=== PATIENT | male | born 1950 | race Caucasian/White ===

== ENCOUNTER 2021-07-27 12:19 | Day surgery (SDC) | payer MEDICARE, OTHER, SELFPAY ==
[2021-07-25 14:30] VITALS: BMI 34.0
--- NOTE | 2021-07-27 12:22 | US_ITS ---
WS: [id number] ULTRASOUND-GUIDED PARACENTESIS CLINICAL INFORMATION: ascites COMPARISON: None. Procedure Informed consent: The risks, benefits, and alternatives of the procedure were discussed with the lisa ent. Verbal and written consent was obtained. Timeout: A timeout was performed to confirm the correct patient, procedure, and site. Preparation: A suitable skin site was identified. The patient was prepped and draped in usual sterile fashion. Lidocaine 1% was used for local anesthesia. Catheter: 4 Afghan One-step Yueh catheter. Side: LEFT Lower quadrant. Fluid Volume: 7100 ml Color: Clear yellow DISPOSITION: Discarded safely. Complications: None. Patient disposition: Discharged from the department in stable condition. US/US paracentesis abd w [id number] IMPRESSION: Uncomplicated ultrasound-guided paracentesis. Removal of 7100 cc
[2021-07-27 12:35] VITALS: BP 123/81; PULSE 78; RESP 18; TEMP 36.6; O2SAT 98
[2021-07-27 13:23] LABS: INR 1.59 (0.8-1.2)
== END 2021-07-27 14:50 | disposition home or self-care (01) ==
PROVIDERS: Radiology Neuroradiology; Visit Provider Internal Medicine Nephrology
PROC: 0W9G3ZZ Drainage of Peritoneal Cavity, Percutaneous Approach (ICD-10-PCS; principal; 2021-07-27 13:15)
DX: R18.8 Other ascites (principal)
CPT/HCPCS: 49083; 85610; P9047

== ENCOUNTER 2021-08-10 10:59 | Day surgery (SDC) | payer MEDICARE, OTHER, SELFPAY ==
[2021-08-09 10:26] VITALS: BMI 33.7
--- NOTE | 2021-08-10 12:09 | US_ITS ---
WS: [id number] ULTRASOUND-GUIDED PARACENTESIS CLINICAL INFORMATION: ascites COMPARISON: None. Procedure Informed consent: The risks, benefits, and alternatives of the procedure were discussed with the lisa ent. Verbal and written consent was obtained. Timeout: A timeout was performed to confirm the correct patient, procedure, and site. Preparation: A suitable skin site was identified. The patient was prepped and draped in usual sterile fashion. Lidocaine 1% was used for local anesthesia. Catheter: 4 Hong Konger One-step Yueh catheter. Side: LEFT Lower quadrant. Fluid Volume: 13,200 ml Color: Clear yellow DISPOSITION: Discarded safely. Complications: None. Patient disposition: Discharged from the department in stable condition. US/US paracentesis abd w [id number] IMPRESSION: Uncomplicated ultrasound-guided paracentesis. Removal of 13,200 cc
[2021-08-10 12:30] VITALS: BP 155/80; PULSE 65; RESP 18; TEMP 36.6; O2SAT 97
[2021-08-10 12:58] LABS: INR 2.05 (0.8-1.2)
[2021-08-10 15:00] VITALS: BP 147/80; PULSE 72; RESP 18; TEMP 36.7; O2SAT 98
== END 2021-08-10 15:10 | disposition home or self-care (01) ==
PROVIDERS: Radiology Neuroradiology; Visit Provider Internal Medicine Nephrology
PROC: (CPT 49082; principal; 2021-08-10 12:00)
DX: R18.8 Other ascites (principal)
CPT/HCPCS: 36415; 49083; 85610; 96365; P9047

== ENCOUNTER 2021-08-31 10:55 | Day surgery (SDC) | payer MEDICARE, OTHER, SELFPAY ==
[2021-08-24 14:07] VITALS: BMI 30.1
--- NOTE | 2021-08-31 11:02 | US_ITS ---
WS: [id number] ULTRASOUND-GUIDED THERAPEUTIC PARACENTESIS Procedure, risks, and complications have been explained to the patient. Consent is obtained. Utilizing aseptic technique and 1% buffered lidocaine, a small dermatome was made through which a 5 F rench Yueh catheter was inserted. Approximately 8300 ml of mild red-tinged peritoneal fluid was obtai ermelinda without difficulty. No complications encountered. US/US paracentesis abd w [id number] IMPRESSION: Uncomplicated paracentesis yielding 8300 ml of peritoneal fluid.
[2021-08-31 11:05] VITALS: BP 129/68; PULSE 66; RESP 18; TEMP 36.9; O2SAT 96
[2021-08-31 11:50] LABS: INR 1.44 (0.8-1.2)
== END 2021-08-31 13:30 | disposition home or self-care (01) ==
LOC: GILAB 10:55
PROVIDERS: PCP Physician Assistant; Visit Provider Internal Medicine Nephrology
PROC: (CPT 49082; principal; 2021-08-31 12:00)
DX: R18.8 Other ascites (principal)
CPT/HCPCS: 49083; 85610; P9047

== ENCOUNTER → 2021-09-19 09:35 | Outpatient (BNVA) | payer MEDICARE, OTHER, SELFPAY | PROVIDERS: PCP Physician Assistant; Visit Provider Podiatrist Foot & Ankle Surgery | DX: E11.8 Type 2 diabetes mellitus with unspecified complications (principal); E11.21 Type 2 diabetes mellitus with diabetic nephropathy; L60.3 Nail dystrophy | CPT/HCPCS: 11721; 99203; 99204 ==

== ENCOUNTER 2021-09-26 11:33 | Day surgery (SDC) | payer MEDICARE, OTHER, SELFPAY ==
[2021-09-22 13:58] VITALS: BMI 30.8
--- NOTE | 2021-09-26 11:46 | US_ITS ---
WS: [id number] ULTRASOUND-GUIDED THERAPEUTIC PARACENTESIS Procedure, risks, and complications have been explained to the patient. Consent is obtained. Utilizing aseptic technique and 1% buffered lidocaine, a small dermatome was made through which a 5 F rench Yueh catheter was inserted. Approximately 8500 ml of clear peritoneal fluid was obtained witho ut difficulty. No complications encountered. US/US paracentesis abd w [id number] IMPRESSION: Uncomplicated paracentesis yielding 8500 ml of peritoneal fluid.
[2021-09-26 11:55] VITALS: BP 134/82; PULSE 62; RESP 16; TEMP 36.4; O2SAT 98
[2021-09-26] MEDS: lidocaine 1% INJ 20 mL XX (12:23)
== END 2021-09-26 14:55 | disposition home or self-care (01) ==
LOC: GILAB 11:36
PROVIDERS: PCP Physician Assistant
PROC: (CPT 49082; principal; 2021-09-26 12:00)
DX: R18.8 Other ascites (principal)
CPT/HCPCS: 49083; P9047

== ENCOUNTER 2021-10-26 12:59 | Day surgery (SDC) | payer MEDICARE, OTHER, SELFPAY ==
[2021-10-26 12:30] VITALS: BMI 31.2
[2021-10-26 13:15] VITALS: BP 131/63; PULSE 50; RESP 18; TEMP 36.5; O2SAT 96
--- NOTE | 2021-10-26 13:22 | US_ITS ---
WS: [id number] ULTRASOUND-GUIDED PARACENTESIS CLINICAL INFORMATION: Ascites COMPARISON: None. Procedure Informed consent: The risks, benefits, and alternatives of the procedure were discussed with the lisa ent. Verbal and written consent was obtained. Timeout: A timeout was performed to confirm the correct patient, procedure, and site. Preparation: A suitable skin site was identified. The patient was prepped and draped in usual sterile fashion. Lidocaine 1% was used for local anesthesia. Catheter: 4 [place] One-step Yueh catheter. Side: LEFT Lower quadrant. Fluid Volume: 7100 ml Color: Clear yellow DISPOSITION: Discarded safely. Complications: None. Patient disposition: Discharged from the department in stable condition. US/US paracentesis abd w [id number] IMPRESSION: Uncomplicated ultrasound-guided paracentesis. Removal of 7100 cc ascites
--- NOTE | 2021-10-26 14:37 | PC.NURSE ---
Pt declined albumin as ordered by Dr. Murdock, stated the nurse who called yesterday for pre-op of the procedure told his he would not have to have any labs or IV. Pt states he does not want an IV and that his lab work at [facility] has shown improvement. Attempted to confer with Dr. Murdock however his office is closed today. Left requesting return call. Discussed the purpose and benefits of albumin with pt, pt voiced understanding and stated he believes he will be fine without receiving albumin today. Pt states he will discuss a new order eliminating albumin tomorrow with provider at [facility] when he receives his dialysis.
[2021-10-26 15:25] VITALS: BP 134/67; PULSE 63; RESP 16; O2SAT 99
== END 2021-10-26 15:29 | disposition home or self-care (01) ==
LOC: GILAB 13:01
PROVIDERS: Radiology Neuroradiology; PCP Physician Assistant; Visit Provider Internal Medicine Nephrology
PROC: (CPT 49082; principal; 2021-10-26 14:15)
DX: R18.8 Other ascites (principal)
CPT/HCPCS: 49083

== ENCOUNTER 2021-10-27 00:44 | Emergency (ER) | payer MEDICARE, OTHER, SELFPAY ==
[2021-10-27 00:54] VITALS: BP 129/76; PULSE 65; RESP 16; TEMP 36.2; O2SAT 97; BMI 30.8
--- NOTE | 2021-10-27 01:01 | W.ED.WOUNDLC ---
HPI - Wound/Laceration General: Chief Complaint: Wound/Laceration Stated Complaint: in here earlier, bleeding from post surgery Time Seen by Provider: 10/27/21 01:01 History of Present Illness: Mr. Waller is a 71-year-old gentleman with history of ascites requiring recurrent paracentesis who presents to the emergency department due to concern over bleeding. He had paracentesis earlier today which was uncomplicated. He noticed blood saturating his dressing prior to going to bed which is not typical of his postoperative course. Denies any other associated symptoms. No other specific changes in health, exacerbating, or alleviating factors identified. Onset (ago): hour(s) Location: abdomen Context: other Associated symptoms: Reports no associated symptoms Review of Systems General: Reports: 10 or more systems reviewed and unremarkable except in HPI and below PFSH ED PFSH: Medical History Ascites History of abdominal paracentesis Liver cirrhosis TIA (transient ischemic attack) Social History Smoking and tobacco status: never smoked Second hand smoke exposure: No Smoking risk assessment/counseling performed?: No Alcohol intake: never Desire information about alcohol rehabilitation?: No Counseling given: No Desire information about substance/drug rehabilitation?: No Counseling given: No Physical Exam Const: COMMON NORMALS: alert GENERAL APPEARANCE: cooperative and well developed HENMT: COMMON NORMALS: normocephalic and atraumatic HEAD & SCALP: normocephalic and atraumatic Eye: COMMON NORMALS: conjunctivae normal CONJUNCTIVA: Yes conjunctivae normal SCLERA: sclerae normal Neck/C-Spine: COMMON NORMALS: supple GENERAL: Yes trachea midline Resp: COMMON NORMALS: normal respiratory effort and clear to auscultation bilaterally EFFORT & INSPECTION: Yes able to speak in complete sentences AUSCULTATION: clear to auscultation bilaterally Cardio: COMMON NORMALS: regular rate and regular rhythm RATE: regular rate RHYTHM: regular rhythm GI: COMMON NORMALS: Soft to palpation PALPATION: Yes Soft to palpation and No Tenderness to palpation present (GI) PERCUSSION: normal to percussion OTHER: LLQ paracentesis site, no active hemorrhage or abnormality at paracentesis site Extremity: GENERAL: Yes normal exam except as noted and No edema Neuro: COMMON NORMALS: moves all extremities SENSORIUM/ORIENTATION: Yes alert and No Orientation impaired Psych: COMMON NORMALS: mental status grossly normal and Normal thought process present THOUGHT PROCESS: Normal thought process present Course Vital Signs: Vital signs: Vital Signs Temperature 97.1 F L 10/27/21 00:54 Pulse Rate 84 10/27/21 01:42 Respiratory Rate 16 10/27/21 00:54 Blood Pressure 129/76 10/27/21 00:54 Pulse Oximetry 96 10/27/21 01:42 MDM - Wound/Laceration Medical Decision Making 71-year-old gentleman presenting due to concern over bleeding after paracentesis. No other complaints. Bleeding resolved spontaneously prior to arrival and new dressing applied. Satisfactory for outpatient management with strict return precautions. Medical Records I reviewed the patient's medical records. Lab Data I reviewed the patient's lab results. Discharge Plan Discharge Patient Disposition: Home Clinical Impression: Postoperative hemorrhage of skin following non-dermatologic procedure Condition: Stable Prescriptions: No Action carvedilol 25 mg tablet 37.5 mg PO BID 0RF atorvastatin 10 mg tablet 10 mg PO DAILY 0RF docusate sodium [Colace] 100 mg capsule 100 mg PO BID 0RF aspirin [Aspirin Childrens] 81 mg tablet,chewable 81 mg PO DAILY 0RF cholecalciferol (vitamin D3) 125 mcg (5,000 unit) capsule 125 mcg PO DAILY 0RF calcium acetate(phosphat bind) 667 mg capsule 667 mg PO DAILY 0RF Dialyvite [phone] gd-rb-ert-mg tablet 1 tab PO DAILY 0RF tramadol 50 mg tablet 50 mg PO QID PRN (Reason: Pain) 0RF furosemide [Lasix] 80 mg tablet 120 mg PO BID 0RF Rx Instructions: To be taken on the days he does not have diaylsis. omega 7-hhz-ntm-fish oil 1,000 mg (120 mg-180 mg) capsule 1 cap PO DAILY 0RF warfarin 1 mg tablet 8 mg PO DAILY 0RF Rx Instructions: 7MG MWF AND 8MG SUN,TUES,THUR,SAT amlodipine 10 mg tablet 10 mg PO DAILY PRN (Reason: Blood Pressure) 0RF Discharge Orders: Discharge ED (Routine); Ordered 10/27/21 Ordered By: Castro Millard Referrals: Laya Devlin PA [Primary Care Provider] - Discharge Diet: Usual diet Discharge Activity: Limit activity as instructed Activity Restrictions/Additional Instructions: Thank you for visiting the emergency department. You were seen and evaluated for bleeding more than typical from your paracentesis site. On exam bleeding appears to have stopped. Please continue all instructions given by them regarding care and restrictions and activity. Please follow-up with your primary care provider. If bleeding returns please apply direct pressure for 15 minutes and if this does not stop bleeding return to the emergency department. Other reasons to return to the emergency department would be uncontrolled abdominal pain, lightheadedness, dizziness, chest pain, shortness of breath, or anything else that you are concerned about and feel needs emergency department evaluation. Coding Level of Care Code ED Welfare Eligibility Interviewer for Jonathan Beaulieu
--- NOTE | 2021-10-27 01:41 | PC.NURSE ---
2x2 x 3 used to dress area and op-site placed over dressing/
[2021-10-27 01:42] VITALS: PULSE 84; O2SAT 96
== END 2021-10-27 01:43 | disposition home or self-care (01) ==
PROVIDERS: Emergency Provider Emergency Medicine; PCP Physician Assistant
DX: L76.22 Postprocedural hemorrhage of skin and subcutaneous tissue following other procedure (principal)
CPT/HCPCS: 99282

== ENCOUNTER 2021-11-21 12:46 | Day surgery (SDC) | payer MEDICARE, OTHER, SELFPAY ==
[2021-11-21 13:18] VITALS: BP 140/76; PULSE 61; RESP 18; TEMP 36.4; O2SAT 98
[2021-11-21 13:19] VITALS: BMI 32.1
--- NOTE | 2021-11-21 13:20 | US_ITS ---
WS: [id number] ULTRASOUND-GUIDED PARACENTESIS CLINICAL INFORMATION: ascites COMPARISON: None. Procedure Informed consent: The risks, benefits, and alternatives of the procedure were discussed with the lisa ent. Verbal and written consent was obtained. Timeout: A timeout was performed to confirm the correct patient, procedure, and site. Preparation: A suitable skin site was identified. The patient was prepped and draped in usual sterile fashion. Lidocaine 1% was used for local anesthesia. Catheter: 4 Chilean One-step Yueh catheter. Side: LEFT Lower quadrant. Fluid Volume: 8250 ml Color: Clear yellow DISPOSITION: Discarded safely. Complications: None. Patient disposition: Discharged from the department in stable condition. US/US paracentesis abd w [id number] IMPRESSION: Uncomplicated ultrasound-guided paracentesis. Removal of 8250 cc
--- NOTE | 2021-11-21 14:14 | PC.NURSE ---
Dr. Murdock's written order did not specify amount of Albumin to be given, multiple attempts to reach his office for clarification were unsuccessful.
== END 2021-11-21 15:05 | disposition home or self-care (01) ==
LOC: GILAB 12:48
PROVIDERS: Radiology Neuroradiology; PCP Physician Assistant; Visit Provider Internal Medicine Nephrology
PROC: (CPT 49082; principal; 2021-11-21 13:30)
DX: R18.8 Other ascites (principal)
CPT/HCPCS: 49083

== ENCOUNTER 2021-12-21 11:12 | Day surgery (SDC) | payer MEDICARE, OTHER, SELFPAY ==
[2021-12-20 12:04] VITALS: BMI 25.1
--- NOTE | 2021-12-21 11:24 | US_ITS ---
WS: [id number] ULTRASOUND-GUIDED PARACENTESIS CLINICAL INFORMATION: ascites COMPARISON: None. Procedure Informed consent: The risks, benefits, and alternatives of the procedure were discussed with the lisa ent. Verbal and written consent was obtained. Timeout: A timeout was performed to confirm the correct patient, procedure, and site. Preparation: A suitable skin site was identified. The patient was prepped and draped in usual sterile fashion. Lidocaine 1% was used for local anesthesia. Catheter: 4 Polish One-step Yueh catheter. Side: LEFT Lower quadrant. Fluid Volume: 4250 ml Color: Yellow-orange DISPOSITION: Discarded safely. Complications: None. Patient disposition: Discharged from the department in stable condition. US/US paracentesis abd w [id number] IMPRESSION: Uncomplicated ultrasound-guided paracentesis. Removal of 4250 cc
[2021-12-21 11:30] VITALS: BP 139/82; PULSE 55; RESP 16; TEMP 36.1; O2SAT 98
[2021-12-21] MEDS: lidocaine 1% INJ 20 mL INJECTION (12:23)
[2021-12-21 13:25] VITALS: BP 142/78; PULSE 59; RESP 16; O2SAT 98
== END 2021-12-21 13:30 | disposition home or self-care (01) ==
LOC: GILAB 11:14
PROVIDERS: Radiology Neuroradiology; PCP Physician Assistant; Visit Provider Internal Medicine Nephrology
PROC: (CPT 49082; principal; 2021-12-21 12:00)
DX: R18.8 Other ascites (principal)
CPT/HCPCS: 49083; P9047

== ENCOUNTER 2022-01-25 11:03 | Day surgery (SDC) | payer MEDICARE, OTHER, SELFPAY ==
[2022-01-24 13:33] VITALS: BMI 31.5
--- NOTE | 2022-01-25 11:12 | US_ITS ---
WS: [id number] ULTRASOUND-GUIDED PARACENTESIS CLINICAL INFORMATION: ascites COMPARISON: None. Procedure Informed consent: The risks, benefits, and alternatives of the procedure were discussed with the lisa ent. Verbal and written consent was obtained. Timeout: A timeout was performed to confirm the correct patient, procedure, and site. Preparation: A suitable skin site was identified. The patient was prepped and draped in usual sterile fashion. Lidocaine 1% was used for local anesthesia. Catheter: 4 Cymraes One-step Yueh catheter. Side: LEFT Lower quadrant. Fluid Volume: 6000 ml Color: Clear yellow DISPOSITION: Discarded safely. Complications: None. Patient disposition: Discharged from the department in stable condition. US/US paracentesis abd w [id number] IMPRESSION: Uncomplicated ultrasound-guided paracentesis. Removal of 6000 cc
[2022-01-25 11:44] VITALS: BP 143/90; PULSE 63; RESP 18; TEMP 36.1; O2SAT 98
== END 2022-03-14 13:50 | disposition home or self-care (01) ==
PROVIDERS: Radiology Neuroradiology; PCP Physician Assistant; Visit Provider Internal Medicine Nephrology
PROC: (CPT 49082; principal; 2022-01-25 12:00)
DX: R18.8 Other ascites (principal)
CPT/HCPCS: 49083; 96365; P9047

== ENCOUNTER → 2022-01-30 10:39 | Outpatient (BNVA) | payer MEDICARE, OTHER, SELFPAY | PROVIDERS: PCP Physician Assistant; Visit Provider Podiatrist Foot & Ankle Surgery | DX: E11.8 Type 2 diabetes mellitus with unspecified complications (principal); E11.21 Type 2 diabetes mellitus with diabetic nephropathy; L60.3 Nail dystrophy | CPT/HCPCS: 11721 ==

== ENCOUNTER 2022-02-22 11:04 | Day surgery (SDC) | payer MEDICARE, OTHER, SELFPAY ==
[2022-02-21 12:42] VITALS: BMI 32.7
--- NOTE | 2022-02-22 11:28 | US_ITS ---
WS: [id number] ULTRASOUND-GUIDED THERAPEUTIC PARACENTESIS Procedure, risks, and complications have been explained to the patient. Consent is obtained. Utilizing aseptic technique and 1% buffered lidocaine, a small dermatome was made through which a 5 F rench Yueh catheter was inserted. Approximately 8000 ml of slight adelfo colored peritoneal fluid was obtained without difficulty. No complications encountered. US/US paracentesis abd w [id number] IMPRESSION: Uncomplicated paracentesis yielding 8000 ml of peritoneal fluid.
[2022-02-22 11:30] VITALS: BP 112/63; PULSE 62; RESP 18; TEMP 36.2; O2SAT 98
== END 2022-02-22 13:25 | disposition home or self-care (01) ==
PROVIDERS: Radiology Diagnostic Radiology; PCP Physician Assistant; Visit Provider Internal Medicine Nephrology
PROC: (CPT 49082; principal; 2022-02-22 12:00)
DX: R18.8 Other ascites (principal)
CPT/HCPCS: 49083; 96365; P9046

== ENCOUNTER 2022-03-22 11:13 | Day surgery (SDC) | payer MEDICARE, OTHER, SELFPAY ==
--- NOTE | 2022-03-22 11:28 | US_ITS ---
WS: [id number] ULTRASOUND-GUIDED PARACENTESIS CLINICAL INFORMATION: ascites COMPARISON: None. Procedure Informed consent: The risks, benefits, and alternatives of the procedure were discussed with the lisa ent. Verbal and written consent was obtained. Timeout: A timeout was performed to confirm the correct patient, procedure, and site. Preparation: A suitable skin site was identified. The patient was prepped and draped in usual sterile fashion. Lidocaine 1% was used for local anesthesia. Catheter: 4 Angolan One-step Yueh catheter. Side: LEFT Lower quadrant. Fluid Volume: 6000 ml Color: Clear yellow DISPOSITION: Discarded safely. Complications: None. Patient disposition: Discharged from the department in stable condition. US/US paracentesis abd w [id number] IMPRESSION: Uncomplicated ultrasound-guided paracentesis. Removal of 6000cc
[2022-03-22 11:29] VITALS: BP 103/53; PULSE 68; RESP 18; TEMP 36.4; O2SAT 92
--- NOTE | 2022-03-22 12:40 | PC.NURSE ---
Patient getting paracentesis. Patient had 6000 mL of intrapertioneal fluid drained when the fluid in the tubing became very bloody. Patient stated he felt like he was about done with being drained. This RN stopped the suction and clamped the tubing. This RN notified US angelique Stovall of the situation and asked for Dr. Baires number. Office number of Dr. Auguste received this RN attempted to call the office twice and was unable to get in touch with Dr. Auguste. This RN then called US angelique Asif again to report that I was unable to get in touch with Dr. Auguste. US angelique Asif called Dr. Baires personal cell and was able to get in touch with him. He reported to go ahead and stop the procedure and pull the paracentesis needle. This RN completed the orders. This RN held pressure to the site and covered the site with dermabond and a pressure dressing (2x2s and tegaderm). Patient educated to monitor for bleeding from the site and bruising around the site. Patient educated to go to the ER if the site begins to bleed or bruise and if he begins to feel ill. Patient understood education.
== END 2022-03-22 13:02 | disposition home or self-care (01) ==
LOC: GILAB 11:16
PROVIDERS: PCP Physician Assistant; Visit Provider Internal Medicine Nephrology
PROC: (CPT 49082; principal; 2022-03-22 12:00)
DX: R18.8 Other ascites (principal)
CPT/HCPCS: 49083; 96365; P9047

== ENCOUNTER 2022-04-03 11:17 | Day surgery (SDC) | payer MEDICARE, OTHER, SELFPAY ==
[2022-03-30 12:18] VITALS: BMI 32.3
[2022-04-02 11:25] VITALS: BP 107/71; PULSE 64; RESP 18; TEMP 36.5; O2SAT 100
--- NOTE | 2022-04-03 11:32 | US_ITS ---
WS: [email or web address] ULTRASOUND-GUIDED PARACENTESIS CLINICAL INFORMATION: ascites COMPARISON: None. Procedure Informed consent: The risks, benefits, and alternatives of the procedure were discussed with the lisa ent. Verbal and written consent was obtained. Timeout: A timeout was performed to confirm the correct patient, procedure, and site. Preparation: A suitable skin site was identified. The patient was prepped and draped in usual sterile fashion. Lidocaine 1% was used for local anesthesia. Catheter: 4 Albanian One-step Yueh catheter. Side: LEFT Lower quadrant. Fluid Volume: 3550 ml Color: Clear leobardo DISPOSITION: Discarded safely. Complications: None. Patient disposition: Discharged from the department in stable condition. US/US paracentesis abd w [id number] IMPRESSION: Uncomplicated ultrasound-guided paracentesis. Removal of 7550 cc
== END 2022-04-03 13:00 | disposition home or self-care (01) ==
LOC: GILAB 11:19
PROVIDERS: PCP Physician Assistant; Visit Provider Internal Medicine Nephrology
PROC: (CPT 49082; principal; 2022-04-03 12:30)
DX: R18.8 Other ascites (principal)
CPT/HCPCS: 49083; 96360; P9046

== ENCOUNTER 2022-04-19 11:38 | Day surgery (SDC) | payer MEDICARE, OTHER, SELFPAY ==
[2022-04-18 08:39] VITALS: BMI 32.3
--- NOTE | 2022-04-19 11:43 | US_ITS ---
WS: [id number] ULTRASOUND-GUIDED THERAPEUTIC PARACENTESIS Procedure, risks, and complications have been explained to the patient. Consent is obtained. Utilizing aseptic technique and 1% buffered lidocaine, a small dermatome was made through which a 5 F rench Yueh catheter was inserted. Approximately 4350 ml of light pink peritoneal fluid was obtained w ithout difficulty. No complications encountered. US/US paracentesis abd w [id number] IMPRESSION: Uncomplicated paracentesis yielding 4350 ml of peritoneal fluid.
[2022-04-19 12:13] VITALS: BP 120/65; PULSE 78; RESP 18; TEMP 36.9; O2SAT 95
[2022-04-19 13:03] LABS: INR 1.86 (0.8-1.2)
== END 2022-04-19 15:09 | disposition home or self-care (01) ==
LOC: GILAB 11:40
PROVIDERS: Radiology Diagnostic Radiology; PCP Physician Assistant; Visit Provider Internal Medicine Nephrology
PROC: (CPT 49082; principal; 2022-04-19 12:00)
DX: R18.8 Other ascites (principal)
CPT/HCPCS: 36415; 49083; 85610; 96365; P9047

== ENCOUNTER 2022-05-03 11:20 | Day surgery (SDC) | payer MEDICARE, OTHER, SELFPAY ==
[2022-05-03 11:31] VITALS: BP 152/71; PULSE 77; RESP 18; TEMP 36.7; O2SAT 95
--- NOTE | 2022-05-03 11:37 | US_ITS ---
WS: [email or web address] ULTRASOUND-GUIDED PARACENTESIS CLINICAL INFORMATION: ascities COMPARISON: None. Procedure Informed consent: The risks, benefits, and alternatives of the procedure were discussed with the lisa ent. Verbal and written consent was obtained. Timeout: A timeout was performed to confirm the correct patient, procedure, and site. Preparation: A suitable skin site was identified. The patient was prepped and draped in usual sterile fashion. Lidocaine 1% was used for local anesthesia. Catheter: 4 Sinhala One-step Yueh catheter. Side: LEFT Lower quadrant. Fluid Volume: 4500 ml Color: Clear yellow DISPOSITION: Discarded safely. Complications: None. Patient disposition: Discharged from the department in stable condition. US/US paracentesis abd w [id number] IMPRESSION: Uncomplicated ultrasound-guided paracentesis. Removal of 4500 cc
[2022-05-03 12:15] LABS: INR 1.48 (0.8-1.2)
== END 2022-05-03 14:35 | disposition home or self-care (01) ==
PROVIDERS: Radiology Neuroradiology; PCP Physician Assistant; Visit Provider Internal Medicine Nephrology
PROC: (CPT 49082; principal; 2022-05-03 12:00)
DX: R18.8 Other ascites (principal)
CPT/HCPCS: 36415; 49083; 85610; 96365; P9046

== ENCOUNTER 2022-05-17 11:54 | Day surgery (SDC) | payer MEDICARE, OTHER, SELFPAY ==
[2022-05-15 10:15] VITALS: BMI 31.5
--- NOTE | 2022-05-17 11:57 | US_ITS ---
WS: [email or web address] ULTRASOUND-GUIDED PARACENTESIS CLINICAL INFORMATION: ascites COMPARISON: None. Procedure Informed consent: The risks, benefits, and alternatives of the procedure were discussed with the lisa ent. Verbal and written consent was obtained. Timeout: A timeout was performed to confirm the correct patient, procedure, and site. Preparation: A suitable skin site was identified. The patient was prepped and draped in usual sterile fashion. Lidocaine 1% was used for local anesthesia. Catheter: 4 Tuval[place] One-step Yueh catheter. Side: LEFT Lower quadrant. Fluid Volume: 4350 ml Color: Clear yellow DISPOSITION: Discarded safely. Complications: None. Patient disposition: Discharged from the department in stable condition. US/US paracentesis abd w [id number] IMPRESSION: Uncomplicated ultrasound-guided paracentesis. Removal of 4350 cc
[2022-05-17 12:07] VITALS: BP 133/77; PULSE 68; RESP 18; TEMP 36.4; O2SAT 95
== END 2022-05-17 13:52 | disposition home or self-care (01) ==
LOC: GILAB 11:55
PROVIDERS: Radiology Neuroradiology; PCP Physician Assistant; Visit Provider Internal Medicine Nephrology
PROC: (CPT 49082; principal; 2022-05-17 12:30)
DX: R18.8 Other ascites (principal)
CPT/HCPCS: 49083; P9046

== ENCOUNTER 2022-05-29 15:44 | Emergency (ER) | payer MEDICARE, OTHER, SELFPAY ==
[2022-05-29] VITALS (36 sets, daily range): BP systolic 138–168; BP diastolic 62–81; PULSE 74–95; RESP 14–29; TEMP 36.7; O2SAT 86–100; BMI 33.0
--- NOTE | 2022-05-29 16:17 | ECG_ITS ---
[facility] Test Date: 2022-05-29 Pat Name: Anthony Waller Department: Room: Gender: Male Resource Director: : 1950 Requested By: Siva Dallas Order Number: [id number] Gil MD: Scooby Estrada M.D. Measurements Intervals [place] Rate: 76 P: 0 [place]: 0 QRS: -76 QRSD: 142 T: 79 QT: 416 QTc: 470 Interpretive Statements ATRIAL FIBRILLATION LEFT AXIS DEVIATION [QRS AXIS < -30] INTRAVENTRICULAR CONDUCTION DELAY [130+ ms QRS DURATION] No previous ECG available for comparison Electronically Signed On 05-29-2022 16:27:32 CERTIFIED ENDOSCOPY TECHNICIAN by Scooby Estrada M.D. [email or web address]
--- NOTE | 2022-05-29 16:50 | XRR_ITS ---
PROCEDURE INFORMATION: Exam: XR Chest Exam date and time: 05/29/2022 5:09 PM Age: 72 years old Clinical indication: Shortness of breath; Additional info: SOB TECHNIQUE: Imaging protocol: Radiologic exam of the chest. Views: 1 view. COMPARISON: No relevant prior studies available. FINDINGS: Lungs: Pulmonary vascularity is mildly prominent. No consolidation. Pleural spaces: Possible trace effusion on the left. No pneumothorax. Heart/Mediastinum: Mild cardiomegaly. Vasculature: Stent material overlying the heart, likely aortic valve level. Bones/joints: No acute findings. XR/XR chest 1V portable [id number] IMPRESSION: Findings suggestive of mild CHF, for follow-up.
--- NOTE | 2022-05-29 16:51 | ED_ITS ---
HPI - SOB/Dyspnea General: Chief Complaint: Shortness of Breath/Dyspnea Stated Complaint: SOB, low O2 Time Seen by Provider: 05/29/22 16:31 Source: patient Mode of arrival: ambulatory Limitations: no limitations History of Present Illness: HPI Narrative: This patient made his way to our emergency department after experiencing what he describes as increasing shortness of breath with activity over the past 5 to 6 days. He states when he is at rest he does well but then when he gets up and attempts to walk across the room he feels more short of air. He states he is noted his pulse oximetry at home is been in the 80s despite use of his usual home oxygen at 2-3 L/min. He has had a recent TAVR at [facility] in the first week of April and has been doing okay since that procedure. He is states he has been taking all his routine medications as prescribed. He is followed by cardiology at [facility] as well. He denies any fevers, cough or other symptoms. He is known to have a history of atrial fibrillation but states he is not aware when he is in rapid ventricular response or A. fib etc. He denies any known history of coronary artery disease and has never had a heart attack. He is also on Saturday dialysis and has been faithful to that regimen. Relieving factors: rest Associated symptoms: Deny abdominal pain, chest pain, extremity pain, fever(s), nausea, palpitations, syncope or vomiting Review of Systems Const: Denies: fever(s) or chills Card: Reports: dyspnea on exertion; Denies: chest pain, palpitations, edema, syncope or pre-syncope Resp: Denies: productive cough, non-productive cough, wheezing or stridor GI: Denies: abdominal pain, nausea, vomiting or diarrhea : Denies: flank pain, difficulty urinating or dysuria Musc: Denies: neck pain, back pain, extremity pain or extremity swelling Skin/Breast: Denies: rash Robin/Lymph: Reports: easy bruising [facility] ED PFSH: Medical History Ascites History of abdominal paracentesis Liver cirrhosis TIA (transient ischemic attack) Social History Smoking and tobacco status: never smoked Second hand smoke exposure: No Smoking risk assessment/counseling performed?: No Alcohol intake: never Desire information about alcohol rehabilitation?: No Counseling given: No Desire information about substance/drug rehabilitation?: No Counseling given: No Physical Exam Narrative: EXAM NARRATIVE: Patient's alert and cooperative and appears to be in no acute distress. He answers questions in a goal-directed fashion. Const: COMMON NORMALS: no acute distress, patient oriented x3 and alert GENERAL APPEARANCE: cooperative and comfortable NUTRITIONAL APPEARANCE: overweight ORIENTATION/CONSCIOUSNESS: Yes awake HENMT: COMMON NORMALS: normocephalic, Normal nasal mucous membranes and turbinates present, moist oral mucous membranes and oropharynx normal HEAD & SCALP: normocephalic NOSE: Normal nasal mucous membranes and turbinates prese nt Eye: COMMON NORMALS: Equal, round and reactive pupils present, EOMs intact bilaterally and conjunctivae normal CONJUNCTIVA: Yes conjunctivae normal PUPIL: Yes Equal, round and reactive pupils present Neck/C-Spine: COMMON NORMALS: full ROM, no lymphadenopathy, no JVD and No carotid bruits Chest: COMMONS NORMALS: normal inspection of the chest and normal palpation of entire chest wall Resp: COMMON NORMALS: normal respiratory effort, No retractions and No use of accessory muscles AUSCULTATION: crackles (Fine crackles at bases.) Cardio: COMMON NORMALS: no JVD, regular rate, regular rhythm, No murmurs present (Cardio) and Peripheral pulses 2+ throughout RATE: regular rate RHYTHM: regular rhythm PERIPHERAL PULSES: Peripheral pulses 2+ throughout GI: COMMON NORMALS: Normal to inspection, nondistended, normoactive bowel sounds present, non-tender, no masses and no bruits Back/Pelvis: COMMON NORMALS: thoracic and lumbar spine normal to inspection, no thoracic nor lumbar tenderness and thoraco-lumbar ROM normal Extremity: COMMON NORMALS: normal to inspection, no joint enlargement, no clubbing, cyanosis or edema and no calf tenderness Neuro: COMMON NORMALS: patient oriented x3, moves all extremities, no focal motor deficits and no sensory deficits noted SENSORIUM/ORIENTATION: Yes alert Psych: COMMON NORMALS: mental status grossly normal Skin: COMMON NORMALS: no rashes or lesions noted and turgor normal GENERAL SKIN EXAM: no rashes or lesions noted and turgor normal Course Reevaluation(s): Reevaluation #1: He remains comfortable. His heart rate has been controlled in the 80s with a normal blood pressure and a acceptable pulse oximetry on his usual O2 flow rate. Time: 23:31 Vital Signs: Vital signs: Vital Signs Temperature 98.1 F 05/29/22 16:09 Pulse Rate 82 05/29/22 23:30 Respiratory Rate 23 H 05/29/22 23:30 Blood Pressure 142/69 05/29/22 23:30 Pulse Oximetry 86 L 05/29/22 23:30 Oxygen Delivery Me thod 05/29/22 16:09 Oxygen Flow Rate 4 05/29/22 16:09 MDM - SOB/Dyspnea Medical Decision Making This patient with a known history of chronic kidney disease on hemodialysis as well as status post aortic valve replacement done by [facility]. He has had some increasing subjective shortness of breath with dyspnea over the past week without any sustained chest pain etc. It was unclear whether he has been having episodes of rapid ventricular response given he has a history of atrial fibrillation which he is less aware of when he is in than he used to be. Broad differential was entertained while in the emergency department and ancillary st udies were obtained to help support or refute that differential. Initial troponin was elevated but a subsequent troponin had fallen and he had no chest pain or ischemic changes on EKG. A CT chest was obtained to evaluate for other anterior thoracic pathology such as pulmonary embolus, valve dysfunction etc. It showed some mild changes suggestive of mild pulmonary congestion as well but no other concerning findings to include infection etc. Review of labs from [facility] revealed his hemoglobin is stable and likely not a contributing factor to his current presentation. Certainly no evidence of infection and I feel that his troponin elevation is related to chronic kidney disease as well as his atrial fibrillation do not represent ACS etc. Discussed findings and recommendations. I think his condition is probably tenuous given his chronic kidney disease and dialysis is what the patient needs at this time and then further evaluation. He is scheduled for hemodialysis first thing in the morning I think it is reasonable for him to do so as there would be no benefit to it putting him in observation as we could not get dialysis any sooner than the morning at this point in time. Certainly not unstable and is able to be controlled with his current medication regimen. He does get urine output with Lasix and he has not taken any of his usual Lasix today. He got good response from 40 mg of IV while in the emergency department. He is currently stable to be discharged for dialysis in the morning and then follow-up with [facility] which he plans on calling them tomorrow to arrange subsequent follow-up as they provide all his cardiology care. Also discussed return precautions. Both spouse and daughter were present during the discussion and they were all appreciative of care. Medical Records I reviewed the patient's medical records. I was able to eat obtained records from [facility] [place] [place] regarding baseline h emogram as well as other findings which were reviewed and correlated with current presentation. Lab Data I reviewed the patient's lab results. 05/29/22 16:33 05/29/22 16:33 Labs/Radiology: Radiology Impressions Chest X-Ray 05/29/22 16:50 IMPRESSION: Findings suggestive of mild CHF, for follow-up. Chest CT 05/29/22 17:59 IMPRESSION: 1. Stent material related to aortic valve replacement. 2. Mild cardiomegaly with small amount of pericardial effusion. Mild posterior pleural effusion on the right with associated atelectasis and trace posterior effusion on the left. Lung windows suggests small amount of hazy alveolar edema. These findings suggest mild CHF, though correlate clinically. 3. Mild emphysematous change. 4. Ascites noted within the visualized upper abdomen. Laboratory Results WBC 4.5 10^3/uL (4.0-10.0) 05/29/22 16:33 RBC 2.50 10^6/uL (4.1-5.3) L 05/29/22 16:33 Hgb 8.5 g/dL (11.7-16.6) L 05/29/22 16:33 Hct 26.8 % (42.0-52.0) L 05/29/22 16:33 MCV 107.2 fl (80-94) H 05/29/22 16:33 MCH 34.0 pg (28.0-34.0) 05/29/22 16:33 MCHC 31.7 g/dL (30.0-36.0) 05/29/22 16:33 RDW 14.2 % (12.1-15.1) 05/29/22 16:33 Plt Count 169 10^3/cmm (130-400) 05/29/22 16:33 MPV 10.3 fL (7.4-10.4) 05/29/22 16:33 Neut % (Auto) 69.0 % 05/29/22 16:33 Lymph % (Auto) 11.5 % 05/29/22 16:33 Otoe % (Auto) 13.5 % 05/29/22 16:33 Eos % (Auto) 4.9 % 05/29/22 16:33 Baso % (Auto) 0.4 % 05/29/22 16:33 Neut # (Auto) 3.13 10^3/uL (1.8-7.7) 05/29/22 16:33 Lymph # (Auto) 0.5 10^3/uL (0.8-4.8) L 05/29/22 16:33 Otoe # (Auto) 0.6 10^3/uL (0.2-0.9) 05/29/22 16:33 Eos # (Auto) 0.2 10^3/uL (0.0-0.8) 05/29/22 16:33 Baso # (Auto) 0.0 10^3/uL (0.0-0.1) 05/29/22 16:33 Nucleated RBC % (auto) 0 % 05/29/22 16:33 Nucleated RBCs # 0.0 /100WBC 05/29/22 16:33 Sodium 138 mmol/L (136-145) 05/29/22 16:33 Potassium 3.9 mmol/L (3.5-5.1) 05/29/22 16:33 Chloride 97 mmol/L (98-107) L 05/29/22 16:33 Carbon Dioxide 30 mmol/L (22-29) H 05/29/22 16:33 Anion Gap 14.9 (5-19) 05/29/22 16:33 BUN 34 mg/dL (8-23) H 05/29/22 16:33 Creatinine 4.9 mg/dL (0.7-1.2) H 05/29/22 16:33 GFR Calculation Not Reportable 05/29/22 16:33 Glucose 102 mg/dL (65-115) 05/29/22 16:33 Calculated Osmolality 294 mOsm/kg (285-295) 05/29/22 16:33 Calcium 9.7 mg/dL (8.5-10.5) 05/29/22 16:33 Total Bilirubin 1.0 mg/dL (0.15-1.2) 05/29/22 16:33 AST 33 U/L (0-40) 05/29/22 16:33 ALT 16 U/L (0-41) 05/29/22 16:33 Alkaline Phosphatase 83 U/L (40-130) 05/29/22 16:33 Troponin T Baseline 143 ng/L (0-15) H* 05/29/22 16:33 Troponin T 120 Minute 132.9 ng/L (0-15) H 05/29/22 18:50 Delta Troponin T -10.1 ABS# (0-10) L 05/29/22 18:50 Total Protein 6.6 g/dL (6.6-8.7) 05/29/22 16:33 Albumin 4.3 g/dL (3.5-5.2) 05/29/22 16:33 Globulin 2.3 g/dL (1.3-4.6) 05/29/22 16:33 Blood Type A Negative 05/29/22 17:59 Rho(D) Type Negative 05/29/22 17:59 Antibody Screen Negative 05/29/22 17:59 EKG Data EKG 1: I personally reviewed and interpreted this EKG as follows: Interpretation: Contemporaneous review of resting EKG reveals atrial fibrillation with a ventricular rate of 76 bpm. He has a interventricular conduction delay with a QRS greater than [address]-T wave segments changes noted at this time. EKG 2: I personally reviewed and interpreted this EKG as follows: Interpretation: Contemporaneous review of second EKG tracing this ER visit reveals a underlying atrial fibrillation with a controlled ventricular response of [address]-T wave changes noted. Discharge Plan Discharge Patient Disposition: Home Clinical Impression: Chronic kidney disease, Congestive heart failure, Atrial fibrillation, chronic Condition: Stable Prescriptions: No Action atorvastatin 10 mg tablet 10 mg PO QPM docusate sodium [Colace] 100 mg capsule 100 mg PO BID PRN (Reason: Constipation) aspirin [Aspirin Childrens] 81 mg tablet,chewable 81 mg PO DAILY cholecalciferol (vitamin D3) 125 mcg (5,000 unit) capsule 125 mcg PO DAILY Dialyvite [phone] cu-ie-vpo-mg tablet 1 tab PO DAILY furosemide [Lasix] 80 mg tablet 80 mg PO BID Rx Instructions: To be taken on the days he does not have diaylsis. omega 1-pgr-vka-fish oil 1,000 mg (120 mg-180 mg) capsule 1 cap PO BID warfarin 4 mg tablet 8 mg PO DAILY simethicone [Gas-X Extra Strength] 125 mg capsule 125 mg PO PRN PRN (Reason: Gastric Reflux) escitalopram oxalate 5 mg tablet 5 mg PO BEDTIME Velphoro 500 mg tablet,chewable 500 mg PO TID carvedilol 3.125 mg tablet 3.125 mg PO BID mupirocin 2 % ointment 1 applic TOPICAL BID fluticasone propionate 50 mcg/actuation Cuney,Suspension 1 spray INTRANASAL DAILY Rx Instructions: administer into each nostril Discharge Orders: Discharge ED (Routine); Ordered 05/29/22 Ordered By: Karlos Early Referrals: Laya Devlin PA [Primary Care Provider] - Discharge Diet: Usual diet Discharge Activity: Limit activity as instructed and Oxygen as instructed Patient Instructions: Opioid Safety, Pain Management Activity Restrictions/Additional Instructions: As we discussed we recommend going to dialysis first thing in the morning and then calling [facility] tomorrow to arrange cardiology follow-up. If you continue to have issues with shortness of breath, develop child chest pain, or any concerns at any time while you are in this area please return to this or the nearest emergency department for reevaluation and further treatment as indicated. Coding Level of Care Code ED Station Repairer for Jonathan Beaulieu Exam Comprehensive
[2022-05-29 16:59] LABS: Basophils % 0.4 %; Eosinophils # 0.2 10^3/uL (0.0-0.8); Eosinophils % 4.9 %; Hematocrit 26.8 % (42.0-52.0); Hemoglobin 8.5 g/dL (11.7-16.6); Lymphocytes # 0.5 10^3/uL (0.8-4.8); Lymphocytes % 11.5 %; Mean Corpuscular HGB Conc 31.7 g/dL (30.0-36.0); Mean Corpuscular Volume 107.2 fl (80-94); Mean Platelet Volume 10.3 fL (7.4-10.4); Monocytes # 0.6 10^3/uL (0.2-0.9); Monocytes % 13.5 %; Neutrophils # 3.13 10^3/uL (1.8-7.7); Nucleated Red Blood Cells % 0 %; Platelet Count 169 10^3/cmm (130-400); Red Cell Distribution Width 14.2 % (12.1-15.1); White Blood Count 4.5 10^3/uL (4.0-10.0)
[2022-05-29 17:21] LABS: Alanine Aminotransferase 16 U/L (0-41); Albumin Level 4.3 g/dL (3.5-5.2); Alkaline Phosphatase 83 U/L (40-130); Anion Gap 14.9 (5-19); Aspartate Amino Transferase 33 U/L (0-40); Blood Urea Nitrogen 34 mg/dL (8-23); Calcium 9.7 mg/dL (8.5-10.5); Carbon Dioxide 30 mmol/L (22-29); Chloride 97 mmol/L (98-107); Globulin 2.3 g/dL (1.3-4.6); Glucose 102 mg/dL (65-115); Osmolality Calculated 294 mOsm/kg (285-295); Potassium 3.9 mmol/L (3.5-5.1); Sodium 138 mmol/L (136-145); Total Protein 6.6 g/dL (6.6-8.7)
[2022-05-29 17:22] LABS: Troponin(5th) Baseline 143 ng/L (0-15)
--- NOTE | 2022-05-29 17:59 | CTR_ITS ---
PROCEDURE INFORMATION: Exam: CT Chest With Contrast; Diagnostic Exam date and time: 05/29/2022 6:38 PM Age: 72 years old Clinical indication: Shortness of breath; Sternal or substernal pain; Additional info: S/P tavr with pain and SOB TECHNIQUE: Imaging protocol: Diagnostic computed tomography of the chest with contrast. Radiation optimization: All CT scans at this facility use at least one of these dose optimization techniques: automated exposure control; mA and/or kV adjustment per patient size (includes targeted exams where dose is matched to clinical indication); or iterative reconstruction. Contrast material: OMNI 350; Contrast volume: 100 ml; Contrast route: INTRAVENOUS (IV); COMPARISON: CR XR chest 1V portable [id number] 05/29/2022 5:09 PM RADIATION DOSE METRICS: Total DLP (mGy-cm): 580.97 FINDINGS: Lungs: Small posterior pleural effusion on the right with atelectasis and trace posterior pleural effusion on the left. Lung windows suggest small amount of hazy alveolar edema and without focal infiltrate or consolidation. Lung windows also demonstrate mild emphysematous change. Small calcified granuloma lower right lung posteriorly. Pleural spaces: See Lungs finding. Heart: Stent material related to aortic valve replacement within the heart with mild cardiomegaly. Small pericardial effusion. Lymph nodes: Unremarkable. No enlarged lymph nodes. Vasculature: Mild arteriosclerosis thoracic aorta. Thoracic aorta and pulmonary arteries appear unremarkable otherwise. Intraperitoneal space: Diffuse ascites noted within the visualized upper abdomen. Bones/joints: Mild spondylotic change thoracic spine. Soft tissues: Unremarkable. CT/CT chest w con* [id number] IMPRESSION: 1. Stent material related to aortic valve replacement. 2. Mild cardiomegaly with small amount of pericardial effusion. Mild posterior pleural effusion on the right with associated atelectasis and trace posterior effusion on the left. Lung windows suggests small amount of hazy alveolar edema. These findings suggest mild CHF, though correlate clinically. 3. Mild emphysematous change. 4. Ascites noted within the visualized upper abdomen.
[2022-05-29] MEDS: iohexol 350 mg/mL 500 mL Btl (per mL) IV (18:40)
--- NOTE | 2022-05-29 18:50 | ECG_ITS ---
[facility] Test Date: 2022-05-29 Pat Name: Anthony Waller Department: Room: Gender: Male Tank Tender: : 1950 Requested By: Karlos Early Order Number: [id number] Cordero MD: Scooby Estrada M.D. Measurements Intervals [place] Rate: 83 P: 0 NM: 0 QRS: 269 QRSD: 146 T: 86 QT: 406 QTc: 480 Interpretive Statements ATRIAL FIBRILLATION RIGHT AXIS DEVIATION [QRS AXIS > 100] INTRAVENTRICULAR CONDUCTION DELAY [130+ ms QRS DURATION] Compared to ECG 05/29/2022 16:25:46 Right-axis deviation now present Left-axis deviation no longer present Electronically Signed On 05-29-2022 21:36:13 PROGRAM MANAGER RN by Scooby Estrada M.D. [id number]
[2022-05-29 19:35] LABS: Troponin 5 2HR 132.9 ng/L (0-15); Troponin 5 2HR Delta -10.1 ABS# (0-10)
--- NOTE | 2022-05-29 22:50 | ECG_ITS ---
[facility] Test Date: 2022-05-29 Pat Name: Anthony Waller Department: Room: Gender: Male [employer] Developer: : 1950 Requested By: Karlos Early Order Number: [id number] Cordero MD: Lien Ca M.D. Measurements Intervals [place] Rate: 80 P: 0 ME: 0 QRS: 258 QRSD: 143 T: 86 QT: 410 QTc: 476 Interpretive Statements ATRIAL FIBRILLATION RIGHT AXIS DEVIATION [QRS AXIS > 100] INTRAVENTRICULAR CONDUCTION DELAY [130+ ms QRS DURATION] Compared to ECG 05/29/2022 19:34:19 No significant changes Electronically Signed On 05-30-2022 7:40:23 DEVOPS CONSULTANT by Lien Ca M.D. [id number]
[2022-05-29 23:43] LABS: Troponin 5 6HR Delta -14.8 ng/L (0-12)
[2022-05-29 23:55] LABS: Troponin 5 6HR 128.2 ng/L (0-15)
[2022-05-30 00:01] VITALS: BP 129/54; PULSE 92; RESP 29; O2SAT 98
== END 2022-05-30 00:01 | disposition home or self-care (01) ==
PROVIDERS: Emergency Provider Emergency Medicine; PCP Physician Assistant
DX: I48.20 Chronic atrial fibrillation, unspecified (principal); N18.9 Chronic kidney disease, unspecified; I50.9 Heart failure, unspecified; Z86.73 Personal history of transient ischemic attack (TIA), and cerebral infarction without residual deficits; Z99.81 Dependence on supplemental oxygen; Z79.82 Long term (current) use of aspirin; Z79.01 Long term (current) use of anticoagulants; E11.22 Type 2 diabetes mellitus with diabetic chronic kidney disease; E11.21 Type 2 diabetes mellitus with diabetic nephropathy; L60.3 Nail dystrophy
CPT/HCPCS: 11721; 71045; 71260; 80053; 84484; 85025; 86850; 86900; 93005; 99285; Q9967

== ENCOUNTER 2022-05-31 11:40 | Day surgery (SDC) | payer MEDICARE, OTHER, SELFPAY ==
[2022-05-30 13:31] VITALS: BMI 32.3
[2022-05-31 11:54] VITALS: BP 145/77; PULSE 81; RESP 17; TEMP 37.6; O2SAT 95
--- NOTE | 2022-05-31 12:11 | US_ITS ---
WS: [email or web address] ULTRASOUND-GUIDED PARACENTESIS CLINICAL INFORMATION: ascites COMPARISON: None. Procedure Informed consent: The risks, benefits, and alternatives of the procedure were discussed with the lisa ent. Verbal and written consent was obtained. Timeout: A timeout was performed to confirm the correct patient, procedure, and site. Preparation: A suitable skin site was identified. The patient was prepped and draped in usual sterile fashion. Lidocaine 1% was used for local anesthesia. Catheter: 4 Beninese One-step Yueh catheter. Side: LEFT Lower quadrant. Fluid Volume: 4500 ml Color: Clear yellow DISPOSITION: Discarded safely. Complications: None. Patient disposition: Discharged from the department in stable condition. US/US paracentesis abd w [id number] IMPRESSION: Uncomplicated ultrasound-guided paracentesis. Removal of 4500 cc ascites
[2022-05-31 13:14] VITALS: BP 115/70; PULSE 69; RESP 16; TEMP 36.7; O2SAT 95
== END 2022-05-31 13:18 | disposition home or self-care (01) ==
LOC: GILAB 11:41
PROVIDERS: Radiology Neuroradiology; PCP Physician Assistant; Visit Provider Internal Medicine Nephrology
PROC: (CPT 49082; principal; 2022-05-31 12:30)
DX: R18.8 Other ascites (principal)
CPT/HCPCS: 49083; 96365; P9046

== ENCOUNTER 2022-06-14 11:11 | Day surgery (SDC) | payer MEDICARE, OTHER, SELFPAY ==
[2022-06-12 11:11] VITALS: BMI 28.7
[2022-06-14 11:33] VITALS: BP 140/70; PULSE 65; RESP 20; TEMP 37.1; O2SAT 100
--- NOTE | 2022-06-14 11:45 | US_ITS ---
WS: [email or web address] ULTRASOUND ABDOMEN LIMITED INDICATION: Ascites TECHNIQUE: Four-quadrant ultrasound for paracentesis FINDINGS: Small amount of ascites visualized. Insufficient fluid for paracentesis. US/US abdomen lmt fluid [id number] IMPRESSION: Insufficient fluid for paracentesis
== END 2022-06-14 12:22 | disposition home or self-care (01) ==
LOC: GILAB 11:13
PROVIDERS: Radiology Diagnostic Radiology; PCP Physician Assistant; Visit Provider Internal Medicine Nephrology
DX: R18.8 Other ascites (principal)
CPT/HCPCS: 76705

== ENCOUNTER 2022-06-28 11:04 | Day surgery (SDC) | payer MEDICARE, OTHER, SELFPAY ==
[2022-06-28 11:12] VITALS: BP 118/61; PULSE 63; RESP 18; TEMP 37.1; O2SAT 99
--- NOTE | 2022-06-28 11:27 | US_ITS ---
WS: [email or web address] ULTRASOUND-GUIDED PARACENTESIS CLINICAL INFORMATION: Ascites COMPARISON: None. Procedure Informed consent: The risks, benefits, and alternatives of the procedure were discussed with the lisa ent. Verbal and written consent was obtained. Timeout: A timeout was performed to confirm the correct patient, procedure, and site. Preparation: A suitable skin site was identified. The patient was prepped and draped in usual sterile fashion. Lidocaine 1% was used for local anesthesia. Catheter: 4 Bahraini One-step Yueh catheter. Side: LEFT Lower quadrant. Fluid Volume: 2400 ml Color: Clear yellow DISPOSITION: Discarded safely. Complications: None. Patient disposition: Discharged from the department in stable condition. US/US paracentesis abd w [id number] IMPRESSION: Uncomplicated ultrasound-guided paracentesis. Removal of 2400 cc
== END 2022-06-28 13:45 | disposition home or self-care (01) ==
LOC: GILAB 11:06
PROVIDERS: Radiology Neuroradiology; PCP Physician Assistant; Visit Provider Internal Medicine Nephrology
PROC: (CPT 49082; principal; 2022-06-28 12:00)
DX: R18.8 Other ascites (principal)
CPT/HCPCS: 49083; 96365; P9047

== ENCOUNTER 2022-07-12 09:41 | Day surgery (SDC) | payer MEDICARE, OTHER, SELFPAY ==
[2022-07-12 09:55] VITALS: BP 112/60; PULSE 64; RESP 16; TEMP 36.1; O2SAT 100
--- NOTE | 2022-07-12 10:07 | US_ITS ---
WS: [email or web address] INDICATION: Paracentesis TECHNIQUE: 4 quadrant abdominal ultrasound FINDINGS: Four-quadrant abdominal ultrasound. Mild abdominal ascites. Insufficient fluid for paracent esis. US/US abdomen lmt fluid [id number] IMPRESSION: Insufficient fluid for paracentesis.
== END 2022-07-12 10:26 | disposition home or self-care (01) ==
LOC: GILAB 09:46
PROVIDERS: Radiology Neuroradiology; PCP Physician Assistant; Visit Provider Internal Medicine Nephrology
DX: R18.8 Other ascites (principal)
CPT/HCPCS: 76705

== ENCOUNTER 2022-07-26 09:35 | Day surgery (SDC) | payer MEDICARE, OTHER, SELFPAY ==
[2022-07-26 09:50] VITALS: BP 119/60; PULSE 73; RESP 18; TEMP 37.1; O2SAT 94
--- NOTE | 2022-07-26 09:50 | US_ITS ---
WS: [email or web address] ULTRASOUND-GUIDED PARACENTESIS CLINICAL INFORMATION: ascites COMPARISON: None. Procedure Informed consent: The risks, benefits, and alternatives of the procedure were discussed with the lisa ent. Verbal and written consent was obtained. Timeout: A timeout was performed to confirm the correct patient, procedure, and site. Preparation: A suitable skin site was identified. The patient was prepped and draped in usual sterile fashion. Lidocaine 1% was used for local anesthesia. Catheter: 4 Danish One-step Yueh catheter. Side: LEFT Lower quadrant. Fluid Volume: 1750 ml Color: Clear yellow DISPOSITION: Discarded safely. Complications: None. Patient disposition: Discharged from the department in stable condition. US/US paracentesis abd w [id number] IMPRESSION: Uncomplicated ultrasound-guided paracentesis. Removal of 1750 cc
[2022-07-26] MEDS: albumin 75 G/300 ML BAG 999 G IV (10:43)
== END 2022-07-26 11:23 | disposition home or self-care (01) ==
LOC: GILAB 09:42
PROVIDERS: PCP Physician Assistant; Visit Provider Internal Medicine Nephrology
PROC: (CPT 49082; principal; 2022-07-26 10:30)
DX: R18.8 Other ascites (principal)
CPT/HCPCS: 49083; 96365; P9046

== ENCOUNTER → 2022-08-16 13:45 | Outpatient (BNVA) | payer MEDICARE, OTHER, SELFPAY | PROVIDERS: PCP Physician Assistant; Visit Provider Podiatrist Foot & Ankle Surgery | DX: E11.21 Type 2 diabetes mellitus with diabetic nephropathy (principal); L60.3 Nail dystrophy; N18.9 Chronic kidney disease, unspecified; E11.22 Type 2 diabetes mellitus with diabetic chronic kidney disease | CPT/HCPCS: 11721 ==

== ENCOUNTER 2022-08-23 11:13 | Day surgery (SDC) | payer MEDICARE, OTHER, SELFPAY ==
--- NOTE | 2022-08-23 11:20 | US_ITS ---
WS: [email or web address] ULTRASOUND-GUIDED 5200 PARACENTESIS Procedure, risks, and complications have been explained to the patient. Consent is obtained. Utilizing aseptic technique and 1% buffered lidocaine, a small dermatome was made through which a 5 F rench Yueh catheter was inserted. Approximately 5200 ml of light pink, blood tinged peritoneal fluid was obtained without difficulty. No complications encountered. US/US paracentesis abd w [id number] IMPRESSION: Uncomplicated paracentesis yielding 5200 ml of peritoneal fluid.
[2022-08-23 11:27] VITALS: BP 121/73; PULSE 75; RESP 18; TEMP 36.2; O2SAT 97
[2022-08-23] MEDS: albumin 75 G/300 ML BAG 999 G IV (11:58)
== END 2022-08-23 12:52 | disposition home or self-care (01) ==
PROVIDERS: Radiology Diagnostic Radiology; PCP Physician Assistant; Visit Provider Internal Medicine Nephrology
PROC: (CPT 49082; principal; 2022-08-23 12:00)
DX: R18.8 Other ascites (principal)
CPT/HCPCS: 49083; 96365; P9046

== ENCOUNTER → 2022-09-20 11:01 | Day surgery (SDC) | payer MEDICARE, OTHER, SELFPAY ==
[2022-09-18 13:31] VITALS: BMI 32.0
[2022-09-20 11:16] VITALS: BP 144/76; PULSE 63; RESP 17; TEMP 36.5; O2SAT 97
--- NOTE | 2022-09-20 11:22 | US_ITS ---
WS: [email or web address] ULTRASOUND-GUIDED THERAPEUTIC PARACENTESIS Procedure, risks, and complications have been explained to the patient. Consent is obtained. Utilizing aseptic technique and 1% buffered lidocaine, a small dermatome was made through which a 5 F rench Yueh catheter was inserted. Approximately 6000 ml of slightly blood-tinged peritoneal fluid was obtained without difficulty. No complications encountered. US/US paracentesis abd w [id number] IMPRESSION: Uncomplicated paracentesis yielding 6000 ml of peritoneal fluid.
[2022-09-20] MEDS: albumin 75 G/300 ML BAG 300 G IV (12:28)
[2022-09-20 13:02] VITALS: BP 121/63; PULSE 56; RESP 16; O2SAT 97
== END ==
PROVIDERS: Radiology Diagnostic Radiology; PCP Physician Assistant; Visit Provider Internal Medicine Nephrology
PROC: 0W9G3ZZ Drainage of Peritoneal Cavity, Percutaneous Approach (ICD-10-PCS; principal; 2022-09-20 12:00)
DX: R18.8 Other ascites (principal)
CPT/HCPCS: 49083; P9046

== ENCOUNTER 2022-10-11 11:10 | Day surgery (SDC) | payer MEDICARE, OTHER, SELFPAY ==
[2022-10-10 08:08] VITALS: BMI 31.7
--- NOTE | 2022-10-11 11:14 | US_ITS ---
WS: [email or web address] ULTRASOUND-GUIDED PARACENTESIS CLINICAL INFORMATION: ascites COMPARISON: None. Procedure Informed consent: The risks, benefits, and alternatives of the procedure were discussed with the ilsa ent. Verbal and written consent was obtained. Timeout: A timeout was performed to confirm the correct patient, procedure, and site. Preparation: A suitable skin site was identified. The patient was prepped and draped in usual sterile fashion. Lidocaine 1% was used for local anesthesia. Catheter: 4 Senegalese One-step Yueh catheter. Side: LEFT Lower quadrant. Fluid Volume: 5400 ml Color: Clear yellow DISPOSITION: Discarded safely. Complications: None. Patient disposition: Discharged from the department in stable condition. US/US paracentesis abd w [id number] IMPRESSION: Uncomplicated ultrasound-guided paracentesis. Removal of 5400 cc
[2022-10-11 11:36] VITALS: BP 126/77; PULSE 72; RESP 16; TEMP 36.1; O2SAT 95
[2022-10-11] MEDS: albumin 75 G/300 ML BAG 999 G IV (11:47)
[2022-10-11] MEDS: lidocaine 1% INJ 10 mL (per mL) XX (11:49)
== END 2022-10-11 12:40 | disposition home or self-care (01) ==
LOC: GILAB 11:10
PROVIDERS: Radiology Neuroradiology; PCP Physician Assistant; Visit Provider Internal Medicine Nephrology
PROC: (CPT 49082; principal; 2022-10-11 12:00)
DX: R18.8 Other ascites (principal)
CPT/HCPCS: 49083; 96365; P9046

== ENCOUNTER 2022-11-08 10:59 | Day surgery (SDC) | payer MEDICARE, OTHER, SELFPAY ==
[2022-11-07 09:18] VITALS: BMI 47.2
--- NOTE | 2022-11-08 11:10 | US_ITS ---
WS: [email or web address] ULTRASOUND-GUIDED PARACENTESIS CLINICAL INFORMATION: ascites COMPARISON: None. Procedure Informed consent: The risks, benefits, and alternatives of the procedure were discussed with the lisa ent. Verbal and written consent was obtained. Timeout: A timeout was performed to confirm the correct patient, procedure, and site. Preparation: A suitable skin site was identified. The patient was prepped and draped in usual sterile fashion. Lidocaine 1% was used for local anesthesia. Catheter: 4 Senegalese One-step Yueh catheter. Side: LEFT Lower quadrant. Fluid Volume: 4500 ml Color: Clear yellow DISPOSITION: 50 cc sent for requested diagnostic tests. Complications: None. Patient disposition: Discharged from the department in stable condition. US/US paracentesis abd w [id number] IMPRESSION: Uncomplicated ultrasound-guided paracentesis. Removal of 4500 cc
[2022-11-08 11:15] VITALS: BP 148/69; PULSE 72; RESP 18; TEMP 36.2; O2SAT 97
[2022-11-08] MEDS: albumin 75 G/300 ML BAG 100 G IV (12:17)
[2022-11-08 14:46] LABS: Body Fluid Polynuclear #Cells 0.006; Body Fluid WBC 238 /uL; Monocytes # Body Fluid 0.232
[2022-11-08 14:49] LABS: Apprearance, Body Fluid CLOUDY; Color, Body Fluid RED; Fluid Laterality ABDOMINAL; PATH Referral YES
== END 2022-11-08 13:10 | disposition home or self-care (01) ==
LOC: GILAB 11:00
PROVIDERS: PCP Physician Assistant; Visit Provider Internal Medicine Nephrology
PROC: (CPT 49082; principal; 2022-11-08 12:00)
DX: K74.60 Unspecified cirrhosis of liver (principal); R18.8 Other ascites
CPT/HCPCS: 49083; 80503; 89050; P9046

== ENCOUNTER → 2022-11-15 13:26 | Outpatient (BNVA) | payer MEDICARE, OTHER, SELFPAY | PROVIDERS: PCP Physician Assistant; Visit Provider Podiatrist Foot & Ankle Surgery | DX: E11.8 Type 2 diabetes mellitus with unspecified complications (principal); L60.3 Nail dystrophy; E11.22 Type 2 diabetes mellitus with diabetic chronic kidney disease; N18.9 Chronic kidney disease, unspecified | CPT/HCPCS: 11721 ==

== ENCOUNTER 2022-12-06 11:04 | Day surgery (SDC) | payer MEDICARE, OTHER, SELFPAY ==
--- NOTE | 2022-12-06 11:17 | US_ITS ---
WS: [email or web address] ULTRASOUND-GUIDED THERAPEUTIC AND DIAGNOSTIC PARACENTESIS Procedure, risks, and complications have been explained to the patient. Consent is obtained. Utilizing aseptic technique and 1% buffered lidocaine, a small dermatome was made through which a 5 F rench Yueh catheter was inserted. Approximately 4600 ml of light red peritoneal fluid was obtained wi thout difficulty. No complications encountered. Peritoneal fluid specimen for analysis as requested. US/US paracentesis abd w [id number] IMPRESSION: Uncomplicated paracentesis yielding 4600 ml of peritoneal fluid.
[2022-12-06 11:27] VITALS: BP 119/78; PULSE 62; RESP 18; TEMP 36.7; O2SAT 96
[2022-12-06] MEDS: albumin 75 G/300 ML BAG 300 G IV (12:33)
[2022-12-06 12:46] LABS: Apprearance, Body Fluid CLOUDY; Color, Body Fluid AMBER; Cyto Order Verification No Order; PATH Referral YES
[2022-12-06 12:51] LABS: Body Fluid Polynuclear #Cells 0.009; Body Fluid WBC 286 /uL; Monocytes # Body Fluid 0.277
== END 2022-12-06 13:08 | disposition home or self-care (01) ==
LOC: GILAB 11:06
PROVIDERS: Nurse Practitioner Adult Health; Radiology Diagnostic Radiology; PCP Physician Assistant; Visit Provider Internal Medicine Nephrology
PROC: (CPT 49082; principal; 2022-12-06 12:00)
DX: K74.60 Unspecified cirrhosis of liver (principal); R18.8 Other ascites
CPT/HCPCS: 49083; 80503; 87070; 87075; 87205; 89050; 96365; P9046

== ENCOUNTER 2023-01-03 11:11 | Day surgery (SDC) | payer MEDICARE, OTHER, SELFPAY ==
[2023-01-03 11:22] VITALS: BP 117/71; PULSE 64; RESP 17; TEMP 36.4; O2SAT 95
--- NOTE | 2023-01-03 11:24 | US_ITS ---
WS: [email or web address] ULTRASOUND-GUIDED THERAPEUTIC PARACENTESIS Procedure, risks, and complications have been explained to the patient. Consent is obtained. Utilizing aseptic technique and 1% buffered lidocaine, a small dermatome was made through which a 5 F rench Yueh catheter was inserted. Approximately 4800 ml of clear peritoneal fluid was obtained witho ut difficulty. No complications encountered. IMPRESSION: Uncomplicated paracentesis yielding 4800 ml of peritoneal fluid.
[2023-01-03] MEDS: albumin 75 G/300 ML BAG 300 G IV (13:13)
[2023-01-03 13:47] VITALS: BP 136/73; PULSE 57; RESP 16; O2SAT 97
== END 2023-01-03 13:58 | disposition home or self-care (01) ==
PROVIDERS: Radiology Diagnostic Radiology; PCP Physician Assistant; Visit Provider Nurse Practitioner Adult Health
PROC: (CPT 49082; principal; 2023-01-03 12:00)
DX: K74.60 Unspecified cirrhosis of liver (principal)
CPT/HCPCS: 49083; P9046

== ENCOUNTER → 2023-01-31 11:32 | Day surgery (SDC) | payer MEDICARE, OTHER, SELFPAY ==
[2023-01-29 13:35] VITALS: BMI 31.5
--- NOTE | 2023-01-31 11:45 | US_ITS ---
WS: [email or web address] ULTRASOUND-GUIDED THERAPEUTIC AND DIAGNOSTIC PARACENTESIS Procedure, risks, and complications have been explained to the patient. Consent is obtained. Utilizing aseptic technique and 1% buffered lidocaine, a small dermatome was made through which a 5 F rench Yueh catheter was inserted. Approximately 7500 ml of clear peritoneal fluid was obtained witho ut difficulty. No complications encountered. Fluid specimen collected for analysis as requested. IMPRESSION: Uncomplicated paracentesis yielding 7500 ml of peritoneal fluid.
[2023-01-31 11:55] VITALS: BP 119/64; PULSE 62; RESP 18; TEMP 37.1; O2SAT 98; BMI 31.5
[2023-01-31 12:50] LABS: Mononuclear %, Pleural Fluid 96 %; Polynuclear Cells, Pleural % 4 %
[2023-01-31] MEDS: albumin 75 G/300 ML BAG 60 G IV (13:00)
[2023-01-31 13:12] LABS: Cyto Order Verification No Order
[2023-01-31 13:13] LABS: Appearance, Pleural Fluid CLOUDY (CLEAR); Cells Counted 463; Color, Pleural Fluid Slight Pink (Pale Yellow); PATH Referal YES
== END ==
LOC: GILAB 11:33
PROVIDERS: Internal Medicine Nephrology; PCP Physician Assistant; Visit Provider Nurse Practitioner Adult Health
PROC: (CPT 49082; principal; 2023-01-31 12:30)
DX: R18.8 Other ascites (principal)
CPT/HCPCS: 49083; 80503; 87070; 87075; 87205; 89050; 96365; P9046

== ENCOUNTER → 2023-02-14 09:42 | Outpatient (BNVA) | payer MEDICARE, OTHER, SELFPAY | PROVIDERS: PCP Physician Assistant; Visit Provider Podiatrist Foot & Ankle Surgery | DX: N18.9 Chronic kidney disease, unspecified; L60.3 Nail dystrophy; I73.9 Peripheral vascular disease, unspecified; Z79.01 Long term (current) use of anticoagulants; E11.69 Type 2 diabetes mellitus with other specified complication; E11.22 Type 2 diabetes mellitus with diabetic chronic kidney disease | CPT/HCPCS: 11721 ==

== ENCOUNTER 2023-02-28 10:51 | Day surgery (SDC) | payer MEDICARE, OTHER, SELFPAY ==
[2023-02-28 11:15] VITALS: BP 133/77; PULSE 65; RESP 18; TEMP 36.8; O2SAT 97
--- NOTE | 2023-02-28 11:20 | US_ITS ---
WS: [email or web address] ULTRASOUND-GUIDED THERAPEUTIC AND DIAGNOSTIC PARACENTESIS Procedure, risks, and complications have been explained to the patient. Consent is obtained. Utilizing aseptic technique and 1% buffered lidocaine, a small dermatome was made through which a 5 F rench Yueh catheter was inserted. Approximately 5500 ml of light red peritoneal fluid was obtained wi thout difficulty. No complications encountered. IMPRESSION: Uncomplicated paracentesis yielding 5500 ml of peritoneal fluid. Peritoneal fluid is collected for analysis as requested.
[2023-02-28 11:30] VITALS: BMI 31.5
[2023-02-28 13:29] LABS: Mononuclear #, Pertinoneal Fl 0.321 10^3/uL; Polynuclear # Cells, Perit 0.008 10^3/uL
[2023-02-28 13:34] LABS: Appearance, Peritoneal Fluid Turbid (Clear); Color, Peritoneal Fluid Amber (Pale Yellow); RBC Pertioneal Fluid 13 10^3/uL; WBC Peritoneal Fluid 329 /uL
[2023-02-28 13:35] LABS: Cyto Order Verification No Order
[2023-02-28] MEDS: albumin 37.5 GM/150 ML VIAL IV (13:45)
== END 2023-02-28 14:22 | disposition home or self-care (01) ==
LOC: GILAB 10:51
PROVIDERS: Radiology Diagnostic Radiology; PCP Physician Assistant; Visit Provider Nurse Practitioner Adult Health
PROC: (CPT 49082; principal; 2023-02-28 12:00)
DX: R18.8 Other ascites (principal)
CPT/HCPCS: 49083; 80503; 87070; 87075; 87205; 89050; 96365; P9047

== ENCOUNTER 2023-03-28 10:56 | Day surgery (SDC) | payer MEDICARE, OTHER, SELFPAY ==
--- NOTE | 2023-03-28 11:03 | US_ITS ---
WS: [email or web address] ULTRASOUND-GUIDED THERAPEUTIC AND DIAGNOSTIC PARACENTESIS Procedure, risks, and complications have been explained to the patient. Consent is obtained. Utilizing aseptic technique and 1% buffered lidocaine, a small dermatome was made through which a 5 F rench Yueh catheter was inserted. Approximately 6700 ml of light red peritoneal fluid was obtained wi thout difficulty. No complications encountered. Specimen collected for analysis as requested. IMPRESSION: Uncomplicated paracentesis yielding 6700 ml of peritoneal fluid.
[2023-03-28 11:11] VITALS: BP 106/64; PULSE 74; RESP 16; TEMP 36.1; O2SAT 96
[2023-03-28 11:18] VITALS: BMI 33.1
[2023-03-28 12:56] LABS: Appearance, Pleural Fluid CLOUDY (CLEAR); Color, Pleural Fluid Red (Pale Yellow)
[2023-03-28 12:58] LABS: Mononuclear %, Pleural Fluid 92 %; Polynuclear Cells, Pleural % 8 %
[2023-03-28] MEDS: albumin 37.5 GM/150 ML VIAL IV (13:01)
[2023-03-28 13:22] VITALS: BP 118/70; PULSE 68; RESP 20; O2SAT 97
[2023-03-28 13:32] LABS: PATH Referal YES
== END 2023-03-28 13:25 | disposition home or self-care (01) ==
LOC: GILAB 11:03
PROVIDERS: Radiology Diagnostic Radiology; PCP Physician Assistant; Visit Provider Nurse Practitioner Adult Health
PROC: 0W9G3ZZ Drainage of Peritoneal Cavity, Percutaneous Approach (ICD-10-PCS; principal; 2023-03-28 12:00)
DX: R18.8 Other ascites (principal)
CPT/HCPCS: 49083; 80503; 87070; 87075; 87205; 89050; P9047

== ENCOUNTER 2023-04-18 11:11 | Day surgery (SDC) | payer MEDICARE, OTHER, SELFPAY ==
--- NOTE | 2023-04-18 11:16 | US_ITS ---
WS: [email or web address] ULTRASOUND-GUIDED PARACENTESIS CLINICAL INFORMATION: ascites COMPARISON: None. Procedure Informed consent: The risks, benefits, and alternatives of the procedure were discussed with the lisa ent. Verbal and written consent was obtained. Timeout: A timeout was performed to confirm the correct patient, procedure, and site. Preparation: A suitable skin site was identified. The patient was prepped and draped in usual sterile fashion. Lidocaine 1% was used for local anesthesia. Catheter: 4 Arabic One-step Yueh catheter. Side: LEFT lower quadrant. Fluid Volume: 2800 ml Color: Clear yellow DISPOSITION: Discarded safely. Complications: None. Patient disposition: Discharged from the department in stable condition. IMPRESSION: Uncomplicated ultrasound-guided paracentesis. Removal of 2800 cc
[2023-04-18 11:22] VITALS: BP 109/68; PULSE 72; RESP 18; TEMP 36.8; O2SAT 99
[2023-04-18 11:27] VITALS: BMI 30.4
[2023-04-18 12:32] LABS: Cyto Order Verification Order Verified
[2023-04-18] MEDS: albumin 75 G/300 ML BAG 999 G IV (12:33)
[2023-04-18 12:42] LABS: Apprearance, Body Fluid CLOUDY; Color, Body Fluid AMBER
[2023-04-18 13:20] LABS: Body Fluid Polynuclear #Cells 0.538; Body Fluid WBC 963 /uL; Monocytes # Body Fluid 0.425
[2023-04-18 13:26] LABS: Albumin Body Fluid 1.8 g/dL; Amylase Body Fluid 18 U/L; Cholesterol Body Fluid 32 mg/dL (0-200); Fluid Alkaline Phos. 43 IU/L; LDH Body Fluid 124 U/L; Total Protein Body Fluid 2.6 g/dL; Triglycerides Body Fluid 39 mg/dL (0-150); Uric Acid Body Fluid 4 mg/dL
[2023-04-18 14:33] LABS: PATH Referral YES
[2023-04-18 14:35] LABS: Body Fluid Specific Gravity 1.015
== END 2023-04-18 13:15 | disposition home or self-care (01) ==
LOC: GILAB 11:12
PROVIDERS: Radiology Neuroradiology; PCP Physician Assistant; Visit Provider Internal Medicine Nephrology
PROC: (CPT 49082; principal; 2023-04-18 12:00)
DX: R18.8 Other ascites (principal)
CPT/HCPCS: 49083; 80503; 82042; 82150; 82465; 82945; 83615; 83986; 84075; 84157; 84315; 84478; 84560; 87015; 87070; 87075; 87116; 87205; 87206; 87801; 88112; 88305; 89050; 96365; P9046

== ENCOUNTER 2023-05-09 13:23 | Day surgery (SDC) | payer MEDICARE, OTHER, SELFPAY ==
--- NOTE | 2023-05-09 13:34 | US_ITS ---
WS: [email or web address] ULTRASOUND-GUIDED PARACENTESIS CLINICAL INFORMATION: ASCITES COMPARISON: None. Procedure Informed consent: The risks, benefits, and alternatives of the procedure were discussed with the lisa ent. Verbal and written consent was obtained. Timeout: A timeout was performed to confirm the correct patient, procedure, and site. Preparation: A suitable skin site was identified. The patient was prepped and draped in usual sterile fashion. Lidocaine 1% was used for local anesthesia. Catheter: 4 Uzbek One-step Yueh catheter. Side: LEFT lower quadrant. Fluid Volume: 2000 ml Color: Clear yellow DISPOSITION: Discarded safely. Complications: None. Patient disposition: Discharged from the department in stable condition. IMPRESSION: Uncomplicated ultrasound-guided paracentesis. Removal of 2000 cc
[2023-05-09 13:41] VITALS: BP 97/57; PULSE 78; RESP 18; TEMP 36.4; O2SAT 95; BMI 29.9
[2023-05-09] MEDS: albumin 12.5 GM/50 ML VIAL IV (14:15)
[2023-05-09 14:44] LABS: Appearance, Peritoneal Fluid Cloudy (Clear); Color, Peritoneal Fluid Yellow (Pale Yellow)
[2023-05-09 14:46] LABS: Cyto Order Verification No Order
[2023-05-09 15:02] LABS: Mononuclear #, Pertinoneal Fl 0.478 10^3/uL; Polynuclear # Cells, Perit 0.152 10^3/uL
[2023-05-09 16:06] LABS: RBC Pertioneal Fluid 6 10^3/uL; WBC Peritoneal Fluid 630 /uL
== END 2023-05-09 15:00 | disposition home or self-care (01) ==
LOC: GILAB 13:24
PROVIDERS: Radiology Neuroradiology; PCP Physician Assistant; Visit Provider Internal Medicine Nephrology
PROC: (CPT 49082; principal; 2023-05-09 13:30)
DX: R18.8 Other ascites (principal)
CPT/HCPCS: 49083; 80503; 87070; 87075; 87205; 89050; 96365; P9047

== ENCOUNTER 2023-05-20 08:12 | Inpatient (IN) | payer MEDICARE, OTHER, SELFPAY ==
[2023-05-20] VITALS (11 sets, daily range): BP systolic 118–142; BP diastolic 67–91; PULSE 75–91; RESP 16; TEMP 36.8; O2SAT 96–100; BMI 26.8
--- NOTE | 2023-05-20 08:35 | PC.NURSE ---
THIS NURSE WAS WALKING DOWN THE GUEVARA WHEN THERE WAS YELLING COMING FROM THIS PATIENT'S ROOM. PATIENT WAS YELLING GET HER OUT! SHE IS TRYING TO KILL ME. THIS NURSE WALKED INTO THE ROOM AND ASKED THE PATIENT WHAT HE NEEDS AND PATIENT STATED I NEED THAT GIRL SITTING IN THE CORNER TO STOP WATCHING ME SUFFER. THIS NURSE EDUCATED THE PATIENT THAT THERE WAS NOT A NURSE STANDING IN THE CORNER AT THAT TIME AND PATIENT STATED, THERE WAS. THERE WAS A CUNT IN ORANGE SCRUBS. HER NAME IS FLORES AND I AM RE[facility]ING [facility]. SHE IS GOING TO BE RE[facility]ED TO [facility] AND WILL BE FLIPPING BURGERS BEFORE THIS IS ALL THROUGH. THIS NURSE ATTEMPTED TO REDIRECT THE PATIENT AND THE PATIENT STATED, I JUST NEED YOU ALL TO LET MY RELATIVES BACK HERE. PATIENT WAS INFORMED THAT WHEN HIS FAMILY GETS HERE, THEY WILL BE LET BACK TO HIS ROOM. PATIENT VERBALIZED UNDERSTANDING.
--- NOTE | 2023-05-20 08:45 | CTR_ITS ---
PROCEDURE INFORMATION: Exam: CT Head Without Contrast Exam date and time: 05/20/2023 9:13 AM Age: 73 years old Clinical indication: Altered mental status/memory loss TECHNIQUE: Imaging protocol: Computed tomography of the head without contrast. Radiation optimization: All CT scans at this facility use at least one of these dose optimization techniques: automated exposure control; mA and/or kV adjustment per patient size (includes targeted exams where dose is matched to clinical indication); or iterative reconstruction. COMPARISON: No relevant prior studies available. RADIATION DOSE METRICS: Total DLP (mGy-cm): 1078.68 FINDINGS: Brain: No focal hemorrhage or midline shift is identified. The ventricles and parenchyma show moderate atrophy and chronic bicerebral white matter ischemic change. Cerebral ventricles: No ventriculomegaly or evidence of hydrocephalus. Paranasal sinuses: No evidence of acute sinusitis. Mild right sphenoid sinus chronic disease. Mastoid air cells: Visualized mastoid air cells are well aerated. Bones/joints: No displaced skull fracture is noted. Soft tissues: Unremarkable. Vasculature: Diffuse vascular calcifications are present. CT/CT head wo con* [id number] IMPRESSION: 1. No acute intracranial abnormality. 2. Moderate age-related changes.
--- NOTE | 2023-05-20 08:46 | ECG_ITS ---
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 Measurements Intervals [place] Rate: 101 P: 0 NV: 0 QRS: -56 QRSD: 147 T: 132 QT: 394 QTc: 511 Interpretive Statements ATRIAL FIBRILLATION WITH RAPID VENTRICULAR RESPONSE LEFT AXIS DEVIATION [QRS AXIS < -30] LEFT BUNDLE BRANCH BLOCK [120+ ms QRS DURATION, 80+ ms Q/S IN V1/V2, 85+ ms R IN I/aVL/V5/V6] Compared to ECG 05/29/2022 23:01:29 Left-axis deviation now present Left bundle-branch block now present Right-axis deviation no longer present Intraventricular conduction delay no longer present Electronically Signed On 05-20-2023 10:49:47 ELECTRIC TAPE SLITTER by Scooby Estrada M.D. [id number]
--- NOTE | 2023-05-20 08:50 | ED_ITS ---
HPI - Altered Mental Status 2 General: Chief Complaint: Altered Mental Status Stated Complaint: mental status changes Time Seen by Provider: 05/20/23 08:19 Source: patient Mode of arrival: ambulatory History of Present Illness: 73-year-old male presents to the emergen cy room with mental status changes from dialysis clinic. He usually gets dialysis 3 days a week he does still make some urine. Patient was yelling and boisterous when he first arrived but the nursing staff was able to easily redirect him. He states that a nurse at dialysis left him outside he describes it as being left out on the tarmac to . He states a double amputee helped him or he would have . He denies any shortness of breath any chest or abdominal pain. MD complaint: altered mental status and confusion Review of Systems 2 Const: Denies: fever(s) or chills Card: Denies: chest pain Resp: Denies: dyspnea GI: Denies: abdominal pain : Denies: dysuria, urinary frequency or urinary urgency Musc: Denies: neck pain or back pain Skin/Breast: Denies: rash PFSH ED 2 PFSH: Medical History (Updated 05/20/23 @ 14:23 by Siva Beckman DO) End-stage renal disease on hemodialysis Ascites Liver cirrhosis TIA (transient ischemic attack) Surgical History History of abdominal paracentesis Social History Smoking and tobacco/nicotine status: never used tobacco/nicotine Second hand smoke exposure: No Alcohol intake: never Substance/Drug Use: never Physical Exam 2 Const: ORIENTATION/CONSCIOUSNESS: Yes awake HENMT: COMMON NORMALS: normocephalic, atraumatic and hearing grossly normal bilaterally HEAD & SCALP: normocephalic and atraumatic Resp: COMMON NORMALS: normal respiratory effort, No retractions, No use of accessory muscles and clear to auscultation bilaterally AUSCULTATION: clear to auscultation bilaterally Cardio: COMMON NORMALS: regular rate, regular rhythm and No murmurs present (Cardio) RATE: regular rate RHYTHM: regular rhythm GI: COMMON NORMALS: Soft to palpation and No hepatosplenomegaly present A USCULTATION: Yes normoactive bowel sounds PALPATION: Yes Soft to palpation, No Tenderness to palpation present (GI), No Guarding due to palpation present (GI) and Yes No hepatosplenomegaly present Extremity: COMMON NORMALS: normal to inspection, capillary refill normal, no clubbing, cyanosis or edema, no calf tenderness and no pedal edema Skin: COMMON NORMALS: no rashes or lesions noted GENERAL SKIN EXAM: no rashes or lesions noted Course 2 Vital Signs: Vital signs: Vital Signs Temperature 98.3 F 05/20/23 08:17 Pulse Rate 85 05/20/23 12:00 Blood Pressure 132/69 05/20/23 12:00 Pulse Oximetry 99 05/20/23 12:00 Oxygen Delivery Me thod Room Air 05/20/23 08:17 MDM - Altered Mental Status Medical Decision Making Labs and imaging reviewed. Thrombocytopenia with altered mental status LDH is slightly elevated. Dr. Buchanan agrees to admit he will need dialysis yet today will consult nephrology. Medical Records I reviewed the patient's medical records. Lab Data I reviewed the patient's lab results. 05/20/23 08:58 05/20/23 08:[address] 05/20/23 08:45 IMPRESSION: 1. No acute intracranial abnormality. 2. Moderate age-related changes. Chest X-Ray 05/20/23 09:44 IMPRESSION: Stable chest from 1 year ago with chronic findings. Likely chronic mild CHF. Cardiac history. Hip/Pelvis X-Ray 05/20/23 13:01 IMPRESSION: No acute fracture or dislocation. Laboratory Results WBC 6.97 10^3/uL (3.29-11.43) 05/20/23 08:58 RBC 2.47 10^6/uL (3.85-5.65) L 05/20/23 08:58 Hgb 9.00 g/dL (11.27-16.99) L 05/20/23 08:58 Hct 27.5 % (37-53) L 05/20/23 08:58 MCV 111.3 fl (82-101) H 05/20/23 08:58 MCH 36.4 pg (27-33) H 05/20/23 08:58 MCHC 32.7 g/dL (30-55) 05/20/23 08:58 RDW 19.4 % (12.1-15.1) H 05/20/23 08:58 Plt Count 88 10^3/cmm (157-399) L 05/20/23 08:58 MPV 10.9 fL (7.4-10.4) H 05/20/23 08:58 Neut % (Auto) 72.1 % 05/20/23 08:58 Lymph % (Auto) 11.3 % 05/20/23 08:58 Boundary % (Auto) 16.6 % 05/20/23 08:58 Eos % (Auto) 0.1 % 05/20/23 08:58 Baso % (Auto) 0.3 % 05/20/23 08:58 Reticulocyte % (Auto) 4.1 % (0.5-2.0) H 05/20/23 08:58 Neut # (Auto) 4.56 10^3/uL (1.8-7.7) 05/20/23 08:58 Lymph # (Auto) 0.8 10^3/uL (0.8-4.8) 05/20/23 08:58 Boundary # (Auto) 1.2 10^3/uL (0.2-0.9) H 05/20/23 08:58 Eos # (Auto) 0.0 10^3/uL (0.0-0.8) 05/20/23 08:58 Baso # (Auto) 0.0 10^3/uL (0.0-0.1) 05/20/23 08:58 Nucleated RBC % (auto) 0 % 05/20/23 08:58 Nucleated RBCs # 0.0 /100WBC 05/20/23 08:58 PT 56.70 SECONDS (12.1-14.9) H 05/20/23 08:58 INR 6.09 (0.8-1.2) H* 05/20/23 08:58 APTT 51.8 SECONDS (23.9-36.7) H 05/20/23 08:58 Fibrinogen 333 mg/dL (174-498) 05/20/23 08:58 Sodium 134 mmol/L (136-145) L 05/20/23 08:58 Potassium 3.4 mmol/L (3.5-5.1) L 05/20/23 08:58 Chloride 92 mmol/L (98-107) L 05/20/23 08:58 Carbon Dioxide 27 mmol/L (22-29) 05/20/23 08:58 Anion Gap 18.4 (5-19) 05/20/23 08:58 BUN 34 mg/dL (8-23) H 05/20/23 08:58 Creatinine 5.3 mg/dL (0.7-1.2) H 05/20/23 08:58 GFR Calculation Not Reportable 05/20/23 08:58 Glucose 110 mg/dL (65-115) 05/20/23 08:58 Calculated Osmolality 286 mOsm/kg (285-295) 05/20/23 08:58 Lactic Acid 2.9 mmol/L (0.5-2.2) H 05/20/23 08:58 Lactic Acid (Sepsis) 1.4 mmol/L (0.5-2.2) 05/20/23 12:21 Calcium 9.9 mg/dL (8.5-10.5) 05/20/23 08:58 Total Bilirubin 0.9 mg/dL (0.15-1.2) 05/20/23 08:58 AST 34 U/L (0-40) 05/20/23 08:58 ALT 15 U/L (0-41) 05/20/23 08:58 Alkaline Phosphatase 63 U/L (40-130) 05/20/23 08:58 Ammonia 30 umol/L (16-60) 05/20/23 11:08 Lactate Dehydrogenase 329 U/L (135-225) H 05/20/23 08:58 Troponin T Baseline 140 ng/L (0-15) H* 05/20/23 08:58 Troponin T 120 Minute 131.2 ng/L (0-15) H 05/20/23 11:08 Delta Troponin T -8.8 ABS# (0-10) L 05/20/23 11:08 Total Protein 5.5 g/dL (6.6-8.7) L 05/20/23 08:58 Albumin 3.2 g/dL (3.5-5.2) L 05/20/23 08:58 Globulin 2.3 g/dL (1.3-4.6) 05/20/23 08:58 All radiology interpretation(s) finalized by discharge Discharge Plan Discharge Patient Disposition: Admitted As Inpatient Clinical Impression: Thrombocytopenia, End-stage renal disease on hemodialysis, Liver cirrhosis, Delirium Condition: Stable Coding Level of Care Code ED Mechanical Equipment Test Engineer for Jonathan Beaulieu
[2023-05-20 09:07] LABS: Basophils % 0.3 %; Eosinophils % 0.1 %; Hematocrit 27.5 % (37-53); Lymphocytes # 0.8 10^3/uL (0.8-4.8); Lymphocytes % 11.3 %; Mean Corpuscular HGB Conc 32.7 g/dL (30-55); Mean Corpuscular Hemoglobin 36.4 pg (27-33); Mean Corpuscular Volume 111.3 fl (82-101); Mean Platelet Volume 10.9 fL (7.4-10.4); Monocytes # 1.2 10^3/uL (0.2-0.9); Monocytes % 16.6 %; Neutrophils # 4.56 10^3/uL (1.8-7.7); Nucleated Red Blood Cells % 0 %; Platelet Count 88 10^3/cmm (157-399); Red Blood Count 2.47 10^6/uL (3.85-5.65); Red Cell Distribution Width 19.4 % (12.1-15.1); White Blood Count 6.97 10^3/uL (3.29-11.43)
[2023-05-20 09:23] LABS: Alanine Aminotransferase 15 U/L (0-41); Albumin Level 3.2 g/dL (3.5-5.2); Alkaline Phosphatase 63 U/L (40-130); Anion Gap 18.4 (5-19); Aspartate Amino Transferase 34 U/L (0-40); Blood Urea Nitrogen 34 mg/dL (8-23); Calcium 9.9 mg/dL (8.5-10.5); Carbon Dioxide 27 mmol/L (22-29); Chloride 92 mmol/L (98-107); Globulin 2.3 g/dL (1.3-4.6); Glucose 110 mg/dL (65-115); Osmolality Calculated 286 mOsm/kg (285-295); Potassium 3.4 mmol/L (3.5-5.1); Sodium 134 mmol/L (136-145); Total Bilirubin 0.9 mg/dL (0.15-1.2); Total Protein 5.5 g/dL (6.6-8.7)
[2023-05-20 09:24] LABS: Lactic Sepsis W/Reflex 2.9 mmol/L (0.5-2.2); Partial Thromboplastin Time 51.8 SECONDS (23.9-36.7)
[2023-05-20 09:29] LABS: Troponin(5th) Baseline 140 ng/L (0-15)
[2023-05-20 09:35] LABS: Neutrophils % 72.1 %; Slide Review Slide Review Perform
--- NOTE | 2023-05-20 09:44 | XRR_ITS ---
PROCEDURE INFORMATION: Exam: XR Chest Exam date and time: 05/20/2023 9:46 AM Age: 73 years old Clinical indication: Cough and dyspnea; Additional info: Dyspnea/cough TECHNIQUE: Imaging protocol: Radiologic exam of the chest. Views: 1 view. COMPARISON: CT chest w con* [id number] 05/29/2022 6:38 PM FINDINGS: Lungs: Mild areas of lung base opacity/scarring and minute effusions likely. No new consolidation. Pleural spaces: No pneumothorax. Heart/Mediastinum: Heart remains quite large. TAVR and vascular calcification. Bones/joints: Unremarkable. XR/XR chest 1V portable [id number] IMPRESSION: Stable chest from 1 year ago with chronic findings. Likely chronic mild CHF. Cardiac history.
[2023-05-20 09:45] LABS: INR 6.09 (0.8-1.2)
--- NOTE | 2023-05-20 10:46 | ECG_ITS ---
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 Measurements Intervals [place] Rate: 85 P: 0 OK: 0 QRS: -77 QRSD: 145 T: 131 QT: 391 QTc: 466 Interpretive Statements ATRIAL FIBRILLATION INTRAVENTRICULAR CONDUCTION DELAY [130+ ms QRS DURATION] INFERIOR MYOCARDIAL INFARCTION , PROBABLY OLD [40+ ms Q WAVE AND/OR ST/T ABNORMALITY IN II/aVF] Compared to ECG 05/20/2023 08:51:09 Intraventricular conduction delay now present Myocardial infarct finding now present Left-axis deviation no longer present Left bundle-branch block no longer present Electronically Signed On 05-20-2023 10:53:17 RN INTEGRITY by Scooby Estrada M.D. [id number]
[2023-05-20 10:48] LABS: Reflex Lactate Order REFLEX LACTIC ORDERD
[2023-05-20 11:34] LABS: Ammonia 30 umol/L (16-60)
[2023-05-20 11:49] LABS: Troponin 5 2HR 131.2 ng/L (0-15); Troponin 5 2HR Delta -8.8 ABS# (0-10)
[2023-05-20 12:52] LABS: Lactic Acid level (Lactate) 1.4 mmol/L (0.5-2.2)
--- NOTE | 2023-05-20 13:01 | XRR_ITS ---
PROCEDURE INFORMATION: Exam: XR Right Hip Exam date and time: 05/20/2023 1:19 PM Age: 73 years old Clinical indication: Hip pain; Right hip TECHNIQUE: Imaging protocol: Radiologic exam of the right hip. Views: 1 view hip with pelvis when performed. COMPARISON: No relevant prior studies available. FINDINGS: Bones/joints: Diffuse osteopenia limits evaluation for nondisplaced fractures. No acute fracture or dislocation. Soft tissues: Vascular calcifications. XR/XR hip RT 2-3V wo/w pel* [id number] IMPRESSION: No acute fracture or dislocation.
[2023-05-20 13:23] LABS: Reticulocyte % 4.1 % (0.5-2.0)
[2023-05-20 13:35] LABS: Fibrinogen 333 mg/dL (174-498)
[2023-05-20 13:40] LABS: Lactate Dehydrogenase 329 U/L (135-225)
[2023-05-20 14:34] LABS: Urine Appearance SL Hazy (CLEAR); Urine Color Dark Yellow (Yellow); pH Urine 8 (5-7)
[2023-05-20 14:35] LABS: Add Urine Microscopic? YES; Bacteria Urine 1+ /hpf; Bilirubin Urine Neg (Negative); Blood Urine 3+ (Negative); Glucose Urine UA Norm (Normal); Ketones Urine Negative (Negative); Leukocyte Esterase Urine Negative (Negative); Nitrate Urine Negative (Negative); Protein Urine 2+ (Negative); RBC Urine 40-50 /hpf (0-2); Squamous Epithelial Cell Urine 0-4 /hpf (0-5); Sulfosalicylic Acid Urine Positive (Negative); Urobilinogen Urine Norm (Negative); WBC Urine 0-4 /hpf (0-5)
[2023-05-20 14:36] LABS: Add Urine Culture? Yes
--- NOTE | 2023-05-20 14:56 | ECG_ITS ---
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 Measurements Intervals [place] Rate: 87 P: 0 AK: 0 QRS: -57 QRSD: 157 T: 123 QT: 402 QTc: 486 Interpretive Statements ATRIAL FIBRILLATION LEFT AXIS DEVIATION [QRS AXIS < -30] LEFT BUNDLE BRANCH BLOCK [120+ ms QRS DURATION, 80+ ms Q/S IN V1/V2, 85+ ms R IN I/aVL/V5/V6] Compared to ECG 05/20/2023 10:52:03 Left-axis deviation now present Left bundle-branch block now present Intraventricular conduction delay no longer present Myocardial infarct finding no longer present Electronically Signed On 05-20-2023 15:28:47 PIPELINE EXECUTIVE by Scooby Estrada M.D. [id number]
[2023-05-20 15:58] LABS: Troponin 5 6HR Delta -5.2 ng/L (0-12)
[2023-05-20 16:01] LABS: Troponin 5 6HR 134.8 ng/L (0-15)
--- NOTE | 2023-05-20 16:06 | P.HP_ITS ---
Providers/Chief Complaint 2 Admitting Physician: Julianne Buchanan MD Primary Care Provider: Laya Devlin Chief Complaint: mental status changes History of Present Illness Anthony Waller Jr is a 73 year old male who presented to the emergency room with confusion today. He has not been feeling well for couple of days. He had difficulty getting up this morning and required EMT assistance to get him up. He is a known chronic kidney disease patient on hemodialysis Mondays, Wednesdays and Fridays. When he presented to dialysis he was not his usual self. He was noted to be more boisterous than usual, yelling a bit. He told the ER doctor that the nurse had left him outside to among some other stories. Workup in the emergency room demonstrated an elevated troponin without significant EKG changes. White count was normal. No indication of urinalysis or pneumonia. CT of the head was unremarkable. He was found to have a low platelet count and it was discovered that he had been recently prescribed Flagyl and cefdinir. He is chronically on Coumadin and INR was noted to be 6. With the ER provider he was not oriented to person place or situation appropriately. Request was made for admission to hospitalist service. By the time I am evaluating him he is feeling overall better. He denies similar presentations in the past. It takes him some time but he knows the month and the year. He knows the day of the week. He knows the president. He knows who he is and where he is and why he is here. He does indicate a couple of times that he thinks he may have a virus. When asked why he feels like he has a virus he says because he has a big family and has had some shortness of breath and pain in his back as well as some upper respiratory symptoms of runny nose and cough. He has a little bit of a sore throat as well. He describes some nausea but no vomiting. He has had some loose stools. Difficult to get idea of quantity. No reports of any focal motor changes. He has swelling at times. Takes lasix, does still make urine. No dysuria. Has knee and hip pain from arthritis. I did eventually learn from him that he gets paracentesis every few weeks. He has liver disease that sounds like is related to diabetes and kidney disease from his recollection. No history of significant alcohol use. He has evidently been evaluated for a transplant at some point but not a candidate. He gets paracenteses approximately every 3 weeks here. Going back to January of last year I do not see any positive cultures. I was able to get some records from [facility] where he presented on May 15. He was complaining of abdominal pain and diarrhea. He received Rocephin and metronidazole IV while in the ER empirically and was given prescriptions for cefdinir and metronidazole upon discharge. I do not see cultures or fluid studies from then but I was able to note that his white count was normal. Platelet count at the time was 72. He had 76% neutrophils with 4% lymphocytes and 16% monocytes. CRP was checked and was elevated at 105.4. Sed rate was normal at 11. Lactic acid was 1.6. Records from there indicate that patient had been on ciprofloxacin prior to that ER visit. Potassium then was low when he received replacement. The clinical impresion is that he might have SBP from what I could read. They state that he has chronic SBP prior to that ER visit but I am not sure where that is coming from. Mr. Waller is chronically on anticoagulation in the form of Coumadin due to history of atrial fibrillation. With recent antibiotic usage INR today is up to 6.6. He denies any gross bleeding but does have bruising. Review of Systems 2 General: Reports: Other (ROS as per HPI or as otherwise noted here) Medications/Allergies Home Medications Medication Instructions Recorded Confirmed Last Taken Type B complex 11-folic acid 1 mg-C 100 1 tab PO DAILY 07/25/21 05/20/23 05/07/23 History mg-biotin 300 mcg-zinc 50 mg tablet (Dialyvite) atorvastatin 10 mg tablet 10 mg PO QPM 07/25/21 05/20/23 05/07/23 History cholecalciferol (vitamin D3) 125 125 mcg PO DAILY 07/25/21 05/20/23 05/07/23 History mcg (5,000 unit) capsule docusate sodium 100 mg capsule 100 mg PO TID 07/25/21 05/20/23 04/18/23 History (Colace) furosemide 80 mg tablet (Lasix) 80 mg PO BID 07/25/21 05/20/23 05/09/23 History omega 0-pmx-zhs-fish oil 1,000 mg 1 cap PO BID 07/25/21 05/20/2323 History (120 mg-180 mg) capsule warfarin 4 mg tablet See Rx Instructions .Route .COMPLEX 01/24/22 05/20/23 05/04/23 History simethicone 125 mg capsule (Gas-X 125 mg PO PRN PRN Gastric Reflux 04/19/22 05/20/23 04/11/23 History Extra Strength) carvedilol 3.125 mg tablet 3.125 mg PO BID 05/17/22 05/20/23 05/09/23 History fluticasone propionate 50 1 spray intranasal DAILY 05/29/22 05/20/23 05/07/23 History mcg/actuation nasal spray,suspension escitalopram oxalate 10 mg tablet 10 mg PO DAILY 01/29/23 05/20/23 05/09/23 History ciprofloxacin HCl 250 mg tablet 250 mg PO DAILY 02/26/23 05/20/23 05/09/23 History amlodipine 10 mg tablet 10 mg PO DAILY 05/20/23 05/20/23 Unknown History aspirin 81 mg tablet,delayed 81 mg PO DAILY 05/20/23 05/20/23 Unknown History release cefdinir 300 mg capsule 300 mg PO BID 05/20/23 05/20/23 Unknown History metronidazole 500 mg tablet 500 mg PO DAILY 05/20/23 05/20/23 Unknown History Allergies Allergy/AdvReac Type Severity Reaction Status Date / Time codeine Allergy Mild ALGY-Rash Verified 05/20/23 09:42 Penicillins Allergy Mild ALGY-Rash Verified 05/20/23 09:42 PFSH Acute 2 PFSH: Medical History (Updated 05/20/23 @ 22:01 by Julianne Buchanan MD) Osteoarthritis History of peritonitis Depression Anemia in chronic kidney disease Chronic diastolic heart failure PVD (peripheral vascular disease) Atrial fibrillation Hypertension Hyperlipidemia End-stage renal disease on hemodialysis Liver cirrhosis TIA (transient ischemic attack) Surgical History (Updated 05/20/23 @ 22:35 by Julianne Buchanan MD) AV fistula left upper arm, brachial to cephalic vein History of transcatheter aortic valve replacement (TAVR) History of abdominal paracentesis Social History Smoking and tobacco/nicotine status: never used tobacco/nicotine Second hand smoke exposure: No Alcohol intake: never Substance/Drug Use: never Vitals/I&O/Wt Last Vital Signs Temp 98.3 F 05/20/23 08:17 Pulse 75 05/20/23 15:00 BP 142/71 05/20/23 15:00 Pulse Ox 98 05/20/23 15:00 O2 Del Method Nasal Cannula 05/20/23 15:00 O2 Flow Rate 2 05/20/23 15:00 Weight last 48 hrs Weight 84.822 kg Physical Exam 2 Narrative: Patient is awake and alert. He is oriented to person, place, date, time, situation. It took him a little bit of time to get the specific date but he did not require any prompting. His first response was May 1972. Normocephalic. Extraocular movements are intact. Mucous membranes moist. Neck is supple. Lungs are clear to auscultation anteriorly. Decreased at both bases posteriorly. No accessory muscle use. Cardiovascular exam reveals an irregularly irregular rhythm. Abdomen is soft, nondistended, nontender with positive bowel sounds. There is a Band-Aid over a 1 cm linear scar with scabbing in the left lower quadrant from where patient indicates he had his last paracentesis the last week in April. He has some pitting edema to the lower extremities. Skin overall is dry. He has ecchymoses right upper extremity more so than left upper extremity. Speech is clear. Face is symmetric. No abnormal movements. Data 05/20/23 08:58 05/20/23 08:58 Other Labs: Radiology Impressions Head CT 05/20/23 08:45 IMPRESSION: 1. No acute intracranial abnormality. 2. Moderate age-related changes. Chest X-Ray 05/20/23 09:44 IMPRESSION: Stable chest from 1 year ago with chronic findings. Likely chronic mild CHF. Cardiac history. Hip/Pelvis X-Ray 05/20/23 13:01 IMPRESSION: No acute fracture or dislocation. Laboratory Results WBC 6.97 10^3/uL (3.29-11.43) 05/20/23 08:58 RBC 2.47 10^6/uL (3.85-5.65) L 05/20/23 08:58 Hgb 9.00 g/dL (11.27-16.99) L 05/20/23 08:58 Hct 27.5 % (37-53) L 05/20/23 08:58 MCV 111.3 fl (82-101) H 05/20/23 08:58 MCH 36.4 pg (27-33) H 05/20/23 08:58 MCHC 32.7 g/dL (30-55) 05/20/23 08:58 RDW 19.4 % (12.1-15.1) H 05/20/23 08:58 Plt Count 88 10^3/cmm (157-399) L 05/20/23 08:58 MPV 10.9 fL (7.4-10.4) H 05/20/23 08:58 Neut % (Auto) 72.1 % 05/20/23 08:58 Lymph % (Auto) 11.3 % 05/20/23 08:58 [place] % (Auto) 16.6 % 05/20/23 08:58 Eos % (Auto) 0.1 % 05/20/23 08:58 Baso % (Auto) 0.3 % 05/20/23 08:58 Reticulocyte % (Auto) 4.1 % (0.5-2.0) H 05/20/23 08:58 Neut # (Auto) 4.56 10^3/uL (1.8-7.7) 05/20/23 08:58 Lymph # (Auto) 0.8 10^3/uL (0.8-4.8) 05/20/23 08:58 [place] # (Auto) 1.2 10^3/uL (0.2-0.9) H 05/20/23 08:58 Eos # (Auto) 0.0 10^3/uL (0.0-0.8) 05/20/23 08:58 Baso # (Auto) 0.0 10^3/uL (0.0-0.1) 05/20/23 08:58 Nucleated RBC % (auto) 0 % 05/20/23 08:58 Nucleated RBCs # 0.0 /100WBC 05/20/23 08:58 PT 56.70 SECONDS (12.1-14.9) H 05/20/23 08:58 INR 6.09 (0.8-1.2) H* 05/20/23 08:58 APTT 51.8 SECONDS (23.9-36.7) H 01/08/24 08:58 Fibrinogen 333 mg/dL (174-498) 05/20/23 08:58 Sodium 134 mmol/L (136-145) L 05/20/23 08:58 Potassium 3.4 mmol/L (3.5-5.1) L 05/20/23 08:58 Chloride 92 mmol/L (98-107) L 05/20/23 08:58 Carbon Dioxide 27 mmol/L (22-29) 05/20/23 08:58 Anion Gap 18.4 (5-19) 05/20/23 08:58 BUN 34 mg/dL (8-23) H 05/20/23 08:58 Creatinine 5.3 mg/dL (0.7-1.2) H 05/20/23 08:58 GFR Calculation Not Reportable 05/20/23 08:58 Glucose 110 mg/dL (65-115) 05/20/23 08:58 Calculated Osmolality 286 mOsm/kg (285-295) 05/20/23 08:58 Lactic Acid 2.9 mmol/L (0.5-2.2) H 05/20/23 08:58 Lactic Acid (Sepsis) 1.4 mmol/L (0.5-2.2) 05/20/23 12:21 Calcium 9.9 mg/dL (8.5-10.5) 05/20/23 08:58 Total Bilirubin 0.9 mg/dL (0.15-1.2) 05/20/23 08:58 AST 34 U/L (0-40) 05/20/23 08:58 ALT 15 U/L (0-41) 05/20/23 08:58 Alkaline Phosphatase 63 U/L (40-130) 05/20/23 08:58 Ammonia 30 umol/L (16-60) 05/20/23 11:08 Lactate Dehydrogenase 329 U/L (135-225) H 05/20/23 08:58 Troponin T Baseline 140 ng/L (0-15) H* 05/20/23 08:58 Troponin T 120 Minute 131.2 ng/L (0-15) H 05/20/23 11:08 Delta Troponin T -8.8 ABS# (0-10) L 05/20/23 11:08 Troponin T Hi Sens 6Hr 134.8 ng/L (0-15) H 05/20/23 15:18 Troponin T Hi Sens 6Hr Delta -5.2 ng/L (0-12) L 05/20/23 15:18 Total Protein 5.5 g/dL (6.6-8.7) L 05/20/23 08:58 Albumin 3.2 g/dL (3.5-5.2) L 05/20/23 08:58 Globulin 2.3 g/dL (1.3-4.6) 05/20/23 08:58 Urine Color Dark yellow (Yellow) 05/20/23 14:01 Urine Appearance Sl hazy (CLEAR) A 05/20/23 14:01 Urine pH 8 (5-7) H 05/20/23 14:01 Ur Specific [place] 1.010 (1.005-1.030) 05/20/23 14:01 Urine Protein 2+ (Negative) H 05/20/23 14:01 Urine Glucose (UA) Norm (Normal) 05/20/23 14:01 Urine Ketones Negative (Negative) 05/20/23 14:01 Urine Blood 3+ (Negative) H 05/20/23 14:01 Urine Nitrate Negative (Negative) 05/20/23 14:01 Urine Bilirubin Neg (Negative) 05/20/23 14:01 Prot Sulfosalicylic Acd Positive (Negative) 05/20/23 14:01 Urine Urobilinogen Norm mg/dL (Negative) 05/20/23 14:01 Ur Leukocyte Esterase Negative (Negative) 05/20/23 14:01 Urine RBC 40-50 /hpf (0-2) H 05/20/23 14:01 Urine WBC 0-4 /hpf (0-5) H 05/20/23 14:01 Ur Squamous Epith Cells 0-4 /hpf (0-5) H 05/20/23 14:01 Amorphous Sediment Not Reportable 05/20/23 14:01 Urine Bacteria 1+ /hpf (NONE) H 05/20/23 14:01 A&P Assessment and plan (1) Delirium: Unclear etiology presently. Appears to have been transient in nature and he is closer to his baseline at present. He is chronically on escitalopram for depression. Depression or medication effect could present this way. Including medication effect from recent antibiotics though they do not classically impact mental status. Denies narcotic, THC or illicit substance use. Ammonia level normal. Acute vascular event could present like this either coronary or cerebrovascular. Infection is within the differential. Lactic acid is up but vitals stable. Not overly uremic at present. Today is usual HD day. (2) History of peritonitis: Does not appear acute, but has been on empiric antibiotics for possibility of SBP from another facility (3) End-stage renal disease on hemodialysis: Hemodialysis Saturday, Saturday and Saturday (4) Anemia in chronic kidney disease: Stable, does have longstanding macrocytosis and history of iron deficiency from outside records which were reviewed (5) Atrial fibrillation: Chronic persistent, rate controlled, on coreg and antcoagulation (6) Chronic anticoagulation: Warfarin, currently with coagulopathy from recent antibiotic use, no active bleeding (7) Thrombocytopenia: Initially concerned with mental status change and low platelets plus anemia that could be early TTP. LDH not normal. Review of records shows that platelets have been lower at previous visit to [facility] last week. Patient does have history of cirrhosis, recurrent ascites so has reasons to have low platelets. (8) Chronic diastolic heart failure: Not currently acute, but at risk for such missing HD today, on lasix chronically (9) Hypertension: Chronically on amlodipine, in addition to lasix and coreg (10) Hyperlipidemia: Chrnoically on statin and fish oil (11) Liver cirrhosis: Type unknown, with ascites and regular paracentesis, last 05/09 ~2L (12) Depression: Chronically on escitalopram (13) Osteoarthritis: Bilateral lower extremities Plan Abnormal urinalysis with RBCs, no urinary symptoms, been on antibiotics outpatient Inpatient admission Serial neuroexams Continue serial cardiac enzymes Check carotid US Nephrology consultation for dialysis I am not going to continue further antibiotics at this time Urine culture was collected and is pending presently Check sed rate and CRP since we do have comparative values from last week at [facility] when they were 11 and 105 respectively Recheck lactic acid in the morning Check TSH in am Recheck CBC including platelets in the morning Telemetry monitoring at least 24 hours given history of atrial fibrillation and presenting issues Hold Coumadin currently, daily INR until INR trending downward > Mr. Waller usually takes 8 mg orally on SAT, , , SAT and 4 mg on SAT, SAT, SAT. With stopping of antibiotics, may be able to resume prior dosing in a few days, or resume at decreased dose depending on downward trend. Fluid restrict and monitor volume status, especially until gets hemodialysis Blood pressures within a normal range today with patient not taking his morning medications so will decrease coreg and lasix for now by half and monitoring response, continuing usual coreg Continue home statin, aspirin, renal vitamin, vitamin D, fish oil Continue home escitalopram Tylenol if need for pain control VTE prophylaxis: SCDs, high INR currently from coumadin/antibiotics so no other pharmacological prophylaxis GI Prophylaxis: PPI ordered, not a home med Telemetry: currently ordered given AMS, afib history, lack of HD today Melgar: not currently indicated though he does still make urine Line(s): peripheral IVs , avoid LUE given fistula Disposition plan: Home with outpatient follow up to primary care provider anticipated as well as resumption of usual hemodialysis schedule. May have some medication changes and will need to be monitored by family for recurrent similar events or new issues after discharge. Coumadin dosing will need to be addressed at discharge as well. Code Status: Full Code Supportive care otherwise Findings, concerns and plans were discussed with patient and they were given an opportunity to ask questions Attestations 2 Medical Necessity Statement*: Anticipated stay greater than two midnights in this patient who has been on empiric antibiotic coverage outpatient since last week now presenting to dialysis with acute mental status changes of currently unclear etiology. He has an abnormal urinalysis but no urinary symptoms. He has developed low platelets that I do not see having been an issue for him previously. His INR is also up. Currently without bleeding identified beyond bruising. Differential includes potential infection, vascular event, medication effect, metabolic abnormality, depression, among others. With the acute events today he has missed hemodialysis. Several medications have had doses adjusted. With comorbid conditions, presentation today and plans as described, management and monitoring in the inpatient setting is warranted. Coding Level of Care Code Acute Code for Chg Fwd Diagnoses Delirium R41.0 History of peritonitis Z87.19 End-stage renal disease on hemodialysis N18.6; Z99.2 Anemia in chronic kidney disease N18.9; D63.1 Atrial fibrillation I48.91 Chronic anticoagulation Z79.01 Thrombocytopenia D69.6 Chronic diastolic heart failure I50.32 Hypertension I10 Hyperlipidemia E78.5 Liver cirrhosis K74.60 Depression F32.A Osteoarthritis M19.90
[2023-05-20] MEDS: docusate sodium 100 mg Capsule PO (20:28)
[2023-05-20] MEDS: omega-3 fatty acids 1,000 mg Capsule 1000 MG PO (20:28)
[2023-05-20] MEDS: carvedilol 3.125 mg Tablet PO (20:28)
[2023-05-21] VITALS (9 sets, daily range): BP systolic 130–135; BP diastolic 67–78; PULSE 80–88; RESP 16–18; TEMP 36.4–37.4; O2SAT 92–99
[2023-05-21 05:58] LABS: Basophils % 0.3 %; Eosinophils # 0.1 10^3/uL (0.0-0.8); Eosinophils % 0.7 %; Hematocrit 23.1 % (37-53); Lymphocytes # 0.9 10^3/uL (0.8-4.8); Lymphocytes % 12.9 %; Mean Corpuscular HGB Conc 32.5 g/dL (30-55); Mean Corpuscular Hemoglobin 36.2 pg (27-33); Mean Corpuscular Volume 111.6 fl (82-101); Mean Platelet Volume 10.4 fL (7.4-10.4); Monocytes # 1.7 10^3/uL (0.2-0.9); Monocytes % 24.7 %; Neutrophils # 3.78 10^3/uL (1.8-7.7); Neutrophils % 56.2 %; Nucleated Red Blood Cells % 0 %; Platelet Count 79 10^3/cmm (157-399); Red Blood Count 2.07 10^6/uL (3.85-5.65); Red Cell Distribution Width 19.6 % (12.1-15.1); White Blood Count 6.73 10^3/uL (3.29-11.43)
[2023-05-21 06:09] LABS: Erythrocyte Sedimentation Rate < 1 mm/hr (0-10)
[2023-05-21 06:20] LABS: C Reactive Protein 39.3 mg/L (0.0-4.9)
[2023-05-21 06:21] LABS: INR 6.87 (0.8-1.2)
[2023-05-21 06:27] LABS: Alanine Aminotransferase 12 U/L (0-41); Albumin Level 2.6 g/dL (3.5-5.2); Alkaline Phosphatase 52 U/L (40-130); Anion Gap 14.4 (5-19); Aspartate Amino Transferase 29 U/L (0-40); Blood Urea Nitrogen 39 mg/dL (8-23); Calcium 9.1 mg/dL (8.5-10.5); Carbon Dioxide 29 mmol/L (22-29); Chloride 94 mmol/L (98-107); Globulin 1.8 g/dL (1.3-4.6); Glucose 142 mg/dL (65-115); Lactic Sepsis W/Reflex 2.5 mmol/L (0.5-2.2); Magnesium 2.3 mg/dL (1.7-2.3); Osmolality Calculated 290 mOsm/kg (285-295); Phosphorus 2.4 mg/dL (2.5-4.5); Potassium 3.4 mmol/L (3.5-5.1); Sodium 134 mmol/L (136-145); Thyroid Stimulating Hormone 1.37 uIU/mL (0.27-4.20); Total Bilirubin 0.6 mg/dL (0.15-1.2); Total Protein 4.4 g/dL (6.6-8.7)
[2023-05-21 07:11] LABS: Slide Review Slide Review Perform
[2023-05-21 07:41] LABS: Reflex Lactate Order REFLEX LACTIC ORDERD
[2023-05-21] MEDS: cholecalciferol (vitamin D3) 5,000 unit Tablet 5000 UNIT PO (08:17)
[2023-05-21] MEDS: omega-3 fatty acids 1,000 mg Capsule 1000 MG PO ×2 (08:17→17:22)
[2023-05-21] MEDS: b-complex-vitamin c Tablet 1 EACH PO (08:17)
[2023-05-21] MEDS: carvedilol 3.125 mg Tablet PO ×2 (08:17→17:22)
[2023-05-21] MEDS: docusate sodium 100 mg Capsule PO (08:17)
[2023-05-21] MEDS: pantoprazole DR 40 mg Tablet PO (08:18)
[2023-05-21] MEDS: escitalopram 10 mg Tablet PO (08:18)
[2023-05-21] MEDS: FUROsemide 40 mg Tablet 80 MG PO (08:18)
[2023-05-21] MEDS: fluticasone nasal spray 16gm Btl 1 SPRAY INTRANASAL (08:20)
[2023-05-21 09:20] LABS: Hepatitis B Core AB, Total Non-Reactive (Nonreactive); Hepatitis B Surface AB 8.8 (11.5-1000); Hepatitis B Surface Antigen Non-Reactive (Nonreactive)
--- NOTE | 2023-05-21 09:33 | PC.CHAP ---
Pastoral Care Encounter/Spiritual Assessment Type of Contact [] Declined room attendants visit [] Patient/Family/Request visit [] Outpatient visit [] Follow-up visit [] Physician referral [] Code/Alert [x] Routine visit [] Staff referral [] Actively dying [] Patient sleeping [] Family support [] [] Out of room [] Palliative care [] [] Receiving care in room [] Pre-surgical visit [] Trauma [] Long length of stay [] ICU visit [] Other: Relational/Emotional Strength [x] Patient feels connected with others/family/visitors/staff [] Distress [] Loneliness/isolation [] Abandonment Spirituality of Patient [x] Person of Candice [] Attends Buddhism of their Candice [x] Believes in Prayer [] Reads Bible or Hindu materials [] There are Spiritual issues to be addressed [employer] Interventions [x] Prayer [x] Active listening [] Non-anxious presence [x] Spiritual/emotional support [] Crisis/trauma care [] Spiritual counseling [] Bereavement support [] Provided bereavement packet [] Provided Bible/devotional materials [] Provided toy/stuffed animal, coloring book to patient or family member [] Provided Communion [] Anointing/[place] [] Salvation [x] Completed spiritual assessment [] Other: Impact on Illness or Injury [] Angry [] Fearful [] Anxious [] Often cries [] Exhaustion [] Unable to work [] Unable to attend mandaeism [] Unable to walk/stand [] Unable to read [] Unable to drive [] Unable to eat/drink [] Unable to sleep [] Unable to be with family [] Patient intubated [] Other: Summary Time spent with patient 5 min
--- NOTE | 2023-05-21 09:42 | PM.CONSULT ---
Providers/Reason For Consult Consulting Physician/Specialty*: kommana/Nephrology Reason for Consult*: ESRD Attending Physician: Shemar Vaughn MD Primary Care Provider: Laya Devlin History of Present Illness History of Present Illness Anthony Waller Jr is a 73 year old male Patient is a 73-year-old male with past medical history of end-stage renal disease on dialysis per Saturday schedule, liver cirrhosis, hypertension, dyslipidemia, atrial fibrillation, peripheral vascular disease presented to the emergency department due to altered mental status. Further workup in the ED was unremarkable with negative head CT. Vital signs were stable on presentation lab data significant for hemoglobin 9.0, potassium 3.4 creatinine 5.3. Last dialysis was on Saturday. Review of Systems Narrative: Other ros NEGATIVE Medications/Allergies Home Medications Medication Instructions Recorded Confirmed Last Taken Type B complex 11-folic acid 1 mg-C 100 1 tab PO DAILY 07/25/21 05/20/23 05/07/23 History mg-biotin 300 mcg-zinc 50 mg tablet (Dialyvite) atorvastatin 10 mg tablet 10 mg PO QPM 07/25/21 05/20/23 05/07/23 History cholecalciferol (vitamin D3) 125 125 mcg PO DAILY 07/25/21 05/20/23 05/07/23 History mcg (5,000 unit) capsule docusate sodium 100 mg capsule 100 mg PO TID 07/25/21 05/20/23 04/18/23 History (Colace) furosemide 80 mg tablet (Lasix) 80 mg PO BID 07/25/21 05/20/23 05/09/23 History omega 9-kwl-dsb-fish oil 1,000 mg 1 cap PO BID 07/25/21 05/20/23 05/04/23 History (120 mg-180 mg) capsule warfarin 4 mg tablet See Rx Instructions .Route .COMPLEX 01/24/22 05/20/23 05/04/23 History simethicone 125 mg capsule (Gas-X 125 mg PO PRN PRN Gastric Reflux 04/19/22 05/20/23 04/11/23 History Extra Strength) carvedilol 3.125 mg tablet 3.125 mg PO BID 05/17/22 05/20/23 05/09/23 History fluticasone propionate 50 1 spray intranasal DAILY 05/29/22 05/20/2305/07/23 History mcg/actuation nasal spray,suspension escitalopram oxalate 10 mg tablet 10 mg PO DAILY 01/29/23 05/20/23 05/09/23 History ciprofloxacin HCl 250 mg tablet 250 mg PO DAILY 02/26/23 05/20/23 05/09/23 History amlodipine 10 mg tablet 10 mg PO DAILY 05/20/23 05/20/23 Unknown History aspirin 81 mg tablet,delayed 81 mg PO DAILY 05/20/23 05/20/23 Unknown History release cefdinir 300 mg capsule 300 mg PO BID 05/20/23 05/20/23 Unknown History metronidazole 500 mg tablet 500 mg PO DAILY 05/20/23 05/20/23 Unknown History Allergies Allergy/AdvReac Type Severity Reaction Status Date / Time codeine Allergy Mild ALGY-Rash Verified 05/20/23 09:42 Penicillins Allergy Mild ALGY-Rash Verified 05/20/23 09:42 Current Medications Generic Name Dose Route Start Last Admin Trade Name Freq PRN Reason Stop Dose Admin Carvedilol 3.125 mg 05/20/23 18:54 05/21/23 08:17 Carvedilol 3.125 Mg Tablet PO 3.125 mg BID PEG Administration Docusate Sodium 100 mg 05/20/23 21:00 05/21/23 08:17 Docusate Sodium 100 Mg Capsule PO 100 mg TID PEG Administration Escitalopram Oxalate 10 mg 05/21/23 09:00 05/21/23 08:18 Escitalopram 10 Mg Tablet PO 10 mg DAILY PEG Administration Fluticasone Propionate 1 spray 05/21/23 09:00 05/21/23 08:20 Fluticasone Nasal [place] 16gm Btl INTRANASAL 1 spray DAILY PEG Administration Furosemide 80 mg 05/21/23 08:00 05/21/23 08:18 Furosemide 40 Mg Tablet PO 80 mg DAILY@0800 PEG Administration Multivitamins 1 each 05/21/23 09:00 05/21/23 08:17 F-Cetfsng-Qrusrwu C Tablet PO 1 each DAILY PEG Administration Wjboi-1-Yvpc Ethyl Esters 1,000 mg 05/20/23 18:54 05/21/23 08:17 [place]-3 Fatty Acids 1,000 Mg Capsule PO 1,000 mg BID PEG Administration Pantoprazole Sodium 40 mg 05/21/23 09:00 05/21/23 08:[address] 40 Mg Tablet PO 40 mg DAILY PEG Administration Vitamin D 5,000 unit 05/21/23 09:00 05/21/23 08:17 Cholecalciferol (Vitamin D3) 5,000 Unit Tablet PO 5,000 unit DAILY PEG Administration PFSH Acute PFSH: Medical History (Updated 05/20/23 @ 22:35 by Julianne Buchanan MD) Osteoarthritis History of peritonitis Depression Anemia in chronic kidney disease Chronic diastolic heart failure PVD (peripheral vascular disease) Atrial fibrillation Hypertension Hyperlipidemia End-stage renal disease on hemodialysis Liver cirrhosis TIA (transient ischemic attack) Surgical History (Updated 05/20/23 @ 22:35 by Julianne Buchanan MD) AV fistula left upper arm, brachial to cephalic vein History of transcatheter aortic valve replacement (TAVR) History of abdominal paracentesis Social History Smoking and tobacco/nicotine status: never used tobacco/nicotine Second hand smoke exposure: No Alcohol intake: never Substance/Drug Use: never Vitals/I&O/Wt Last Vital Signs Temp 98.0 F 05/21/23 07:57 Pulse 83 05/21/23 07:57 Resp 17 05/21/23 07:57 BP 131/73 05/21/23 07:57 Pulse Ox 99 05/21/23 07:57 O2 Del Method Nasal Cannula 05/21/23 07:57 O2 Flow Rate 2 05/20/23 17:00 Weight last 48 hrs Weight 89.471 kg Weight 84.822 kg Physical Exam Narrative: awake , alert No distress Data 05/21/23 05:41 05/21/23 05:41 A&P Assessment and plan (1) End-stage renal disease on hemodialysis: Plan 1. End-stage renal disease: On MWF schedule as a patient 2. Anemia: Hemoglobin 9.0, ordered KRISHNA 3. Altered mental status improved 4. History of liver cirrhosis and requiring frequent paracentesis 5. A-fib on chronic anticoagulation 6. Thrombocytopenia Plan: HD today, UF as tolerated, KRISHNA ordered. Coding Level of Care Code Acute Code for Chg Fwd Diagnoses End-stage renal disease on hemodialysis N18.6; Z99.2
[2023-05-21] MEDS: heparin, porcine 1,000 unit/mL INJ 10 mL 10000 UNIT INTRACATH (09:55)
[2023-05-21] MEDS: epoetin alfa 1000 Unit/0.05 mL (ESRD) 20000 UNIT IVP (09:56)
[2023-05-21 10:05] LABS: Lactic Acid level (Lactate) 2.1 mmol/L (0.5-2.2)
[2023-05-21] MEDS: heparin, porcine 1,000 unit/mL INJ 10 mL 1000 UNIT IV (10:41)
--- NOTE | 2023-05-21 10:56 | USCV_ITS ---
Anthony Waller Age: 73 Gender: M : 1950 Exam Date: 05/21/2023 15:31 Ordering Phys: Shemar Vaughn MD Technologist: CT Exam Location: [facility] Indication: afib,cad BP: 132 / 74 HR: 136 Rhythm: Sinus Technical Quality: Adequate MEASUREMENTS (Male / Female) Normal Values 2D ECHO LV Chamber Size 5.2 cm RV Chamber Size 5.1 cm LVOT Diameter 2.2 cm LV Ejection Fraction MOD 2C 64.9 % LV Ejection Fraction 2C AL 64.5 % LA Diameter 6.0 cm LA Width 5.7 cm LA Height 7.0 cm RA Width 5.4 cm RA Height 7.2 cm Aorta at Sinotubular Diameter 3.2 cm IVC Diameter 2.0 cm M-MODE MV E Point Septal Separation 0.9 cm DOPPLER AV Peak Velocity 378.0 cm/s LVOT Peak Velocity 204.0 cm/s AV Area Cont Eq vti 2.2 cm squared AV Area Cont Eq pk 2.0 cm squared MV Area PHT 2.8 cm squared Mitral E to A Ratio 144.9 MV E' Velocity 109.0 cm/s Mitral E to MV E' Ratio 16.2 Mitral E to LV E' Lateral Ratio 13.2 Mitral E to LV E' Septal Ratio 21.1 TR Peak Velocity 323.4 cm/s TR Peak Gradient 41.8 mmHg TR Mean Velocity 220.3 cm/s TR Mean Gradient 22.6 mmHg TR Velocity Time Integral 79.9 cm TV Peak E Velocity 146.0 cm/s Right Atrial Pressure 3.0 mmHg Pulmonary Artery Systolic Pressu 44.8 mmHg PV Peak Velocity 122.0 cm/s FINDINGS Left Ventricle Left ventricle is normal in size. LV systolic function is normal with EF of 50-55%. No regional wall motion abnormalities are seen. Right Ventricle Normal in size and function Right Atrium Dilated Left Atrium Dilated Mitral Valve Moderate mitral annular calcification. Moderate mitral regurgitation. Mean pressure gradient across mitral valve is 5.9 mmHg. This is consistent with mild to moderate mitral stenosis. Aortic Valve Bioprosthetic aortic valve. Mild to moderately elevated mean gradient across aortic valve of 20 mmHg. DVI is normal and is 0.59. Tricuspid Valve Moderate tricuspid regurgitation. RVSP is 40 to 45 mmHg. This is consistent with mild pulmonary hypertension. Pulmonic Valve Not well-visualized Pericardium Small sized pericardial effusion. Aorta Normal in size IVC Appears to be normal CONCLUSIONS LV systolic function is normal with EF of 50-55% Biatrial enlargement Moderate mitral regurgitation Mild to moderate mitral stenosis Bioprosthetic aortic valve with mild to moderately elevated pressure gradient across it. Moderate tricuspid regurgitation. Mild pulmonary hypertension No comparison studies are available. Scooby Estrada MD (Electronically Signed) Final Date: 22 May 2023 08:46 S
--- NOTE | 2023-05-21 13:28 | P.PN_ITS ---
Subjective 2 Subjective: H&P labs appreciated. Today morning seen during dialysis. Patient is back to his baseline mentation. Confirmed with his family member at bedside. Patient denies any nausea vomiting, headache. States he has been having diarrhea daily for last few weeks. States he was recently at an outside hospital for abdominal pain where he was sent home on empiric antibiotics with concerns for possible SBP. He gets paracentesis every 3 weeks with last paracentesis a week ago. Vitals/I&O/Wt Last Vital Signs Temp 98.0 F 05/21/23 07:57 Pulse 83 05/21/23 07:57 Resp 17 05/21/23 07:57 BP 131/73 05/21/23 07:57 Pulse Ox 99 05/21/23 07:57 O2 Del Method Nasal Cannula 05/21/23 07:57 O2 Flow Rate 2 05/20/23 17:00 Weight last 48 hrs Weight 89.471 kg Weight 84.822 kg Physical Exam 2 Narrative: General: No acute distress, AO x3, pallor present, pleasant HEENT: PERRLA, pupils bilaterally equal and reactive Chest: Normal vesicular breath sounds, no added sounds, equal good air entry bilaterally CVS: S1-S2 regular, no murmurs, no tachycardia, no gallops, no rubs Abdomen: Soft, distended, nontender, no organomegaly, bowel sounds present Neuro: No focal deficits, no facial deformity, AO x3, power 5/5 in all limbs Data 05/21/23 05:41 05/21/23 05:41 Micro: Microbiology 05/20/23 14:01 Urine Culture - Final Urine,Clean Catch A&P Assessment and plan (1) Delirium: Resolved. Unclear etiology presently. Currently back to baseline. CT head done on admission negative for acute stroke. Appreciate carotid ultrasound to be negative for acute abnormality. Medical reconciliation done. Continue with home dose of escitalopram. Ammonia levels normal, TSH within normal limits, UA negative for any signs of infection. Will add a urine drug screen. (2) History of peritonitis: Most recently on antibiotics a week ago. Less likely currently. Will plan for diagnostic paracentesis if possible. Hold off on antibiotics for now. (3) End-stage renal disease on hemodialysis: Hemodialysis Saturday, Saturday and Saturday. Appreciate nephrology recommendations. (4) Anemia in chronic kidney disease: Stable, does have longstanding macrocytosis and history of iron deficiency from outside records which were reviewed. Check vitamin B12 folate and iron panel. (5) Atrial fibrillation: Chronic persistent, rate controlled, on coreg and antcoagulation. (6) Supratherapeutic INR: Takes Coumadin for A-fib. Target INR is 1.5-2. Currently more than 6. Hemoglobin stable. No active bleeding. Patient does need diagnostic paracentesis once INR improved. Will start with 2 units of FFP. Repeat INR in AM. Hold off on Coumadin. Discussed in detail with patient regarding benefits of NOACs versus chronic Coumadin. Discussed about less chances of side effect, bleeding, INR checks while being on Coumadin. Patient is agreeable to switch. Will plan to switch to Eliquis 5 mg twice daily on discharge. (7) Chronic anticoagulation: On warfarin, takes 8 mg Coumadin daily. Currently supratherapeutic. (8) Thrombocytopenia: Initially concerned with mental status change and low platelets plus anemia that could be early TTP. LDH not normal. Review of records shows that platelets have been lower at previous visit to [facility] last week. Patient does have history of cirrhosis, recurrent ascites so has reasons to have low platelets. (9) Chronic diastolic heart failure: Not currently acute, but at risk for such missing HD today, on lasix chronically (10) Hypertension: Goal blood pressure less than 140/90 mmHg. Currently at goal. Chronically on amlodipine, in addition to lasix and coreg (11) Hyperlipidemia: Chrnoically on statin and fish oil (12) Liver cirrhosis: Type unknown, with ascites and regular paracentesis, last 05/09 ~2L (13) Depression: Chronically on escitalopram (14) Osteoarthritis: Bilateral lower extremities Plan VTE prophylaxis: SCDs, high INR currently from coumadin/antibiotics so no other pharmacological prophylaxis GI Prophylaxis: Protonix p.o. daily Telemetry: currently ordered given AMS, afib history, lack of HD today Melgar: not currently indicated though he does still make urine Line(s): peripheral IVs , avoid LUE given fistula Disposition plan: Home with outpatient follow up to primary care provider anticipated as well as resumption of usual hemodialysis schedule. Code Status: Full Code. Again confirmed admitted with the patient. Patient's children will be the DPOA. Renal dialysis diet. Attestations 2 Medical Necessity Statement*: Requires further hospitalization for management of delirium in setting of possible SBP in a patient with end-stage renal disease on hemodialysis, supratherapeutic INR for A-fib Diagnoses Delirium R41.0 History of peritonitis Z87.19 End-stage renal disease on hemodialysis N18.6; Z99.2 Anemia in chronic kidney disease N18.9; D63.1 Atrial fibrillation I48.91 Supratherapeutic INR R79.1 Chronic anticoagulation Z79.01 Thrombocytopenia D69.6 Chronic diastolic heart failure I50.32 Hypertension I10 Hyperlipidemia E78.5 Liver cirrhosis K74.60 Depression F32.A Osteoarthritis M19.90
[2023-05-21 14:29] LABS: Iron 122 ug/dL (59-158)
[2023-05-21 15:23] LABS: Unsaturated Iron Binding < 13 ug/dL (112-347); Vitamin B12 > 2000 pg/mL (232-1245)
[2023-05-21] MEDS: atorvastatin 40 mg Tablet PO (17:22)
--- NOTE | 2023-05-21 18:54 | USCV_ITS ---
Anthony Waller Age: 73 Gender: M : 1950 Exam Date: 05/21/2023 01:55 Ordering Phys: Julianne Buchanan MD Technologist: GENET Exam Location: [facility] Indication: altered mental status. No DM, never smoked, per patient. Risk Factors: altered mental status. No DM, never smoked, per patient. Previous Vascular Surgery: None. Note that patient has an A-V fistual Left upper arm dialysis shunt. The left subclavian artery is not triphasic and high velocity because of this. Right Brachial BP: 136 / 75 Left Brachial BP: / Right Left Velocity (cm/s) Spectral Plaque Velocity (cm/s) Spectral Plaque Syst/Diast Broadening Syst/Diast Broadening 56.20/ 13.20 Mod None Prox CCA 80.30 / 8.50 Min None 56.20/ 13.20 Min Homo Mid CCA 76.00 / 12.80 None None 59.50/ 12.10 Min [place] Distal CCA 55.50 / 11.10 None [place] 42.20/ 9.60 Min Hetro Prox ICA 38.50 / 11.20 Min Hetro 52.30/ 17.10 Min Homo Mid ICA 57.10 / 15.50 Min Homo 62.00/ 16.00 Mod Homo Distal ICA 38.50 / 15.50 Min Homo 89.30 Min Hetro ECA 67.50 Min Hetro 1.04 ICA/CCA 0.71 Antegrade Vertebral 31.50/ 10.70 cm/s / cm/s Tri Subclavian Bi 67.30 200.5 0 CONCLUSIONS Right ICA stenosis <50%. Moderate atheromatous plaque right carotid bulb/ICA. Left ICA stenosis <50%. Moderate atheromatous plaque left carotid bulb/ICA. Left vertebral artery not visualized. Left AV dialysis fistula Normal antegrade Doppler flow noted in the right vertebral artery. Buck Auguste MD (Electronically Signed) Final Date: 21 May 2023 09:00 S
[2023-05-22] VITALS (19 sets, daily range): BP systolic 111–164; BP diastolic 44–83; PULSE 61–89; RESP 16–22; TEMP 36.4–37.8; O2SAT 90–100
[2023-05-22 05:10] LABS: Basophils % 0.2 %; Eosinophils % 0.4 %; Hematocrit 22.4 % (37-53); Lymphocytes # 0.6 10^3/uL (0.8-4.8); Lymphocytes % 9.9 %; Mean Corpuscular Hemoglobin 37.2 pg (27-33); Mean Corpuscular Volume 112.6 fl (82-101); Monocytes # 1.4 10^3/uL (0.2-0.9); Monocytes % 24.6 %; Neutrophils % 59.2 %; Nucleated Red Blood Cells % 0 %; Platelet Count 79 10^3/cmm (157-399); Red Blood Count 1.99 10^6/uL (3.85-5.65); Red Cell Distribution Width 19.8 % (12.1-15.1); White Blood Count 5.57 10^3/uL (3.29-11.43)
[2023-05-22 05:29] LABS: Chol HDL Ratio 2.15 mg/dL (1.0-5.00); Cholesterol 71 mg/dL (0-200); HDL Cholesterol 33 mg/dL (60-100); LDL Cholesterol Calculated 23 mg/dL (50-129); Triglycerides 75 mg/dL (0-150); VLDL Cholestrol Calculation 15 mg/dL (0-30)
[2023-05-22 05:30] LABS: Alanine Aminotransferase 13 U/L (0-41); Albumin Level 2.8 g/dL (3.5-5.2); Alkaline Phosphatase 57 U/L (40-130); Anion Gap 11.2 (5-19); Aspartate Amino Transferase 27 U/L (0-40); Blood Urea Nitrogen 22 mg/dL (8-23); Carbon Dioxide 30 mmol/L (22-29); Chloride 95 mmol/L (98-107); Globulin 2.1 g/dL (1.3-4.6); Glucose 105 mg/dL (65-115); Osmolality Calculated 280 mOsm/kg (285-295); Potassium 3.2 mmol/L (3.5-5.1); Sodium 133 mmol/L (136-145); Total Bilirubin 0.8 mg/dL (0.15-1.2); Total Protein 4.9 g/dL (6.6-8.7)
[2023-05-22 05:31] LABS: INR 3.23 (0.8-1.2)
[2023-05-22 05:45] LABS: Slide Review Slide Review Perform
[2023-05-22 05:50] LABS: Folate Level 9.6 ng/mL (4.5-32.2)
[2023-05-22 07:27] LABS: Estmated Average Glucose 94; Hemoglobin A1C 4.9 % (4.0-6.0)
[2023-05-22] MEDS: FUROsemide 40 mg Tablet 80 MG PO (08:39)
[2023-05-22] MEDS: b-complex-vitamin c Tablet 1 EACH PO (08:39)
[2023-05-22] MEDS: pantoprazole DR 40 mg Tablet PO (08:39)
[2023-05-22] MEDS: cholecalciferol (vitamin D3) 5,000 unit Tablet 5000 UNIT PO (08:40)
[2023-05-22] MEDS: docusate sodium 100 mg Capsule PO ×3 (08:40→21:03)
[2023-05-22] MEDS: escitalopram 10 mg Tablet PO (08:40)
[2023-05-22] MEDS: fluticasone nasal spray 16gm Btl 1 SPRAY INTRANASAL (08:40)
[2023-05-22] MEDS: carvedilol 3.125 mg Tablet PO ×2 (08:40→17:53)
[2023-05-22] MEDS: omega-3 fatty acids 1,000 mg Capsule 1000 MG PO ×2 (08:40→17:53)
[2023-05-22 11:41] LABS: Adenovirus Not Detected (NOT DETECT); Chlamydia Pneumoniae Not Detected (NOT DETECT); Coronavirus 229E,HKU1,NL63,OC4 Not Detected (NOT DETECT); Human Metapneumovirus Not Detected (NOT DETECT); Human Rhinovirus/Enterovirus Not Detected (NOT DETECT); Influenza A Not Detected (NOT DETECT); Influenza A H1 Not Detected (NOT DETECT); Influenza A H1-2009 Not Detected (NOT DETECT); Influenza A H3 Not Detected (NOT DETECT); Influenza B Not Detected (NOT DETECT); Mycoplasma Pneumoniae Not Detected (NOT DETECT); Parainfluenza Virus Type 1 Not Detected (NOT DETECT); Parainfluenza Virus Type 2 Not Detected (NOT DETECT); Parainfluenza Virus Type 3 Not Detected (NOT DETECT); Parainfluenza Virus Type 4 Not Detected (NOT DETECT); Respiratory Syncytial Virus A Not Detected (NOT DETECT); Respiratory Syncytial Virus B Not Detected (NOT DETECT)
[2023-05-22 11:51] LABS: SARS-COV-2 Detected (NOT DETECT)
--- NOTE | 2023-05-22 11:54 | PC.SOCIAL ---
Pg 2 IMM Explained to pt Pg 2 IMM. No questions voiced. Provided pt a copy. Initialed, dated, & timed a copy & placed in chart.
[2023-05-22] MEDS: sodium chloride 0.9% (100 ml) 100 ML 999 ML (13:02)
--- NOTE | 2023-05-22 13:35 | P.PN_ITS ---
Subjective 2 Subjective: Noted events overnight. Patient lying comfortably in bed. States he is feeling better. Awake and alert and able to complete conversation. Febrile today morning up to 100 Fahrenheit. After 2 to 3 days of oxygen supplementation. Complaining of cough and sore throat. Vitals/I&O/Wt Last Vital Signs Temp 98.5 F 05/22/23 13:14 Pulse 73 05/22/23 13:14 Resp 17 05/22/23 13:14 BP 142/78 05/22/23 13:14 Pulse Ox 99 05/22/23 13:14 O2 Del Method Nasal Cannula 05/22/23 11:32 O2 Flow Rate 2 05/21/23 20:43 05/21/23 05/22/23 05/22/23 22:59 06:59 14:59 Intake Total 904 / 904 510 / 510 Output Total 150 / 150 100 / 250 Balance 754 / 754 -100 / 654 510 / 510 Weight last 48 hrs Weight 87.231 kg Weight 89.471 kg Physical Exam 2 Narrative: General: No acute distress, AO x3, pallor present, pleasant HEENT: PERRLA, pupils bilaterally equal and reactive Chest: Normal vesicular breath sounds, no added sounds, equal good air entry bilaterally CVS: S1-S2 regular, no murmurs, no tachycardia, no gallops, no rubs Abdomen: Soft, distended, nontender, no organomegaly, bowel sounds present Neuro: No focal deficits, no facial deformity, AO x3, power 5/5 in all limbs Data 05/22/23 04:54 05/22/23 04:54 Micro: Microbiology 05/20/23 14:01 Urine Culture - Final Urine,Clean Catch A&P Assessment and plan (1) Delirium: Resolved. Unclear etiology presently. Currently back to baseline. CT head done on admission negative for acute stroke. Appreciate carotid ultrasound to be negative for acute abnormality. Medical reconciliation done. Continue with home dose of escitalopram. Ammonia levels normal, TSH within normal limits, UA negative for any signs of infection. Will add a urine drug screen. (2) History of peritonitis: Most recently on antibiotics a week ago. On review of fluid studies from past it seems patient's cultures have remained negative though he has been on antibiotics on and off and fluid WBCs are usually more than 300. Will plan for diagnostic paracentesis if possible. Hold off on antibiotics for now. If fluid studies again show WBCs more than 300 can plan for management of chronic peritonitis. Check blood cultures. (3) End-stage renal disease on hemodialysis: Hemodialysis Saturday, Saturday and Saturday. Appreciate nephrology recommendations. (4) Anemia in chronic kidney disease: Stable, does have longstanding macrocytosis and history of iron deficiency from outside records which were reviewed. Appreciate vitamin B12 folate and iron panel. (5) Atrial fibrillation: Chronic persistent, rate controlled, on coreg and antcoagulation. (6) Supratherapeutic INR: Takes Coumadin for A-fib. Target INR is 1.5-2. Down to 3.3. Post 2 units of FFP. Patient is requiring diagnostic paracentesis. Repeat 2 units of FFP. Continue to hold off on Coumadin. Discussed in detail with patient regarding benefits of NOACs versus chronic Coumadin. Discussed about less chances of side effect, bleeding, INR checks while being on Coumadin. Patient is agreeable to switch. Will plan to switch to Eliquis 5 mg twice daily on discharge. (7) Chronic anticoagulation: On warfarin, takes 8 mg Coumadin daily. Currently supratherapeutic. Plan to switch to Eliquis on discharge (8) Thrombocytopenia: Initially concerned with mental status change and low platelets plus anemia that could be early TTP. LDH not normal. Review of records shows that platelets have been lower at previous visit to [facility] last week. Patient does have history of cirrhosis, recurrent ascites so has reasons to have low platelets. (9) Chronic diastolic heart failure: Not currently acute, but at risk for such missing HD today, on lasix chronically (10) Hypertension: Goal blood pressure less than 140/90 mmHg. Currently at goal. Chronically on amlodipine, in addition to lasix and coreg (11) Hyperlipidemia: Chrnoically on statin and fish oil (12) Liver cirrhosis: Type unknown, with ascites and regular paracentesis, last 05/09 ~2L (13) Depression: Chronically on escitalopram (14) Osteoarthritis: Bilateral lower extremities (15) COVID-19: Mild disease. Start on oral dexamethasone 6 mg daily. Will plan for 10-day course. As patient has mild disease we will hold off on starting remdesivir for now. Incentive spirometry and flutter valve Nebulization treatment with DuoNeb. Plan VTE prophylaxis: SCDs, high INR currently from coumadin/antibiotics so no other pharmacological prophylaxis GI Prophylaxis: Protonix p.o. daily Telemetry: currently ordered given AMS, afib history, lack of HD today Melgar: not currently indicated though he does still make urine Line(s): peripheral IVs , avoid LUE given fistula Disposition plan: Home with outpatient follow up to primary care provider anticipated as well as resumption of usual hemodialysis schedule. Code Status: Full Code. Again confirmed admitted with the patient. Patient's children will be the DPOA. Renal dialysis diet. Attestations 2 Medical Necessity Statement*: Requires further hospitalization for management and evaluation of delirium in a patient with possible chronic SBP, end-stage renal disease on hemodialysis, COVID-19 along with supratherapeutic INR due to chronic anticoagulation for A- fib Diagnoses Delirium R41.0 History of peritonitis Z87.19 End-stage renal disease on hemodialysis N18.6; Z99.2 Anemia in chronic kidney disease N18.9; D63.1 Atrial fibrillation I48.91 Supratherapeutic INR R79.1 Chronic anticoagulation Z79.01 Thrombocytopenia D69.6 Chronic diastolic heart failure I50.32 Hypertension I10 Hyperlipidemia E78.5 Liver cirrhosis K74.60 Depression F32.A Osteoarthritis M19.90 COVID-19 U07.1
[2023-05-22] MEDS: ipratropium 0.5 mg/2.5 mL Neb INHALATION ×2 (14:10→21:47)
[2023-05-22] MEDS: levalbuterol 0.63 mg/3 mL Neb INHALATION ×2 (14:10→21:47)
[2023-05-22] MEDS: acetaminophen 325 mg Tablet 650 MG PO (14:26)
[2023-05-22] MEDS: dexamethasone 4 mg Tablet 6 MG PO (14:27)
--- NOTE | 2023-05-22 16:40 | P.PN_ITS ---
Subjective 2 Subjective: no new c/o Medications: Reviewed: Yes Vitals/I&O/Wt Last Vital Signs Temp 98.8 F 05/22/23 16:00 Pulse 75 05/22/23 16:00 Resp 16 05/22/23 16:00 BP 123/68 05/22/23 16:00 Pulse Ox 96 05/22/23 16:00 O2 Del Method Nasal Cannula 05/22/23 16:00 O2 Flow Rate 2 05/22/23 14:22 05/22/23 05/22/23 05/22/23 06:59 14:59 22:59 Intake Total 714 / 714 100 / 814 Output Total 100 / 250 Balance -100 / 654 714 / 714 100 / 814 Weight last 48 hrs Weight 87.231 kg Weight 89.471 kg Physical Exam 2 Narrative: awake , alert No distress Data 05/22/23 04:54 05/22/23 04:54 A&P Assessment and plan (1) End-stage renal disease on hemodialysis: Plan 1. End-stage renal disease: On MWF schedule as a patient 2. Anemia: Hemoglobin 7.4, ordered KRISHNA with hd 3. Altered mental status improved 4. History of liver cirrhosis and requiring frequent paracentesis 5. A-fib on chronic anticoagulation 6. Thrombocytopenia Plan: HD tomorrow, UF as tolerated, KRISHNA ordered. Attestations 2 Medical Necessity Statement*: per medicine Coding Level of Care Code Acute Code for Chg Fwd Diagnoses End-stage renal disease on hemodialysis N18.6; Z99.2
[2023-05-22] MEDS: atorvastatin 40 mg Tablet PO (17:53)
[2023-05-23] VITALS (11 sets, daily range): BP systolic 107–127; BP diastolic 68–79; PULSE 62–90; RESP 16–19; TEMP 36.5–36.6; O2SAT 96–99; BMI 26.8
[2023-05-23 05:43] LABS: Hematocrit 22.9 % (37-53); Mean Corpuscular HGB Conc 31.9 g/dL (30-55); Mean Corpuscular Hemoglobin 36.3 pg (27-33); Mean Corpuscular Volume 113.9 fl (82-101); Mean Platelet Volume 10.7 fL (7.4-10.4); Platelet Count 77 10^3/cmm (157-399); Red Blood Count 2.01 10^6/uL (3.85-5.65); Red Cell Distribution Width 20.1 % (12.1-15.1); White Blood Count 3.14 10^3/uL (3.29-11.43)
[2023-05-23 05:52] LABS: INR 3.39 (0.8-1.2)
[2023-05-23 06:05] LABS: Alanine Aminotransferase 15 U/L (0-41); Alkaline Phosphatase 58 U/L (40-130); Blood Urea Nitrogen 34 mg/dL (8-23); Calcium 9.1 mg/dL (8.5-10.5); Carbon Dioxide 27 mmol/L (22-29); Chloride 96 mmol/L (98-107); Globulin 2.3 g/dL (1.3-4.6); Glucose 130 mg/dL (65-115); Osmolality Calculated 289 mOsm/kg (285-295); Sodium 135 mmol/L (136-145); Total Bilirubin 0.9 mg/dL (0.15-1.2); Total Protein 5.3 g/dL (6.6-8.7)
[2023-05-23 06:06] LABS: Anion Gap 15.7 (5-19); Aspartate Amino Transferase 32 U/L (0-40); Potassium 3.7 mmol/L (3.5-5.1)
[2023-05-23 06:07] LABS: Magnesium 2.3 mg/dL (1.7-2.3)
[2023-05-23 06:21] LABS: Slide Review Slide Review Perform
[2023-05-23 06:22] LABS: Absolute Segmented Neutrophil 1.9 10/cmm (1.6-7.1); Eosinophils 0 %; Giant Platelets Trace; Lymphocytes 20 %; Monocytes Absolute 0.4 10^3/cmm (0.1-0.6); Platelet Estimate Decreased (Normal); Segmented Neutrophils 62 %; Total Cells Counted 100 (0-100)
[2023-05-23] MEDS: levalbuterol 0.63 mg/3 mL Neb INHALATION ×2 (08:04→13:26)
[2023-05-23] MEDS: ipratropium 0.5 mg/2.5 mL Neb INHALATION ×2 (08:04→13:26)
[2023-05-23] MEDS: FUROsemide 40 mg Tablet 80 MG PO (10:22)
[2023-05-23] MEDS: b-complex-vitamin c Tablet 1 EACH PO (10:23)
[2023-05-23] MEDS: cholecalciferol (vitamin D3) 5,000 unit Tablet 5000 UNIT PO (10:23)
[2023-05-23] MEDS: escitalopram 10 mg Tablet PO (10:23)
[2023-05-23] MEDS: docusate sodium 100 mg Capsule PO ×2 (10:24→22:03)
[2023-05-23] MEDS: carvedilol 3.125 mg Tablet PO ×2 (10:24→18:30)
[2023-05-23] MEDS: pantoprazole DR 40 mg Tablet PO (10:24)
[2023-05-23] MEDS: dexamethasone 4 mg Tablet 6 MG PO (10:25)
[2023-05-23] MEDS: omega-3 fatty acids 1,000 mg Capsule 1000 MG PO ×2 (10:26→18:30)
[2023-05-23] MEDS: fluticasone nasal spray 16gm Btl 1 SPRAY INTRANASAL (10:26)
--- NOTE | 2023-05-23 11:07 | P.DS_ITS ---
Discharge Providers Date of Admission: 05/20/23 15:35 Date of Discharge: May 23, 2023 Attending Provider at Admission: Julianne Buchanan MD Attending Provider at Discharge: Shemar Vaughn MD Consults: Telemetry nephrology Primary Care Provider: Laya Devlin Diagnoses at Discharge Discharge Diagnosis (1) End-stage renal disease on hemodialysis: Status: Chronic Reason for Visit Reason for Visit: mental status changes Brief History: History as per HPI: Anthony Waller Jr is a 73 year old male who presented to the emergency room with confusion today. He has not been feeling well for couple of days. He had difficulty getting up this morning and required EMT assistance to get him up. He is a known chronic kidney disease patient on hemodialysis Mondays, Wednesdays and Fridays. When he presented to dialysis he was not his usual self. He was noted to be more boisterous than usual, yelling a bit. He told the ER doctor that the nurse had left him outside to among some other stories. Workup in the emergency room demonstrated an elevated troponin without significant EKG changes. White count was normal. No indication of urinalysis or pneumonia. CT of the head was unremarkable. He was found to have a low platelet count and it was discovered that he had been recently prescribed Flagyl and cefdinir. He is chronically on Coumadin and INR was noted to be 6. With the ER provider he was not oriented to person place or situation appropriately. Request was made for admission to hospitalist service. By the time I am evaluating him he is feeling overall better. He denies similar presentations in the past. It takes him some time but he knows the month and the year. He knows the day of the week. He knows the president. He knows who he is and where he is and why he is here. He does indicate a couple of times that he thinks he may have a virus. When asked why he feels like he has a virus he says because he has a big family and has had some shortness of breath and p ain in his back as well as some upper respiratory symptoms of runny nose and cough. He has a little bit of a sore throat as well. He describes some nausea but no vomiting. He has had some loose stools. Difficult to get idea of quantity. No reports of any focal motor changes. He has swelling at times. Takes lasix, does still make urine. No dysuria. Has knee and hip pain from arthritis. I did eventually learn from him that he gets paracentesis every few weeks. He has liver disease that sounds like is related to diabetes and kidney disease from his recollection. No history of significant alcohol use. He has evidently been evaluated for a transplant at some point but not a candidate. He gets paracenteses approximately every 3 weeks here. Going back to January of last year I do not see any positive cultures. I was able to get some records from [facility] where he presented on May 15. He was complaining of abdominal pain and diarrhea. He received Rocephin and metronidazole IV while in the ER empirically and was given prescriptions for cefdinir and metronidazole upon discharge. I do not see cultures or fluid studies from then but I was able to note that his white count was normal. Platelet count at the time was 72. He had 76% neutrophils with 4% lymphocytes and 16% monocytes. CRP was checked and was elevated at 105.4. Sed rate was normal at 11. Lactic acid was 1.6. Records from there indicate that patient had been on ciprofloxacin prior to that ER visit. Potassium then was low when he received replacement. The clinical impresion is that he might have SBP from what I could read. They state that he has chronic SBP prior to that ER visit but I am not sure where that is coming from. Mr. Waller is chronically on anticoagulation in the form of Coumadin due to history of atrial fibrillation. With recent antibiotic usage INR today is up to 6.6. He denies any gross bleeding but does have bruising. Hospital Course Hospital Course Patient was admitted to the hospital further evaluation and management of transient delirium. He was found to have a recent history of peritonitis for which he was recently on antibiotics though his fluid cultures have been negative. Nephrology was consulted and he was continued on his home schedule of dialysis. Patient responded well to the treatment and was back to his baseline mentation within 24 hours. Because of transient nature of delirium TIA versus stroke was ruled out, medical reconciliation were done with concerns for polypharmacy. On admission ammonia levels were checked and were found to be normal. Urine drug screen was negative. Patient did have episode of fever during hospitalization and he was found to be positive for COVID-19. It is possible that patient's symptoms of delirium was in setting of new onset COVID-19 though he remained on his baseline oxygen supplementation hence he was only treated by oral dexamethasone. During hospitalization he was also found to have supratherapeutic INR. It seems patient has had history of supratherapeutic INR along with difficulty to control Coumadin levels in the past. His Coumadin was discontinued and he was given 4 units of FFP to maintain his INR. After discussion he was started on Eliquis 5 mg twice daily for stroke prevention. On admission he was also found to have borderline blood pressures for which his home antihypertensives were adjusted. On review of recent peritoneal fluid studies it seems as fluid cultures have always been negative though his fluid cell count showed WBC more than 300 on multiple occasions. Patient has been on multiple antibiotics recently with concerns for peritonitis. He has been discharged in hemodynamically stable condition on oral dexamethasone 6 mg daily, Coumadin has been switched over to Eliquis 5 mg twice daily. His oral antihypertensive including amlodipine 10 mg daily and oral antibiotics have been discontinued. He is to check his blood pressures daily at home and maintain a blood pressure diary. On his next paracentesis it is also requested that he should have a fungal and mycobacterial culture sent. Safe discharge plan were discussed in detail with the patient and he verbalized understanding and all the questions were answered. Physical Exam Narrative: General: No acute distress, AO x3, pallor present, pleasant HEENT: PERRLA, pupils bilaterally equal and reactive Chest: Normal vesicular breath sounds, no added sounds, equal good air entry bilaterally CVS: S1-S2 regular, no murmurs, no tachycardia, no gallops, no rubs Abdomen: Soft, distended, nontender, no organomegaly, bowel sounds present Neuro: No focal deficits, no facial deformity, AO x3, power 5/5 in all limbs Discharge Data Studies Completed and Pending Completed Studies During Hospitalization Category Date Time Status CT head wo con* [id number] Stat Cat Scan 05/20/23 08:45 Completed XR chest 1V portable [id number] Stat Exams 05/20/23 09:44 Completed XR hip RT 2-3V wo/w pel* [id number] Stat Exams 05/20/23 13:01 Completed CV carotid duplex BI* [id number] Routine Ultrasound 05/21/23 18:54 Completed CV. echo complete* [id number] Routine Ultrasound 05/21/23 10:56 Completed Pending at discharge Category Date Time Status Blood Cultures ([facility]) Routine Lab 05/22/23 11:50 Received Blood Cultures ([facility]) Routine Lab 05/22/23 11:55 Received Clostridium Difficile PCR Routine Lab 05/21/23 10:54 Ordered Lactoferrin Routine Lab 05/21/23 10:54 Ordered MAG [Magnesium] AM LABS Lab 05/24/23 04:00 Ordered MRSA [Methicillin Resistant S.aureu] Routine Lab 05/22/23 10:51 Received OVA and Parasites, Conc and PE Routine Lab 05/21/23 10:54 Ordered Salmonella / Shigella / Campy Routine Lab 05/21/23 10:54 [place]dered [place]acentesis abd w [id number] Routine Ultrasound 05/24/23 10:00 Ordered Radiology Impressions Head CT 05/20/23 08:45 IMPRESSION: 1. No acute intracranial abnormality. 2. Moderate age-related changes. Chest X-Ray 05/20/23 09:44 IMPRESSION: Stable chest from 1 year ago with chronic findings. Likely chronic mild CHF. Cardiac history. Hip/Pelvis X-Ray 05/20/23 13:01 IMPRESSION: No acute fracture or dislocation. Echocardiogram: CONCLUSIONS LV systolic function is normal with EF of 50-55% Biatrial enlargement Moderate mitral regurgitation Mild to moderate mitral stenosis Bioprosthetic aortic valve with mild to moderately elevated pressure gradient across it. Moderate tricuspid regurgitation. Mild pulmonary hypertension No comparison studies are available. Laboratory Results WBC 3.14 10^3/uL (3.29-11.43) L 05/23/23 05:23 RBC 2.01 10^6/uL (3.85-5.65) L 05/23/23 05:23 Hgb 7.30 g/dL (11.27-16.99) L 05/23/23 05:23 Hct 22.9 % (37-53) L 05/23/23 05:23 MCV 113.9 fl (82-101) H 05/23/23 05:23 MCH 36.3 pg (27-33) H 05/23/23 05:23 MCHC 31.9 g/dL (30-55) 05/23/23 05:23 RDW 20.1 % (12.1-15.1) H 05/23/23 05:23 Plt Count 77 10^3/cmm (157-399) L 05/23/23 05:23 MPV 10.7 fL (7.4-10.4) H 05/23/23 05:23 Neut % (Auto) 59.2 % 05/22/23 04:54 Lymph % (Auto) Not Reportable 05/23/23 05:23 [place] % (Auto) Not Reportable 05/23/23 05:23 Eos % (Auto) 0.4 % 05/22/23 04:54 Baso % (Auto) 0.2 % 05/22/23 04:54 Reticulocyte % (Auto) 4.1 % (0.5-2.0) H 05/20/23 08:58 Neut # (Auto) 3.30 10^3/uL (1.8-7.7) 05/22/23 04:54 Lymph # (Auto) Not Reportable 05/23/23 05:23 [place] # (Auto) Not Reportable 05/23/23 05:23 Eos # (Auto) 0.0 10^3/uL (0.0-0.8) 05/22/23 04:54 Baso # (Auto) 0.0 10^3/uL (0.0-0.1) 05/22/23 04:54 Nucleated RBC % (auto) 0 % 05/22/23 04:54 Total Counted 100 (0-100) 05/23/23 05:23 Atypical Lymphs % Not Reportable 05/23/23 05:23 Segmented Neutrophils 62 % 05/23/23 05:23 Abs Segm Neuts (Man) 1.9 10/cmm (1.6-7.1) 05/23/23 05:23 Band Neutrophils Not Reportable 05/23/23 05:23 Lymphocytes (Manual) 20 % 05/23/23 05:23 Monocytes (Manual) 12.0 % 05/23/23 05:23 Absolute Monocytes 0.4 10^3/cmm (0.1-0.6) 05/23/23 05:23 Eosinophils (Manual) 0 % 05/23/23 05:23 Absolute Eosinophils 0.0 10^3/cmm (0.0-0.7) 05/23/23 05:23 Basophils (Manual) 0.0 % 05/23/23 05:23 Absolute Basophils 0.0 10^3/cmm (0.0-0.2) 05/23/23 05:23 Metamyelocytes 1.0 % 05/23/23 05:23 Myelocytes 5.0 % 05/23/23 05:23 Nucleated RBCs # 0.0 /100WBC 05/22/23 04:54 Platelet Estimate Decreased (Normal) 05/23/23 05:23 Giant Platelets Trace 05/23/23 05:23 ESR < 1 mm/hr (0-10) 05/21/23 05:41 PT 35.50 SECONDS (12.1-14.9) H 05/23/23 05:23 INR 3.39 (0.8-1.2) H 05/23/23 05:23 APTT 51.8 SECONDS (23.9-36.7) H 05/20/23 08:58 Fibrinogen 333 mg/dL (174-498) 05/20/23 08:58 Sodium 135 mmol/L (136-145) L 05/23/23 05:23 Potassium 3.7 mmol/L (3.5-5.1) 05/23/23 05:23 Chloride 96 mmol/L (98-107) L 05/23/23 05:23 Carbon Dioxide 27 mmol/L (22-29) 05/23/23 05:23 Anion Gap 15.7 (5-19) 05/23/23 05:23 BUN 34 mg/dL (8-23) H 05/23/23 05:23 Creatinine 5.6 mg/dL (0.7-1.2) H* 05/23/23 05:23 GFR Calculation Not Reportable 05/23/23 05:23 Glucose 130 mg/dL (65-115) H 05/23/23 05:23 Estimat Average Glucose 94 05/20/23 08:58 Hemoglobin A1c 4.9 % (4.0-6.0) 05/20/23 08:58 Calculated Osmolality 289 mOsm/kg (285-295) 05/23/23 05:23 Lactic Acid 2.5 mmol/L (0.5-2.2) H 05/21/23 05:41 Lactic Acid (Sepsis) 2.1 mmol/L (0.5-2.2) 05/21/23 09:06 Calcium 9.1 mg/dL (8.5-10.5) 05/23/23 05:23 Phosphorus 2.4 mg/dL (2.5-4.5) L 05/21/23 05:41 Magnesium 2.3 mg/dL (1.7-2.3) 05/23/23 05:23 Iron 122 ug/dL (59-158) 05/20/23 08:58 TIBC 134.56475 mcg/dl 05/20/23 08:58 % Saturation 90.0 % (20-50) H 05/20/23 08:58 Unsat Iron Binding < 13 ug/dL (112-347) L 05/20/23 08:58 Total Bilirubin 0.9 mg/dL (0.15-1.2) 05/23/23 05:23 AST 32 U/L (0-40) 05/23/23 05:23 ALT 15 U/L (0-41) 05/23/23 05:23 Alkaline Phosphatase 58 U/L (40-130) 05/23/23 05:23 Ammonia 30 umol/L (16-60) 05/20/23 11:08 Lactate Dehydrogenase 329 U/L (135-225) H 05/20/23 08:58 Troponin T Baseline 140 ng/L (0-15) H* 05/20/23 08:58 Troponin T 120 Minute 131.2 ng/L (0-15) H 05/20/23 11:08 Delta Troponin T -8.8 ABS# (0-10) L 05/20/23 11:08 Troponin T Hi Sens 6Hr 134.8 ng/L (0-15) H 05/20/23 15:18 Troponin T Hi Sens 6Hr Delta -5.2 ng/L (0-12) L 05/20/23 15:18 C-Reactive Protein 39.3 mg/L (0.0-4.9) H 05/21/23 05:41 Total Protein 5.3 g/dL (6.6-8.7) L 05/23/23 05:23 Albumin 3.0 g/dL (3.5-5.2) L 05/23/23 05:23 Globulin 2.3 g/dL (1.3-4.6) 05/23/23 05:23 Triglycerides 75 mg/dL (0-150) 05/22/23 04:54 Cholesterol 71 mg/dL (0-200) 05/22/23 04:54 LDL Cholesterol, Calc 23 mg/dL (50-129) L 05/22/23 04:54 Total VLDL Cholesterol 15 mg/dL (0-30) 05/22/23 04:54 HDL Cholesterol 33 mg/dL (60-100) L 05/22/23 04:54 Cholesterol/HDL Ratio 2.15 mg/dL (1.0-5.00) 05/22/23 04:54 Vitamin B12 > 2000 pg/mL (232-1245) H 05/20/23 08:58 Folate 9.6 ng/mL (4.5-32.2) 05/22/23 04:54 TSH 1.37 uIU/mL (0.27-4.20) 05/21/23 05:41 Urine Color Dark yellow (Yellow) 05/20/23 14:01 Urine Appearance Sl hazy (CLEAR) A 05/20/23 14:01 Urine pH 8 (5-7) H 05/20/23 14:01 Ur Specific [place] 1.010 (1.005-1.030) 05/20/23 14:01 Urine Protein 2+ (Negative) H 05/20/23 14:01 Urine Glucose (UA) Norm (Normal) 05/20/23 14:01 Urine Ketones Negative (Negative) 05/20/23 14:01 Urine Blood 3+ (Negative) H 05/20/23 14:01 Urine Nitrate Negative (Negative) 05/20/23 14:01 Urine Bilirubin Neg (Negative) 05/20/23 14:01 Prot Sulfosalicylic Acd Positive (Negative) 05/20/23 14:01 Urine Urobilinogen Norm mg/dL (Negative) 05/20/23 14:01 Ur Leukocyte Esterase Negative (Negative) 05/20/23 14:01 Urine RBC 40-50 /hpf (0-2) H 05/20/23 14:01 Urine WBC 0-4 /hpf (0-5) H 05/20/23 14:01 Ur Squamous Epith Cells 0-4 /hpf (0-5) H 05/20/23 14:01 Amorphous Sediment Not Reportable 05/20/23 14:01 Urine Bacteria 1+ /hpf (NONE) H 05/20/23 14:01 Adenovirus (PCR) Not detected (NOT DETECT) 05/22/23 09:50 C. pneumoniae DNA (PCR) Not detected (NOT DETECT) 05/22/23 09:50 Coronavirus 229E (PCR) Not detected (NOT DETECT) 05/22/23 09:50 Hep Bs Antigen Non-reactive (Nonreactive) 05/21/23 05:41 Hep Bs Antibody 8.8 (11.5-1000) L 05/21/23 05:41 Hep B Core Total Ab Non-reactive (Nonreactive) 05/21/23 05:41 Human Metapneumovir PCR Not detected (NOT DETECT) 05/22/23 09:50 Influenza A (H1) PCR Not detected (NOT DETECT) 05/22/23 09:50 Influ A (H1/09) PCR Not detected (NOT DETECT) 05/22/23 09:50 Influenza A (H3) PCR Not detected (NOT DETECT) 05/22/23 09:50 Influenza Type A (PCR) Not detected (NOT DETECT) 05/22/23 09:50 Influenza Type B (PCR) Not detected (NOT DETECT) 05/22/23 09:50 M. pneumoniae (PCR) Not detected (NOT DETECT) 05/22/23 09:50 Parainfluenza 1 (PCR) Not detected (NOT DETECT) 05/22/23 09:50 Parainfluenza 2 (PCR) Not detected (NOT DETECT) 05/22/23 09:50 Parainfluenza 3 (PCR) Not detected (NOT DETECT) 05/22/23 09:50 Parainfluenza 4 (PCR) Not detected (NOT DETECT) 05/22/23 09:50 RSV Type A (PCR) Not detected (NOT DETECT) 05/22/23 09:50 RSV Type B (PCR) Not detected (NOT DETECT) 05/22/23 09:50 Entero/Rhino (PCR) Not detected (NOT DETECT) 05/22/23 09:50 SARS-CoV-2 (PCR) Detected (NOT DETECT) A 05/22/23 09:50 Blood Type A Negative 05/21/23 10:33 Rho(D) Type Negative 05/21/23 10:33 Vitals Last Vital Signs Temp 97.7 F 05/23/23 07:56 Pulse 65 05/23/23 08:05 Resp 16 05/23/23 08:05 BP 127/69 05/23/23 07:56 Pulse Ox 99 05/23/23 08:05 O2 Del Method Nasal Cannula 05/23/23 08:05 O2 Flow Rate 2 05/23/23 08:05 Discharge Plan Discharge Patient Disposition: Home Health Service Condition: Stable Prescriptions: New pantoprazole 40 mg Tablet,Delayed Release (Dr/Ec) 40 mg PO DAILY Qty: 30 0RF dexamethasone 4 mg Tablet 6 mg PO DAILY 10 Days Qty: 15 0RF Breo Ellipta 100-25 mcg/dose blister with device 1 inh inhalation DAILY Qty: 60 0RF Eliquis 5 mg tablet 5 mg PO Q12H Qty: 60 0RF Continued atorvastatin 10 mg tablet 10 mg PO QPM docusate sodium [Colace] 100 mg capsule 100 mg PO TID cholecalciferol (vitamin D3) 125 mcg (5,000 unit) capsule 125 mcg PO DAILY Dialyvite [id number] yv-fl-nxm-mg tablet 1 tab PO DAILY furosemide [Lasix] 80 mg tablet 80 mg PO BID Rx Instructions: To be taken on the days he does not have diaylsis. on dialysis days takes 40mg mid afternoon. omega 1-utq-jbk-fish oil 1,000 mg (120 mg-180 mg) capsule 1 cap PO BID simethicone [Gas-X Extra Strength] 125 mg capsule 125 mg PO PRN PRN (Reason: Gastric Reflux) carvedilol 3.125 mg tablet 3.125 mg PO BID escitalopram oxalate 10 mg tablet 10 mg PO DAILY aspirin 81 mg Tablet,Delayed Release (Dr/Ec) 81 mg PO DAILY fluticasone propionate 50 mcg/actuation [place],Suspension 1 spray INTRANASAL DAILY Rx Instructions: administer into each nostril Discontinued warfarin 4 mg tablet See Rx Instructions .ROUTE .COMPLEX Rx Instructions: 8 mg orally on SAT, ,TH, SAT- 4 mg on MON,WED,FRI cefdinir 300 mg capsule 300 mg PO BID metronidazole 500 mg tablet 500 mg PO DAILY amlodipine 10 mg tablet 10 mg PO DAILY ciprofloxacin HCl 250 mg tablet 250 mg PO DAILY Discharge Orders: Discharge Order (Routine); Ordered 05/23/23 Ordered By: Shemar Vaughn Referrals: [facility] ([facility]) [Outside] Laya Devlin PA [Primary Care Provider] - 05/28/23 9:20 am Discharge Diet: As Directed Discharge Activity: Resume usual activity and Increase activity as tolerated Patient Instructions: Dexamethasone (By mouth), Pantoprazole (By mouth), Fluticasone/Vilanterol (By breathing), Dialysis Diet (GEN), Altered Mental Status (ED), Opioid Safety Activity Restrictions/Additional Instructions: Coumadin has been switched to Eliquis 5 mg twice daily. Amlodipine has been discontinued. Continue taking dexamethasone 6 mg daily for next 9 days along with inhalation treatment with Breo for next 2 weeks. Continue with dialysis sessions as before. On next paracentesis you should have fungal and mycobacterial cultures also sent out. Order has been placed. Discharge Attestations Time Spent in Discharge Care*: greater than 30 min Specific Discharge Activities: educating patient, discussing with pcp/other providers, discussing with case resolution specialist/social workers/dc planners, documenting/other paperwork and evaluating patient/reviewing data Status at Discharge: Cognitive status at discharge: cognitively intact , Behavioral status at discharge: cooperative , Functional status at discharge: independent ambulation , Overall status at discharge: patient is back to baseline Quality Metrics Clinical Quality Measures [ No reported AMI, CVA or VTE this stay] Coding Level of Care Code 68860 Total time (in minutes) for Discharge: 60 Diagnoses End-stage renal disease on hemodialysis N18.6; Z99.2
--- NOTE | 2023-05-23 12:41 | P.PN_ITS ---
Subjective 2 Subjective: doing better Medications: Reviewed: Yes Vitals/I&O/Wt Last Vital Signs Temp 97.7 F 05/23/23 07:56 Pulse 65 05/23/23 11:47 Resp 18 05/23/23 11:47 BP 118/79 05/23/23 11:47 Pulse Ox 99 05/23/23 11:47 O2 Del Method Nasal Cannula 05/23/23 11:47 O2 Flow Rate 2 05/23/23 08:05 05/22/23 05/23/23 05/23/23 22:59 06:59 14:59 Intake Total 100 / 814 Balance 100 / 814 Weight last 48 hrs Weight 84.867 kg Weight 87.231 kg Physical Exam 2 Narrative: awake , alert No distress Data 05/23/23 05:23 05/23/23 05:23 A&P Assessment and plan (1) End-stage renal disease on hemodialysis: Plan 1. End-stage renal disease: On MWF schedule as a patient 2. Anemia: Hemoglobin 7.3, ordered KRISHNA with hd 3. Altered mental status improved 4. History of liver cirrhosis and requiring frequent paracentesis 5. A-fib on chronic anticoagulation 6. Thrombocytopenia Plan: HD today UF as tolerated, KRISHNA ordered. Attestations 2 Medical Necessity Statement*: [facility] Coding Level of Care Code Acute Code for Chg Fwd Diagnoses End-stage renal disease on hemodialysis N18.6; Z99.2
[2023-05-23 15:24] LABS: Methicillin-Resist S.aureu PCR NOT DETECTED (NOT DETECTED)
[2023-05-23] MEDS: atorvastatin 40 mg Tablet PO (18:30)
[2023-05-23 20:07] LABS: Glucose Point of Care 102 mg/dL (70-110)
--- NOTE | 2023-05-23 20:10 | CTR_ITS ---
PROCEDURE INFORMATION: Exam: CT Head Without Contrast Exam date and time: 05/23/2023 8:21 PM Age: 73 years old Clinical indication: Altered mental status/memory loss; Additional info: AMS TECHNIQUE: Imaging protocol: Computed tomography of the head without contrast. Radiation optimization: All CT scans at this facility use at least one of these dose optimization techniques: automated exposure control; mA and/or kV adjustment per patient size (includes targeted exams where dose is matched to clinical indication); or iterative reconstruction. COMPARISON: CT head wo con* [id number] 05/20/2023 9:13 AM RADIATION DOSE METRICS: Total DLP (mGy-cm): 878 FINDINGS: Brain: No focal hemorrhage or midline shift is identified. The ventricles and parenchyma show moderate atrophy and chronic bicerebral white matter ischemic change. Cerebral ventricles: No ventriculomegaly or evidence of hydrocephalus. Paranasal sinuses: No evidence of acute sinusitis. Mild right sphenoid sinus chronic disease. Mastoid air cells: Visualized mastoid air cells are well aerated. Bones/joints: No displaced skull fracture is noted. Soft tissues: Unremarkable. Vasculature: Diffuse vascular calcifications are present. CT/CT head wo con* [id number] IMPRESSION: No hemorrhage or change from 3 days ago.
[2023-05-23 21:16] LABS: Alanine Aminotransferase 16 U/L (0-41); Albumin Level 3.2 g/dL (3.5-5.2); Alkaline Phosphatase 63 U/L (40-130); Aspartate Amino Transferase 33 U/L (0-40); Blood Urea Nitrogen 20 mg/dL (8-23); Calcium 9.1 mg/dL (8.5-10.5); Carbon Dioxide 28 mmol/L (22-29); Chloride 95 mmol/L (98-107); Globulin 2.4 g/dL (1.3-4.6); Glucose 121 mg/dL (65-115); Osmolality Calculated 284 mOsm/kg (285-295); Sodium 135 mmol/L (136-145); Total Bilirubin 1.1 mg/dL (0.15-1.2); Total Protein 5.6 g/dL (6.6-8.7)
[2023-05-23 21:33] LABS: Anion Gap 15.3 (5-19); Potassium 3.3 mmol/L (3.5-5.1)
[2023-05-24] VITALS (8 sets, daily range): BP systolic 113–124; BP diastolic 63–73; PULSE 67–97; RESP 14–19; TEMP 36.6–37.2; O2SAT 90–99
[2023-05-24] MEDS: ipratropium 0.5 mg/2.5 mL Neb INHALATION ×2 (03:09→07:45)
[2023-05-24] MEDS: levalbuterol 0.63 mg/3 mL Neb INHALATION ×2 (03:10→07:45)
[2023-05-24] MEDS: docusate sodium 100 mg Capsule PO (08:27)
[2023-05-24] MEDS: omega-3 fatty acids 1,000 mg Capsule 1000 MG PO (08:27)
[2023-05-24] MEDS: pantoprazole DR 40 mg Tablet PO (08:27)
[2023-05-24] MEDS: b-complex-vitamin c Tablet 1 EACH PO (08:28)
[2023-05-24] MEDS: escitalopram 10 mg Tablet PO (08:28)
[2023-05-24] MEDS: FUROsemide 40 mg Tablet 80 MG PO (08:28)
[2023-05-24] MEDS: cholecalciferol (vitamin D3) 5,000 unit Tablet 5000 UNIT PO (08:28)
[2023-05-24] MEDS: carvedilol 3.125 mg Tablet PO (08:28)
[2023-05-24] MEDS: dexamethasone 4 mg Tablet 6 MG PO (08:28)
--- NOTE | 2023-05-24 10:32 | P.PN_ITS ---
Subjective 2 Subjective: feels better Medications: Reviewed: Yes Vitals/I&O/Wt Last Vital Signs Temp 97.8 F 05/24/23 08:00 Pulse 95 05/24/23 08:00 Resp 16 05/24/23 08:00 BP 121/63 05/24/23 08:00 Pulse Ox 96 05/24/23 08:00 O2 Del Method Nasal Cannula 05/24/23 08:00 O2 Flow Rate 2 05/24/23 07:45 05/23/23 05/24/23 05/24/23 22:59 06:59 14:59 Output Total 100 / 100 Balance -100 / -100 Weight last 48 hrs Weight 83.546 kg Weight 84.867 kg Physical Exam 2 Narrative: awake , alert No distress Data 05/23/23 05:23 05/23/23 20:45 Micro: Microbiology 05/22/23 11:55 Blood Culture - Preliminary Blood 05/22/23 11:50 Blood Culture - Preliminary Blood A&P Assessment and plan (1) End-stage renal disease on hemodialysis: Plan 1. End-stage renal disease: On MWF schedule as a patient 2. Anemia: monitor , KRISHNA 3. Altered mental status improved 4. History of liver cirrhosis and requiring frequent paracentesis 5. A-fib on chronic anticoagulation 6. Thrombocytopenia Attestations 2 Medical Necessity Statement*: PER GELACIO Coding Level of Care Code Acute Code for Chg Fwd Diagnoses End-stage renal disease on hemodialysis N18.6; Z99.2
[2023-05-24 11:04] LABS: INR 4.71 (0.8-1.2)
--- NOTE | 2023-05-24 12:02 | P.PN_ITS ---
Subjective 2 Subjective: Patient was discharged yesterday but could not go as patient was extremely tired and slightly confused postdialysis. Today morning on examination patient is back to his baseline mentation. Able to complete conversation without any difficulty. He is alert and oriented x 4. We discussed that his confusion is likely in setting of fatigue and tiredness postdialysis specially in setting of COVID-19 status. Medications: Reviewed: Yes Vitals/I&O/Wt Last Vital Signs Temp 97.8 F 05/24/23 08:00 Pulse 95 05/24/23 08:00 Resp 16 05/24/23 08:00 BP 121/63 05/24/23 08:00 Pulse Ox 96 05/24/23 08:00 O2 Del Method Nasal Cannula 05/24/23 08:00 O2 Flow Rate 2 05/24/23 07:45 05/23/23 05/24/23 05/24/23 22:59 06:59 14:59 Output Total 100 / 100 Balance -100 / -100 Weight last 48 hrs Weight 83.546 kg Weight 84.867 kg Physical Exam 2 Narrative: General: No acute distress, AO x3, pallor present, pleasant HEENT: PERRLA, pupils bilaterally equal and reactive Chest: Normal vesicular breath sounds, no added sounds, equal good air entry bilaterally CVS: S1-S2 regular, no murmurs, no tachycardia, no gallops, no rubs Abdomen: Soft, distended, nontender, no organomegaly, bowel sounds present Neuro: No focal deficits, no facial deformity, AO x3, power 5/5 in all limbs Data 05/23/23 05:23 05/23/23 20:45 Micro: Microbiology 05/22/23 11:55 Blood Culture - Preliminary Blood 05/22/23 11:50 Blood Culture - Preliminary Blood A&P Assessment and plan (1) End-stage renal disease on hemodialysis: Hemodialysis Saturday, Saturday and Saturday. Appreciate nephrology recommendations. (2) Hypertension: (3) Chronic diastolic heart failure: (4) Atrial fibrillation: (5) Supratherapeutic INR: (6) Chronic anticoagulation: (7) Liver cirrhosis: (8) History of abdominal paracentesis: (9) COVID-19: Plan Delirium: Most likely in the setting of tiredness and weakness postdialysis along with COVID-19. CT head done again on 05/23 negative for acute abnormality. Stat CMP negative for acute abnormality. Patient back to baseline mentation. Patient is stable to be discharged home. Discussed in detail with patient regarding treatment plan going forward. Tried calling patient's but unable to get in touch as he is not picking up. Voice message left. VTE prophylaxis: SCDs, high INR currently from coumadin/antibiotics so no other pharmacological prophylaxis GI Prophylaxis: Protonix p.o. daily Telemetry: currently ordered given AMS, afib history, lack of HD today Melgar: not currently indicated though he does still make urine Line(s): peripheral IVs , avoid LUE given fistula Disposition plan: Home with outpatient follow up to primary care provider anticipated as well as resumption of usual hemodialysis schedule. Code Status: Full Code. Again confirmed admitted with the patient. Patient's children will be the DPOA. Renal dialysis diet. Attestations 2 Medical Necessity Statement*: Plan to discharge today. Diagnoses End-stage renal disease on hemodialysis N18.6; Z99.2 Hypertension I10 Chronic diastolic heart failure I50.32 Atrial fibrillation I48.91 Supratherapeutic INR R79.1 Chronic anticoagulation Z79.01 Liver cirrhosis K74.60 History of abdominal paracentesis Z98.890 COVID-19 U07.1
== END 2023-05-24 12:40 | disposition home health service (06) | DRG 177 ==
LOC: ER 14:23 → ER IP 16:07 → MEDSURG 16:42
PROVIDERS: Hospitalist; Admitting Provider Hospitalist; Emergency Provider Family Medicine; PCP Physician Assistant; Visit Provider Student in an Organized Health Care Education/Training Program
DX: U07.1 COVID-19 (principal); N18.6 End stage renal disease; F05 Delirium due to known physiological condition; I13.2 Hypertensive heart and chronic kidney disease with heart failure and with stage 5 chronic kidney disease, or end stage renal disease; I50.32 Chronic diastolic (congestive) heart failure; I48.19 Other persistent atrial fibrillation; R18.8 Other ascites; D69.6 Thrombocytopenia, unspecified; R79.1 Abnormal coagulation profile; M19.09 Primary osteoarthritis, other specified site; D75.89 Other specified diseases of blood and blood-forming organs; E11.22 Type 2 diabetes mellitus with diabetic chronic kidney disease; D63.1 Anemia in chronic kidney disease; Z99.2 Dependence on renal dialysis; E11.51 Type 2 diabetes mellitus with diabetic peripheral angiopathy without gangrene; E78.5 Hyperlipidemia, unspecified; Z79.01 Long term (current) use of anticoagulants; F32.A Depression, unspecified; Z86.73 Personal history of transient ischemic attack (TIA), and cerebral infarction without residual deficits; K74.69 Other cirrhosis of liver
CPT/HCPCS: 36415; 36416; 36430; 36600; 70450; 71045; 73502; 80048; 80051; 80053; 80061; 80202; 81001; 82140; 82274; 82330; 82607; 82746; 82805; 82962; 83036; 83540; 83550; 83605; 83615; 83735; 83880; 84100; 84145; 84443; 84484; 85007; 85014; 85018; 85025; 85045; 85384; 85610; 85651; 85730; 86140; 86705; 86706; 86900; 86927; 87040; 87086; 87340; 87426; 87486; 87493; 87581; 87633; 87641; 93005; 93306; 93880; 94640; 96374; 97116; 97161; 97167; 97530; 97535; 99285; J1644; J1956; J3370; J7050; J7614; J7626; J7644; J8540; P9017; Q3014; Q4081

== ENCOUNTER 2023-05-27 06:50 | Inpatient (IN) | payer MEDICARE, OTHER, SELFPAY ==
[2023-05-27 06:53] VITALS: BP 139/82; PULSE 74; TEMP 36.8; O2SAT 97; BMI 25.8
--- NOTE | 2023-05-27 06:59 | XR_ITS ---
WS: [id number] PORTABLE CHEST HISTORY: dyspnea/cough COMPARISON: 05/20/2023 Significant adverse change in appearance of the lungs since the prior study. Increasing pulmonary con gestion. Increasing areas of consolidation obscuring the heart borders. Small LEFT pleural effusion i s not excluded. Very similar configuration of the diaphragm as compared to the prior study. Cardiac size: Mildly enlarged cardiac silhouette. Mediastinum/Aorta: Mild atherosclerosis aorta. No osseous abnormality seen. IMPRESSION: 1. Interval development of moderate pulmonary congestion with increasing areas of consolidation. 2. Increased consolidation obscure the heart borders. This all may be edema but overlying pneumonia in the lower lung yepez and RIGHT middle lobe should be considered.
--- NOTE | 2023-05-27 07:26 | ECG_ITS ---
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 Measurements Intervals [place] Rate: 74 P: 0 SC: 0 QRS: -59 QRSD: 134 T: 118 QT: 414 QTc: 461 Interpretive Statements ATRIAL FIBRILLATION INTRAVENTRICULAR CONDUCTION DELAY [130+ ms QRS DURATION] INFERIOR MYOCARDIAL INFARCTION , PROBABLY OLD [40+ ms Q WAVE AND/OR ST/T ABNORMALITY IN II/aVF] ANTEROSEPTAL MYOCARDIAL INFARCTION , PROBABLY OLD [40+ ms Q WAVE IN V1-V4] Compared to ECG 05/20/2023 14:56:21 Intraventricular conduction delay now present Myocardial infarct finding now present Left-axis deviation no longer present Left bundle-branch block no longer present Electronically Signed On 05-27-2023 7:53:53 [employer]NER [employer]TER by Scooby Estrada M.D. [id number]
--- NOTE | 2023-05-27 07:35 | ED_ITS ---
HPI - Weakness 2 General: Chief complaint: Weakness Stated complaint: WEAKNESS Time Seen by Provider: 05/27/23 06:59 Source: patient Mode of arrival: EMS History of Present Illness: 73-year-old male presents emergency room via EMS. Patient has end-stage renal disease he also has liver cirrhosis he has multiple paracentesis in the past. He was recently hospitalized here and discharged on May 23, however he was tired looks like he stated an extra day received. Back to his normal baseline. He had actually left the hospital on the his home for the weekend. He states he fell this morning called the ambulance to get up. He has an abrasion of the skin tear on his right forearm he denies striking his head denies loss consciousness while he was in the hospital he was diagnosed with COVID On May 22. He states he still has some cough. He denies diarrhea. While talking to him he continually dozes off while I was talking to him had to reawaken him. Reading in previous notes there is also concern about SBP he been evaluated at an outside hospital given antibiotics prior to his recent hospitalization this will look like his cultures here grew anything out to Dr. Vaughn's discharge note mentions that he had paracentesis at outside facility but does not look like they were able to get a copy of the final culture result. Patient has liver disease although the etiology is uncertain on the old records. Thought to be related to his diabetes and kidney disease. He was over anticoagulated when he was at the hospital last time and switched from Coumadin to Eliquis. He denies diarrhea or productive cough at this point. Denies chest pain. He does still make some urine denies dysuria urgency or frequency. He is due for dialysis this morning. Complaint: generalized weakness Onset (ago): day(s) Duration: constant Location: generalized Relieving factors: none Exacerbating factors: none Associated symptoms: Reports confusion, decreased appetite, easy bruising, myalgias, nausea, short of breath and syncope; Denies chest pain, chills, dysuria, fever(s), headache(s), rash or vomiting Review of Systems 2 Const: Denies: fever(s) or chills Card: Reports: syncope; Denies: chest pain Resp: Reports: dyspnea and non-productive cough GI: Reports: nausea; Denies: abdominal pain or vomiting : Denies: dysuria, urinary frequency or urinary urgency Musc: Denies: neck pain or back pain Skin/Breast: Denies: rash Neuro: Reports: confusion; Denies: headache(s) Robin/Lymph: Reports: easy bruising PFSH ED 2 PFSH: Medical History Osteoarthritis History of peritonitis Depression Anemia in chronic kidney disease Chronic diastolic heart failure PVD (peripheral vascular disease) Atrial fibrillation Hypertension Hyperlipidemia End-stage renal disease on hemodialysis Liver cirrhosis TIA (transient ischemic attack) Surgical History AV fistula left upper arm, brachial to cephalic vein History of transcatheter aortic valve replacement (TAVR) History of abdominal paracentesis Social History Smoking and tobacco/nicotine status: never used tobacco/nicotine Second hand smoke exposure: No Alcohol intake: never Substance/Drug Use: never Physical Exam 2 Const: COMMON NORMALS: no acute distress GENERAL APPEARANCE: cooperative, lethargic and ill appearing ORIENTATION/CONSCIOUSNESS: Yes awake, Yes confused and Yes lethargic HENMT: COMMON NORMALS: normocephalic, atraumatic and hearing grossly normal bilaterally HEAD & SCALP: normocephalic and atraumatic Resp: COMMON NORMALS: normal respiratory effort, No retractions, No use of accessory muscles and clear to auscultation bilaterally AUSCULTATION: clear to auscultation bilaterally Cardio: COMMON NORMALS: regular rate, regular rhythm and No murmurs present (Cardio) RATE: regular rate RHYTHM: regular rhythm GI: COMMON NORMALS: Soft to palpation and No hepatosplenomegaly present I NSPECTION: Yes abdominal distension AUSCULTATION: Yes Hypoactive bowel sounds present PALPATION: Yes Soft to palpation, No Tenderness to palpation present (GI), No Guarding due to palpation present (GI) and Yes No hepatosplenomegaly present Extremity: COMMON NORMALS: normal to inspection, capillary refill normal, no clubbing, cyanosis or edema, no calf tenderness and no pedal edema OTHER: Skin tear right forearm Neuro: SENSORIUM/ORIENTATION: Yes lethargic Skin: COMMON NORMALS: no rashes or lesions noted GENERAL SKIN EXAM: no rashes or lesions noted Course 2 Vital Signs: Vital signs: Vital Signs Temperature 98.3 F 05/27/23 06:53 Pulse Rate 74 05/27/23 06:53 Blood Pressure 139/82 05/27/23 06:53 Pulse Oximetry 97 05/27/23 06:53 Oxygen Delivery Me thod Nasal Cannula 05/27/23 07:47 Oxygen Flow Rate 2 05/27/23 07:47 MDM - Weakness Medical Decision Making Mild altered mental status after fall. Patient also has COVID chest x-ray shows what appears to be fluid overload he may have some underlying pneumonia but his white count is not significantly elevated. He is requiring 2 L by nasal cannula now. Will admit for CHF COVID end-stage renal disease consult nephrology for dialysis labs are still pending CT of the head being completed his ammonia level was normal. Medical Records I reviewed the patient's medical records. Lab Data I reviewed the patient's lab results. 05/27/23 07:41 05/27/23 07:41 Laboratory Results WBC 5.70 10^3/uL (3.29-11.43) 05/27/23 07:41 RBC 2.37 10^6/uL (3.85-5.65) L 05/27/23 07:41 Hgb 8.90 g/dL (11.27-16.99) L 05/27/23 07:41 Hct 27.9 % (37-53) L 05/27/23 07:41 MCV 117.7 fl (82-101) H 05/27/23 07:41 MCH 37.6 pg (27-33) H 05/27/23 07:41 MCHC 31.9 g/dL (30-55) 05/27/23 07:41 RDW 22.1 % (12.1-15.1) H 05/27/23 07:41 Plt Count 128 10^3/cmm (157-399) L 05/27/23 07:41 MPV 10.5 fL (7.4-10.4) H 05/27/23 07:41 Neut % (Auto) 70.2 % 05/27/23 07:41 Lymph % (Auto) 10.0 % 05/27/23 07:41 [place] % (Auto) 14.9 % 05/27/23 07:41 Eos % (Auto) 0.0 % 05/27/23 07:41 Baso % (Auto) 0.2 % 05/27/23 07:41 Neut # (Auto) 4.00 10^3/uL (1.8-7.7) 05/27/23 07:41 Lymph # (Auto) 0.6 10^3/uL (0.8-4.8) L 05/27/23 07:41 [place] # (Auto) 0.9 10^3/uL (0.2-0.9) 05/27/23 07:41 Eos # (Auto) 0.0 10^3/uL (0.0-0.8) 05/27/23 07:41 Baso # (Auto) 0.0 10^3/uL (0.0-0.1) 05/27/23 07:41 Nucleated RBC % (auto) 0.4 % 05/27/23 07:41 Nucleated RBCs # 0.0 /100WBC 05/27/23 07:41 PT 21.30 SECONDS (12.1-14.9) H 05/27/23 07:41 INR 1.77 (0.8-1.2) H 05/27/23 07:41 Specimen Type Arterial 05/27/23 07:30 Sample Site Radial, right 05/27/23 07:30 ABG pH 7.43 (7.35-7.45) 05/27/23 07:30 ABG pCO2 37.7 mmHg (35-45) 05/27/23 07:30 ABG pO2 54.4 mmHg (80.0-100.0) L 05/27/23 07:30 ABG PO2/FiO2 Ratio 0 05/27/23 07:30 ABG HCO3 25.2 mmol/L (22-26) 05/27/23 07:30 ABG O2 Saturation 89.2 05/27/23 07:30 ABG Base Excess 0.9 mmol/L (-2.0-2.0) 05/27/23 07:30 Ag Test Pos 05/27/23 07:30 A-a O2 Gradient 6.6 mmHg (5-10) 05/27/23 07:30 Hematocrit 25.1 % (42-52) L 05/27/23 07:30 Hgb O2 Saturation 87.0 % (95-100) L 05/27/23 07:30 Carboxyhemoglobin 2.2 %THgb (0.4-20.1) 05/27/23 07:30 Methemoglobin 0.2 % (0.4-1.5) L 05/27/23 07:30 Total Hemoglobin 8.2 g/dL (14-18) L 05/27/23 07:30 Sodium 134.0 mmol/L (131-143) 05/27/23 07:30 Potassium 4.4 mmol/L (3.5-5.0) 05/27/23 07:30 Glucose 95.0 mg/dL (70-115) 05/27/23 07:30 Ionized Calcium 1.2 mmol/L (1.1-1.4) 05/27/23 07:30 O2 Delivery Device Room air 05/27/23 07:30 FiO2 21.0 % 05/27/23 07:30 Sample Room Supervisor ID Cak 05/27/23 07:30 Sodium 133 mmol/L (136-145) L 05/27/23 07:41 Potassium 4.1 mmol/L (3.5-5.1) 05/27/23 07:41 Chloride 91 mmol/L (98-107) L 05/27/23 07:41 Carbon Dioxide 25 mmol/L (22-29) 05/27/23 07:41 Anion Gap 21.1 (5-19) H 05/27/23 07:41 BUN 46 mg/dL (8-23) H 05/27/23 07:41 Creatinine 7.2 mg/dL (0.7-1.2) H* 05/27/23 07:41 GFR Calculation Not Reportable 05/27/23 07:41 Glucose 100 mg/dL (65-115) 05/27/23 07:41 Calculated Osmolality 288 mOsm/kg (285-295) 05/27/23 07:41 Lactic Acid 2.2 mmol/L (0.5-2.2) 05/27/23 07:41 Calcium 9.5 mg/dL (8.5-10.5) 05/27/23 07:41 Total Bilirubin 1.0 mg/dL (0.15-1.2) 05/27/23 07:41 AST 39 U/L (0-40) 05/27/23 07:41 ALT 18 U/L (0-41) 05/27/23 07:41 Alkaline Phosphatase 66 U/L (40-130) 05/27/23 07:41 Ammonia 18 umol/L (16-60) 05/27/23 07:41 Total Protein 5.8 g/dL (6.6-8.7) L 05/27/23 07:41 Albumin 3.1 g/dL (3.5-5.2) L 05/27/23 07:41 Globulin 2.7 g/dL (1.3-4.6) 05/27/23 07:41 Procalcitonin 0.78 ng/mL (0-0.5) H 05/27/23 07:41 All radiology interpretation(s) finalized by discharge Discharge Plan Discharge Patient Disposition: Admitted As Inpatient Clinical Impression: COVID-19, Atrial fibrillation, End-stage renal disease on hemodialysis, Delirium, Chronic diastolic heart failure, Chronic anticoagulation, Ascites, Liver cirrhosis, Thrombocytopenia Condition: Stable Prescriptions: No Action atorvastatin 10 mg tablet 10 mg PO QPM docusate sodium [Colace] 100 mg capsule 100 mg PO TID cholecalciferol (vitamin D3) 125 mcg (5,000 unit) capsule 125 mcg PO DAILY Dialyvite [id number] tb-lz-qvn-mg tablet 1 tab PO DAILY furosemide [Lasix] 80 mg tablet 80 mg PO BID Rx Instructions: To be taken on the days he does not have diaylsis. on dialysis days takes 40mg mid afternoon. omega 7-wmr-zbt-fish oil 1,000 mg (120 mg-180 mg) capsule 1 cap PO BID simethicone [Gas-X Extra Strength] 125 mg capsule 125 mg PO PRN PRN (Reason: Gastric Reflux) carvedilol 3.125 mg tablet 3.125 mg PO BID escitalopram oxalate 10 mg tablet 10 mg PO DAILY aspirin 81 mg Tablet,Delayed Release (Dr/Ec) 81 mg PO DAILY pantoprazole 40 mg Tablet,Delayed Release (Dr/Ec) 40 mg PO DAILY Qty: 30 0RF dexamethasone 4 mg Tablet 6 mg PO DAILY 10 Days Qty: 15 0RF Breo Ellipta 100-25 mcg/dose blister with device 1 inh inhalation DAILY Qty: 60 0RF Eliquis 5 mg tablet 5 mg PO Q12H Qty: 60 0RF fluticasone propionate 50 mcg/actuation [place],Suspension 1 spray INTRANASAL DAILY Rx Instructions: administer into each nostril Referrals: Laya Devlin PA [Primary Care Provider] - Coding Level of Care Code ED [employer] for Jonathan Beaulieu
[2023-05-27 07:41] LABS: ABG PCO2 37.7 mmHg (35-45); ABG PH Result 7.43 (7.35-7.45); Alveolar-Arterial Oxygen Gradi 6.6 mmHg (5-10); Arterial Blood Gas Hematocrit 25.1 % (42-52); Base Excess ABG 0.9 mmol/L (-2.0-2.0); Blood Gas Allen Test Pos; Blood Gas Operator Identificat CAK; Blood Gas Sample Site Radial, right; Blood Gas Sample Type Arterial; Carboxyhemoglobin 2.2 %THgb (0.4-20.1); HCO3 ABG 25.2 mmol/L (22-26); Ionized Calcium Level - ABG 1.2 mmol/L (1.1-1.4); Methemoglobin 0.2 % (0.4-1.5); Oxygen Device ROOM AIR; Oxygen Saturation ABG 89.2; PO2 ABG 54.4 mmHg (80.0-100.0); PO2 FiO2 Ratio Arterial Blood 0; Potassium Level - ABG 4.4 mmol/L (3.5-5.0); Total Hemoglobin 8.2 g/dL (14-18)
[2023-05-27 08:01] LABS: Basophils % 0.2 %; Hematocrit 27.9 % (37-53); Lymphocytes # 0.6 10^3/uL (0.8-4.8); Mean Corpuscular HGB Conc 31.9 g/dL (30-55); Mean Corpuscular Hemoglobin 37.6 pg (27-33); Mean Corpuscular Volume 117.7 fl (82-101); Mean Platelet Volume 10.5 fL (7.4-10.4); Monocytes # 0.9 10^3/uL (0.2-0.9); Monocytes % 14.9 %; Neutrophils % 70.2 %; Nucleated Red Blood Cells % 0.4 %; Platelet Count 128 10^3/cmm (157-399); Red Blood Count 2.37 10^6/uL (3.85-5.65); Red Cell Distribution Width 22.1 % (12.1-15.1)
[2023-05-27 08:15] LABS: Ammonia 18 umol/L (16-60)
[2023-05-27 08:16] LABS: Alanine Aminotransferase 18 U/L (0-41); Albumin Level 3.1 g/dL (3.5-5.2); Alkaline Phosphatase 66 U/L (40-130); Anion Gap 21.1 (5-19); Aspartate Amino Transferase 39 U/L (0-40); Blood Urea Nitrogen 46 mg/dL (8-23); Calcium 9.5 mg/dL (8.5-10.5); Carbon Dioxide 25 mmol/L (22-29); Chloride 91 mmol/L (98-107); Globulin 2.7 g/dL (1.3-4.6); Glucose 100 mg/dL (65-115); Lactic Sepsis W/Reflex 2.2 mmol/L (0.5-2.2); Osmolality Calculated 288 mOsm/kg (285-295); Potassium 4.1 mmol/L (3.5-5.1); Sodium 133 mmol/L (136-145); Total Protein 5.8 g/dL (6.6-8.7)
[2023-05-27 08:21] LABS: INR 1.77 (0.8-1.2)
--- NOTE | 2023-05-27 09:01 | CT_ITS ---
WS: [id number] CT HEAD NONCONTRAST HISTORY: fall/AMS TECHNIQUE: Contiguous axial imaging performed through the brain in 2.5 mm imaging. Bone and soft tiss ue windows. Sagittal and coronal reformats reviewed. All CT scans at [facility] use at least one of these dose optimization techniques: automated exposure control; mA and/or kV adjustment per pa tient size (includes targeted exams where dose is matched to clinical indication); or iterative recon struction. DLP: 1093.65 mGy.cm COMPARISON: 05/23/2023 No acute intracranial hemorrhage, midline shift or mass effect. Mild atrophy and small vessel ischemic disease. No acute interval change. Mild cerebellar atrophy. Ventricles: Normal size with no hydrocephalus. No inferior displacement of the cerebellar tonsils. Paranasal sinuses: As visualized are clear. Mastoid air cells: Well pneumatized. Calvarium and scalp: Skull is intact with no soft tissue edema or swelling. IMPRESSION: 1. No acute intracranial hemorrhage or edema. 2. Mild atrophy and small vessel ischemic disease. No interval change.
[2023-05-27 09:12] LABS: Procalcitonin 0.78 ng/mL (0-0.5)
[2023-05-27 09:43] LABS: Reflex Lactate Order REFLEX LACTIC ORDERD
[2023-05-27 09:49] LABS: NT Pro B Type Natriuretic Pept > 70000 pg/mL (0-125)
[2023-05-27 09:53] LABS: C Reactive Protein 52.8 mg/L (0.0-4.9)
[2023-05-27 11:10] LABS: Lactic Acid level (Lactate) 1.2 mmol/L (0.5-2.2)
--- NOTE | 2023-05-27 11:41 | P.HP_ITS ---
Providers/Chief Complaint 2 Admitting Physician: Zachary Rodrigues MD Primary Care Provider: Laya Devlin Chief Complaint: WEAKNESS History of Present Illness Anthony Waller Jr is a 73 year old male presenting to the emergency department with complaints of cough, confusion, hypoxia. He was recently in the hospital for COVID and encephalopathy. He has a history of end-stage renal disease as well has cirrhosis. He receives dialysis, and has been consistent in receiving it since his discharge. He reports ports some cough and shortness of breath but no recorded fevers. No vomiting. Denies any blood in his stool, or vomiting blood. He is able to carry on a conversation but is at least slightly to moderately confused making history somewhat difficult. Review of Systems 2 General: Reports: 10 or more systems reviewed and unremarkable except in HPI and below Card: Denies: chest pain Resp: Reports: productive cough GI: Denies: abdominal pain, nausea, vomiting, hematochezia or melena Medications/Allergies Home Medications Medication Instructions Recorded Confirmed Last Taken Type B complex 11-folic acid 1 mg-C 100 1 tab PO DAILY 07/25/21 05/27/23 05/26/23 History mg-biotin 300 mcg-zinc 50 mg tablet (Dialyvite) atorvastatin 10 mg tablet 10 mg PO BID 07/25/21 05/27/23 05/26/23 History cholecalciferol (vitamin D3) 125 125 mcg PO DAILY 07/25/21 05/27/23 05/26/23 History mcg (5,000 unit) capsule docusate sodium 100 mg capsule 100 mg PO TID 07/25/21 05/27/23 05/26/23 History (Colace) furosemide 80 mg tablet (Lasix) 80 mg PO BID 07/25/21 05/27/23 05/09/23 History omega 4-ztt-qqv-fish oil 1,000 mg 1 cap PO BID 07/25/21 05/27/23 05/26/23 History (120 mg-180 mg) capsule simethicone 125 mg capsule (Gas-X 125 mg PO PRN PRN Gastric Reflux 04/19/22 05/27/23 04/11/23 History Extra Strength) carvedilol 3.125 mg tablet 3.125 mg PO BID 05/17/22 05/27/23 05/26/23 History fluticasone propionate 50 1 spray intranasal DAILY 05/29/22 05/27/23 05/26/23 History mcg/actuation nasal spray,suspension escitalopram oxalate 10 mg tablet 10 mg PO DAILY 01/29/23 05/27/23 05/26/23 History aspirin 81 mg tablet,delayed 81 mg PO DAILY 05/20/23 05/27/23 Unknown History release apixaban 5 mg tablet (Eliquis) 5 mg PO Q12H #60 tabs 05/23/23 05/27/23 Unknown Rx dexamethasone 4 mg tablet 6 mg (1.5 x 4 mg) PO DAILY 10 days 05/23/23 05/27/23 05/26/23 Rx #15 tabs fluticasone furoate 100 1 inh inhalation DAILY #60 ea 05/23/23 05/27/23 Unknown Rx mcg-vilanterol 25 mcg/dose inhalation powder (Breo Ellipta) pantoprazole 40 mg tablet,delayed 40 mg PO DAILY #30 tabs 05/23/23 05/27/23 05/26/23 Rx release sucroferric oxyhydroxide 500 mg See Rx Instructions .Route .COMPLEX 05/27/23 05/27/23 05/26/23 History chewable tablet (Velphoro) Allergies Allergy/AdvReac Type Severity Reaction Status Date / Time codeine Allergy Mild ALGY-Rash Verified 05/27/23 06:58 Penicillins Allergy Mild ALGY-Rash Verified 05/27/23 06:58 PFSH Acute 2 PFSH: Medical History Osteoarthritis History of peritonitis Depression Anemia in chronic kidney disease Chronic diastolic heart failure PVD (peripheral vascular disease) Atrial fibrillation Hypertension Hyperlipidemia End-stage renal disease on hemodialysis Liver cirrhosis TIA (transient ischemic attack) Surgical History AV fistula left upper arm, brachial to cephalic vein History of transcatheter aortic valve replacement (TAVR) History of abdominal paracentesis Social History Smoking and tobacco/nicotine status: never used tobacco/nicotine Second hand smoke exposure: No Alcohol intake: never Substance/Drug Use: never Vitals/I&O/Wt Last Vital Signs Temp 98.3 F 05/27/23 06:53 Pulse 74 01/15/24 06:53 BP 139/82 05/27/23 06:53 Pulse Ox 97 05/27/23 06:53 O2 Del Method Nasal Cannula 05/27/23 07:47 O2 Flow Rate 2 05/27/23 07:47 Weight last 48 hrs Weight 81.647 kg Physical Exam 2 Narrative: General exam is a conversant male at least mildly confused, in no distress on 2 L of oxygen HEENT: Atraumatic normocephalic. Oropharynx clear. Neck is supple no lymphadenopathy thyromegaly Cardiovascular irregular, irregular rhythm without murmur Lungs coarse breath sounds at the bases Abdomen is soft with positive bowel sounds. I do not note significant ascites currently exam was deferred Extremities show no cyanosis or clubbing. No edema. Skin no rash Neuro no obvious focal deficits Data 05/27/23 07:41 05/27/23 07:41 Other Labs: COVID PCR positive on May 22 INR 1.77 ABG demonstrates a pH 7.43, pCO2 37, pO2 54 on room air LFTs are normal Ammonia 18 Calcium is normal Albumin 3.1 CRP 52 BNP greater than 70,[address] no acute changes. I visualized this as well Chest x-ray demonstrates bilateral infiltrates, possible pneumonia versus edema which I reviewed personally. Echo May 21 demonstrated an EF of 50 to 55%, moderate mitral regurgitation and moderate mitral stenosis. Bioprosthetic aortic valve noted EKG demonstrates A-fib, left axis deviation, intraventricular conduction delay A&P Assessment and plan (1) Pneumonia: Patient presents with evidence of pneumonia on x-ray, elevated procalcitonin level, symptoms of increasing cough, and hypoxia. Check CRP considering his recent COVID IV antibiotics consisting of vancomycin and Levaquin currently Sputum and blood cultures MRSA PCR DuoNeb every 6 hours, budesonide twice daily Wean oxygen as tolerated (2) COVID-19: Recent Covid 19, diagnosed on the . Continue isolation He had already been through a course of dexamethasone, approximately 5 days. Will not continue at this point. Check CRP today and tomorrow At this point we will not start remdesivir (3) Atrial fibrillation: Patient with history of atrial fibrillation, currently rate controlled Continue carvedilol Continue anticoagulation with Eliquis (4) End-stage renal disease on hemodialysis: Nephrology consultation (5) Liver cirrhosis: History of liver cirrhosis. Ammonia level was normal (6) Acute encephalopathy: Patient with acute encephalopathy, possibly superimposed on some cognitive decline. Continue to follow closely. Plan Other medical problems listed in past medical history Full code Eliquis will suffice for DVT prophylaxis Attestations 2 Medical Necessity Statement*: Will require greater than 2 midnight stay for evaluation and treatment of pneumonia with hypoxia requiring IV antibiotics Diagnoses Pneumonia J18.9 COVID-19 U07.1 Atrial fibrillation I48.91 End-stage renal disease on hemodialysis N18.6; Z99.2 Liver cirrhosis K74.60 Acute encephalopathy G93.40 Time Spent (min) 55
--- NOTE | 2023-05-27 11:58 | P.CONIM_ITS ---
Providers/Reason For Consult 2 Consulting Physician/Specialty*: [facility]/Nephrology Reason for Consult*: ESRD Attending Physician: Zachary Rodrigues MD Primary Care Provider: Laya Devlin History of Present Illness History of Present Illness Anthony Waller Jr is a 73 year old male With past medical history of end-stage renal disease on dialysis per Saturday schedule, A-fib, hypertension, dyslipidemia, liver cirrhosis presented to the emergency department due to altered mental status, weakness and cough. Patient was recently in the hospital for COVID pneumonia. Review of Systems 2 Narrative: Other review of systems negative Medications/Allergies Home Medications Medication Instructions Recorded Confirmed Last Taken Type B complex 11-folic acid 1 mg-C 100 1 tab PO DAILY 07/25/21 05/27/23 05/26/23 History mg-biotin 300 mcg-zinc 50 mg tablet (Dialyvite) atorvastatin 10 mg tablet 10 mg PO BID 07/25/21 05/27/23 05/26/23 History cholecalciferol (vitamin D3) 125 125 mcg PO DAILY 07/25/21 05/27/23 05/26/23 History mcg (5,000 unit) capsule docusate sodium 100 mg capsule 100 mg PO TID 07/25/21 05/27/23 05/26/23 History (Colace) furosemide 80 mg tablet (Lasix) 80 mg PO BID 07/25/21 05/27/23 05/09/23 History omega 5-rcf-wex-fish oil 1,000 mg 1 cap PO BID 07/25/21 05/27/23 05/26/23 History (120 mg-180 mg) capsule simethicone 125 mg capsule (Gas-X 125 mg PO PRN PRN Gastric Reflux 04/19/22 05/27/23 04/11/23 History Extra Strength) carvedilol 3.125 mg tablet 3.125 mg PO BID 05/17/22 05/27/23 05/26/23 History fluticasone propionate 50 1 spray intranasal DAILY 05/29/22 05/27/23 05/26/23 History mcg/actuation nasal spray,suspension escitalopram oxalate 10 mg tablet 10 mg PO DAILY 01/29/23 05/27/23 05/26/23 History aspirin 81 mg tablet,delayed 81 mg PO DAILY 05/20/23 05/27/23 Unknown History release apixaban 5 mg tablet (Eliquis) 5 mg PO Q12H #60 tabs 05/23/23 05/27/23 Unknown Rx dexamethasone 4 mg tablet 6 mg (1.5 x 4 mg) PO DAILY 10 days 05/23/23 05/27/23 05/26/23 Rx #15 tabs fluticasone furoate 100 1 inh inhalation DAILY #60 ea 05/23/23 05/27/23 Unknown Rx mcg-vilanterol 25 mcg/dose inhalation powder (Breo Ellipta) pantoprazole 40 mg tablet,delayed 40 mg PO DAILY #30 tabs 05/23/23 05/27/23 05/26/23 Rx release sucroferric oxyhydroxide 500 mg See Rx Instructions .Route .COMPLEX 05/27/23 05/27/23 05/26/23 History chewable tablet (Velphoro) Allergies Allergy/AdvReac Type Severity Reaction Status Date / Time codeine Allergy Mild ALGY-Rash Verified 05/27/23 06:58 Penicillins Allergy Mild ALGY-Rash Verified 05/27/23 06:58 PFSH Acute 2 PFSH: Medical History Osteoarthritis History of peritonitis Depression Anemia in chronic kidney disease Chronic diastolic heart failure PVD (peripheral vascular disease) Atrial fibrillation Hypertension Hyperlipidemia End-stage renal disease on hemodialysis Liver cirrhosis TIA (transient ischemic attack) Surgical History AV fistula left upper arm, brachial to cephalic vein History of transcatheter aortic valve replacement (TAVR) History of abdominal paracentesis Social History Smoking and tobacco/nicotine status: never used tobacco/nicotine Second hand smoke exposure: No Alcohol intake: never Substance/Drug Use: never Vitals/I&O/Wt Last Vital Signs Temp 98.3 F 05/27/23 06:53 Pulse 74 05/27/23 06:53 BP 139/82 05/27/23 06:53 Pulse Ox 97 05/27/23 06:53 O2 Del Method Nasal Cannula 05/27/23 07:47 O2 Flow Rate 2 05/27/23 07:47 Weight last 48 hrs Weight 81.647 kg Physical Exam 2 Narrative: Awake alert no distress Data 05/28/23 04:25 05/28/23 04:25 A&P Assessment and plan (1) End-stage renal disease on hemodialysis: Plan 1. End-stage renal disease: On MWF schedule as outpatient, HD today 2. Anemia: Hemoglobin 7.3 on presentation, KRISHNA with HD 3. Hypokalemia: K3.3, will run on a 3K bath 4. Acute on chronic respiratory failure, 5. Recent pneumonia Patient evaluated using audiovisual cart. Time spent 40 minute Consult Attestations 2 Medical Necessity Statement: PER [facility] Coding Level of Care Code Acute Code for Chg Fwd Diagnoses End-stage renal disease on hemodialysis N18.6; Z99.2
--- NOTE | 2023-05-27 12:07 | PC.PHAR ---
PTS' STATED PT WAS ON LASIX 10 MG TWICE DAILY ON NON DIALYSIS DAYS AND 10 MG MID AFTERNOON ON DIALYSIS DAYS. VERIFIED WITH PHARMACIST AT [facility]. PT IS CURRENTLY ON 80 MG TWICE DAILY ON NON DIALYSIS DAYS AND 40 MG MID AFTERNOON ON DIALYSIS DAYS. 05/27/23. I DID LEAVE THE DOSAGE THE PHARMACIST FILLED ON 05/14/23 90DS.
[2023-05-27 12:15] VITALS: BP 153/87; PULSE 78; RESP 16; O2SAT 99
[2023-05-27 13:14] LABS: Urine Appearance SL Hazy (CLEAR); Urine Color Yellow (Yellow)
[2023-05-27 13:15] LABS: Add Urine Microscopic? YES; Bacteria Urine 2+ /hpf; Bilirubin Urine 1+ (Negative); Blood Urine 3+ (Negative); Glucose Urine UA Norm (Normal); Ketones Urine 1+ (Negative); Leukocyte Esterase Urine Negative (Negative); Nitrate Urine Negative (Negative); Protein Urine 1+ (Negative); RBC Urine 0-4 /hpf (0-2); Squamous Epithelial Cell Urine 0-4 /hpf (0-5); Urobilinogen Urine Neg (Negative); WBC Urine 0-4 /hpf (0-5); pH Urine 6 (5-7)
[2023-05-27 13:16] LABS: Add Urine Culture? Yes
[2023-05-27 15:30] VITALS: BP 121/68; PULSE 62; RESP 16; O2SAT 100
[2023-05-27 16:00] VITALS: BP 144/78; PULSE 69; RESP 16; TEMP 36.4; O2SAT 99
[2023-05-27] MEDS: heparin, porcine 1,000 unit/mL INJ 10 mL 1000 UNIT IV (16:24)
[2023-05-27] MEDS: epoetin alfa 1000 Unit/0.05 mL (ESRD) 20000 UNIT IVP (19:28)
[2023-05-27 21:07] VITALS: BP 144/84; PULSE 77; RESP 18; TEMP 37; O2SAT 100
[2023-05-27] MEDS: apixaban 5 mg Tablet PO (22:00)
[2023-05-27] MEDS: docusate sodium 100 mg Capsule PO (22:00)
[2023-05-27] MEDS: levofloxacin-dextrose 5 % 750 MG/150 ML PREMIX 100 MG IV (22:00)
[2023-05-27] MEDS: carvedilol 3.125 mg Tablet PO (22:00)
[2023-05-27] MEDS: vancomycin 1,000 MG in sodium chloride 0.9% 250 ML 250 MG IV (22:02)
[2023-05-27 23:10] VITALS: BMI 25.8
[2023-05-28] VITALS (11 sets, daily range): BP systolic 103–133; BP diastolic 50–79; PULSE 65–91; RESP 14–18; TEMP 36.6–38.1; O2SAT 94–100
[2023-05-28] MEDS: ipratropium-albuterol 3 mL Neb INHALATION ×4 (01:18→20:01)
[2023-05-28] MEDS: acetaminophen 325 mg Tablet 650 MG PO (04:19)
[2023-05-28 04:45] LABS: Eosinophils % 0.2 %; Hematocrit 26.9 % (37-53); Lymphocytes # 0.3 10^3/uL (0.8-4.8); Lymphocytes % 5.4 %; Mean Corpuscular Hemoglobin 36.8 pg (27-33); Mean Platelet Volume 10.4 fL (7.4-10.4); Monocytes # 0.9 10^3/uL (0.2-0.9); Monocytes % 16.4 %; Neutrophils # 4.33 10^3/uL (1.8-7.7); Neutrophils % 75.7 %; Nucleated Red Blood Cells % 0 %; Platelet Count 113 10^3/cmm (157-399); Red Blood Count 2.34 10^6/uL (3.85-5.65); Red Cell Distribution Width 21.9 % (12.1-15.1); White Blood Count 5.72 10^3/uL (3.29-11.43)
[2023-05-28 05:01] LABS: Alanine Aminotransferase 19 U/L (0-41); Alkaline Phosphatase 63 U/L (40-130); Anion Gap 17.3 (5-19); Aspartate Amino Transferase 33 U/L (0-40); Blood Urea Nitrogen 29 mg/dL (8-23); C Reactive Protein 60.8 mg/L (0.0-4.9); Calcium 8.7 mg/dL (8.5-10.5); Carbon Dioxide 26 mmol/L (22-29); Chloride 93 mmol/L (98-107); Globulin 2.4 g/dL (1.3-4.6); Glucose 78 mg/dL (65-115); Magnesium 1.9 mg/dL (1.7-2.3); Osmolality Calculated 281 mOsm/kg (285-295); Potassium 3.3 mmol/L (3.5-5.1); Sodium 133 mmol/L (136-145); Total Bilirubin 1.1 mg/dL (0.15-1.2); Total Protein 5.4 g/dL (6.6-8.7)
--- NOTE | 2023-05-28 08:53 | P.PN_ITS ---
Subjective 2 Subjective: NO NEW COMPLAINTS Medications: Reviewed: Yes Vitals/I&O/Wt Last Vital Signs Temp 98.5 F 05/28/23 08:00 Pulse 89 05/28/23 08:00 Resp 16 05/28/23 08:00 BP 103/50 05/28/23 08:00 Pulse Ox 94 05/28/23 08:00 O2 Del Method Room Air 05/28/23 04:24 O2 Flow Rate 2 05/27/23 07:47 05/27/23 05/28/23 05/28/23 22:59 06:59 14:59 Intake Total 400 / 400 Balance 400 / 400 Weight last 48 hrs Weight 81.647 kg Weight 81.647 kg Weight 81.647 kg Physical Exam 2 Narrative: Awake alert no distress Data 05/28/23 04:25 05/28/23 04:25 Micro: Microbiology 05/27/23 12:34 Urine Culture - Final Urine,Clean Catch A&P Assessment and plan (1) End-stage renal disease on hemodialysis: Plan 1. End-stage renal disease: On MWF schedule as outpatient, HD TOMORROW 2. Anemia: Hemoglobin 8.6, on presentation, KR[facility]NA with HD 3. Hypokalemia: K3.3, will run on a 3K bath 4. Acute on chronic respiratory failure, 5. Recent pneumonia Patient evaluated using audiovisual cart. Time spent 40 minute Attestations 2 Medical Necessity Statement*: PER [facility] Coding Level of Care Code Acute Code for Chg Fwd Diagnoses End-stage renal disease on hemodialysis N18.6; Z99.2
[2023-05-28] MEDS: budesonide 0.5 mg/2 mL Neb INHALATION ×2 (09:03→20:01)
--- NOTE | 2023-05-28 09:20 | PC.CHAP ---
Pastoral Care Encounter/Spiritual Assessment Type of Contact [] Declined pier hand visit [] Patient/Family/Request visit [] Outpatient visit [] Follow-up visit [] Physician referral [] Code/Alert [] Routine visit [] Staff referral [] Actively dying [] Patient sleeping [] Family support [] [] Out of room [] Palliative care [] [] Receiving care in room [] Pre-surgical visit [] Trauma [] Long length of stay [] ICU visit [x] Other:Covid. No visit. Relational/Emotional Strength [] Patient feels connected with others/family/visitors/staff [] Distress [] Loneliness/isolation [] Abandonment Spirituality of Patient [] Person of Candice [] Attends Latter Day of their Candice [] Believes in Prayer [] Reads Bible or Spiritism materials [] There are Spiritual issues to be addressed Spray Drier Interventions [] Prayer [] Active listening [] Non-anxious presence [] Spiritual/emotional support [] Crisis/trauma care [] Spiritual counseling [] Bereavement support [] Provided bereavement packet [] Provided Bible/devotional materials [] Provided toy/stuffed animal, coloring book to patient or family member [] Provided Communion [] Anointing/Slemp [] Salvation [] Completed spiritual assessment [] Other: Impact on Illness or Injury [] Angry [] Fearful [] Anxious [] Often cries [] Exhaustion [] Unable to work [] Unable to attend evangelical [] Unable to walk/stand [] Unable to read [] Unable to drive [] Unable to eat/drink [] Unable to sleep [] Unable to be with family [] Patient intubated [] Other: Summary Time spent with patient
--- NOTE | 2023-05-28 09:35 | P.PN_ITS ---
Documented by User: [email or web address] 05/28/23 09:49 Subjective 2 Subjective: Patient sitting up on side of the bed noted to be on room air. Mr. Waller continues to have difficulty with reporting the current day and year. Medications: Reviewed: Yes Vitals/I&O/Wt Last Vital Signs Temp 98.5 F 05/28/23 08:00 Pulse 90 05/28/23 09:13 Resp 18 05/28/23 09:06 BP 103/50 05/28/23 08:00 Pulse Ox 95 05/28/23 09:06 O2 Del Method Room Air 05/28/23 09:06 O2 Flow Rate 2 05/27/23 07:47 05/27/23 05/28/23 05/28/23 22:59 06:59 14:59 Intake Total 400 / 400 Balance 400 / 400 Weight last 48 hrs Weight 180 lb Weight 180 lb Weight 180 lb Physical Exam 2 Narrative: General exam is a conversant male slightly confused, in no distress on RA. HEENT: Atraumatic normocephalic. Oropharynx clear. Neck is supple, no lymphadenopathy, no thyromegaly. Cardiovascular irregular, irregular rhythm without murmur Lungs sounds noted to be coarse in upper lobes on auscultation. Abdomen is soft with positive bowel sounds. Abd noted to be large and round. exam was deferred Extremities show no cyanosis or clubbing. No edema. Skin no rash Neuro no obvious focal deficits Data 05/28/23 04:25 05/28/23 04:25 Micro: Microbiology 05/27/23 12:34 Urine Culture - Final Urine,Clean Catch A&P Assessment and plan (1) End-stage renal disease on hemodialysis: Nephrology consultation (2) Pneumonia: Patient presents with evidence of pneumonia on x-ray, elevated procalcitonin level, symptoms of increasing cough, and hypoxia. Check CRP considering his recent COVID Continue IV antibiotics vancomycin and Levaquin. Sputum and blood cultures pending. MRSA PCR pending. DuoNeb every 6 hours, budesonide twice daily Patient currently on RA. (3) COVID-19: Recent Covid 19, diagnosed on the . Continue isolation Fever overnight of 100.6 orally. (4) Atrial fibrillation: Patient with history of atrial fibrillation, currently rate controlled Continue carvedilol Continue anticoagulation with Eliquis (5) Liver cirrhosis: History of liver cirrhosis. Ammonia level was normal (6) Acute encephalopathy: Patient with acute encephalopathy, possibly superimposed on some cognitive decline. Continue to follow closely. Plan Other medical problems listed in past medical history Full code Eliquis will suffice for DVT prophylaxis Coding Level of Care Code 85521 Diagnoses End-stage renal disease on hemodialysis N18.6; Z99.2 Pneumonia J18.9 COVID-19 U07.1 Atrial fibrillation I48.91 Liver cirrhosis K74.60 Acute encephalopathy G93.40 Time Spent (min) 25 Documented by User: Zachary Rodrigues MD 05/28/23 10:12 Data 05/28/23 04:25 05/28/23 04:25 A&P Assessment and plan (1) End-stage renal disease on hemodialysis: Nephrology consultation appreciated. Received dialysis yesterday. (2) Pneumonia: Patient presents with evidence of pneumonia on x-ray, elevated procalcitonin level, symptoms of increasing cough, and hypoxia. Continue IV antibiotics vancomycin and Levaquin. Sputum and blood cultures pending. MRSA PCR pending. DuoNeb every 6 hours, budesonide twice daily Patient currently on RA, improved from yesterday Close follow-up of vancomycin levels, creatinine daily as vancomycin could be renally toxic medication. (3) COVID-19: (4) Atrial fibrillation: (5) Liver cirrhosis: (6) Acute encephalopathy: Patient with acute encephalopathy, possibly superimposed on some cognitive decline. Continue to follow closely. Will discuss with his family regarding history of cognitive issues Plan Other medical problems listed in past medical history Full code Eliquis will suffice for DVT prophylaxis Attestations 2 Medical Necessity Statement*: Needs continued hospitalization secondary to pneumonia requiring IV antibiotics in this patient that is still febrile Diagnoses End-stage renal disease on hemodialysis N18.6; Z99.2 Pneumonia J18.9 COVID-19 U07.1 Atrial fibrillation I48.91 Liver cirrhosis K74.60 Acute encephalopathy G93.40 Time Spent (min) 25
[2023-05-28] MEDS: potassium chloride ER 20 mEq Tablet 40 MEQ PO (09:50)
[2023-05-28] MEDS: pantoprazole DR 40 mg Tablet PO (09:51)
[2023-05-28] MEDS: carvedilol 3.125 mg Tablet PO ×2 (09:51→17:47)
[2023-05-28] MEDS: escitalopram 10 mg Tablet PO (09:51)
[2023-05-28] MEDS: aspirin 81 mg EC Tablet PO (09:51)
[2023-05-28] MEDS: atorvastatin 40 mg Tablet 20 MG PO (09:51)
[2023-05-28] MEDS: apixaban 5 mg Tablet PO ×2 (09:51→17:47)
[2023-05-28] MEDS: docusate sodium 100 mg Capsule PO ×3 (09:51→20:23)
[2023-05-28 14:30] LABS: Methicillin-Resist S.aureu PCR NOT DETECTED (NOT DETECTED)
[2023-05-28 16:56] LABS: Glucose Point of Care 103 mg/dL (70-110)
[2023-05-29] VITALS (7 sets, daily range): BP systolic 101–141; BP diastolic 46–74; PULSE 78–105; RESP 17–18; TEMP 36.3–37.7; O2SAT 94–98; BMI 26.4
[2023-05-29 05:08] LABS: Basophils % 0.2 %; Eosinophils % 0.5 %; Hematocrit 25.7 % (37-53); Lymphocytes # 0.6 10^3/uL (0.8-4.8); Lymphocytes % 13.5 %; Mean Corpuscular HGB Conc 31.9 g/dL (30-55); Mean Corpuscular Hemoglobin 36.8 pg (27-33); Mean Corpuscular Volume 115.2 fl (82-101); Mean Platelet Volume 10.1 fL (7.4-10.4); Monocytes # 0.9 10^3/uL (0.2-0.9); Monocytes % 20.9 %; Neutrophils # 2.47 10^3/uL (1.8-7.7); Neutrophils % 60.7 %; Nucleated Red Blood Cells % 0 %; Platelet Count 92 10^3/cmm (157-399); Red Blood Count 2.23 10^6/uL (3.85-5.65); Red Cell Distribution Width 21.2 % (12.1-15.1); White Blood Count 4.07 10^3/uL (3.29-11.43)
[2023-05-29 05:28] LABS: Alanine Aminotransferase 16 U/L (0-41); Albumin Level 2.8 g/dL (3.5-5.2); Alkaline Phosphatase 58 U/L (40-130); Aspartate Amino Transferase 32 U/L (0-40); Blood Urea Nitrogen 39 mg/dL (8-23); Carbon Dioxide 25 mmol/L (22-29); Chloride 93 mmol/L (98-107); Globulin 2.3 g/dL (1.3-4.6); Glucose 80 mg/dL (65-115); Osmolality Calculated 280 mOsm/kg (285-295); Sodium 131 mmol/L (136-145); Total Protein 5.1 g/dL (6.6-8.7)
[2023-05-29] MEDS: apixaban 5 mg Tablet PO ×2 (06:16→19:56)
--- NOTE | 2023-05-29 07:54 | P.PN_ITS ---
Documented by User: [email or web address] Hicks 05/29/23 08:08 Subjective 2 Subjective: Patient was evaluated this morning while lying in bed on room air. Patient does report that he feels better overall and his breathing status has improved. Slightly confused this a.m. Able to state name, date of , and place. But unable to state current year as he states it is currently 2417. No other complaints at this time. Medications: Reviewed: Yes Vitals/I&O/Wt Last Vital Signs Temp 99.8 F H 05/29/23 03:35 Pulse 89 05/29/23 03:35 Resp 17 05/29/23 03:35 BP 129/74 05/29/23 03:35 Pulse Ox 96 05/29/23 03:35 O2 Del Method Room Air 05/29/23 03:35 O2 Flow Rate 2 05/27/23 07:47 Weight last 48 hrs Weight 83.779 kg Weight 81.647 kg Weight 81.647 kg Physical Exam 2 Narrative: General exam is a conversant male slightly confused, in no distress on RA. HEENT: Atraumatic normocephalic. Oropharynx clear. Neck is supple, no lymphadenopathy, no thyromegaly. Cardiovascular irregular, irregular rhythm. 2/4 murmur Lungs: Clear throughout per auscultation, regular effort and even chest rise. Abdomen is soft with positive bowel sounds. Abd noted to be large and round. No pain on palpation exam was deferred Extremities show no cyanosis or clubbing. No edema. Skin no rash Neuro no obvious focal deficits Data 05/29/23 04:51 05/29/23 04:51 Other Labs: RBC 2.23, hemoglobin 8.2, HCT 25.7, MCV 115.2 platelet 92, sodium 131, BUN 39, creatinine 6.0, Micro: Microbiology 05/27/23 12:34 Urine Culture - Final Urine,Clean Catch A&P Assessment and plan (1) End-stage renal disease on hemodialysis: Nephrology consult. Recommendations appreciated Slightly elevated BUN/creatinine from yesterday, expected. Plan for HD today. (2) Pneumonia: Overall respiratory status improving. No distress at this time. On RA. Continue IV antibiotics vancomycin and Levaquin. Sputum and blood cultures pending. MRSA PCR pending. DuoNeb every 6 hours, budesonide twice daily Close follow-up of vancomycin levels, creatinine daily as vancomycin could be renally toxic medication. (3) COVID-19: Recent Covid 19, diagnosed on the . Continue isolation Fever this a.m. is 99.8, otherwise afebrile over the last 24 hours. (4) Atrial fibrillation: Patient with history of atrial fibrillation, currently rate controlled Continue carvedilol Continue anticoagulation with Eliquis (5) Liver cirrhosis: History of liver cirrhosis. Ammonia level was normal (6) Acute encephalopathy: Patient with acute encephalopathy, potentially due to cognitive decline. Continue to follow closely. Plan Plan as stated above. We will plan for hemodialysis to be performed today by nephrology. Will continue IV antibiotic regimen. We will trend sputum and blood cultures once resulted. MRSA PCR pending. CODE STATUS: Full code DVT prophylaxis: Eliquis Attestations 2 Medical Necessity Statement*: Needs continued hospitalization secondary to pneumonia requiring IV antibiotics in this patient that is still febrile. Coding Level of Care Code 80709 Diagnoses End-stage renal disease on hemodialysis N18.6; Z99.2 Pneumonia J18.9 COVID-19 U07.1 Atrial fibrillation I48.91 Liver cirrhosis K74.60 Acute encephalopathy G93.40 Time Spent (min) 24 Documented by User: Zachary Rodrigues MD 05/29/23 08:49 Data 05/29/23 04:51 05/29/23 04:51 A&P Assessment and plan (1) End-stage renal disease on hemodialysis: (2) Pneumonia: Overall respiratory status improving. No distress at this time. On RA. Currently on IV antibiotics vancomycin and Levaquin. Sputum and blood cultures pending. MRSA PCR pending negative, stop Vancomycin DuoNeb every 6 hours, budesonide twice daily (3) COVID-19: (4) Atrial fibrillation: (5) Liver cirrhosis: (6) Acute encephalopathy: Diagnoses End-stage renal disease on hemodialysis N18.6; Z99.2 Pneumonia J18.9 COVID-19 U07.1 Atrial fibrillation I48.91 Liver cirrhosis K74.60 Acute encephalopathy G93.40 Time Spent (min) 24
[2023-05-29] MEDS: escitalopram 10 mg Tablet PO (08:29)
[2023-05-29] MEDS: aspirin 81 mg EC Tablet PO (08:29)
[2023-05-29] MEDS: atorvastatin 40 mg Tablet 20 MG PO (08:29)
[2023-05-29] MEDS: carvedilol 3.125 mg Tablet PO ×2 (08:29→18:00)
[2023-05-29] MEDS: pantoprazole DR 40 mg Tablet PO (08:29)
[2023-05-29] MEDS: docusate sodium 100 mg Capsule PO ×3 (08:29→20:00)
[2023-05-29] MEDS: ipratropium-albuterol 3 mL Neb INHALATION ×2 (09:04→13:58)
[2023-05-29] MEDS: budesonide 0.5 mg/2 mL Neb INHALATION (09:04)
--- NOTE | 2023-05-29 10:33 | P.PN_ITS ---
Subjective 2 Subjective: denies any complaints Medications: Reviewed: Yes Vitals/I&O/Wt Last Vital Signs Temp 99.6 F 05/29/23 08:00 Pulse 89 05/29/23 08:00 Resp 18 05/29/23 08:00 BP 127/46 05/29/23 08:00 Pulse Ox 94 05/29/23 08:00 O2 Del Method Room Air 05/29/23 08:00 O2 Flow Rate 2 05/27/23 07:47 05/28/23 05/29/23 05/29/23 22:59 06:59 14:59 Intake Total 240 / 240 Balance 240 / 240 Weight last 48 hrs Weight 83.779 kg Weight 81.647 kg Weight 81.647 kg Physical Exam 2 Narrative: Awake alert no distress Data 05/29/23 04:51 05/29/23 04:51 Micro: Microbiology 05/27/23 07:52 Blood Culture - Preliminary Blood 05/27/23 07:41 Blood Culture - Preliminary Blood 05/27/23 12:34 Urine Culture - Final Urine,Clean Catch A&P Assessment and plan (1) End-stage renal disease on hemodialysis: Plan p1. End-stage renal disease: On MWF schedule as outpatient, HD today 2. Anemia: Hemoglobin 8.3, KRISHNA with HD 3. Hypokalemia: improved 4. Acute on chronic respiratory failure, 5. Recent pneumonia Patient evaluated using audiovisual cart. Time spent 20 minute Attestations 2 Medical Necessity Statement*: per medicine Coding Level of Care Code Acute Code for Chg Fwd Diagnoses End-stage renal disease on hemodialysis N18.6; Z99.2
--- NOTE | 2023-05-29 11:20 | PC.SOCIAL ---
Pg 2 IMM Explained to pt Pg 2 IMM. No questions voiced. Provided pt a copy. Initialed, dated, & timed a copy & placed in chart.
[2023-05-29 12:34] LABS: Clostridium Difficile PCR NOT DETECTED (NOT DETECTED)
[2023-05-29] MEDS: epoetin alfa 1000 Unit/0.05 mL (ESRD) 20000 UNIT IVP (18:00)
[2023-05-29] MEDS: heparin, porcine 1,000 unit/mL INJ 10 mL 10000 UNIT INTRACATH (18:00)
--- NOTE | 2023-05-29 19:30 | PC.NURSE ---
Dialysis nurse, Charo, gave this nurse report after dialysis and stated there is an IT issue where she cannot get into [facility] chart I's and O's. Length of treatment: 2 1/2 hr Fluid in: 300 Fluid out: 2800 Net fluid removal: 2500
[2023-05-29] MEDS: LEVOFLOXACIN IV (19:56)
[2023-05-29] MEDS: DEXTROSE IV (19:56)
--- NOTE | 2023-05-29 20:05 | PC.NURSE ---
Eliquis was administered late because patient was in dialysis.
[2023-05-29 21:58] LABS: Basophils % 0.3 %; Eosinophils % 0.9 %; Hematocrit 24.7 % (37-53); Lymphocytes # 0.4 10^3/uL (0.8-4.8); Lymphocytes % 12.7 %; Mean Corpuscular HGB Conc 32.4 g/dL (30-55); Mean Corpuscular Hemoglobin 37.4 pg (27-33); Mean Corpuscular Volume 115.4 fl (82-101); Mean Platelet Volume 9.9 fL (7.4-10.4); Monocytes # 0.7 10^3/uL (0.2-0.9); Monocytes % 21.8 %; Neutrophils # 2.04 10^3/uL (1.8-7.7); Neutrophils % 60.2 %; Nucleated Red Blood Cells % 0 %; Platelet Count 99 10^3/cmm (157-399); Red Blood Count 2.14 10^6/uL (3.85-5.65); Red Cell Distribution Width 21.1 % (12.1-15.1); White Blood Count 3.39 10^3/uL (3.29-11.43)
--- NOTE | 2023-05-29 22:02 | PC.NURSE ---
DARIO reported to this nurse that patient had blood in his stool. This nurse went and looked and stool was dark and had bright red in it. This nurse called Dr. Mosley and reported that this was a change and what was previously charted that patient had liquid green stool. Patient is not complaining of any lightheadedness or dizziness at this time. Dr. Mosley ordered to hold eliquis, check CBC, INR, FOBT and monitor for drop in blood pressure, lightheaded or dizziness.
[2023-05-29 22:10] LABS: INR 2.39 (0.8-1.2)
[2023-05-30] VITALS (7 sets, daily range): BP systolic 98–121; BP diastolic 64–73; PULSE 75–86; RESP 16–18; TEMP 36.7–37.3; O2SAT 91–95; BMI 25.9
[2023-05-30 06:04] LABS: Basophils % 0.3 %; Eosinophils % 1.1 %; Hematocrit 23.9 % (37-53); Lymphocytes # 0.5 10^3/uL (0.8-4.8); Lymphocytes % 14.2 %; Mean Corpuscular HGB Conc 32.2 g/dL (30-55); Mean Corpuscular Hemoglobin 37.2 pg (27-33); Mean Corpuscular Volume 115.5 fl (82-101); Mean Platelet Volume 10.1 fL (7.4-10.4); Monocytes # 0.7 10^3/uL (0.2-0.9); Monocytes % 18.5 %; Neutrophils # 2.16 10^3/uL (1.8-7.7); Neutrophils % 61.6 %; Nucleated Red Blood Cells % 0 %; Platelet Count 91 10^3/cmm (157-399); Red Blood Count 2.07 10^6/uL (3.85-5.65); Red Cell Distribution Width 21.2 % (12.1-15.1); White Blood Count 3.51 10^3/uL (3.29-11.43)
[2023-05-30 06:19] LABS: Vancomycin Random 6.2 ug/mL (20.0-40.0)
[2023-05-30 06:22] LABS: Anion Gap 15.5 (5-19); Blood Urea Nitrogen 28 mg/dL (8-23); Calcium 8.8 mg/dL (8.5-10.5); Carbon Dioxide 27 mmol/L (22-29); Chloride 96 mmol/L (98-107); Glucose 81 mg/dL (65-115); Osmolality Calculated 285 mOsm/kg (285-295); Potassium 3.5 mmol/L (3.5-5.1); Sodium 135 mmol/L (136-145)
[2023-05-30] MEDS: budesonide 0.5 mg/2 mL Neb INHALATION (08:25)
[2023-05-30] MEDS: ipratropium-albuterol 3 mL Neb INHALATION (08:25)
--- NOTE | 2023-05-30 09:45 | P.PN_ITS ---
Subjective 2 Subjective: s/p HD yesterday Medications: Reviewed: Yes Vitals/I&O/Wt Last Vital Signs Temp 98.7 F 05/30/23 08:00 Pulse 83 05/30/23 08:32 Resp 18 05/30/23 08:26 BP 121/69 05/30/23 08:00 Pulse Ox 95 05/30/23 08:26 O2 Del Method Room Air 05/30/23 08:26 O2 Flow Rate 2 05/27/23 07:47 05/29/23 05/30/23 05/30/23 22:59 06:59 14:59 Intake Total 100 / 580 120 / 120 Balance 100 / 330 120 / 120 Weight last 48 hrs Weight 82.146 kg Weight 83.779 kg Physical Exam 2 Narrative: Awake alert no distress Data 05/30/23 05:31 05/30/23 05:31 Micro: Microbiology 05/29/23 21:40 Occult Blood (FIT) - Final Stool - Stool Aspirate 05/27/23 07:52 Blood Culture - Preliminary Blood 05/27/23 07:41 Blood Culture - Preliminary Blood A&P Assessment and plan (1) End-stage renal disease on hemodialysis: Plan 1. End-stage renal disease: On MWF schedule as outpatient,next HD tomorrow 2. Anemia: Hemoglobin 8.3, KRISHNA with HD 3. Hypokalemia: improved 4. Acute on chronic respiratory failure, 5. Recent pneumonia Patient evaluated using audiovisual cart. Time spent 20 minute Attestations 2 Medical Necessity Statement*: per medicine Coding Level of Care Code Acute Code for Chg Fwd Diagnoses End-stage renal disease on hemodialysis N18.6; Z99.2
[2023-05-30] MEDS: carvedilol 3.125 mg Tablet PO (09:58)
[2023-05-30] MEDS: pantoprazole DR 40 mg Tablet PO (09:58)
[2023-05-30] MEDS: docusate sodium 100 mg Capsule PO (09:58)
[2023-05-30] MEDS: escitalopram 10 mg Tablet PO (09:59)
[2023-05-30] MEDS: atorvastatin 40 mg Tablet 20 MG PO (09:59)
[2023-05-30] MEDS: aspirin 81 mg EC Tablet PO (10:02)
[2023-05-30] MEDS: acetaminophen 325 mg Tablet 650 MG PO (10:10)
[2023-05-30 11:57] LABS: Hematocrit 26.7 % (37-53)
--- NOTE | 2023-05-30 12:36 | PM.DCS ---
Discharge Providers Date of Admission: 05/27/23 09:29 Date of Discharge: May 30, 2023 Attending Provider at Admission: Zachary Rodrigues MD Attending Provider at Discharge: Zachary Rodrigues MD Primary Care Provider: Laya Devlin Diagnoses at Discharge Discharge Diagnosis (1) End-stage renal disease on hemodialysis: Status: Chronic Reason for Visit Reason for Visit: WEAKNESS Hospital Course Hospital Course Anthony is a 73-year-old white male who presented to the hospital with confusion, and hypoxia. He had recently had COVID around May 22. There was concern of bacterial pneumonia. He was initiated on Levaquin. Head CT showed no acute changes. Ammonia level was normal. During his hospital stay he received dialysis, and continued doses of Levaquin. With this he was able to wean to room air. Close today of discharge she had slight amount of blood per rectum, suspicious for hemorrhoidal bleeding. Secondary to cirrhosis, low platelets, elevated INR it was thought the best course of action would be to discontinue his Eliquis. This was done, after discussion with the patient and his family regarding the risks and benefits. He will transfer to skilled care for rehab. He will not continue Eliquis. He will finish up 6 more days of Levaquin. He will continue to get dialysis. He should also continue to get his intermittent paracentesis which she has been getting at the hospital about every 2 weeks. He was given an opportunity to ask questions and agreed with the plan. Physical Exam Narrative: General exam no distress Neck is supple Cardiovascular regular rate and rhythm Lungs clear Abdomen is soft Extremities no cyanosis clubbing or edema Discharge Data Studies Completed and Pending Completed Studies During Hospitalization Category Date Time Status CT head wo con* [id number] Stat Cat Scan 05/27/23 09:01 Completed XR chest 1V portable [id number] Stat Exams 05/27/23 06:59 Completed Pending at discharge Category Date Time Status Blood Cultures ([facility]) Routine Lab 05/27/23 07:41 Results Blood Cultures ([facility]) Routine Lab 05/27/23 07:52 Results SARS Covid-2 Antigen Stat Lab 05/30/23 12:23 Uncollected Sputum Culture and Gram Stain Routine Lab 05/27/23 12:18 Uncollected Vancomycin Random AM LABS Lab 05/31/23 04:00 Ordered Vancomycin Random AM LABS Lab 06/01/23 04:00 Ordered Laboratory Results WBC 3.51 10^3/uL (3.29-11.43) 05/30/23 05:31 RBC 2.07 10^6/uL (3.85-5.65) L 05/30/23 05:31 Hgb 8.50 g/dL (11.27-16.99) L 05/30/23 11:47 Hct 26.7 % (37-53) L 05/30/23 11:47 MCV 115.5 fl (82-101) H 05/30/23 05:31 MCH 37.2 pg (27-33) H 05/30/23 05:31 MCHC 32.2 g/dL (30-55) 05/30/23 05:31 RDW 21.2 % (12.1-15.1) H 05/30/23 05:31 Plt Count 91 10^3/cmm (157-399) L 05/30/23 05:31 MPV 10.1 fL (7.4-10.4) 05/30/23 05:31 Neut % (Auto) 61.6 % 05/30/23 05:31 Lymph % (Auto) 14.2 % 05/30/23 05:31 [place] % (Auto) 18.5 % 05/30/23 05:31 Eos % (Auto) 1.1 % 05/30/23 05:31 Baso % (Auto) 0.3 % 05/30/23 05:31 Neut # (Auto) 2.16 10^3/uL (1.8-7.7) 05/30/23 05:31 Lymph # (Auto) 0.5 10^3/uL (0.8-4.8) L 05/30/23 05:31 [place] # (Auto) 0.7 10^3/uL (0.2-0.9) 05/30/23 05:31 Eos # (Auto) 0.0 10^3/uL (0.0-0.8) 05/30/23 05:31 Baso # (Auto) 0.0 10^3/uL (0.0-0.1) 05/30/23 05:31 Nucleated RBC % (auto) 0 % 05/30/23 05:31 Nucleated RBCs # 0.0 /100WBC 05/30/23 05:31 PT 27.00 SECONDS (12.1-14.9) H 05/29/23 21:50 INR 2.39 (0.8-1.2) H 05/29/23 21:50 Specimen Type Arterial 05/27/23 07:30 Sample Site Radial, right 05/27/23 07:30 ABG pH 7.43 (7.35-7.45) 05/27/23 07:30 ABG pCO2 37.7 mmHg (35-45) 05/27/23 07:30 ABG pO2 54.4 mmHg (80.0-100.0) L 05/27/23 07:30 ABG PO2/FiO2 Ratio 0 05/27/23 07:30 ABG HCO3 25.2 mmol/L (22-26) 05/27/23 07:30 ABG O2 Saturation 89.2 05/27/23 07:30 ABG Base Excess 0.9 mmol/L (-2.0-2.0) 05/27/23 07:30 Ag Test Pos 05/27/23 07:30 A-a O2 Gradient 6.6 mmHg (5-10) 05/27/23 07:30 Hematocrit 25.1 % (42-52) L 05/27/23 07:30 Hgb O2 Saturation 87.0 % (95-100) L 05/27/23 07:30 Carboxyhemoglobin 2.2 %THgb (0.4-20.1) 05/27/23 07:30 Methemoglobin 0.2 % (0.4-1.5) L 05/27/23 07:30 Total Hemoglobin 8.2 g/dL (14-18) L 05/27/23 07:30 Sodium 134.0 mmol/L (131-143) 05/27/23 07:30 Potassium 4.4 mmol/L (3.5-5.0) 05/27/23 07:30 Glucose 95.0 mg/dL (70-115) 05/27/23 07:30 Ionized Calcium 1.2 mmol/L (1.1-1.4) 05/27/23 07:30 O2 Delivery Device Room air 05/27/23 07:30 FiO2 21.0 % 05/27/23 07:30 Windrower Operator ID Cak 05/27/23 07:30 Sodium 135 mmol/L (136-145) L 05/30/23 05:31 Potassium 3.5 mmol/L (3.5-5.1) 05/30/23 05:31 Chloride 96 mmol/L (98-107) L 05/30/23 05:31 Carbon Dioxide 27 mmol/L (22-29) 05/30/23 05:31 Anion Gap 15.5 (5-19) 05/30/23 05:31 BUN 28 mg/dL (8-23) H 05/30/23 05:31 Creatinine 4.9 mg/dL (0.7-1.2) H 05/30/23 05:31 GFR Calculation Not Reportable 05/30/23 05:31 Glucose 81 mg/dL (65-115) 05/30/23 05:31 POC Glucose 103 mg/dL (70-110) 05/28/23 16:52 Calculated Osmolality 285 mOsm/kg (285-295) 05/30/23 05:31 Lactic Acid 2.2 mmol/L (0.5-2.2) 05/27/23 07:41 Lactic Acid (Sepsis) 1.2 mmol/L (0.5-2.2) 05/27/23 10:46 Calcium 8.8 mg/dL (8.5-10.5) 05/30/23 05:31 Magnesium 1.9 mg/dL (1.7-2.3) 05/28/23 04:25 Total Bilirubin 1.0 mg/dL (0.15-1.2) 05/29/23 04:51 AST 32 U/L (0-40) 05/29/23 04:51 ALT 16 U/L (0-41) 05/29/23 04:51 Alkaline Phosphatase 58 U/L (40-130) 05/29/23 04:51 Ammonia 18 umol/L (16-60) 05/27/23 07:41 C-Reactive Protein 60.8 mg/L (0.0-4.9) H 05/28/23 04:25 NT-Pro-B Natriuret Pep > 08735 pg/mL (0-125) H 05/27/23 07:41 Total Protein 5.1 g/dL (6.6-8.7) L 05/29/23 04:51 Albumin 2.8 g/dL (3.5-5.2) L 05/29/23 04:51 Globulin 2.3 g/dL (1.3-4.6) 05/29/23 04:51 Procalcitonin 0.78 ng/mL (0-0.5) H 05/27/23 07:41 Urine Color Yellow (Yellow) 05/27/23 12:34 Urine Appearance Sl hazy (CLEAR) A 05/27/23 12:34 Urine pH 6 (5-7) 05/27/23 12:34 Ur Specific [place] 1.010 (1.005-1.030) 05/27/23 12:34 Urine Protein 1+ (Negative) H 05/27/23 12:34 Urine Glucose (UA) Norm (Normal) 05/27/23 12:34 Urine Ketones 1+ (Negative) H 05/27/23 12:34 Urine Blood 3+ (Negative) H 05/27/23 12:34 Urine Nitrate Negative (Negative) 05/27/23 12:34 Urine Bilirubin 1+ (Negative) H 05/27/23 12:34 Urine Urobilinogen Neg mg/dL (Negative) 05/27/23 12:34 Ur Leukocyte Esterase Negative (Negative) 05/27/23 12:34 Urine RBC 0-4 /hpf (0-2) H 05/27/23 12:34 Urine WBC 0-4 /hpf (0-5) H 05/27/23 12:34 Ur Squamous Epith Cells 0-4 /hpf (0-5) H 05/27/23 12:34 Amorphous Sediment Not Reportable 05/27/23 12:34 Urine Bacteria 2+ /hpf (NONE) H 05/27/23 12:34 Random Vancomycin 6.2 ug/mL (20.0-40.0) L 05/30/23 05:31 C. difficile Tox (PCR) Not detected (NOT DETECTED) 05/28/23 00:10 MRSA (PCR) Not detected (NOT DETECTED) 05/27/23 15:12 Vitals Last Vital Signs Temp 98.1 F 05/30/23 11:43 Pulse 83 05/30/23 11:43 Resp 18 05/30/23 11:43 BP 98/64 05/30/23 11:43 Pulse Ox 94 05/30/23 11:43 O2 Del Method Room Air 05/30/23 11:43 O2 Flow Rate 2 05/27/23 07:47 Discharge Plan Discharge Patient Disposition: Xfer SNF Condition: Stable Prescriptions: New levofloxacin 750 mg tablet 750 mg PO Q48H Qty: 3 0RF Continued atorvastatin 10 mg tablet 10 mg PO BID docusate sodium [Colace] 100 mg capsule 100 mg PO TID cholecalciferol (vitamin D3) 125 mcg (5,000 unit) capsule 125 mcg PO DAILY Dialyvite [id number] fn-rn-vdv-mg tablet 1 tab PO DAILY furosemide [Lasix] 80 mg tablet 80 mg PO BID Rx Instructions: To be taken on the days he does not have diaylsis. on dialysis days takes 40mg mid afternoon. omega 5-wco-wud-fish oil 1,000 mg (120 mg-180 mg) capsule 1 cap PO BID simethicone [Gas-X Extra Strength] 125 mg capsule 125 mg PO PRN PRN (Reason: Gastric Reflux) carvedilol 3.125 mg tablet 3.125 mg PO BID escitalopram oxalate 10 mg tablet 10 mg PO DAILY aspirin 81 mg Tablet,Delayed Release (Dr/Ec) 81 mg PO DAILY pantoprazole 40 mg Tablet,Delayed Release (Dr/Ec) 40 mg PO DAILY Qty: 30 0RF fluticasone furoate-vilanterol [Breo Ellipta] 100-25 mcg/dose blister with device 1 inh inhalation DAILY Qty: 60 0RF fluticasone propionate 50 mcg/actuation [place],Suspension 1 spray INTRANASAL DAILY Rx Instructions: administer into each nostril Velphoro 500 mg tablet,chewable See Rx Instructions .ROUTE .COMPLEX Rx Instructions: Crush or chew 4 tablets (2,000 mg) orally 3 times daily before meals. Discontinued dexamethasone 4 mg Tablet 6 mg PO DAILY 10 Days Qty: 15 0RF Eliquis 5 mg tablet 5 mg PO Q12H Qty: 60 0RF Discharge Orders: Discharge Order (Routine); Ordered 05/30/23 Ordered By: Zachary Rodrigues Referrals: Laya Devlin PA [Primary Care Provider] - 4-7 days Discharge Diet: Usual diet Discharge Activity: Increase activity as tolerated Patient Instructions: Opioid Safety Activity Restrictions/Additional Instructions: CBC in 1 week Continue paracentesis, approximately every 2 weeks done at the hospital Finish course of Levaquin as described Discontinue Eliquis Return for any concerns Continue dialysis Saturday Discharge Attestations Time Spent in Discharge Care*: greater than 30 min Status at Discharge: Cognitive status at discharge: cognitively intact, Behavioral status at discharge: cooperative, Quality Metrics Clinical Quality Measures [ No reported AMI, CVA or VTE this stay] Coding Level of Care Code 20651 Total time (in minutes) for Discharge: 35 Diagnoses End-stage renal disease on hemodialysis N18.6; Z99.2
[2023-05-30 13:28] LABS: SARS Covid-2 Antigen positive (Negative)
== END 2023-05-30 14:32 | disposition skilled nursing facility (03) | DRG 193 ==
LOC: ER 09:33 → ER IP 10:10 → MEDSURG 13:51
PROVIDERS: Family Medicine; Admitting Provider Internal Medicine; Emergency Provider Family Medicine; PCP Physician Assistant; Visit Provider Internal Medicine
DX: J18.9 Pneumonia, unspecified organism (principal); N18.6 End stage renal disease; U07.1 COVID-19; I13.2 Hypertensive heart and chronic kidney disease with heart failure and with stage 5 chronic kidney disease, or end stage renal disease; I50.32 Chronic diastolic (congestive) heart failure; G93.40 Encephalopathy, unspecified; R09.02 Hypoxemia; Z99.2 Dependence on renal dialysis; K74.60 Unspecified cirrhosis of liver; D63.1 Anemia in chronic kidney disease; E87.6 Hypokalemia; R41.0 Disorientation, unspecified; I48.91 Unspecified atrial fibrillation; Z79.01 Long term (current) use of anticoagulants; Z79.82 Long term (current) use of aspirin; K64.9 Unspecified hemorrhoids; R79.1 Abnormal coagulation profile; E78.5 Hyperlipidemia, unspecified
CPT/HCPCS: 36415; 36416; 36600; 70450; 71045; 80048; 80051; 80053; 80202; 81001; 82140; 82274; 82330; 82805; 82962; 83605; 83735; 83880; 84145; 85014; 85018; 85025; 85610; 86140; 87040; 87086; 87426; 87493; 87641; 93005; 94640; 96374; 97116; 97161; 97167; 97530; 97535; 99285; J1644; J1956; J3370; J7050; J7626; Q4081

== ENCOUNTER 2023-06-05 07:17 | Emergency (ER) | payer MEDICARE, OTHER, SELFPAY ==
[2023-06-05 07:17] VITALS: BP 142/78; PULSE 90; RESP 18; TEMP 36.3; O2SAT 96; BMI 24.4
--- NOTE | 2023-06-05 07:19 | CT_ITS ---
WS: [id number] CT CERVICAL TRAUMA TECHNIQUE: Noncontrast CT of the cervical spine with coronal and sagittal reformatted images. CLINICAL INFORMATION: trauma COMPARISON: None. DLP: 1568.[address] scans at [facility] use at least one of these dose optimization techniques: automated e xposure control; mA and/or kV adjustment per patient size (includes targeted exams where dose is matc hed to clinical indication); or iterative reconstruction. FINDINGS: Straightening of the normal cervical lordosis. Straightening of the normal cervical lordosis. Disc de siccation with ankylosis C5-6 with slight retrolisthesis. Mild central canal stenosis C3-C4 and C5-C6 . Disc osteophyte complex C3-4. Normal craniocervical junction. Normal C1-C2 articulation. Dens is no rmal in appearance. Normal occipital condyles. Normal C1 ring. No evidence of acute fracture or dislo cation. Normal prevertebral soft tissues. Carotid bulb calcification. Mastoids air cells are well aerated. IMPRESSION: 1. No evidence of acute fracture or dislocation. 2. Straightening of the normal cervical lordosis. 3. Disc desiccation with ankylosis C5-6 with slight retrolisthesis. Mild central canal stenosis C3-C 4 and C5-C6.
--- NOTE | 2023-06-05 07:20 | CT_ITS ---
WS: [id number] CT HEAD TECHNIQUE: Noncontrast CT of the head obtained from the skullbase to the vertex. CLINICAL INFORMATION: trauma COMPARISON: None. DLP: 1568.[address] scans at [facility] use at least one of these dose optimization techniques: automated e xposure control; mA and/or kV adjustment per patient size (includes targeted exams where dose is matc hed to clinical indication); or iterative reconstruction. FINDINGS: No evidence of intracranial hemorrhage or mass effect. Ventricular system and basal cisterns are boudreaux nt. Moderate small vessel changes with moderate parenchymal volume loss. No extra-axial fluid collect ions. No evidence of mass or mass effect. Intracranial vascular calcification. Stable subcutaneous lipoma LEFT occipital scalp. Soft tissue edema LEFT parietal scalp. No visualized fractures. Air-fluid level sphenoid sinus. Mucosal thickening ethmoid air cells. Mastoid air cells a re well aerated. Normal posterior nasopharynx. IMPRESSION: 1. No evidence of intracranial hemorrhage or mass effect. 2. No acute intracranial findings.
--- NOTE | 2023-06-05 07:31 | CT_ITS ---
WS: [id number] CT LUMBAR SPINE TECHNIQUE: Noncontrast CT of the lumbar spine with coronal and sagittal reformatted images. CLINICAL INFORMATION: trauma COMPARISON: None. DLP: 956.[address] scans at [facility] use at least one of these dose optimization techniques: automated e xposure control; mA and/or kV adjustment per patient size (includes targeted exams where dose is matc hed to clinical indication); or iterative reconstruction. FINDINGS: Mild lumbar curve. Mild acute compression fracture superior endplate L4 with loss of approximately 20 % vertebral body height. No retropulsion. Fracture cleft visualized in the superior endplate. This acevedo s an acute appearance. No other visualized compression fractures. Dense vascular calcification. Bilateral renal atrophy with multiple renal cysts. Diffuse body wall an asarca. Small amount of free fluid in the pelvis. Sigmoid diverticulosis. Mild mesenteric and retrope ritoneal edema. Prominent LEFT periaortic and retroperitoneal lymph nodes the largest measuring 15 mm . Prior postoperative changes laminectomy L3-L4 L1-L2: Mild annular bulge and mild central canal stenosis. Moderate facet arthropathy. L2-L3: Mild disc bulging with moderate to severe central canal stenosis. Advanced facet arthropathy. Mild foraminal narrowing. L3-L4: Mild disc bulging with mild central canal stenosis. Moderate facet arthropathy. Moderate bilat eral foraminal narrowing. L4-L5: Mild disc bulging with mild central canal stenosis. Moderate facet arthropathy. Mild bilateral foraminal narrowing. L5-S1: Mild disc bulging. Spinal canal and foramen are patent. Advanced facet arthropathy. IMPRESSION: 1. Acute compression fracture super endplate L4 with loss of approximately 20% vertebral body height . No significant retropulsion. 2. Severe central canal stenosis L2-3 due to disc bulging with facet arthropathy and ligamentum flav um hypertrophy. 3. Prior postoperative changes laminectomy defects L3-L4. 4. Advanced facet arthropathy lower lumbar spine. 5. Diffuse body wall anasarca with mesenteric edema. Induration in the retroperitoneal soft tissues. 6. Prominent LEFT periaortic and retroperitoneal lymph nodes nonspecific but may be reactive. Recomm end follow-up with CT abdomen pelvis.
--- NOTE | 2023-06-05 08:13 | W.ED.FALL ---
HPI - Fall General: Chief Complaint: Fall Stated Complaint: Fall Time Seen by Provider: 06/05/23 07:19 Source: patient Mode of arrival: EMS History of Present Illness: 73-year-old male presents to the emergency room with complaint of low back pain and pain in his head after falling out of wheelchair. He has a small abrasion on the occiput just to the left of the midline. He is also complaining of some low back pain although he is able to sit up without difficulty palpation on his back does not reproduce any pain. No reported loss consciousness. Patient has a history of end-stage renal disease and is on his way to get dialysis when this occurred. complaint: fall Onset (ago): minute(s) Fall from: wheelchair Fall witnessed: yes, by bystander Place fall occurred: other (Dialysis clinic) Loss of consciousness: None Prolonged down time: no Symptoms prior to fall: none Context: tripped/slipped Location of injury: head and back Associated symptoms-after fall: Denies abdominal pain, chest pain or neck pain Review of Systems Const: Denies: fever(s) or chills Card: Denies: chest pain Resp: Denies: dyspnea GI: Denies: abdominal pain : Denies: dysuria, urinary frequency or urinary urgency Musc: Denies: neck pain or back pain Skin/Breast: Denies: rash PFSH ED PFSH: Medical History Osteoarthritis History of peritonitis Depression Anemia in chronic kidney disease Chronic diastolic heart failure PVD (peripheral vascular disease) Atrial fibrillation Hypertension Hyperlipidemia End-stage renal disease on hemodialysis Liver cirrhosis TIA (transient ischemic attack) Surgical History AV fistula left upper arm, brachial to cephalic vein History of transcatheter aortic valve replacement (TAVR) History of abdominal paracentesis Social History Smoking and tobacco/nicotine status: never used tobacco/nicotine Second hand smoke exposure: No Alcohol intake: never Substance/Drug Use: never Physical Exam Const: GENERAL APPEARANCE: cooperative and comfortable ORIENTATION/CONSCIOUSNESS: Yes awake, Yes oriented to person, Yes oriented to place and Yes oriented to time HENMT: COMMON NORMALS: normocephalic and hearing grossly normal bilaterally HEAD & SCALP: normocephalic OTHER: Abrasion on the occiput no active bleeding does have a little bit of oozing from the abrasion note that is not full-thickness in the skin. Inferiorly and laterally there is a soft tissue mass which is smooth nonfluctuant patient confirms that has been there chronically nontender. On exam is suggestive of a lipoma. Resp: COMMON NORMALS: normal respiratory effort, No retractions, No use of accessory muscles and clear to auscultation bilaterally AUSCULTATION: clear to auscultation bilaterally Cardio: COMMON NORMALS: regular rate, regular rhythm and No murmurs present (Cardio) RATE: regular rate RHYTHM: regular rhythm GI: COMMON NORMALS: Soft to palpation and No hepatosplenomegaly present AUSCULTATION: Yes normoactive bowel sounds PALPATION: Yes Soft to palpation, No Tenderness to palpation present (GI), No Guarding due to palpation present (GI) and Yes No hepatosplenomegaly present Extremity: COMMON NORMALS: normal to inspection, capillary refill normal, no clubbing, cyanosis or edema, no calf tenderness and no pedal edema Neuro: SENSORIUM/ORIENTATION: Yes oriented to person, Yes oriented to place and Yes oriented to time Skin: COMMON NORMALS: no rashes or lesions noted GENERAL SKIN EXAM: no rashes or lesions noted Course Vital Signs: Vital signs: Vital Signs Temperature 97.4 F L 06/05/23 07:17 Pulse Rate 86 06/05/23 09:26 Respiratory Rate 17 06/05/23 09:52 Blood Pressure 127/82 06/05/23 10:11 Pulse Oximetry 99 06/05/23 09:52 Oxygen Delivery Me thod Room Air 06/05/23 09:26 MDM - Fall Medical Decision Making New L4 compression fracture. Pain control although was exacerbated by movement he was able to sit in a wheelchair as tolerated after pain medications discharged home with narcotic pain medications and referral to orthopedic surgery for evaluation for possible kyphoplasty. Discharged from the ER to have his dialysis done today. Medical Records I reviewed the patient's medical records. Lab Data I reviewed the patient's lab results. 06/05/23 09:57 06/05/23 09:57 Laboratory Results WBC 4.74 10^3/uL (3.29-11.43) 06/05/23 09:57 RBC 2.24 10^6/uL (3.85-5.65) L 06/05/23 09:57 Hgb 8.50 g/dL (11.27-16.99) L 06/05/23 09:57 Hct 26.8 % (37-53) L 06/05/23 09:57 MCV 119.6 fl (82-101) H 06/05/23 09:57 MCH 37.9 pg (27-33) H 06/05/23 09:57 MCHC 31.7 g/dL (30-55) 06/05/23 09:57 RDW 19.0 % (12.1-15.1) H 06/05/23 09:57 Plt Count 116 10^3/cmm (157-399) L 06/05/23 09:57 MPV 10.5 fL (7.4-10.4) H 06/05/23 09:57 Neut % (Auto) 71.7 % 06/05/23 09:57 Lymph % (Auto) 11.0 % 06/05/23 09:57 [place] % (Auto) 13.7 % 06/05/23 09:57 Eos % (Auto) 1.1 % 06/05/23 09:57 Baso % (Auto) 0.2 % 06/05/23 09:57 Neut # (Auto) 3.40 10^3/uL (1.8-7.7) 06/05/23 09:57 Lymph # (Auto) 0.5 10^3/uL (0.8-4.8) L 06/05/23 09:57 [place] # (Auto) 0.7 10^3/uL (0.2-0.9) 06/05/23 09:57 Eos # (Auto) 0.1 10^3/uL (0.0-0.8) 06/05/23 09:57 Baso # (Auto) 0.0 10^3/uL (0.0-0.1) 06/05/23 09:57 Nucleated RBC % (auto) 0 % 06/05/23 09:57 Nucleated RBCs # 0.0 /100WBC 06/05/23 09:57 Sodium 129 mmol/L (136-145) L 06/05/23 09:57 Potassium 4.9 mmol/L (3.5-5.1) 06/05/23 09:57 Chloride 91 mmol/L (98-107) L 06/05/23 09:57 Carbon Dioxide 26 mmol/L (22-29) 06/05/23 09:57 Anion Gap 16.9 (5-19) 06/05/23 09:57 BUN 53 mg/dL (8-23) H 06/05/23 09:57 Creatinine 7.3 mg/dL (0.7-1.2) H* 06/05/23 09:57 GFR Calculation Not Reportable 06/05/23 09:57 Glucose 105 mg/dL (65-115) 06/05/23 09:57 Calculated Osmolality 283 mOsm/kg (285-295) L 06/05/23 09:57 Calcium 8.8 mg/dL (8.5-10.5) 06/05/23 09:57 Total Bilirubin 1.0 mg/dL (0.15-1.2) 06/05/23 09:57 AST 21 U/L (0-40) 06/05/23 09:57 ALT 13 U/L (0-41) 06/05/23 09:57 Alkaline Phosphatase 68 U/L (40-130) 06/05/23 09:57 Total Protein 5.3 g/dL (6.6-8.7) L 06/05/23 09:57 Albumin 2.8 g/dL (3.5-5.2) L 06/05/23 09:57 Globulin 2.5 g/dL (1.3-4.6) 06/05/23 09:57 All radiology interpretation(s) finalized by discharge Discharge Plan Discharge Patient Disposition: Home Clinical Impression: Compression fracture, End-stage renal disease on hemodialysis, Chronic anticoagulation Condition: Stable Prescriptions: New hydrocodone-acetaminophen 5-325 mg tablet 1 tab PO Q6H PRN (Reason: pain) Qty: 20 0RF No Action atorvastatin 10 mg tablet 10 mg PO BID docusate sodium [Colace] 100 mg capsule 100 mg PO TID cholecalciferol (vitamin D3) 125 mcg (5,000 unit) capsule 125 mcg PO DAILY@07 omega 5-atw-ixr-fish oil 1,000 mg (120 mg-180 mg) capsule 1 cap PO BID simethicone [Gas-X Extra Strength] 125 mg capsule 125 mg PO Q6H PRN (Reason: Gastric Reflux) carvedilol 3.125 mg tablet 3.125 mg PO BID@08,20 escitalopram oxalate 10 mg tablet 10 mg PO DAILY@07 aspirin 81 mg Tablet,Delayed Release (Dr/Ec) 81 mg PO DAILY@07 fluticasone propionate 50 mcg/actuation [place],Suspension 1 spray INTRANASAL DAILY@07 Rx Instructions: administer into each nostril Velphoro 500 mg tablet,chewable See Rx Instructions .ROUTE .COMPLEX Rx Instructions: Crush or chew 4 tablets (2,000 mg) orally 3 times daily before meals. levofloxacin 750 mg tablet 750 mg PO Q48H Qty: 3 0RF Rx Instructions: for 3 doses (start 05/31/23) Dialyvite 800 with Zinc 15 0.8-15 mg tablet 1 tab PO DAILY@07 Breo Ellipta 100-25 mcg/dose blister with device 1 inh inhalation DAILY@07 Milk of Magnesia 400 mg/5 mL Suspension 30 ml PO DAILY PRN (Reason: Constipation) Dulcolax (bisacodyl) 10 mg Suppository 10 mg [place] DAILY PRN (Reason: Constipation) Fleet Enema 19-7 gram/118 mL Enema 118 ml [place] DAILY PRN (Reason: Constipation) pantoprazole 40 mg tablet,delayed release (DR/EC) 40 mg PO DAILY@07 Discharge Orders: Discharge ED (Routine); Ordered 06/05/23 Ordered By: Siva Beckman Referrals: Laya Devlin PA [Primary Care Provider] - Discharge Diet: Usual diet Discharge Activity: Increase activity as tolerated Patient Instructions: Vertebral Compression Fracture (ED), Opioid Safety, Pain Management Activity Restrictions/Additional Instructions: Thank you for choosing [facility] for your healthcare needs today. Please realize this is an emergency room and that we are providing you with a medical screening exam and this may not be complete and all inclusive of all the testing and or work up that you may need to determine your ailment or severity of your illness. It is very important that you follow up as instructed or that you return to the Emergency Department should you have concerns or if your condition changes or worsens in any way. You are seen today after a fall CT of your head was negative there is an abrasion on the scalp but it does not require stitches. CT of your neck was negative. CT of the lumbar shot spine showed a L4 compression fracture. These do not require hospitalization but will cause some degree of discomfort you are given a prescription for pain medicines major case detective will make arrangements for you to follow-up with orthopedics. Coding Level of Care Code ED Freel[employer] Digital Project Manager for Jonathan Beaulieu
--- NOTE | 2023-06-05 08:54 | PC.PHAR ---
Addendum entered by Guillermina Ng 06/05/23 10:00: medications entered are from the pts zoie and tar from [facility] that they fax Original Note: pt is from [facility] [phone]-per patrica nurse at [facility] will fax mar and tar
[2023-06-05 09:26] VITALS: BP 127/82; PULSE 86; O2SAT 97
[2023-06-05 09:52] VITALS: RESP 17; O2SAT 99
[2023-06-05] MEDS: ondansetron 2 mg/ML SDV 2 mL 4 MG IVP (09:52)
[2023-06-05] MEDS: morphine 4 mg/mL SDV 1 mL IVP (09:52)
[2023-06-05 10:11] VITALS: BP 127/82
[2023-06-05 10:11] LABS: Basophils % 0.2 %; Eosinophils # 0.1 10^3/uL (0.0-0.8); Eosinophils % 1.1 %; Hematocrit 26.8 % (37-53); Lymphocytes # 0.5 10^3/uL (0.8-4.8); Mean Corpuscular HGB Conc 31.7 g/dL (30-55); Mean Corpuscular Hemoglobin 37.9 pg (27-33); Mean Corpuscular Volume 119.6 fl (82-101); Mean Platelet Volume 10.5 fL (7.4-10.4); Monocytes # 0.7 10^3/uL (0.2-0.9); Monocytes % 13.7 %; Neutrophils % 71.7 %; Nucleated Red Blood Cells % 0 %; Platelet Count 116 10^3/cmm (157-399); Red Blood Count 2.24 10^6/uL (3.85-5.65); White Blood Count 4.74 10^3/uL (3.29-11.43)
[2023-06-05 10:27] LABS: Alanine Aminotransferase 13 U/L (0-41); Albumin Level 2.8 g/dL (3.5-5.2); Alkaline Phosphatase 68 U/L (40-130); Anion Gap 16.9 (5-19); Aspartate Amino Transferase 21 U/L (0-40); Blood Urea Nitrogen 53 mg/dL (8-23); Calcium 8.8 mg/dL (8.5-10.5); Carbon Dioxide 26 mmol/L (22-29); Chloride 91 mmol/L (98-107); Globulin 2.5 g/dL (1.3-4.6); Glucose 105 mg/dL (65-115); Osmolality Calculated 283 mOsm/kg (285-295); Potassium 4.9 mmol/L (3.5-5.1); Sodium 129 mmol/L (136-145); Total Protein 5.3 g/dL (6.6-8.7)
--- NOTE | 2023-06-06 07:15 | DCPLANNER ---
Message was sent to the ortho clinic on 06/06/23 at 0715. Clinic to contact patient
== END 2023-06-05 10:12 | disposition home or self-care (01) ==
PROVIDERS: Emergency Provider Family Medicine; PCP Physician Assistant
DX: S32.040A Wedge compression fracture of fourth lumbar vertebra, initial encounter for closed fracture (principal); D68.318 Other hemorrhagic disorder due to intrinsic circulating anticoagulants, antibodies, or inhibitors; I13.2 Hypertensive heart and chronic kidney disease with heart failure and with stage 5 chronic kidney disease, or end stage renal disease; N18.6 End stage renal disease; I50.9 Heart failure, unspecified; Z99.2 Dependence on renal dialysis; E78.5 Hyperlipidemia, unspecified; Z86.73 Personal history of transient ischemic attack (TIA), and cerebral infarction without residual deficits; Z79.82 Long term (current) use of aspirin; W05.0XXA Fall from non-moving wheelchair, initial encounter
CPT/HCPCS: 36415; 70450; 72125; 72131; 80053; 85025; 96374; 96375; 99285; J2270; J2405

== ENCOUNTER → 2023-06-18 08:47 | Outpatient (BNVA) | payer MEDICARE, OTHER, SELFPAY | PROVIDERS: PCP Physician Assistant; Visit Provider Orthopaedic Surgery | DX: S32.040A Wedge compression fracture of fourth lumbar vertebra, initial encounter for closed fracture (principal); W19.XXXA Unspecified fall, initial encounter; R29.6 Repeated falls | CPT/HCPCS: 72100; 99204 ==

== ENCOUNTER 2023-06-20 11:24 | Day surgery (SDC) | payer MEDICARE, SELFPAY ==
--- NOTE | 2023-06-20 11:28 | US_ITS ---
WS: [id number] ULTRASOUND-GUIDED THERAPEUTIC AND DIAGNOSTIC PARACENTESIS Procedure, risks, and complications have been explained to the patient. Consent is obtained. Utilizing aseptic technique and 1% buffered lidocaine, a small dermatome was made through which a 5 F rench Yueh catheter was inserted. Approximately 9000 ml of clear peritoneal fluid was obtained witho ut difficulty. No complications encountered. Specimen is also collected for analysis as requested. IMPRESSION: Uncomplicated paracentesis yielding 9000 ml of peritoneal fluid.
[2023-06-20 11:40] VITALS: BMI 25.8
[2023-06-20] MEDS: albumin 75 G/300 ML BAG 60 G IV (12:48)
[2023-06-20 13:56] LABS: Cyto Order Verification No Order
[2023-06-20 14:16] LABS: Appearance, Peritoneal Fluid Cloudy (Clear); Color, Peritoneal Fluid Amber (Pale Yellow); RBC Pertioneal Fluid 3 10^3/uL; WBC Peritoneal Fluid 294 /uL
[2023-06-20 14:18] LABS: Pathology Referral Yes
== END 2023-06-20 13:54 | disposition home or self-care (01) ==
LOC: GILAB 11:24
PROVIDERS: Nurse Practitioner Adult Health; Radiology Diagnostic Radiology; PCP Physician Assistant; Visit Provider Internal Medicine Nephrology
PROC: (CPT 49082; principal; 2023-06-20 12:00)
DX: R18.8 Other ascites (principal)
CPT/HCPCS: 49083; 80503; 87070; 87075; 87205; 89050; 96365; P9046

== ENCOUNTER 2023-07-11 10:50 | Day surgery (SDC) | payer MEDICARE, SELFPAY ==
[2023-07-11 11:09] VITALS: BP 128/76; PULSE 69; RESP 14; TEMP 36.4; O2SAT 94
--- NOTE | 2023-07-11 11:13 | US_ITS ---
WS: [id number] ULTRASOUND-GUIDED PARACENTESIS CLINICAL INFORMATION: ASCITES COMPARISON: None. Procedure Informed consent: The risks, benefits, and alternatives of the procedure were discussed with the lisa ent. Verbal and written consent was obtained. Timeout: A timeout was performed to confirm the correct patient, procedure, and site. Preparation: A suitable skin site was identified. The patient was prepped and draped in usual sterile fashion. Lidocaine 1% was used for local anesthesia. Catheter: 4 Hebrew One-step Yueh catheter. Side: LEFT lower quadrant. Fluid Volume: 4300 ml Color: Clear yellow DISPOSITION: Discarded safely. Complications: None. Patient disposition: Discharged from the department in stable condition. IMPRESSION: Uncomplicated ultrasound-guided paracentesis. Removal of 4300 cc
[2023-07-11] MEDS: albumin 75 G/300 ML BAG 100 G IV (12:24)
[2023-07-11 12:57] LABS: Body Fluid WBC 265 /uL; Cyto Order Verification No Order; Monocytes # Body Fluid 0.255
[2023-07-11 12:58] LABS: Apprearance, Body Fluid CLOUDY; Color, Body Fluid AMBER
[2023-07-11 12:59] LABS: Fluid Laterality PERITONEAL FLUID; PATH Referral YES
== END 2023-07-11 13:40 | disposition home or self-care (01) ==
PROVIDERS: Radiology Neuroradiology; PCP Physician Assistant; Visit Provider Internal Medicine Nephrology
PROC: (CPT 49082; principal; 2023-07-11 12:00)
DX: R18.8 Other ascites (principal)
CPT/HCPCS: 49083; 80503; 87070; 87075; 87205; 89050; 96365; P9046

== ENCOUNTER 2023-07-17 09:47 | Inpatient (IN) | payer MEDICARE, SELFPAY ==
[2023-07-17] VITALS (72 sets, daily range): BP systolic 43–114; BP diastolic 22–67; PULSE 98–160; RESP 17–38; TEMP 37.5–38.9; O2SAT 80–100
--- NOTE | 2023-07-17 09:51 | XRR_ITS ---
PROCEDURE INFORMATION: Exam: XR Chest Exam date and time: 07/17/2023 10:02 AM Age: 73 years old Clinical indication: Cough and dyspnea; Additional info: Dyspnea/cough TECHNIQUE: Imaging protocol: Radiologic exam of the chest. Views: 1 view. COMPARISON: CR XR chest 1V portable [id number] 05/27/2023 8:00 AM FINDINGS: Lungs: Persistent right retrocardiac density could represent loculated pleural fluid or lower lobe consolidation/atelectasis. Haziness of the right lower lung zone laterally may represent pleural fluid. New peripheral opacity left mid to upper lung zone laterally, possibly loculated pleural fluid. Minimal atelectasis in the left lung base the overall aeration of the left lower lobe is improved compared to prior exam of 05/27/2023. Pleural spaces: See Lungs finding. Heart/Mediastinum: Stable enlargement of cardiac silhouette. Aortic valve stent is again noted. There is less pulmonary vascular congestion on the current study than previously. Bones/joints: Bones are osteopenic. XR/XR chest 1V portable [id number] IMPRESSION: 1. Interval decreased pulmonary vascular congestion since prior study. 2. Bilateral lower lung zone improved aeration, though significant density persists in the right medial lung base . Additionally, there is new smooth opacity abutting the left lateral pleural surface at the level of the aortic arch, possibly loculated pleural fluid though other etiology is not excluded.
--- NOTE | 2023-07-17 09:51 | ECG_ITS ---
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 Measurements Intervals [place] Rate: 107 P: 0 IN: 0 QRS: 173 QRSD: 131 T: 86 QT: 340 QTc: 454 Interpretive Statements ATRIAL FIBRILLATION WITH RAPID VENTRICULAR RESPONSE INTRAVENTRICULAR CONDUCTION DELAY [130+ ms QRS DURATION] POSSIBLE RIGHT VENTRICULAR HYPERTROPHY [SOME/ALL OF: PROMINENT R IN V1, LATE TRANSITION, RAD, PAT, SSS] POSSIBLE ANTERIOR MYOCARDIAL INFARCTION , PROBABLY OLD [30 ms Q WAVE IN V3/V4, OR R < 0.2 mV IN V4] Compared to ECG 05/27/2023 07:41:47 Atrial abnormality now present Myocardial infarct finding still present Electronically Signed On 07-17-2023 10:55:06 OFFSET LABEL REWINDER by Jeevan Cam M.D. [email or web address]
--- NOTE | 2023-07-17 10:13 | W.ED.GENADLT ---
HPI - General Adult General: Chief complaint: Nausea/Vomiting/Diarrhea Stated complaint: SOB, abd pain Time Seen by Provider: 07/17/23 09:50 Source: patient and EMS Limitations: no limitations History of Present Illness: 73-year-old male has a history of congestive heart failure also end-stage renal disease on dialysis he did receive dialysis on Saturday he believes. States over the last 2 days he has been having increasing shortness of breath he had some abdominal pain as well. Denies any severe pain. He also has a history of cirrhosis. States he only wears oxygen as needed at home he has been wearing 3 L currently. Patient states also had some nausea and vomiting overnight Associated symptoms: Reports dyspnea, nausea and vomiting; Deny chest pain, headache(s) or rash Review of Systems Const: Denies: fever(s), chills, body aches or change in appetite ENMT: Denies: throat pain or dental pain Card: Denies: chest pain Resp: Reports: dyspnea GI: Reports: abdominal pain, nausea and vomiting; Denies: diarrhea Musc: Denies: neck pain or back pain Skin/Breast: Denies: rash Neuro: Denies: headache(s) [facility] PFSH: Medical History (Updated 07/17/23 @ 13:20 by Rickey Perera MD) COVID-19 Supratherapeutic INR Chronic anticoagulation Eliquis- Stopped 07/06 due to hemorrhoidal bleeding Osteoarthritis History of peritonitis Depression Anemia in chronic kidney disease Chronic diastolic heart failure PVD (peripheral vascular disease) Atrial fibrillation Hypertension Hyperlipidemia End-stage renal disease on hemodialysis Liver cirrhosis TIA (transient ischemic attack) Surgical History AV fistula left upper arm, brachial to cephalic vein History of transcatheter aortic valve replacement (TAVR) History of abdominal paracentesis Social History Smoking and tobacco/nicotine status: never used tobacco/nicotine Second hand smoke exposure: No Alcohol intake: never Substance/Drug Use: never Course Vital Signs: Vital signs: Vital Signs Pulse Rate 105 H 07/17/23 13:00 Respiratory Rate 33 H 07/17/23 13:00 Blood Pressure 98/60 07/17/23 13:00 Pulse Oximetry 96 07/17/23 13:00 Oxygen Delivery Me thod Nasal Cannula 07/17/23 11:45 Oxygen Flow Rate 4 07/17/23 11:45 MDM - General Adult Medical Decision Making Patient presents here with abdominal pain along with some shortness of breath he is found to have an elevated lactate CT shows small bowel obstruction with possible ischemic bowel he also has a pleural effusion likely pneumonia patient was not given full sepsis bolus as he has not received dialysis since Saturday and appears to be fluid overloaded he was given antibiotics spoke to the hospitalist will admit to the ICU Medical Records I reviewed the patient's medical records. Lab Data I reviewed the patient's lab results. 07/17/23 10:52 07/17/23 10:52 Radiology Impressions Chest X-Ray 07/17/23 09:51 IMPRESSION: 1. Interval decreased pulmonary vascular congestion since prior study. 2. Bilateral lower lung zone improved aeration, though significant density persists in the right medial lung base . Additionally, there is new smooth opacity abutting the left lateral pleural surface at the level of the aortic arch, possibly loculated pleural fluid though other etiology is not excluded. Laboratory Results WBC 6.66 10^3/uL (3.29-11.43) 07/17/23 10:52 RBC 3.09 10^6/uL (3.85-5.65) L 07/17/23 10:52 Hgb 11.50 g/dL (11.27-16.99) 07/17/23 10:52 Hct 36.2 % (37-53) L 07/17/23 10:52 MCV 117.2 fl (82-101) H 07/17/23 10:52 MCH 37.2 pg (27-33) H 07/17/23 10:52 MCHC 31.8 g/dL (30-55) 07/17/23 10:52 RDW 15.2 % (12.1-15.1) H 07/17/23 10:52 Plt Count 136 10^3/cmm (157-399) L 07/17/23 10:52 MPV 10.3 fL (7.4-10.4) 07/17/23 10:52 Lymph % (Auto) Not Reportable 07/17/23 10:52 [place] % (Auto) Not Reportable 07/17/23 10:52 Lymph # (Auto) Not Reportable 07/17/23 10:52 [place] # (Auto) Not Reportable 07/17/23 10:52 Total Counted 100 (0-100) 07/17/23 10:52 Atypical Lymphs % 0.0 % (0-5) 07/17/23 10:52 Absolute Neutrophils 5.1 10^3/cmm (1.4-6.5) 07/17/23 10:52 Segmented Neutrophils 48 % 07/17/23 10:52 Abs Segm Neuts (Man) 3.2 10/cmm (1.6-7.1) 07/17/23 10:52 Band Neutrophils 29.0 % 07/17/23 10:52 Abs Band Neuts (Man) 1.9 10^3/cmm (0.0-1.2) H 07/17/23 10:52 Absolute Lymphocytes 0.3 10^3/cmm (1.2-3.4) L 07/17/23 10:52 Lymphocytes (Manual) 4 % 07/17/23 10:52 Monocytes (Manual) 4.0 % 07/17/23 10:52 Absolute Monocytes 0.3 10^3/cmm (0.1-0.6) 07/17/23 10:52 Eosinophils (Manual) 0 % 07/17/23 10:52 Absolute Eosinophils 0.0 10^3/cmm (0.0-0.7) 07/17/23 10:52 Basophils (Manual) 0.0 % 07/17/23 10:52 Absolute Basophils 0.0 10^3/cmm (0.0-0.2) 07/17/23 10:52 Metamyelocytes 10.0 % 07/17/23 10:52 Myelocytes 4.0 % 07/17/23 10:52 Nucleated RBCs 1.0 /100WBC (0-1) 07/17/23 10:52 Dohle Bodies 1+ H 07/17/23 10:52 Platelet Estimate Decreased (Normal) 07/17/23 10:52 Giant Platelets 2+ H 07/17/23 10:52 Anisocytosis 1+ H 07/17/23 10:52 Macrocytosis 2+ H 07/17/23 10:52 PT 24.40 SECONDS (12.1-14.9) H 07/17/23 10:52 INR 2.11 (0.8-1.2) H 07/17/23 10:52 Sodium 135 mmol/L (136-145) L 07/17/23 10:52 Potassium 4.7 mmol/L (3.5-5.1) 07/17/23 10:52 Chloride 93 mmol/L (98-107) L 07/17/23 10:52 Carbon Dioxide 25 mmol/L (22-29) 07/17/23 10:52 Anion Gap 21.7 (5-19) H 07/17/23 10:52 BUN 41 mg/dL (8-23) H 07/17/23 10:52 Creatinine 4.0 mg/dL (0.7-1.2) H 07/17/23 10:52 GFR Calculation Not Reportable 07/17/23 10:52 Glucose 46 mg/dL (65-115) L 07/17/23 10:52 Calculated Osmolality 287 mOsm/kg (285-295) 07/17/23 10:52 Lactic Acid 7.3 mmol/L (0.5-2.2) H* 07/17/23 10:52 Calcium 9.9 mg/dL (8.5-10.5) 07/17/23 10:52 Total Bilirubin 2.1 mg/dL (0.15-1.2) H 07/17/23 10:52 AST 26 U/L (0-40) 07/17/23 10:52 ALT 9 U/L (0-41) 07/17/23 10:52 Alkaline Phosphatase 80 U/L (40-130) 07/17/23 10:52 Ammonia 16 umol/L (16-60) 07/17/23 10:52 NT-Pro-B Natriuret Pep > 98318 pg/mL (0-125) H 07/17/23 10:52 Total Protein 5.7 g/dL (6.6-8.7) L 07/17/23 10:52 Albumin 2.7 g/dL (3.5-5.2) L 07/17/23 10:52 Globulin 3.0 g/dL (1.3-4.6) 07/17/23 10:52 Lipase 6 U/L (13-60) L 07/17/23 10:52 All radiology interpretation(s) finalized by discharge EKG Data EKG 1: I personally reviewed and interpreted this EKG as follows: EKG interpretation date: 07/17/23 EKG interpretation time: 09:56 Interpretation: afib hr [address] elevation qrs 131 qtc 402 Computer generated interpretation: Chest X-Ray 07/17/23 09:51 IMPRESSION: 1. Interval decreased pulmonary vascular congestion since prior study. 2. Bilateral lower lung zone improved aeration, though significant density persists in the right medial lung base . Additionally, there is new smooth opacity abutting the left lateral pleural surface at the level of the aortic arch, possibly loculated pleural fluid though other etiology is not excluded. Critical Care Time Critical Care Time: Critical Care Time: Yes Total Critical Care Time: 40 Attestation: The high probability of a clinically significant, sudden or life threatening deterioration of the patient's gi/resp system(s) required my full and direct attention, intervention and personal management. The critical care time is as shown. This time is in addition to time spent performing any reported procedures but includes the following: [x] Data and vital sign review and interpretation [x] Patient assessment, examination and intervention [x] Documentation [x] Medication orders and management Discharge Plan Discharge Patient Disposition: Admitted As Inpatient Admit Provider: Shemar Vaughn Clinical Impression: End-stage renal disease on hemodialysis, Shock, SBO (small bowel obstruction), Mesenteric ischemia Condition: Stable Coding Level of Care Code ED Vba Developer for Jonathan Beaulieu
--- NOTE | 2023-07-17 10:28 | CT_ITS ---
WS: [id number] CT CHEST, ABDOMEN, AND PELVIS TECHNIQUE: Noncontrast CT of the chest, abdomen, and pelvis with coronal and sagittal reformatted ambrosio ges. CLINICAL INFORMATION: abd pain/sob COMPARISON: None. DLP: 954.[address] scans at [facility] use at least one of these dose optimization techniques: automated e xposure control; mA and/or kV adjustment per patient size (includes targeted exams where dose is matc hed to clinical indication); or iterative reconstruction. CT CHEST: Cardiomegaly. Prior aortic valve replacement. Chronic emphysematous changes. Small RIGHT pleural effu jason with compressive atelectasis RIGHT lower lobe. Tiny LEFT pleural effusion with subsegmental atel ectasis LEFT lower lobe and lingula. Likely pleural fluid or pleural thickening in the LEFT upper lob e laterally. Ectatic ascending thoracic aorta. Coronary calcification. Tiny pericardial effusion. Dif fuse body wall anasarca. No axillary lymphadenopathy. Mild thoracic curve hypertrophic changes thorac ic spine. CT ABDOMEN AND PELVIS: Tiny amount of portal venous air is visualized which can be seen with mesenteric ischemia. Dense vasc ular calcification. Dense calcification of the SMA and celiac. Splenic artery calcification. Atrophic pancreas. Splenic granulomas. Diffuse abdominal anasarca. Mild ascites. Fluid distended stomach with air-fluid level. Fluid distended duodenum and proximal small bowel. Thic kened distended proximal small bowel with suggestion of a transition point in the mid upper abdomen i mage 52 series 9 Diffuse induration in the mesentery. Adrenal glands are normal. Atrophic kidneys bilaterally with sma ll renal cysts. No free air in the abdomen or pelvis. Peripherally calcified collection overlying the LEFT hip likely chronic seroma or hematoma in the subcutaneous soft tissues measuring 15.7 x 7.7 cm Stable L4 compression fracture described on the recent MRI. IMPRESSION: 1. Fluid distended thickened stomach with gastric emphysema. A few surrounding gastric vessels with a small amount of air. 2. Fluid distended thickened proximal small bowel loops with suggestion of a transition point axial image 52 series 9. Findings suspicious for partial proximal small bowel obstruction. This may be due to adhesions or internal hernia. Also see coronal image 13 through 17 series 10 3. Small amount of suspected portal venous air in the liver can be seen with mesenteric ischemia. No free intra-abdominal air or pneumatosis. 4. Shrunken cirrhotic liver. 5. Dense vascular calcification including dense mesenteric artery calcification. 6. Atrophic kidneys. 7. Mild abdominal ascites with diffuse body wall anasarca and mesenteric edema. 8. Small RIGHT and tiny LEFT pleural effusions with compressive atelectasis in the lung bases. 9. Cardiomegaly Notified Rickey Perera MD at 07/17/2023 11:56 AM.
[2023-07-17] MEDS: sodium chloride 0.9% 500 ML 999 ML IV (10:30)
[2023-07-17] MEDS: ondansetron 2 mg/ML SDV 2 mL 4 MG IVP ×2 (10:30→18:12)
[2023-07-17 11:07] LABS: Hematocrit 36.2 % (37-53); Mean Corpuscular HGB Conc 31.8 g/dL (30-55); Mean Corpuscular Hemoglobin 37.2 pg (27-33); Mean Corpuscular Volume 117.2 fl (82-101); Mean Platelet Volume 10.3 fL (7.4-10.4); Platelet Count 136 10^3/cmm (157-399); Red Blood Count 3.09 10^6/uL (3.85-5.65); Red Cell Distribution Width 15.2 % (12.1-15.1); White Blood Count 6.66 10^3/uL (3.29-11.43)
[2023-07-17 11:20] LABS: Ammonia 16 umol/L (16-60)
[2023-07-17 11:25] LABS: Slide Review Slide Review Perform
[2023-07-17 11:26] LABS: Total Cells Counted 100 (0-100)
[2023-07-17 11:43] LABS: Absolute Segmented Neutrophil 3.2 10/cmm (1.6-7.1); Alanine Aminotransferase 9 U/L (0-41); Albumin Level 2.7 g/dL (3.5-5.2); Alkaline Phosphatase 80 U/L (40-130); Anion Gap 21.7 (5-19); Aspartate Amino Transferase 26 U/L (0-40); Band Neutrophils Absolute 1.9 10^3/cmm (0.0-1.2); Blood Urea Nitrogen 41 mg/dL (8-23); Calcium 9.9 mg/dL (8.5-10.5); Carbon Dioxide 25 mmol/L (22-29); Chloride 93 mmol/L (98-107); Glucose 46 mg/dL (65-115); Lipase 6 U/L (13-60); Osmolality Calculated 287 mOsm/kg (285-295); Potassium 4.7 mmol/L (3.5-5.1); Segmented Neutrophils 48 %; Sodium 135 mmol/L (136-145); Total Bilirubin 2.1 mg/dL (0.15-1.2); Total Protein 5.7 g/dL (6.6-8.7)
[2023-07-17 11:44] LABS: Eosinophils 0 %; Lymphocytes 4 %; Lymphocytes Absolute 0.3 10^3/cmm (1.2-3.4); Monocytes Absolute 0.3 10^3/cmm (0.1-0.6)
[2023-07-17 11:45] LABS: Absolute Neutrophil 5.1 10^3/cmm (1.4-6.5); Anisocytosis 1+; Giant Platelets 2+; Macrocytosis 2+; Platelet Estimate Decreased (Normal)
[2023-07-17 11:46] LABS: Dohle Bodies 1+
[2023-07-17 11:50] LABS: Lactic Sepsis W/Reflex 7.3 mmol/L (0.5-2.2)
[2023-07-17] MEDS: vancomycin 1,000 MG in sodium chloride 0.9% 250 ML 250 MG IV (12:13)
[2023-07-17] MEDS: sodium chloride 0.9% 1,000 ML 999 ML IV (12:13)
[2023-07-17 12:18] LABS: NT Pro B Type Natriuretic Pept > 70000 pg/mL (0-125)
[2023-07-17 12:24] LABS: Glucose Point of Care 31 mg/dL (70-110)
[2023-07-17] MEDS: dextrose 10% 250 ML 1000 ML IV ×2 (12:25→13:32)
--- NOTE | 2023-07-17 12:34 | P.HP_ITS ---
Providers/Chief Complaint 2 Admitting Physician: Shemar Vaughn MD Primary Care Provider: Laya Devlin Chief Complaint: SOB, abd pain History of Present Illness Anthony Waller Jr is a 73 year old male Review of Systems 2 General: Reports: 10 or more systems reviewed and unremarkable except in HPI and below Const: Denies: fever(s), chills, body aches, change in appetite, change in weight, malaise, night sweats, diaphoresis, change in sleep pattern, daytime sleepiness or snoring Eyes: Denies: change in vision, blurry vision, photophobia, eye discomfort or eye discharge ENMT: Denies: throat pain, enlarged tonsils, hoarseness, mouth pain, oral sores, dry mouth, tinnitus, nasal congestion or post nasal drip Card: Denies: chest pain, palpitations, irregular heart rhythm, edema, swelling of feet/ankles, lightheadedness, syncope, pre-syncope, dyspnea on exertion, orthopnea, leg pain with exertion or acrocyanosis Resp: Denies: dyspnea, productive cough, non-productive cough, wheezing, stridor, pain on inspiration, change in phlegm color, hemoptysis or chest congestion GI: Denies: abdominal pain, nausea, vomiting, hematemesis, coffee ground emesis, dysphagia, heartburn, diarrhea, constipation, bloating, GI cramping, change in bowel habits, pain on defecation, hematochezia or melena : Denies: flank pain, difficulty urinating, dysuria, urinary frequency, urinary urgency, urinary hesitancy, urinary dribbling, difficulty starting urination, change in urine stream, nocturia or hematuria Musc: Denies: neck pain, back pain, extremity pain, joint pain, joint swelling, joint redness, joint stiffness or limited range of motion Neuro: Denies: headache(s), numbness in extremities, weakness in extremities, sensory changes, lack of coordination, difficulty walking, frequent falls, dizziness, vertigo, confusion, Slurred speech present, difficulty communicating thoughts or seizure-like activity Psych: Denies: anxiety, depression, mood swings, panic attacks, hopelessness or irritability Endo: Denies: polyuria, polydipsia, tired all the time, cold intolerance, excessive sweating, flushing or heat intolerance Robin/Lymph: Denies: easy bruising or easy bleeding All/Imm: Denies: tongue swelling, facial swelling or acute wheezing Medications/Allergies Home Medications Medication Instructions Recorded Confirmed Last Taken Type cholecalciferol (vitamin D3) 125 125 mcg PO DAILY@07/25/21 07/17/23 07/17/23 History mcg (5,000 unit) capsule docusate sodium 100 mg capsule 100 mg PO TID 07/25/21 07/17/23 07/17/23 History (Colace) simethicone 125 mg capsule (Gas-X 125 mg PO Q6H PRN Gastric Reflux 04/19/22 07/17/23 07/17/23 History Extra Strength) carvedilol 3.125 mg tablet 3.125 mg PO BID@05/17/22 07/17/23 07/17/23 History fluticasone propionate 50 1 spray intranasal DAILY@05/29/22 07/17/23 07/17/23 History mcg/actuation nasal spray,suspension escitalopram oxalate 10 mg tablet 10 mg PO DAILY@01/29/23 07/17/23 07/17/23 History aspirin 81 mg tablet,delayed 81 mg PO DAILY@05/20/23 07/17/23 07/17/23 History release sucroferric oxyhydroxide 500 mg See Rx Instructions .Route .COMPLEX 05/27/23 07/17/23 07/17/23 History chewable tablet (Velphoro) bisacodyl 10 mg rectal suppository 10 mg TN DAILY PRN Constipation 06/05/23 07/17/23 Unknown History (Dulcolax (bisacodyl)) fluticasone furoate 100 1 inh inhalation DAILY@06/05/23 07/17/23 07/17/23 History mcg-vilanterol 25 mcg/dose inhalation powder (Breo Ellipta) hydrocodone 5 mg-acetaminophen 325 1 tab PO Q6H PRN pain #20 tabs 06/05/23 07/17/23 07/17/23 Rx mg tablet pantoprazole 40 mg tablet,delayed 40 mg PO DAILY@06/05/23 07/17/23 07/17/23 History release vitamin B complex with C-folic 1 tab PO DAILY@06/05/23 07/17/23 07/17/23 History acid 0.8 mg-zinc citrate 15 mg tablet (Dialyvite 800 with Zinc 15) furosemide 40 mg tablet See Rx Instructions .Route .COMPLEX 07/17/23 07/17/23 07/17/23 History furosemide 80 mg tablet See Rx Instructions .Route .COMPLEX 07/17/23 07/17/23 07/16/23 History Allergies Allergy/AdvReac Type Severity Reaction Status Date / Time codeine Allergy Mild ALGY-Rash Verified 06/18/23 09:06 Penicillins Allergy Mild ALGY-Rash Verified 06/18/23 09:06 PFSH Acute 2 PFSH: Medical History (Updated 07/17/23 @ 12:38 by Shemar Vaughn MD) COVID-19 Supratherapeutic INR Chronic anticoagulation Eliquis- Stopped 07/06 due to hemorrhoidal bleeding Osteoarthritis History of peritonitis Depression Anemia in chronic kidney disease Chronic diastolic heart failure PVD (peripheral vascular disease) Atrial fibrillation Hypertension Hyperlipidemia End-stage renal disease on hemodialysis Liver cirrhosis TIA (transient ischemic attack) Surgical History AV fistula left upper arm, brachial to cephalic vein History of transcatheter aortic valve replacement (TAVR) History of abdominal paracentesis Social History Smoking and tobacco/nicotine status: never used tobacco/nicotine Second hand smoke exposure: No Alcohol intake: never Substance/Drug Use: never Vitals/I&O/Wt Last Vital Signs Pulse 106 H 07/17/23 11:45 Resp 30 H 07/17/23 11:45 BP 87/57 07/17/23 11:45 Pulse Ox 80 L 07/17/23 11:45 O2 Del Method Nasal Cannula 07/17/23 11:45 O2 Flow Rate 4 07/17/23 11:45 07/16/23 07/17/23 07/17/23 22:59 06:59 14:59 Intake Total 500 / 500 Balance 500 / 500 Data 07/17/23 10:52 07/17/23 10:52 Micro: Microbiology 07/17/23 10:55 Blood Culture - Preliminary Blood SPECIMEN COLLECTED 07/17/23 10:52 Blood Culture - Preliminary Blood SPECIMEN COLLECTED A&P Assessment and plan (1) SBO (small bowel obstruction): (2) Mesenteric ischemia: (3) Shock: (4) Chronic diastolic heart failure: (5) End-stage renal disease on hemodialysis: (6) Liver cirrhosis: (7) Atrial fibrillation: (8) Hypertension: (9) Thrombocytopenia: (10) History of peritonitis: (11) Hypoglycemia: Attestations 2 Medical Necessity Statement*: Admission for more than 2 midnights for management of shock in a patient who was admitted for small bowel obstruction, mesenteric ischemia with past medical history of end-stage renal disease on hemodialysis, liver cirrhosis Critical Care Time: The high probability of a clinically significant, sudden or life threatening deterioration of the patient's [cardiac, gastrointestinal, renal] system(s) required my full and direct attention, intervention and personal management. The critical care time is as shown. This time is in addition to time spent performing any reported procedures but includes the following: [x] Data and vital sign review and interpretation [x] Patient assessment, examination and intervention [x] Documentation [x] Medication orders and management Critical Care Time (min): 80 Coding Level of Care Code Critical Care >/= 30 minutes Other Coding Information This patient has a high probability of clinically significant, sudden or life threatening deterioration of the patient's (neurological/ pulmonary/ cardiac/ renal/ ID/endocrine) systems required my full, direct attention, the highest level of physician preparedness for urgent intervention and personal management. I managed/supervised life or organ supporting interventions that required frequent physician assessment. I devoted my full attention in the ICU to the direct care of this patient for the period of time indicated above. Time I spent with family or surrogate(s) is included only if the patient was incapable of providing necessary information or participating in decision making. This time includes the following services provided: Telemetry review Hemodynamic interpretation, assessment and management Review and interpretation of CXR Review and interpretation of lab values Review and interpretation of microbiologic data and culture results Review of medications and administration Review and interpretation of Nutrition requirements and management Discussion of management with other consultants and services Clinical update to family members Diagnoses SBO (small bowel obstruction) K56.609 Mesenteric ischemia K55.9 Shock R57.9 Chronic diastolic heart failure I50.32 End-stage renal disease on hemodialysis N18.6; Z99.2 Liver cirrhosis K74.60 Atrial fibrillation I48.91 Hypertension I10 Thrombocytopenia D69.6 History of peritonitis Z87.19 Hypoglycemia E16.2
[2023-07-17 12:44] LABS: Reflex Lactate Order REFLEX LACTIC ORDERD
--- NOTE | 2023-07-17 12:44 | XRR_ITS ---
PROCEDURE INFORMATION: Exam: XR Abdomen Exam date and time: 07/17/2023 1:29 PM Age: 73 years old Clinical indication: Device placement; Gi device; Nasogastric tube; Additional info: Ng placement TECHNIQUE: Imaging protocol: Radiologic exam of the abdomen. Views: Frontal supine view of the abdomen. 1 View. COMPARISON: [place] [id number] 07/17/2023 11:01 AM FINDINGS: Gastrointestinal tract: Visualized bowel gas pattern is nonspecific with gas in stomach and mildly distended small bowel. Please note that pelvic region and right lateral abdomen were not imaged on this exam tailored to evaluate NG tube position. NG tube terminates in the stomach. The side port is also in the stomach, just distal to the EG junction. Bones/joints: No acute osseous abnormality detected. XR/XR abdomen 1V* [id number] IMPRESSION: NG tube terminates in the stomach.
[2023-07-17 13:10] LABS: INR 2.11 (0.8-1.2)
[2023-07-17 13:14] LABS: Procalcitonin 6.71 ng/mL (0-0.5)
[2023-07-17 13:27] LABS: Glucose Point of Care 54 mg/dL (70-110)
[2023-07-17] MEDS: midodrine 5 mg TABLET 10 MG PO (13:34)
[2023-07-17] MEDS: aztreonam 2,000 MG in sodium chloride 0.9% (plus) 100 ML 200 MG IV (14:02)
[2023-07-17] MEDS: pantoprazole 40 mg SDV IVP (14:07)
[2023-07-17] MEDS: albumin 25 G/100 ML BAG 60 G IV ×2 (14:56→23:46)
[2023-07-17 15:01] LABS: Glucose Point of Care 67 mg/dL (70-110)
--- NOTE | 2023-07-17 15:03 | P.HP_ITS ---
Providers/Chief Complaint 2 Admitting Physician: Shemar Vaugnh MD Primary Care Provider: Laya Devlin Chief Complaint: SOB, abd pain History of Present Illness Anthony Waller Jr is a 73 year old male with past medical history of end-stage renal disease on hemodialysis, liver cirrhosis, multiple admissions in the last few months, recent COVID-19, history of TAVR, recently taken off anticoagulation for hemorrhoids, diastolic heart failure presented [facility] the [facility] from [facility] today because of ongoing abdominal pain and discomfort for last 2 days getting worse the last 24 hours along with belching with possibility of multiple episodes of vomiting overnight. As per the nursing staff patient did have bowel movement yesterday which was well-formed followed by diarrhea and last dialysis was on Saturday. Patient has remained confused on and off even at [facility] mostly around dialysis. In the ER patient was found to be hypotensive requiring 1 L of IV fluid bolus slowly of normal saline. CT abdomen pelvis was done and he was placed on NG tube for small bowel obstruction. Examination patient is drowsy but wakes up to verbal stimulus and able to have conversation and confirms the story. Denies any nausea and vomiting currently. Complaining of abdominal pain. Abdominal pain seems to be generalized. On examination his heart rate is running at 100 to 115 bpm, blood pressure of 90 systolic Review of Systems 2 General: Reports: 10 or more systems reviewed and unremarkable except in HPI and below Const: Denies: fever(s), chills, body aches, change in appetite, change in weight, malaise, night sweats, diaphoresis, change in sleep pattern, daytime sleepiness or snoring Eyes: Denies: change in vision, blurry vision, photophobia, eye discomfort or eye discharge ENMT: Denies: throat pain, enlarged tonsils, hoarseness, mouth pain, oral sores, dry mouth, tinnitus, nasal congestion or post nasal drip Card: Denies: chest pain, palpitations, irregular heart rhythm, edema, swelling of feet/ankles, lightheadedness, syncope, pre-syncope, dyspnea on exertion, orthopnea, leg pain with exertion or acrocyanosis Resp: Denies: dyspnea, productive cough, non-productive cough, wheezing, stridor, pain on inspiration, change in phlegm color, hemoptysis or chest congestion GI: Denies: abdominal pain, nausea, vomiting, hematemesis, coffee ground emesis, dysphagia, heartburn, diarrhea, constipation, bloating, GI cramping, change in bowel habits, pain on defecation, hematochezia or melena : Denies: flank pain, difficulty urinating, dysuria, urinary frequency, urinary urgency, urinary hesitancy, urinary dribbling, difficulty starting urination, change in urine stream, nocturia or hematuria Musc: Denies: neck pain, back pain, extremity pain, joint pain, joint swelling, joint redness, joint stiffness or limited range of motion Neuro: Denies: headache(s), numbness in extremities, weakness in extremities, sensory changes, lack of coordination, difficulty walking, frequent falls, dizziness, vertigo, confusion, Slurred speech present, difficulty communicating thoughts or seizure-like activity Psych: Denies: anxiety, depression, mood swings, panic attacks, hopelessness or irritability Endo: Denies: polyuria, polydipsia, tired all the time, cold intolerance, excessive sweating, flushing or heat intolerance Robin/Lymph: Denies: easy bruising or easy bleeding All/Imm: Denies: tongue swelling, facial swelling or acute wheezing Medications/Allergies Home Medications Medication Instructions Recorded Confirmed Last Taken Type cholecalciferol (vitamin D3) 125 125 mcg PO DAILY@07/25/21 07/17/23 07/17/23 History mcg (5,000 unit) capsule docusate sodium 100 mg capsule 100 mg PO TID 07/25/21 07/17/23 07/17/23 History (Colace) simethicone 125 mg capsule (Gas-X 125 mg PO Q6H PRN Gastric Reflux 04/19/22 07/17/23 07/17/23 History Extra Strength) carvedilol 3.125 mg tablet 3.125 mg PO BID@05/17/22 07/17/23 07/17/23 History fluticasone propionate 50 1 spray intranasal DAILY@05/29/22 07/17/23 07/17/23 History mcg/actuation nasal spray,suspension escitalopram oxalate 10 mg tablet 10 mg PO DAILY@01/29/23 07/17/23 07/17/23 History aspirin 81 mg tablet,delayed 81 mg PO DAILY@05/20/23 07/17/23 07/17/23 History release sucroferric oxyhydroxide 500 mg See Rx Instructions .Route .COMPLEX 05/27/23 07/17/23 07/17/23 History chewable tablet (Velphoro) bisacodyl 10 mg rectal suppository 10 mg NE DAILY PRN Constipation 06/05/23 07/17/23 Unknown History (Dulcolax (bisacodyl)) fluticasone furoate 100 1 inh inhalation DAILY@06/05/23 07/17/23 07/17/23 History mcg-vilanterol 25 mcg/dose inhalation powder (Breo Ellipta) hydrocodone 5 mg-acetaminophen 325 1 tab PO Q6H PRN pain #20 tabs 06/05/23 07/17/23 07/17/23 Rx mg tablet pantoprazole 40 mg tablet,delayed 40 mg PO DAILY@06/05/23 07/17/23 07/17/23 History release vitamin B complex with C-folic 1 tab PO DAILY@06/05/23 07/17/23 07/17/23 History acid 0.8 mg-zinc citrate 15 mg tablet (Dialyvite 800 with Zinc 15) furosemide 40 mg tablet See Rx Instructions .Route .COMPLEX 07/17/23 07/17/23 07/17/23 History furosemide 80 mg tablet See Rx Instructions .Route .COMPLEX 07/17/23 07/17/23 07/16/23 History Allergies Allergy/AdvReac Type Severity Reaction Status Date / Time codeine Allergy Mild ALGY-Rash Verified 06/18/23 09:06 Penicillins Allergy Mild ALGY-Rash Verified 06/18/23 09:06 PFSH Acute 2 PFSH: Medical History (Updated 07/17/23 @ 13:20 by Rickey Perera MD) COVID-19 Supratherapeutic INR Chronic anticoagulation Eliquis- Stopped 07/06 due to hemorrhoidal bleeding Osteoarthritis History of peritonitis Depression Anemia in chronic kidney disease Chronic diastolic heart failure PVD (peripheral vascular disease) Atrial fibrillation Hypertension Hyperlipidemia End-stage renal disease on hemodialysis Liver cirrhosis TIA (transient ischemic attack) Surgical History AV fistula left upper arm, brachial to cephalic vein History of transcatheter aortic valve replacement (TAVR) History of abdominal paracentesis Social History Smoking and tobacco/nicotine status: never used tobacco/nicotine Second hand smoke exposure: No Alcohol intake: never Substance/Drug Use: never Vitals/I&O/Wt Last Vital Signs Pulse 160 H 07/17/23 14:00 Resp 31 H 07/17/23 14:00 BP 109/65 07/17/23 14:00 Pulse Ox 100 07/17/23 14:35 O2 Del Method Nasal Cannula, Transtracheal Catheter 07/17/23 14:35 O2 Flow Rate 4 07/17/23 14:35 07/17/23 07/17/23 07/17/23 06:59 14:59 22:59 Intake Total 1782.8 / 1782.8 Balance 1782.8 / 1782.8 Weight last 48 hrs Weight 81 kg Physical Exam 2 Narrative: General: No acute distress, AO x3, drowsy, sick chronically sick appearing, pallor present, icterus HEENT: PERRLA, pupils bilaterally equal and reactive Chest: Bilateral bronchial breath sounds with decreased air entry bilaterally both so in lower zone CVS: S1-S2 regular, soft ejection systolic murmur at aortic area, tachycardia, no gallops, no rubs Abdomen: Distended, generalized tenderness more so in right lower zone, bowel sounds sluggish, mild guarding no rigidity Neuro: No focal deficits, no facial deformity, AO x3, drowsy Data 07/17/23 10:52 07/17/23 10:52 Other Labs: Radiology Impressions Chest X-Ray 07/17/23 09:51 IMPRESSION: 1. Interval decreased pulmonary vascular congestion since prior study. 2. Bilateral lower lung zone improved aeration, though significant density persists in the right medial lung base . Additionally, there is new smooth opacity abutting the left lateral pleural surface at the level of the aortic arch, possibly loculated pleural fluid though other etiology is not excluded. Abdomen X-Ray 07/17/23 12:44 IMPRESSION: NG tube terminates in the stomach. Micro: Microbiology 07/17/23 10:55 Blood Culture - Preliminary Blood SPECIMEN COLLECTED 07/17/23 10:52 Blood Culture - Preliminary Blood SPECIMEN COLLECTED A&P Assessment and plan (1) SBO (small bowel obstruction): As seen on CT abdomen pelvis. NG tube to intermittent suction. NPO. Frequent abdominal examination. Zofran as needed, Protonix twice daily. Will consult surgery for further recommendations. (2) Mesenteric ischemia: As seen on CT abdomen pelvis done in the ER. Concerns for portal venous air. N.p.o. as above. Check D-dimer. Start on heparin drip for now. Will continue to monitor with frequent abdominal examinations. Will await surgical recommendations. (3) Shock: With concerns for sepsis. SIRS: Tachycardic, hypotensive, poor mentation Source: Small bowel obstruction with mesenteric ischemia End organ damage: Acute infectious encephalopathy, hypotension, elevated lactate Elevated Patient did not receive full 30 mL/kg BW given history of end-stage renal disease on hemodialysis with concerns for fluid overload Monitor blood pressures. Keep mean artery pressure 65 mmHg. Blood culture, urine analysis and culture, MRSA swab, procalcitonin, urine Legionella, bacterial antigen. Will plan for ultrasound-guided paracentesis and possible fluid cultures For now empirically start patient on IV vancomycin and aztreonam. Will de- escalate as per culture results. Keep mean artery pressure over 65. Will plan for Levophed as needed. Hold off on antihypertensives. Coreg and midodrine but not able to because patient is NPO. Albumin Q8h (4) Atrial fibrillation: Heart rate slightly elevated. Most likely in setting of shock. If needed will start on amiodarone drip even though patient has concerns for liver cirrhosis but unfortunately with hypertension and end-stage renal disease will want to avoid other medications including Cardizem, beta-kim or digoxin. Anticoagulation recently stopped because of hemorrhoidal bleed. (5) Hypoglycemia: Present on admission. Received D10 to 50 cc bolus 2 times already. Hypoglycemia protocol. If needed will start on D10 drip at a slower rate while monitoring for fluid overload. Check cortisol level. Depending on cortisol level will plan for hydrocortisone. (6) Chronic diastolic heart failure: Last echocardiogram from May 2023 shows an EF of 50 to 55%, biatrial enlargement, moderate MR, mild to moderate mitral stenosis, bioprosthetic aortic valve with mild to moderate elevated pressure gradient across. Received fluid bolus in the ER. Watch for fluid overload. (7) End-stage renal disease on hemodialysis: Consult nephrology for HD. (8) Liver cirrhosis: Ultrasound-guided paracentesis. Check ammonia levels. (9) Ascites: Plan CODE STATUS: As per the documentation from [facility] full code. Tried calling patient's over the phone multiple times. Unfortunately not able to get in touch. Left voicemail. NPO. Heparin drip Protonix twice daily Admit to ICU. Attestations 2 Medical Necessity Statement*: Admission for more than 2 midnights for management of shock in setting of small bowel obstruction, mesenteric ischemia in a patient with history of end-stage renal disease on hemodialysis and liver cirrhosis. Critical Care Time: The high probability of a clinically significant, sudden or life threatening deterioration of the patient's [gastrointestinal, surgical, renal, cardiac] s ystem(s) required my full and direct attention, intervention and personal management. The critical care time is as shown. This time is in addition to time spent performing any reported procedures but includes the following: [x] Data and vital sign review and interpretation [x] Patient assessment, examination and intervention [x] Documentation [x] Medication orders and management Critical Care Time (min): 80 Coding Level of Care Code Critical Care >/= 30 minutes Critical care time (in minutes): 80 The high probability of a clinically significant, sudden or life threatening deterioration, as referenced in this documentation, required my full and direct attention, intervention and personal management. The critical care time shown is in addition to time spent performing any reported separately billable procedures and includes the following: [x] Data and vital sign review and interpretation [x ] Patient assessment, examination and intervention [x] Medication orders and management [x] Patient/Family updates as able [x] Care Coordination and Documentation. Other Coding Information This patient has a high probability of clinically significant, sudden or life threatening deterioration of the patient's (neurological/pulmonary/cardiac/renal/ID/endocrine) systems required my full, direct attention, the highest level of physician preparedness for urgent intervention and personal management. I managed/supervised life or organ supporting interventions that required frequent physician assessment. I devoted my full attention in the ICU to the direct care of this patient for the period of time indicated above. Time I spent with family or surrogate(s) is included only if the patient was incapable of providing necessary information or participating in decision making. This time includes the following services provided: Telemetry review Hemodynamic interpretation, assessment and management Review and interpretation of CXR Review and interpretation of lab values Review and interpretation of microbiologic data and culture results Review of medications and administration Review and interpretation of Nutrition requirements and management Discussion of management with other consultants and services Clinical update to family members Diagnoses SBO (small bowel obstruction) K56.609 Mesenteric ischemia K55.9 Shock R57.9 Atrial fibrillation I48.91 Hypoglycemia E16.2 Chronic diastolic heart failure I50.32 End-stage renal disease on hemodialysis N18.6; Z99.2 Liver cirrhosis K74.60 Ascites R18.8
--- NOTE | 2023-07-17 15:06 | P.CONIM_ITS ---
Providers/Reason For Consult 2 Consulting Physician/Specialty*: Dr. Kee Lion, DO/General surgery Reason for Consult*: Small bowel obstruction Attending Physician: Shemar Vaughn MD Primary Care Provider: Laya Devlin History of Present Illness History of Present Illness Anthony Waller Jr is a 73 year old male, with cirrhosis who gets paracentesis regularly and comes from a skilled nursing, presented to the hospital with abdominal pain and confusion. HPI and review of systems are limited secondary to patient's confusion. Reportedly his confusion waxes and wanes likely secondary to his cirrhosis. He is unable to tell me what his symptoms are or why came in. A CT of his abdomen pelvis shows a partial small bowel obstruction and gastric emphysema with some local venous gas. He is mildly tender to palpation of his abdomen diffusely. Review of Systems 2 General: Reports: ROS unobtainable due to medical condition Medications/Allergies Home Medications Medication Instructions Recorded Confirmed Last Taken Type cholecalciferol (vitamin D3) 125 125 mcg PO DAILY@07/25/21 07/17/23 07/17/23 History mcg (5,000 unit) capsule docusate sodium 100 mg capsule 100 mg PO TID 07/25/21 07/17/23 07/17/23 History (Colace) simethicone 125 mg capsule (Gas-X 125 mg PO Q6H PRN Gastric Reflux 04/19/22 07/17/23 07/17/23 History Extra Strength) carvedilol 3.125 mg tablet 3.125 mg PO BID@08,20 05/17/22 07/17/23 07/17/23 History fluticasone propionate 50 1 spray intranasal DAILY@05/29/22 07/17/23 07/17/23 History mcg/actuation nasal spray,suspension escitalopram oxalate 10 mg tablet 10 mg PO DAILY@01/29/23 07/17/23 07/17/23 History aspirin 81 mg tablet,delayed 81 mg PO DAILY@05/20/23 07/17/23 07/17/23 History release sucroferric oxyhydroxide 500 mg See Rx Instructions .Route .COMPLEX 05/27/23 07/17/23 07/17/23 History chewable tablet (Velphoro) bisacodyl 10 mg rectal suppository 10 mg [place] DAILY PRN Constipation 06/05/23 07/17/23 Unknown History (Dulcolax (bisacodyl)) fluticasone furoate 100 1 inh inhalation DAILY@06/05/23 07/17/23 07/17/23 History mcg-vilanterol 25 mcg/dose inhalation powder (Breo Ellipta) hydrocodone 5 mg-acetaminophen 325 1 tab PO Q6H PRN pain #20 tabs 06/05/23 07/17/23 07/17/23 Rx mg tablet pantoprazole 40 mg tablet,delayed 40 mg PO DAILY@06/05/23 07/17/23 07/17/23 History release vitamin B complex with C-folic 1 tab PO DAILY@06/05/23 07/17/23 07/17/23 History acid 0.8 mg-zinc citrate 15 mg tablet (Dialyvite 800 with Zinc 15) furosemide 40 mg tablet See Rx Instructions .Route .COMPLEX 07/17/23 07/17/23 07/17/23 History furosemide 80 mg tablet See Rx Instructions .Route .COMPLEX 07/17/23 07/17/23 07/16/23 History Allergies Allergy/AdvReac Type Severity Reaction Status Date / Time codeine Allergy Mild ALGY-Rash Verified 06/18/23 09:06 Penicillins Allergy Mild ALGY-Rash Verified 06/18/23 09:06 Current Medications Generic Name Dose Route Start Last Admin Trade Name Freq PRN Reason Stop Dose Admin Aspirin 300 mg 07/17/23 15:20 07/17/23 15:51 Aspirin 300 Mg Supp VA 300 mg DAILY PEG Administration Hydrocortisone Sodium Succinate 50 mg 07/17/23 15:30 07/18/23 03:12 Hydrocortisone 100 Mg/2 Ml Sdv IVP 50 mg Q6H PEG Administration Heparin Sodium/Sodium Chloride 25,000 unit in 500 mls @ 0 mls/hr 07/17/23 14:01 07/17/23 23:16 Heparin Drip IV 12.96 unit/kg/hr .Q0M PEG 21 mls/hr Titration Protocol Per Protocol Albumin Human 25 g in 100 mls @ 60 mls/hr 07/17/23 15:00 07/18/23 06:48 Albumin IV 60 mls/hr Q8H PEG Infusion norepinephrine 4 mg in 250 mls @ 0 mls/hr 07/17/23 15:00 07/18/23 05:41 Levophed IV 14 mcg/min .Q0M PEG 52.5 mls/hr Administration Protocol Per Protocol Aztreonam 1,000 mg/ Sodium 50 mls @ 100 mls/hr 07/18/23 02:00 07/18/23 02:03 Chloride IV Infused Q12H PEG Infusion Protocol Dextrose 1,000 mls @ 50 mls/hr 07/17/23 16:30 07/17/23 20:31 D10w IV 50 mls/hr .Q20H PEG Infusion Amiodarone HCl/Dextrose 360 mg in 200 mls @ 0 mls/hr 07/17/23 19:34 07/18/23 04:22 Nexterone IV 0.5 mg/min .Q0M PEG 16.67 mls/hr Administration Protocol Per Protocol Dexmedetomidine/Sodium Chloride 400 mcg in 100 mls @ 0 mls/hr 07/17/23 22:00 07/18/23 03:39 Precedex IV 0.2 mcg/kg/hr .Q0M PEG 4.05 mls/hr Titration Protocol Per Protocol Vasopressin 40 unit in 100 mls @ 0 mls/hr 07/18/23 03:30 07/18/23 05:39 Vasostrict IV 0.05 unit/min .Q0M PEG 7.5 mls/hr Titration Protocol Per Protocol Ipratropium [place] 0.5 mg 07/17/23 20:00 07/18/23 01:08 Ipratropium 0.5 Mg/2.5 Ml Neb INHALATION 0.5 mg Q6H.RESP PEG Administration Levalbuterol HCl 0.63 mg 07/17/23 20:00 07/18/23 01:08 Levalbuterol 0.63 Mg/3 Ml Neb INHALATION 0.63 mg Q6H.RESP PEG Administration Morphine Sulfate 2 mg 07/17/23 14:01 07/17/23 18:12 Morphine 4 Mg/Ml Sdv 1 Ml IVP 2 mg Q4H PRN Administration SEVERE PAIN Ondansetron HCl 4 mg 07/17/23 14:01 07/17/23 18:12 Ondansetron 2 Mg/Ml Sdv 2 Ml IVP 4 mg Q6H PRN Administration vomiting, or N/V if npo Pantoprazole Sodium 40 mg 07/17/23 14:01 07/18/23 01:13 Pantoprazole 40 Mg Sdv IVP 40 mg Q12H PEG Administration PFSH Acute 2 PFSH: Medical History COVID-19 Supratherapeutic INR Chronic anticoagulation Eliquis- Stopped 07/06 due to hemorrhoidal bleeding Osteoarthritis History of peritonitis Depression Anemia in chronic kidney disease Chronic diastolic heart failure PVD (peripheral vascular disease) Atrial fibrillation Hypertension Hyperlipidemia End-stage renal disease on hemodialysis Liver cirrhosis TIA (transient ischemic attack) Surgical History AV fistula left upper arm, brachial to cephalic vein History of transcatheter aortic valve replacement (TAVR) History of abdominal paracentesis Social History Smoking and tobacco/nicotine status: never used tobacco/nicotine Second hand smoke exposure: No Alcohol intake: never Substance/Drug Use: never Vitals/I&O/Wt Last Vital Signs Temp 98.9 F 07/18/23 01:15 Pulse 84 07/18/23 04:15 Resp 21 H 07/18/23 04:15 BP 109/62 07/18/23 04:15 Pulse Ox 100 07/18/23 04:15 O2 Del Method Nasal Cannula 07/18/23 01:21 O2 Flow Rate 3 07/18/23 01:21 07/17/23 07/18/23 07/18/23 22:59 06:59 14:59 Intake Total 613.917 / 2396.717 917.084 / 3313.801 Output Total 475 / 475 0 / 0 Balance 138.917 / 1921.717 917.084 / 2838.801 0 / 0 Weight last 48 hrs Weight 178 lb 9.191 oz Physical Exam 2 Narrative: General : Patient is well developed , no acute distress, oriented only to self Head : Normal cephalic, a-traumatic. Ears : Pinnae and external canal are normal. Hearing is normal. Eyes : PERRLA, No conjunctival discharge. Nose : Mucous membranes are without erythema. Throat : buccal mucosa is normal, gums are without significant recession or hypertrophy. Lungs : Equal chest rise bilaterally, no use of accessory muscles, trachea is midline. Cor : Rate and rhythm are normal. Abdomen : Soft, distended with positive fluid wave, mild diffuse tenderness Extremities : No edema, no cyanosis or clubbing, dorsalis pedis pulses are present bilaterally, non-tender to palpation of calves. Upper extremities are normal bilaterally. Back : non-tender to palpation, no CVA tenderness. Neuro : CN II - XII intact, Upper and lower extremities have equal and full strength Urinary Catheter Management: Melgar: Cath Placed During This Visit: yes Reason for Continuing Indwelling Catheter: Accurate Measurement of Urinary Output in Critically Ill Patients Urinary Catheter Date of Insertion: 07/17/23 Urinary Catheter Time of Insertion: 15:30 Data 07/18/23 04:58 07/18/23 04:58 Micro: Microbiology 07/17/23 10:52 Blood Culture - Preliminary Blood SPECIMEN COLLECTED 07/17/23 10:55 Blood Culture - Preliminary Blood SPECIMEN COLLECTED A&P Assessment and plan (1) Partial small bowel obstruction: (2) Abdominal pain: (3) Gastric emphysema: (4) Ascites: Plan He does have some portal venous gas, however there is no pneumatosis. His abdominal exam is not consistent with ischemic bowel. Will treat him for partial small bowel obstruction with n.p.o. and NG tube to low intermittent wall suction. I agree with a heparin drip for possible mesenteric ischemia. Will continue to follow. If he decompensates or his bowel obstruction does not resolve in the next few days, we will need to consider exploratory laparotomy versus diagnostic laparoscopy. Medical management per hospitalist Coding Level of Care Code 64030 Diagnoses Partial small bowel obstruction K56.600 Abdominal pain R10.9 Gastric emphysema K29.60 Ascites R18.8
[2023-07-17] MEDS: hydrocortisone 100 mg/2 mL SDV 50 MG IVP ×2 (15:51→22:13)
[2023-07-17] MEDS: aspirin 300 mg Supp PR (15:51)
[2023-07-17] MEDS: heparin drip 25,000 UNIT/500 ML PREMIX 22.6799999999999997 UNIT IV (15:51)
[2023-07-17] MEDS: norepinephrine 4 MG/250 ML BAG 7.5 MG IV (15:59)
[2023-07-17 16:04] LABS: D Dimer 5.84 ug/mLFEU (0-0.59)
[2023-07-17 16:39] LABS: Glucose Point of Care 51 mg/dL (70-110)
[2023-07-17 16:44] LABS: Lactic Acid level (Lactate) 8.3 mmol/L (0.5-2.2)
[2023-07-17 17:04] LABS: ABG PCO2 37.2 mmHg (35-45); ABG PH Result 7.44 (7.35-7.45); Arterial Blood Gas Hematocrit 30.4 % (42-52); Base Excess ABG 1.4 mmol/L (-2.0-2.0); Blood Gas Operator Identificat GD; Blood Gas Sample Site Brachial, right; Blood Gas Sample Type Arterial; Carboxyhemoglobin 2.4 %THgb (0.4-20.1); HCO3 ABG 25.4 mmol/L (22-26); Ionized Calcium Level - ABG 1.3 mmol/L (1.1-1.4); Methemoglobin 0.5 % (0.4-1.5); Oxygen Device NC; Oxygen Saturation ABG 93.7; PO2 ABG 65.3 mmHg (80.0-100.0); PO2 FiO2 Ratio Arterial Blood 0; Potassium Level - ABG 4.3 mmol/L (3.5-5.0); Total Hemoglobin 9.9 g/dL (14-18)
[2023-07-17] MEDS: dextrose 10% 1,000 ML 50 ML IV (17:10)
[2023-07-17] MEDS: albumin 12.5 GM/50 ML VIAL IV (17:14)
[2023-07-17] MEDS: morphine 4 mg/mL SDV 1 mL 2 MG IVP (18:12)
[2023-07-17 20:12] LABS: Glucose Point of Care 65 mg/dL (70-110)
[2023-07-17] MEDS: levalbuterol 0.63 mg/3 mL Neb 0.630000000000000004 MG INHALATION (20:17)
[2023-07-17] MEDS: ipratropium 0.5 mg/2.5 mL Neb INHALATION (20:17)
[2023-07-17] MEDS: amiodarone 150 MG/100 ML PREMIX 400 MG IV (20:18)
[2023-07-17] MEDS: glucagon 1 mg/mL KIT 1 mL IM (20:19)
--- NOTE | 2023-07-17 20:26 | PC.NURSE ---
Spoke with Dr Vaughn and received instructions to give glucagon as ordered and documented. Paused fluids for loading dose of amiodarone as ordered and documented. RBVO
--- NOTE | 2023-07-17 20:31 | P.CONIM_ITS ---
Providers/Reason For Consult 2 Consulting Physician/Specialty*: [facility] /Nephrology Reason for Consult*: ESRD Attending Physician: Shemar Vaughn MD Primary Care Provider: Laya Devlin History of Present Illness History of Present Illness Anthony Waller Jr is a 73 year old male Patient is a 73-year-old male with past medical history of end-stage renal disease on dialysis per Saturday, liver cirrhosis, history of prior TAVR CHF presented to the emergency department from the [facility] due to abdominal pain going on for few days. Further workup in the ER showed concern for small bowel obstruction and question mesenteric ischemia. Patient was placed on heparin drip. Last dialysis was on Saturday lab data significant for sodium 135 potassium 4.7. Hemoglobin 11.5. He is currently placed on D10 due to hypoglycemia. He is also on low-dose Levophed. Review of Systems 2 Narrative: cannot obtain from pt Medications/Allergies Home Medications Medication Instructions Recorded Confirmed Last Taken Type cholecalciferol (vitamin D3) 125 125 mcg PO DAILY@07/25/21 07/17/23 07/17/23 History mcg (5,000 unit) capsule docusate sodium 100 mg capsule 100 mg PO TID 07/25/21 07/17/23 07/17/23 History (Colace) simethicone 125 mg capsule (Gas-X 125 mg PO Q6H PRN Gastric Reflux 04/19/22 07/17/23 07/17/23 History Extra Strength) carvedilol 3.125 mg tablet 3.125 mg PO BID@08,20 05/17/22 07/17/23 07/17/23 History fluticasone propionate 50 1 spray intranasal DAILY@05/29/22 07/17/23 07/17/23 History mcg/actuation nasal spray,suspension escitalopram oxalate 10 mg tablet 10 mg PO DAILY@01/29/23 07/17/23 07/17/23 History aspirin 81 mg tablet,delayed 81 mg PO DAILY@05/20/23 07/17/23 07/17/23 History release sucroferric oxyhydroxide 500 mg See Rx Instructions .Route .COMPLEX 05/27/23 07/17/23 07/17/23 History chewable tablet (Velphoro) bisacodyl 10 mg rectal suppository 10 mg CO DAILY PRN Constipation 06/05/23 07/17/23 Unknown History (Dulcolax (bisacodyl)) fluticasone furoate 100 1 inh inhalation DAILY@06/05/23 07/17/23 07/17/23 History mcg-vilanterol 25 mcg/dose inhalation powder (Breo Ellipta) hydrocodone 5 mg-acetaminophen 325 1 tab PO Q6H PRN pain #20 tabs 06/05/23 07/17/23 07/17/23 Rx mg tablet pantoprazole 40 mg tablet,delayed 40 mg PO DAILY@06/05/23 07/17/23 07/17/23 History release vitamin B complex with C-folic 1 tab PO DAILY@06/05/23 07/17/23 07/17/23 History acid 0.8 mg-zinc citrate 15 mg tablet (Dialyvite 800 with Zinc 15) furosemide 40 mg tablet See Rx Instructions .Route .COMPLEX 07/17/23 07/17/23 07/17/23 History furosemide 80 mg tablet See Rx Instructions .Route .COMPLEX 07/17/23 07/17/23 07/16/23 History Allergies Allergy/AdvReac Type Severity Reaction Status Date / Time codeine Allergy Mild ALGY-Rash Verified 06/18/23 09:06 Penicillins Allergy Mild ALGY-Rash Verified 06/18/23 09:06 Current Medications Generic Name Dose Route Start Last Admin Trade Name Freq PRN Reason Stop Dose Admin Aspirin 300 mg 07/17/23 15:20 07/17/23 15:51 Aspirin 300 Mg Supp CO 300 mg DAILY PEG Administration Hydrocortisone Sodium Succinate 50 mg 07/17/23 15:30 07/17/23 15:51 Hydrocortisone 100 Mg/2 Ml Sdv IVP 50 mg Q6H PEG Administration Heparin Sodium/Sodium Chloride 25,000 unit in 500 mls @ 0 mls/hr 07/17/23 14:01 07/17/23 15:51 Heparin Drip IV 14 unit/kg/hr .Q0M PEG 22.68 mls/hr Administration Protocol Per Protocol Albumin Human 25 g in 100 mls @ 60 mls/hr 07/17/23 15:00 07/17/23 16:18 Albumin IV Infused Q8H PEG Infusion norepinephrine 4 mg in 250 mls @ 0 mls/hr 07/17/23 15:00 07/17/23 17:30 Levophed IV 4 mcg/min .Q0M PEG 15 mls/hr Titration Protocol Per Protocol Dextrose 1,000 mls @ 50 mls/hr 07/17/23 16:30 07/17/23 20:24 D10w IV 0 mls/hr .Q20H PEG Infusion Ipratropium [place] 0.5 mg 07/17/23 20:00 07/17/23 20:17 Ipratropium 0.5 Mg/2.5 Ml Neb INHALATION 0.5 mg Q6H.RESP PEG Administration Levalbuterol HCl 0.63 mg 07/17/23 20:00 07/17/23 20:17 Levalbuterol 0.63 Mg/3 Ml Neb INHALATION 0.63 mg Q6H.RESP PEG Administration Morphine Sulfate 2 mg 07/17/23 14:01 07/17/23 18:12 Morphine 4 Mg/Ml Sdv 1 Ml IVP 2 mg Q4H PRN Administration SEVERE PAIN Ondansetron HCl 4 mg 07/17/23 14:01 07/17/23 18:12 Ondansetron 2 Mg/Ml Sdv 2 Ml IVP 4 mg Q6H PRN Administration vomiting, or N/V if npo Pantoprazole Sodium 40 mg 07/17/23 14:01 07/17/23 14:07 Pantoprazole 40 Mg Sdv IVP 40 mg Q12H PEG Administration PFSH Acute 2 PFSH: Medical History (Updated 07/17/23 @ 13:20 by Rickey Perera MD) COVID-19 Supratherapeutic INR Chronic anticoagulation Eliquis- Stopped 07/06 due to hemorrhoidal bleeding Osteoarthritis History of peritonitis Depression Anemia in chronic kidney disease Chronic diastolic heart failure PVD (peripheral vascular disease) Atrial fibrillation Hypertension Hyperlipidemia End-stage renal disease on hemodialysis Liver cirrhosis TIA (transient ischemic attack) Surgical History AV fistula left upper arm, brachial to cephalic vein History of transcatheter aortic valve replacement (TAVR) History of abdominal paracentesis Social History Smoking and tobacco/nicotine status: never used tobacco/nicotine Second hand smoke exposure: No Alcohol intake: never Substance/Drug Use: never Vitals/I&O/Wt Last Vital Signs Temp 102.1 F H 07/17/23 19:31 Pulse 111 H 07/17/23 20:18 Resp 31 H 07/17/23 20:18 BP 80/51 07/17/23 19:31 Pulse Ox 3 L 07/17/23 20:18 O2 Del Method Nasal Cannula 07/17/23 20:18 O2 Flow Rate 3 07/17/23 19:31 07/17/23 07/17/23 07/17/23 06:59 14:59 22:59 Intake Total 1782.8 / 1782.8 523.042 / 2305.842 Output Total 475 / 475 Balance 1782.8 / 1782.8 48.042 / 1830.842 Weight last 48 hrs Weight 81 kg Physical Exam 2 Narrative: awake , NGT TO SUCTION NO DISTRESS Urinary Catheter Management: Melgar: Cath Placed During This Visit: yes Reason for Continuing Indwelling Catheter: Accurate Measurement of Urinary Output in Critically Ill Patients Urinary Catheter Date of Insertion: 07/17/23 Urinary Catheter Time of Insertion: 15:30 Data 07/17/23 10:52 07/17/23 10:52 Micro: Microbiology 07/17/23 10:55 Blood Culture - Preliminary Blood SPECIMEN COLLECTED 07/17/23 10:52 Blood Culture - Preliminary Blood SPECIMEN COLLECTED A&P Assessment and plan (1) End-stage renal disease on hemodialysis: Plan 1. End-stage renal disease: On MWF schedule as outpatient, missed HD today, but patient hypotensive on pressors and concern for mesenteric ischemia, electrolytes stable so we will hold off on dialysis today and reassess in a.m. continue to monitor volume status closely, currently on 3 L O2 by nasal cannula Patient is currently n.p.o. with NGT suction. 2. Abdominal pain: Concern for SBO and question mesenteric ischemia, management per primary team and general surgery 3. Shock: On low-dose pressors, monitor, will limit ultrafiltration with HD 4. History of liver cirrhosis Has multiple comorbidities, overall poor prognosis -Patient evaluated using audiovisual cart. Time spent 40 minutes. Consult Attestations 2 Medical Necessity Statement: [facility] Coding Level of Care Code Acute Code for Chg Fwd Diagnoses End-stage renal disease on hemodialysis N18.6; Z99.2
--- NOTE | 2023-07-17 21:14 | PC.NURSE ---
Informed Dr Vaughn of increased agitation more than normal. Pulling at ng, drew and other lines. PICC line being placed at this time. Received order for Haldol 1mg IM as needed for increased agitation. Will continue to monitor. Consent obtained via 2 RNs from spouse Lynda Waller and placed in chart.
--- NOTE | 2023-07-17 21:18 | XRR_ITS ---
PROCEDURE INFORMATION: Exam: XR Chest Exam date and time: 07/17/2023 9:48 PM Age: 73 years old Clinical indication: Device placement; Picc; Additional info: Picc placement TECHNIQUE: Imaging protocol: Radiologic exam of the chest. Views: 1 view. COMPARISON: CT chest abdpel [id number] 07/17/2023 11:01 AM FINDINGS: Tubes, catheters and devices: There is an NG tube which tracks into the stomach and off field of view. Prior TAVR. There is a right-sided PICC positioned with its tip in the lower SVC. Lungs: Irregular opacities throughout the right lung and left lower lobe. Pleural spaces: Unremarkable. No pleural effusion. No pneumothorax. Heart/Mediastinum: See Tubes, catheters and devices finding. Bones/joints: Unremarkable. XR/XR chest 1V portable [id number] IMPRESSION: There is a right-sided PICC positioned with its tip in the lower SVC.
[2023-07-17 21:41] LABS: Glucose Point of Care 77 mg/dL (70-110)
--- NOTE | 2023-07-17 21:44 | PC.NURSE ---
Consulted by house charge for PICC insertion for levophed and incompatible medications. Upon arrival, obtained verbal consent from patient's spouse via phone with primary nurse Geno as witness. Primary nurse confirmed renal doctor aware and approved PICC insertion, considering renal hx and current Left AV fistula. Assessed RUE and found basilic best target for cannulation due to size 0.56cm and lack of evidence of thrombus or stenosis. Using US guidance, MST and sterile technique, accessed vein x1 stick. Advanced device without resistance. Device secured. Positive blood return and flushed in all lumens. EBL <20ml. Manual pressure held until hemostasis obtained. Dressed with gauze pressure dressing and informed primary nurse Geno to remove within 24h. Chest x-ray ordered for placement confirmation; pending results. Patient tolerated well. Handed off to primary nurse.
[2023-07-17] MEDS: dexmedeTOMIDine 0.9 % NaCL 400 MCG/100 ML PREMIX 2.0299999999999998 MCG IV (22:16)
[2023-07-17 23:57] LABS: Glucose Point of Care 95 mg/dL (70-110)
[2023-07-18] VITALS (79 sets, daily range): BP systolic 69–166; BP diastolic 12–88; PULSE 80–138; RESP 15–38; TEMP 36.1–37.2; O2SAT 90–100; BMI 25.8
[2023-07-18 00:40] LABS: Bacillus cereus group Not Detected (NOT DETECT); Bacillus subtillis group Not Detected (NOT DETECT); Corynebacterium Not Detected (NOT DETECT); Cutibacterium acnes (P.acnes) Not Detected (NOT DETECT); Enterococcus Not Detected (NOT DETECT); Enterococcus faecalis Not Detected (NOT DETECT); Enterococcus faecium Not Detected (NOT DETECT); Lactobacillus species Not Detected (NOT DETECT); Listeria Not Detected (NOT DETECT); Listeria monocytogenes Not Detected (NOT DETECT); Micrococcus Not Detected (NOT DETECT); Pan Candida Not Detected (NOT DETECT); Pan Gram-Negative Not Detected (NOT DETECT); Staphylococcus epidermidis Not Detected (NOT DETECT); Staphylococcus lugdunensis Not Detected (NOT DETECT); Staphylococcus species Not Detected (NOT DETECT); Streptococcus agalactiae Not Detected (NOT DETECT); Streptococcus anginosus group Not Detected (NOT DETECT); Streptococcus pneumoniae Detected (NOT DETECT); Streptococcus pyogenes Not Detected (NOT DETECT); Streptococcus species Detected (NOT DETECT)
[2023-07-18] MEDS: levalbuterol 0.63 mg/3 mL Neb 0.630000000000000004 MG INHALATION ×4 (01:08→20:00)
[2023-07-18] MEDS: ipratropium 0.5 mg/2.5 mL Neb INHALATION ×4 (01:08→20:00)
[2023-07-18] MEDS: aztreonam 1,000 MG in sodium chloride 0.9% (plus) 50 ML 100 MG IV (01:13)
[2023-07-18] MEDS: pantoprazole 40 mg SDV IVP ×2 (01:13→15:23)
[2023-07-18] MEDS: norepinephrine 4 MG/250 ML BAG 56.25 MG IV (01:23)
[2023-07-18 01:30] LABS: Glucose Point of Care 86 mg/dL (70-110)
[2023-07-18] MEDS: hydrocortisone 100 mg/2 mL SDV 50 MG IVP ×4 (03:12→21:09)
--- NOTE | 2023-07-18 03:22 | PC.NURSE ---
Informed Dr Wheeler of continued decreased blood pressures with decreased MAP. Levophed at 18mcg/min. Received telephone order to begin vassopressin per protocol instructions. RBVO
[2023-07-18 03:35] LABS: Glucose Point of Care 104 mg/dL (70-110)
[2023-07-18] MEDS: vasopressin 40 UNIT/100 ML PREMIX IV (03:51)
[2023-07-18 05:18] LABS: Basophils # 0.2 10^3/uL (0.0-0.1); Basophils % 0.8 %; Eosinophils % 0.1 %; Hematocrit 30.6 % (37-53); Lymphocytes # 0.1 10^3/uL (0.8-4.8); Lymphocytes % 0.5 %; Mean Corpuscular HGB Conc 31.4 g/dL (30-55); Mean Corpuscular Hemoglobin 36.5 pg (27-33); Mean Corpuscular Volume 116.3 fl (82-101); Mean Platelet Volume 10.8 fL (7.4-10.4); Monocytes # 0.5 10^3/uL (0.2-0.9); Neutrophils # 22.53 10^3/uL (1.8-7.7); Nucleated Red Blood Cells % 0 %; Platelet Count 118 10^3/cmm (157-399); Red Blood Count 2.63 10^6/uL (3.85-5.65); Red Cell Distribution Width 15.2 % (12.1-15.1); White Blood Count 23.72 10^3/uL (3.29-11.43)
[2023-07-18 05:31] LABS: Partial Thromboplastin Time 69.6 SECONDS (23.9-36.7)
[2023-07-18] MEDS: norepinephrine 4 MG/250 ML BAG 52.5 MG IV ×4 (05:41→21:07)
[2023-07-18] MEDS: albumin 25 G/100 ML BAG 60 G IV ×2 (05:42→15:23)
[2023-07-18 05:58] LABS: Alanine Aminotransferase 11 U/L (0-41); Albumin Level 2.7 g/dL (3.5-5.2); Alkaline Phosphatase 96 U/L (40-130); Blood Urea Nitrogen 48 mg/dL (8-23); Calcium 9.1 mg/dL (8.5-10.5); Carbon Dioxide 25 mmol/L (22-29); Chloride 91 mmol/L (98-107); Creatinine Clr Calc Pharmacy 16.7364; Globulin 2.3 g/dL (1.3-4.6); Glucose 114 mg/dL (65-115); Osmolality Calculated 285 mOsm/kg (285-295); Sodium 131 mmol/L (136-145)
[2023-07-18 06:03] LABS: Slide Review Slide Review Perform
[2023-07-18 06:04] LABS: Procalcitonin 16.79 ng/mL (0-0.5)
[2023-07-18 06:05] LABS: Aspartate Amino Transferase 46 U/L (0-40)
[2023-07-18 06:18] LABS: Phosphorus 4.6 mg/dL (2.5-4.5)
--- NOTE | 2023-07-18 08:01 | CT_ITS ---
WS: [id number] CT ABDOMEN PELVIS TECHNIQUE: Contrast-enhanced CT of the abdomen and pelvis with coronal and sagittal reformatted image s. CLINICAL INFORMATION: shock, mesentric ischemia COMPARISON: 07/17/2023 DLP: 789.[address] scans at [facility] use at least one of these dose optimization techniques: automated e xposure control; mA and/or kV adjustment per patient size (includes targeted exams where dose is matc hed to clinical indication); or iterative reconstruction. FINDINGS: Previously described portal venous air has resolved. Gastric emphysema is stable in appearance. Int erval placement of enteric tube with some decompression of the stomach. Persistent air-fluid level in the stomach. Gastric wall thickening and gastric wall edema is similar in appearance. Previously amy cribed proximal small bowel distention has improved with diffuse prominent submucosal enhancement tod ay. Previous area of transition is persistent but less prominent today. Coronal images 16 through 18 series 5 and axial imaging 49 through 53 series 3. No pneumatosis or free air. Normal caliber abdominal aorta. Aortic calcification. Dense mesenteric artery calcification. Moderate narrowing at the celiac origin which appears patent. SMA is patent. Portal vein and splenic vein are patent. Stable cardiomegaly. Stable RIGHT greater than LEFT pleural effusions with compressive atelectasis in the lung bases. Diffuse mesenteric edema and body wall anasarca. Melgar catheter. Mild ascites. Normal sigmoid colon. Transverse colon is decompressed. Gaseous distention of the hepatic flexure. Th e distal small bowel is decompressed. Stable compression superior plate L4 with mild retropulsion with mild to moderate central canal steno sis. Laminectomy defects in the lower lumbar spine. Stable peripherally calcified seroma or hematoma overlying the LEFT hip. Atrophic kidneys. Adrenal glands are normal. IMPRESSION: 1. Previously described portal venous air has resolved. 2. Persisting gastric emphysema with gastric wall thickening. Enteric tube in place. Some decompress ion of the stomach with enteric tube. Persistent air-fluid level. 3. Proximal small bowel has been decompressed with prominent enhancement today. No pneumatosis. Enha ncement likely due to venous engorgement or shock bowel. 4. Diffuse enhancement of proximal small bowel in the LEFT abdomen suspicious for shock bowel or kiara ous engorgement. 5. Colon is relatively decompressed. 6. No other changes compared to previous.
[2023-07-18 08:55] LABS: Glucose Point of Care 109 mg/dL (70-110)
[2023-07-18] MEDS: glucagon 1 mg/mL KIT 1 mL IM (09:19)
[2023-07-18 09:38] LABS: ABG PCO2 56.7 mmHg (35-45); ABG PH Result 7.28 (7.35-7.45); Arterial Blood Gas Hematocrit 29.3 % (42-52); Base Excess ABG -0.7 mmol/L (-2.0-2.0); Blood Gas Operator Identificat GD; Blood Gas Sample Site Brachial, right; Blood Gas Sample Type Arterial; HCO3 ABG 26.6 mmol/L (22-26); Oxygen Device NC; PO2 ABG 74.2 mmHg (80.0-100.0)
[2023-07-18] MEDS: iohexol 350 mg/mL 500 mL Btl (per mL) IV (09:48)
[2023-07-18 09:51] LABS: Lactic Sepsis W/Reflex 3.8 mmol/L (0.5-2.2)
--- NOTE | 2023-07-18 10:04 | ECG_ITS ---
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 Measurements Intervals [place] Rate: 103 P: 0 WI: 0 QRS: -88 QRSD: 150 T: 94 QT: 367 QTc: 483 Interpretive Statements ATRIAL FIBRILLATION WITH RAPID VENTRICULAR RESPONSE LEFT AXIS DEVIATION [QRS AXIS < -30] INTRAVENTRICULAR CONDUCTION DELAY [130+ ms QRS DURATION] Compared to ECG 07/17/2023 09:56:11 Left-axis deviation now present Atrial abnormality no longer present Myocardial infarct finding no longer present Electronically Signed On 07-18-2023 14:42:42 [employer]ING VICE PRESIDENT by Scooby Estrada M.D. [id number] f
[2023-07-18] MEDS: albumin 12.5 GM/50 ML VIAL IV (10:25)
--- NOTE | 2023-07-18 10:36 | P.PN_ITS ---
Subjective 2 Subjective: Patient is now requiring vasopressors and is mostly nonresponsive Vitals/I&O/Wt Last Vital Signs Temp 98.9 F 07/18/23 01:15 Pulse 98 07/18/23 08:43 Resp 22 H 07/18/23 08:36 BP 109/62 07/18/23 04:15 Pulse Ox 94 07/18/23 08:36 O2 Del Method Nasal Cannula 07/18/23 08:36 O2 Flow Rate 3 07/18/23 08:36 07/17/23 07/18/23 07/18/23 22:59 06:59 14:59 Intake Total 613.917 / 2396.717 917.084 / 3313.801 149.258 / 149.258 Output Total 475 / 475 0 / 0 Balance 138.917 / 1921.717 917.084 / 2838.801 149.258 / 149.258 Weight last 48 hrs Weight 180 lb 5 oz Weight 180 lb 5 oz Weight 178 lb 9.191 oz Physical Exam 2 Narrative: General: Somnolent but moans to abdominal exam Abdomen: Soft, distended, diffusely tender to palpation, no guarding or rebound Urinary Catheter Management: Melgar: Cath Placed During This Visit: yes Reason for Continuing Indwelling Catheter: Accurate Measurement of Urinary Output in Critically Ill Patients Urinary Catheter Date of Insertion: 07/17/23 Urinary Catheter Time of Insertion: 15:30 Data 07/18/23 04:58 07/18/23 04:58 Micro: Microbiology 07/17/23 10:52 Blood Culture - Preliminary Blood SPECIMEN COLLECTED 07/17/23 10:55 Blood Culture - Preliminary Blood SPECIMEN COLLECTED A&P Assessment and plan (1) Partial small bowel obstruction: (2) Abdominal pain: (3) Gastric emphysema: (4) Ascites: (5) Mesenteric ischemia: Plan Operating room for diagnostic laparoscopy, possible exploratory laparotomy, possible bowel resection Use and benefits of the procedure, including but limited to bleeding, infection, damage surrounding structures, scar, numbness, , need for additional procedures and/or surgeries, poor outcome, were explained to the patient's . She is understanding of the risks and wishes to proceed and gave consent. Attestations 2 Medical Necessity Statement*: Per primary Coding Level of Care Code Acute Code for Chg Fwd Diagnoses Partial small bowel obstruction K56.600 Abdominal pain R10.9 Gastric emphysema K29.60 Ascites R18.8 Mesenteric ischemia K55.9
[2023-07-18] MEDS: sodium bicarbonate 8.4% 1 mEq/mL 50mL Syr 100 MEQ IVP (10:41)
--- NOTE | 2023-07-18 10:51 | P.ANESASSM_ITS ---
Pre-Anesthetic Assessment Height/Weight: Height 1.78 m Weight 81.788 kg Temp Pulse Resp BP Pulse Ox O2 Del Method O2 Flow Rate 98.9 F 98 22 H 109/62 94 Nasal Cannula 3 07/18/23 01:15 07/18/23 08:43 07/18/23 08:36 07/18/23 04:15 07/18/23 08:36 07/18/23 08:36 07/18/23 08:36 Operation Date: 07/18/23 11:15 Proposed Procedures p Exploratory Laparotomy(Not Applicable) - Kee Lion DO s Small Bowel Resection(Not Applicable) - Kee Lion DO Was Beta Christofer taken within 24 hours: Yes Was Clonidine taken within 24 hours: N/A Social No alcohol and No tobacco Exam Confused Airway Submandibular: within normal limits Cervical ROM: within normal limits Mallampati: Class II CV/HEM Atrial Fibrillation, Hypertension and Murmur Hx TAVR Echo 05/2023: LV systolic function is normal with EF of 50-55% Biatrial enlargement Moderate mitral regurgitation Mild to moderate mitral stenosis Bioprosthetic aortic valve with mild to moderately elevated pressure gradient across it. Moderate tricuspid regurgitation. Mild pulmonary hypertension Chronic Renal Failure ESRD on dialysis Hepatic Cirrhosis Elevated INR > 2, ascites Metabolic Hyperlipidemia Neuropsych Depression acute encephalopathy Anesthetic Plan ASA status: 4 Anesthesia: General Other: A-line, FFP, protamine. +/- central line Risk of > 500 ml blood loss (7ml/kg in children): Yes, adequate IV access and fluids planned Medications/Allergies Home Medications Medication Instructions Recorded Confirmed Last Taken Type cholecalciferol (vitamin D3) 125 125 mcg PO DAILY@07/25/21 07/17/23 07/17/23 History mcg (5,000 unit) capsule docusate sodium 100 mg capsule 100 mg PO TID 07/25/21 07/17/23 07/17/23 History (Colace) simethicone 125 mg capsule (Gas-X 125 mg PO Q6H PRN Gastric Reflux 04/19/22 07/17/23 07/17/23 History Extra Strength) carvedilol 3.125 mg tablet 3.125 mg PO BID@,05/17/22 07/17/23 07/17/23 History fluticasone propionate 50 1 spray intranasal DAILY@05/29/22 07/17/23 07/17/23 History mcg/actuation nasal spray,suspension escitalopram oxalate 10 mg tablet 10 mg PO DAILY@01/29/23 07/17/23 07/17/23 History aspirin 81 mg tablet,delayed 81 mg PO DAILY@05/20/23 07/17/23 07/17/23 History release sucroferric oxyhydroxide 500 mg See Rx Instructions .Route .COMPLEX 05/27/23 07/17/23 07/17/23 History chewable tablet (Velphoro) bisacodyl 10 mg rectal suppository 10 mg [place] DAILY PRN Constipation 06/05/23 07/17/23 Unknown History (Dulcolax (bisacodyl)) fluticasone furoate 100 1 inh inhalation DAILY@06/05/23 07/17/23 07/17/23 History mcg-vilanterol 25 mcg/dose inhalation powder (Breo Ellipta) hydrocodone 5 mg-acetaminophen 325 1 tab PO Q6H PRN pain #20 tabs 06/05/23 07/17/23 07/17/23 Rx mg tablet pantoprazole 40 mg tablet,delayed 40 mg PO DAILY@06/05/23 07/17/23 07/17/23 History release vitamin B complex with C-folic 1 tab PO DAILY@06/05/23 07/17/23 07/17/23 History acid 0.8 mg-zinc citrate 15 mg tablet (Dialyvite 800 with Zinc 15) furosemide 40 mg tablet See Rx Instructions .Route .COMPLEX 07/17/23 07/17/23 07/17/23 History furosemide 80 mg tablet See Rx Instructions .Route .COMPLEX 07/17/23 07/17/23 07/16/23 History Allergies Allergy/AdvReac Type Severity Reaction Status Date / Time codeine Allergy Mild ALGY-Rash Verified 06/18/23 09:06 Penicillins Allergy Mild ALGY-Rash Verified 06/18/23 09:06 Current Medications Generic Name Dose Route Start Last Admin Trade Name Freq PRN Reason Stop Dose Admin Aspirin 300 mg 07/17/23 15:20 07/17/23 15:51 Aspirin 300 Mg Supp [place] 300 mg DAILY PEG Administration Hydrocortisone Sodium Succinate 50 mg 07/17/23 15:30 07/18/23 10:21 Hydrocortisone 100 Mg/2 Ml Sdv IVP 50 mg Q6H PEG Administration Heparin Sodium/Sodium Chloride 25,000 unit in 500 mls @ 0 mls/hr 07/17/23 14:01 07/17/23 23:16 Heparin Drip IV 12.96 unit/kg/hr .Q0M PEG 21 mls/hr Titration Protocol Per Protocol Albumin Human 25 g in 100 mls @ 60 mls/hr 07/17/23 15:00 07/18/23 08:26 Albumin IV Infused Q8H PEG Infusion norepinephrine 4 mg in 250 mls @ 0 mls/hr 07/17/23 15:00 07/18/23 05:41 Levophed IV 14 mcg/min .Q0M PEG 52.5 mls/hr Administration Protocol Per Protocol Aztreonam 1,000 mg/ Sodium 50 mls @ 100 mls/hr 07/18/23 02:00 07/18/23 02:03 Chloride IV Infused Q12H PEG Infusion Protocol Dextrose 1,000 mls @ 50 mls/hr 07/17/23 16:30 07/17/23 20:31 D10w IV 50 mls/hr .Q20H PEG Infusion Amiodarone HCl/Dextrose 360 mg in 200 mls @ 0 mls/hr 07/17/23 19:34 07/18/23 04:22 Nexterone IV 0.5 mg/min .Q0M PEG 16.67 mls/hr Administration Protocol Per Protocol Dexmedetomidine/Sodium Chloride 400 mcg in 100 mls @ 0 mls/hr 07/17/23 22:00 07/18/23 10:10 Precedex IV 0 mcg/kg/hr .Q0M PEG 0 mls/hr Titration Protocol Per Protocol Vasopressin 40 unit in 100 mls @ 0 mls/hr 07/18/23 03:30 07/18/23 09:14 Vasostrict IV 0.04 unit/min .Q0M PEG 6 mls/hr Titration Protocol Per Protocol Albumin Human 12.5 gm in 50 mls @ 60 mls/hr 07/18/23 09:27 07/18/23 10:25 Albumin IV 60 mls/hr PRN PRN Administration Hypotension and/or symptomatic Ipratropium [place] 0.5 mg 07/17/23 20:00 07/18/23 08:36 Ipratropium 0.5 Mg/2.5 Ml Neb INHALATION 0.5 mg Q6H.RESP PEG Administration Levalbuterol HCl 0.63 mg 07/17/23 20:00 07/18/23 08:36 Levalbuterol 0.63 Mg/3 Ml Neb INHALATION 0.63 mg Q6H.RESP PEG Administration Morphine Sulfate 2 mg 07/17/23 14:01 07/17/23 18:12 Morphine 4 Mg/Ml Sdv 1 Ml IVP 2 mg Q4H PRN Administration SEVERE PAIN Ondansetron HCl 4 mg 07/17/23 14:01 07/17/23 18:12 Ondansetron 2 Mg/Ml Sdv 2 Ml IVP 4 mg Q6H PRN Administration vomiting, or N/V if npo Pantoprazole Sodium 40 mg 07/17/23 14:01 07/18/23 01:13 Pantoprazole 40 Mg Sdv IVP 40 mg Q12H PEG Administration PFSH Anesthesia Medical History COVID-19 Supratherapeutic INR Chronic anticoagulation Eliquis- Stopped 07/06 due to hemorrhoidal bleeding Osteoarthritis History of peritonitis Depression Anemia in chronic kidney disease Chronic diastolic heart failure PVD (peripheral vascular disease) Atrial fibrillation Hypertension Hyperlipidemia End-stage renal disease on hemodialysis Liver cirrhosis TIA (transient ischemic attack) Surgical History AV fistula left upper arm, brachial to cephalic vein History of transcatheter aortic valve replacement (TAVR) History of abdominal paracentesis Social History Smoking and tobacco/nicotine status: never used tobacco/nicotine Second hand smoke exposure: No Alcohol intake: never Substance/Drug Use: never Data Anesthesia 07/18/23 04:58 07/18/23 04:58 Short CBC 07/17/23 07/18/23 Range/Units 10:52 04:58 WBC 6.66 23.72 H (3.29-11.43) 10^3/uL Hgb 11.50 9.60 L (11.27-16.99) g/dL Hct 36.2 L 30.6 L (37-53) % MCV 117.2 H 116.3 H (82-101) fl Plt Count 136 L 118 L (157-399) 10^3/cmm Neut % (Auto) 95.0 % Neut # (Auto) 22.53 H (1.8-7.7) 10^3/uL BMP 07/17/23 07/18/23 10:52 04:58 Sodium 135 L 131 L Potassium 4.7 5.0 Chloride 93 L 91 L Carbon Dioxide 25 25 BUN 41 H 48 H Creatinine 4.0 H 4.3 H Glucose 46 L 114 Calcium 9.9 9.1 Cardiac Enzymes 07/17/23 Range/Units 10:52 NT-Pro-B Natriuret Pep > 14955 H (0-125) pg/mL Liver Function 07/17/23 07/18/23 Range/Units 10:52 04:58 Total Bilirubin 2.1 H 2.0 H (0.15-1.2) mg/dL AST 26 46 H (0-40) U/L ALT 9 11 (0-41) U/L Alkaline Phosphatase 80 96 (40-130) U/L Albumin 2.7 L 2.7 L (3.5-5.2) g/dL Coags 07/17/23 07/17/23 07/18/23 10:52 21:35 04:58 PT 24.40 H INR 2.11 H APTT 80.0 H 69.6 H D-Dimer 5.84 H ABG 07/17/23 07/18/23 16:50 09:20 Specimen Type Arterial Arterial Sample Site Brachial, right Brachial, right ABG pH 7.44 7.28 L ABG pCO2 37.2 56.7 H ABG pO2 65.3 L 74.2 L ABG PO2/FiO2 Ratio 0 ABG HCO3 25.4 26.6 H ABG O2 Saturation 93.7 ABG Base Excess 1.4 -0.7 A-a O2 Gradient 15.0 H O2 Delivery Device Nc Nc O2 Liters/Min 3.0 3.0 FiO2 32.0 Microbiology 07/17/23 10:52 Blood Culture - Preliminary Blood SPECIMEN COLLECTED 07/17/23 10:55 Blood Culture - Preliminary Blood SPECIMEN COLLECTED Cardiac Studies: 2 Echocardiogram 05/21/23
[2023-07-18 10:55] LABS: Hepatitis A Antibody IgM Non-Reactive (Nonreactive); Hepatitis B Core IgM Non-Reactive (Nonreactive); Hepatitis B Surface Antigen Non-Reactive (Nonreactive); Hepatitis C Virus Antibody Non-Reactive (Nonreactive)
[2023-07-18 11:15] LABS: Reflex Lactate Order REFLEX LACTIC ORDERD
[2023-07-18] MEDS: epoetin alfa 1000 Unit/0.05 mL (ESRD) 20000 UNIT IVP (12:08)
[2023-07-18] MEDS: meropenem 500 MG in sodium chloride 0.9% (plus) 50 ML 100 MG IV (12:30)
[2023-07-18] MEDS: vancomycin 1,250 MG/250 ML PIGGYBACK 250 MG IV (13:00)
[2023-07-18 13:26] LABS: ABG PCO2 54.3 mmHg (35-45); ABG PH Result 7.31 (7.35-7.45); Alveolar-Arterial Oxygen Gradi 62.5 mmHg (5-10); Arterial Blood Gas Hematocrit 26.3 % (42-52); Base Excess ABG 0.6 mmol/L (-2.0-2.0); Blood Gas Operator Identificat AMH; Blood Gas Sample Site Not specified; Blood Gas Sample Type Arterial; Carboxyhemoglobin 2.1 %THgb (0.4-20.1); HCO3 ABG 27.3 mmol/L (22-26); HGB O2 Sat 97.9 % (95-100); Ionized Calcium Level - ABG 1.2 mmol/L (1.1-1.4); Methemoglobin 0.5 % (0.4-1.5); Oxygen Device VENT; Oxygen Saturation ABG > 100.0; PO2 FiO2 Ratio Arterial Blood 0; Potassium Level - ABG 4.4 mmol/L (3.5-5.0); Total Hemoglobin 8.6 g/dL (14-18)
[2023-07-18] MEDS: lidocaine-epi 2% PF 1:200,000 10 mL SDV 20 ML INJECTION (13:50)
[2023-07-18] MEDS: lidocaine-epi 2% PF 1:200,000 20 mL SDV 3 ML XX (13:50)
--- NOTE | 2023-07-18 14:52 | P.OP_ITS ---
Operative Report Date of procedure: July 18, 2023 Pre-op diagnosis: Peritonitis Partial small bowel obstruction Post-op diagnosis: Suspect spontaneous bacterial peritonitis Extensive intra-abdominal adhesions and purulence Incidental left obturator hernia without incarceration Procedure done: Diagnostic laparoscopy Extensive laparoscopic lysis of adhesions Implants: None Specimens removed/disposition: Fluid and exudate for culture Surgeon: Kee Lion DO Anesthesia: General and Local Estimated blood loss (mL): 20 Complications: None apparent Brief History: This is a 73-year-old gentleman who presented to the hospital from a intermediate with confusion and abdominal pain. He has a history of alcoholic cirrhosis requiring frequent paracentesis and had an INR over 2 from his liver failure preoperatively. He was on a heparin drip and vasopressors in the intensive care unit. CT showed gastric emphysema along with portal venous gas previously. He also had a partial small bowel obstruction that was not resolving with conservative management. Diagnostic laparoscopy, possible exploratory laparotomy, possible bowel resection was indicated. The risk and benefits of the procedure were explained to the and documented. She was willing to proceed. He was given protamine and 4 units of FFP preoperatively. Procedure: Patient is wheeled operative room placed on the OR table in the supine position. He had a right upper extremity PICC line in place and a right radial arterial line was placed. General endotracheal ovation was achieved apartment anesthesia. Time was performed. All present were in agreement. The abdomen was inspected prepped and draped in usual sterile fashion. 2% lidocaine with epinephrine was used to anesthetize the skin over Khan's point. A 5 mm incision was made with 15 blade scalpel. A Veress needle was used to achieve 15 mmHg intra-abdominal insufflation. A 5 mm trocar was placed through this incision using Optiview. 2 more 5 mm trocars were placed in the left hemiabdomen. There was extensive purulence and exudate along with ascitic fluid throughout the abdomen. Adhesions were meticulously ligated with laparoscopic LigaSure. Greater than 60 minutes was spent ligating adhesions. Cultures were taken of ascitic fluid and exudate was sent for culture as well. 4 L of ascitic fluid was aspirated. Patient was replaced with 25 g of albumin. I then placed 3 more 5 mm trocars into the right hemiabdomen. The entire bowel was ran. In the left central abdomen, a transition point was identified and the small bowel obstruction was alleviated by ligating omental adhesions. No compromise to bowel or stomach was identified. He was given a presumed diagnosis of spontaneous bacterial peritonitis. Incidentally a left obturator hernia was identified. This was not incarcerated. Decision was made not to repair this hernia at the time as it was not incarcerated and there was high risk of infection with mesh insertion. Nasogastric tube was identified to be in good position. Hemostasis was achieved with LigaSure. 2 g of tranexamic acid were given 1 hour apart due to oozing from the omental adhesions. Hemostasis was noted. Intra-abdominal insufflation was released and trocars were removed. Incisions were closed with 4-0 Monocryl in a subcuticular interrupted fashion. Dermabond was applied. Patient tolerated procedure well.
--- NOTE | 2023-07-18 15:09 | PM.PN ---
Subjective Subjective: Patient seen multiple times during the day. Earlier in the morning when seen he was on 15 of Levophed, 0.4 vasopressin, 0.5 of amiodarone, 0.2 of Precedex along with heparin drip. Patient's hemodynamics during the night have been fluctuating. On examination his mean artery pressure will be maintained over 68 and vasopressor was being weaned down. Tmax of 102 Fahrenheit overnight, heart rate better controlled, patient is drowsy with Kussmaul breathing. Patient underwent surgery during which time he was intubated later in the day. Vitals/I&O/Wt Last Vital Signs Temp 98.0 F 07/18/23 11:23 Pulse 84 07/18/23 15:02 Resp 17 07/18/23 15:02 BP 108/60 07/18/23 12:00 Pulse Ox 100 07/18/23 15:02 O2 Del Method Mechanical Ventilation 07/18/23 15:02 O2 Flow Rate 3 07/18/23 10:30 FiO2 100 07/18/23 15:02 07/18/23 07/18/23 07/18/23 06:59 14:59 22:59 Intake Total 917.084 / 3313.801 890.858 / 890.858 Output Total 0 / 0 Balance 917.084 / 2838.801 890.858 / 890.858 Weight last 48 hrs Weight 81.788 kg Weight 81.788 kg Weight 81 kg Physical Exam Narrative: General: Drowsy, wakes up to verbal stimulus but not following direction, Kussmaul breath, icterus and pallor present HEENT: PERRLA, pupils bilaterally equal and reactive Chest: Bilateral bronchial breath sounds with decreased air entry bilaterally both so in lower zone CVS: S1-S2 regular, soft ejection systolic murmur at aortic area, tachycardia, no gallops, no rubs Abdomen: Distended, generalized tenderness more so in right lower zone, bowel sounds sluggish, mild guarding no rigidity Neuro: No focal deficits, no facial deformity, AO x3, drowsy Urinary Catheter Management: Melgar: Cath Placed During This Visit: yes Reason for Continuing Indwelling Catheter: Accurate Measurement of Urinary Output in Critically Ill Patients Urinary Catheter Date of Insertion: 07/17/23 Urinary Catheter Time of Insertion: 15:30 Data 07/18/23 04:58 07/18/23 04:58 Micro: Microbiology 07/17/23 10:55 Blood Culture - Preliminary Blood Streptococcus pneumoniae 07/17/23 10:52 Blood Culture - Preliminary Blood Streptococcus pneumoniae A&P Assessment and plan (1) Shock: With concerns for sepsis. SIRS: Tachycardic, hypotensive, poor mentation Source: Small bowel obstruction with mesenteric ischemia and intra-abdominal collection End organ damage: Acute infectious encephalopathy, hypotension, elevated lactate Elevated Patient did not receive full 30 mL/kg BW given history of end-stage renal disease on hemodialysis with concerns for fluid overload Monitor blood pressures. Keep mean artery pressure 65 mmHg. Wean Levophed and vasopressor accordingly. Will plan to wean off vasopressors first. Follow-up repeat blood culture, OR cultures, MRSA swab, sputum Cx, urine Legionella, bacterial antigen. For now empirically start patient on IV vancomycin. Will switch from aztreonam to meropenem for better anaerobic coverage. Continue with albumin Q8h (2) Bacteremia due to Streptococcus pneumoniae: Blood culture from admission showing Streptococcus pneumonia. Repeat blood culture in AM. Follow-up sensitivities. For now we will switch from aztreonam to meropenem as above. (3) SBO (small bowel obstruction): Appreciate surgical recommendations. Post laparoscopic abdominal washout on 07/17. Follow-up or cultures. Appreciate repeat CT abdomen pelvis done on 07/17 with contrast. Continue with NG tube to intermittent suction. Frequent abdominal examination. Zofran as needed, Protonix twice daily. Monitor electrolytes. (4) Mesenteric ischemia: As seen on CT abdomen pelvis done in the ER. Concerns for portal venous air. N.p.o. as above. Received protamine and FFP for OR. Will restart heparin drip after OR. Will continue to monitor with frequent abdominal examinations. (5) Atrial fibrillation: Heart rate better controlled. Continue with IV amiodarone at 0.5 for now as patient is NPO. For now we will continue with amiodarone drip even though patient has concerns for liver cirrhosis but unfortunately with hypertension and end-stage renal disease will want to avoid other medications including Cardizem, beta-kim or digoxin. Anticoagulation recently stopped because of hemorrhoidal bleed. Currently on heparin drip for mesenteric ischemia. (6) Hypoglycemia: Persistent. Received glucagon doses overnight. Blood sugar check every 2 hour. Maintain blood sugar over 100. Hypoglycemia protocol. If not able to maintain will restart on D10 fluids. Appreciate cortisol level. Continue with hydrocortisone 50 every 6 hours for now. (7) Chronic diastolic heart failure: Last echocardiogram from May 2023 shows an EF of 50 to 55%, biatrial enlargement, moderate MR, mild to moderate mitral stenosis, bioprosthetic aortic valve with mild to moderate elevated pressure gradient across. Received fluid bolus in the ER. Watch for fluid overload. (8) End-stage renal disease on hemodialysis: Consult nephrology for HD. (9) Liver cirrhosis: Ultrasound-guided paracentesis. Check ammonia levels. (10) Ascites: (11) Elevated lactic acid level: (12) Goals of care, counseling/discussion: (13) Gastric emphysema: Plan Respiratory failure: Intubated on OR. Maintain sedation with fentanyl and propofol for now. Oxygen supplementation keeping saturation over 90%. ABG daily, chest x-ray. Will plan to wean gradually as further mentation within next 72 hours. Anesthesia: Propofol and fentanyl Glycemic control: Hypoglycemia protocol Nutrition: NPO. If continues to remain n.p.o. for 48 hours we will plan for TPN CODE STATUS: Discussed in detail with patient's at bedside. is the DPOA. Full code. PUD prophylaxis: Protonix DVT prophylaxis: Heparin drip will be sufficient Discharge planning: Back to SNF once medically clear Continue with care at ICU. Goals of care discussion: Had a detailed goals of care discussion with and sister at bedside. We discussed unfortunately patient is extremely sick and has been getting sick for last few months with recurrent admissions. Discussed unfortunately currently patient has bowel ischemia and is in shock requiring multiple pressors with his baseline end-stage renal disease and liver cirrhosis he is at a higher risk of poor prognosis. We discussed that patient might not be able to back to his baseline mentation or quality of life. verbalizes understanding and for now would want to continue everything what is needed for him to get better. This documentation was created by [employer] braille translator software. Every effort was made to ensure accuracy of braille translator. Any obvious errors or omissions should be clarified with the author of the document. Attestations Medical Necessity Statement*: Requires further hospitalization for management of septic shock, respiratory failure in setting of mesenteric ischemia, intra-abdominal infection in a patient with baseline incisional disease on hemodialysis and liver cirrhosis Critical Care Time: The high probability of a clinically significant, sudden or life threatening deterioration of the patient's [cardiac, GI, renal, neurological, pulmonary] system(s) required my full and direct attention, intervention and personal management. The critical care time is as shown. This time is in addition to time spent performing any reported procedures but includes the following: [x] Data and vital sign review and interpretation [x] Patient assessment, examination and intervention [x] Documentation [x] Medication orders and management Critical Care Time (min): 100 Coding Level of Care Code Critical Care >/= 30 minutes Critical care time (in minutes): 100 The high probability of a clinically significant, sudden or life threatening deterioration, as referenced in this documentation, required my full and direct attention, intervention and personal management. The critical care time shown is in addition to time spent performing any reported separately billable procedures and includes the following: [x] Data and vital sign review and interpretation [x] Patient assessment, examination and intervention [x] Medication orders and management [x] Patient/Family updates as able [x] Care Coordination and Documentation. Other Coding Information This patient has a high probability of clinically significant, sudden or life threatening deterioration of the patient's (neurological/pulmonary/cardiac/renal/ID/endocrine) systems required my full, direct attention, the highest level of physician preparedness for urgent intervention and personal management. I managed/supervised life or organ supporting interventions that required frequent physician assessment. I devoted my full attention in the ICU to the direct care of this patient for the period of time indicated above. Time I spent with family or surrogate(s) is included only if the patient was incapable of providing necessary information or participating in decision making. This time includes the following services provided: Telemetry review Mechanical Ventilation Hemodynamic interpretation, assessment and management Review and interpretation of CXR Review and interpretation of lab values Review and interpretation of microbiologic data and culture results Review of medications and administration Review and interpretation of Nutrition requirements and management Discussion of management with other consultants and services Clinical update to family members Diagnoses Shock R57.9 Bacteremia due to Streptococcus pneumoniae R78.81; B95.3 SBO (small bowel obstruction) K56.609 Mesenteric ischemia K55.9 Atrial fibrillation I48.91 Hypoglycemia E16.2 Chronic diastolic heart failure I50.32 End-stage renal disease on hemodialysis N18.6; Z99.2 Liver cirrhosis K74.60 Ascites R18.8 Elevated lactic acid level R79.89 Goals of care, counseling/discussion Z71.89 Gastric emphysema K29.60
[2023-07-18 15:12] LABS: Glucose Point of Care 103 mg/dL (70-110)
[2023-07-18 15:12] LABS: Glucose Point of Care 133 mg/dL (70-110)
--- NOTE | 2023-07-18 15:16 | XR_ITS ---
WS: [id number] Portable AP semiupright chest, 07/18/2023 Clinical Data: intubated Comparison: Portable chest, 07/17/2023 Findings: The endotracheal tube is positioned above the zander. The right PICC line and nasogastric t ube remain in the same position. The heart remains enlarged. There are bilateral lower lobe opacities unchanged. There is a resuscitation paddle over the heart. There is an artificial heart valve. There are monitor leads on the chest wall. Impression: 1. Satisfactory insertion of endotracheal tube. 2. No change in cardiomegaly and bilateral pulmonary opacities.
[2023-07-18] MEDS: fentaNYL 1,000 MCG/100 ML BAG 2.5 MCG IV (15:50)
[2023-07-18] MEDS: propofol 1,000 MG/100 ML INJ 2.45000000000000018 MG IV (15:50)
[2023-07-18 15:51] LABS: ABG PCO2 53.2 mmHg (35-45); ABG PH Result 7.31 (7.35-7.45); Alveolar-Arterial Oxygen Gradi 50.3 mmHg (5-10); Arterial Blood Gas Hematocrit 27.7 % (42-52); Base Excess ABG 0.1 mmol/L (-2.0-2.0); Blood Gas Operator Identificat GD; Blood Gas Sample Site Not specified; Blood Gas Sample Type Arterial; Carboxyhemoglobin 1.7 %THgb (0.4-20.1); HCO3 ABG 26.8 mmol/L (22-26); HGB O2 Sat 98.6 % (95-100); Ionized Calcium Level - ABG 1.3 mmol/L (1.1-1.4); Methemoglobin 0.6 % (0.4-1.5); Oxygen Device VENT; Oxygen Saturation ABG > 100.0; PO2 FiO2 Ratio Arterial Blood 0; Potassium Level - ABG 4.5 mmol/L (3.5-5.0)
[2023-07-18] MEDS: tranexamic acid 1,000 mg/10mL SDV 1000 MG XX (16:24)
--- NOTE | 2023-07-18 16:38 | P.PN_ITS ---
Subjective 2 Subjective: s/p OR Medications: Reviewed: Yes Vitals/I&O/Wt Last Vital Signs Temp 97.0 F L 07/18/23 16:15 Pulse 94 07/18/23 16:15 Resp 15 07/18/23 15:06 BP 166/36 07/18/23 16:15 Pulse Ox 99 07/18/23 16:15 O2 Del Method Mechanical Ventilation 07/18/23 16:15 O2 Flow Rate 3 07/18/23 10:30 FiO2 50 07/18/23 16:15 07/18/23 07/18/23 07/18/23 06:59 14:59 22:59 Intake Total 917.084 / 3313.801 1665.025 / 1665.025 441.149 / 2106.174 Output Total 0 / 0 Balance 917.084 / 2838.801 1665.025 / 1665.025 441.149 / 2106.174 Weight last 48 hrs Weight 81.788 kg Weight 81.788 kg Weight 81 kg Physical Exam 2 Narrative: INTUBATED , SEDATED Urinary Catheter Management: Melgar: Cath Placed During This Visit: yes Reason for Continuing Indwelling Catheter: Accurate Measurement of Urinary Output in Critically Ill Patients Urinary Catheter Date of Insertion: 07/17/23 Urinary Catheter Time of Insertion: 15:30 Data 07/18/23 04:58 07/18/23 04:58 Micro: Microbiology 07/17/23 10:55 Blood Culture - Preliminary Blood Streptococcus pneumoniae 07/17/23 10:52 Blood Culture - Preliminary Blood Streptococcus pneumoniae A&P Assessment and plan (1) End-stage renal disease on hemodialysis: Plan 1. End-stage renal disease: On MWF schedule as outpatient, plan for HD today , gentle UF as pt on pressors 2. Abdominal pain: Concern for SBO , s/p laparoscopy and lysis of adhesions 3. Shock: On low-dose pressors, monitor, will limit ultrafiltration with HD 4. History of liver cirrhosis Has multiple comorbidities, overall poor prognosis -Patient evaluated using audiovisual cart. Time spent 40 minutes. Attestations 2 Medical Necessity Statement*: per chiquis Coding Level of Care Code Acute Code for Chg Fwd Diagnoses End-stage renal disease on hemodialysis N18.6; Z99.2
[2023-07-18] MEDS: heparin drip 25,000 UNIT/500 ML PREMIX 22.8999999999999986 UNIT IV (16:52)
[2023-07-18 16:55] LABS: Glucose Point of Care 121 mg/dL (70-110)
[2023-07-18 17:26] LABS: Lactic Acid level (Lactate) 3.4 mmol/L (0.5-2.2)
[2023-07-18 17:32] LABS: Eosinophils % 0.1 %; Nucleated Red Blood Cells % 0 %; Red Cell Distribution Width 15.1 % (12.1-15.1)
[2023-07-18 17:35] LABS: Alanine Aminotransferase 12 U/L (0-41); Albumin Level 3.3 g/dL (3.5-5.2); Alkaline Phosphatase 82 U/L (40-130); Anion Gap 17.5 (5-19); Aspartate Amino Transferase 44 U/L (0-40); Blood Urea Nitrogen 40 mg/dL (8-23); Calcium 9.1 mg/dL (8.5-10.5); Carbon Dioxide 24 mmol/L (22-29); Chloride 95 mmol/L (98-107); Creatinine Clr Calc Pharmacy 21.2542; Globulin 2.1 g/dL (1.3-4.6); Glucose 105 mg/dL (65-115); Osmolality Calculated 284 mOsm/kg (285-295); Potassium 4.5 mmol/L (3.5-5.1); Sodium 132 mmol/L (136-145); Total Bilirubin 2.2 mg/dL (0.15-1.2); Total Protein 5.4 g/dL (6.6-8.7)
[2023-07-18 17:47] LABS: Glucose Point of Care 104 mg/dL (70-110)
[2023-07-18 19:00] LABS: Hematocrit 27.5 % (37-53); Lymphocytes # 0.1 10^3/uL (0.8-4.8); Lymphocytes % 0.5 %; Mean Corpuscular HGB Conc 31.3 g/dL (30-55); Mean Corpuscular Hemoglobin 36.8 pg (27-33); Mean Corpuscular Volume 117.5 fl (82-101); Mean Platelet Volume 10.9 fL (7.4-10.4); Monocytes # 0.6 10^3/uL (0.2-0.9); Monocytes % 3.3 %; Neutrophils # 17.42 10^3/uL (1.8-7.7); Platelet Count 81 10^3/cmm (157-399); Red Blood Count 2.34 10^6/uL (3.85-5.65); White Blood Count 18.74 10^3/uL (3.29-11.43)
[2023-07-18 19:18] LABS: Slide Review Slide Review Perform
[2023-07-18 19:24] LABS: Glucose Point of Care 92 mg/dL (70-110)
--- NOTE | 2023-07-18 20:20 | ANE.PACU2 ---
Inpatient post-anesthesia follow up: Airway intact: Yes Vital signs: Temperature 97.0 F Pulse Rate 124 Respiratory Rate 25 Blood Pressure 111/63 Pulse Oximetry 99 Oxygen Delivery Me thod Mechanical Ventila tion Oxygen Flow Rate 3 Fraction of Inspir ed Oxygen 40 Hydration adequate: Yes Nausea and vomiting: No Pain level: Other Pain level: n/a Mental status: Baseline Additional Comments: Intubated, sedated to ICU for further evaluation and treatment. Stable transfer.
[2023-07-18 20:31] LABS: Glucose Point of Care 97 mg/dL (70-110)
[2023-07-18 20:49] LABS: Hematocrit 26.6 % (37-53); Mean Corpuscular Hemoglobin 36.5 pg (27-33); Mean Corpuscular Volume 114.2 fl (82-101); Mean Platelet Volume 10.9 fL (7.4-10.4); Platelet Count 91 10^3/cmm (157-399); Red Blood Count 2.33 10^6/uL (3.85-5.65); White Blood Count 21.78 10^3/uL (3.29-11.43)
--- NOTE | 2023-07-18 20:54 | SUR.OPER ---
7009 UPDATED FAMILY VIA WAITING ROOM
[2023-07-18 21:51] LABS: Slide Review Slide Review Perform
[2023-07-18 21:53] LABS: Band Neutrophils Absolute 8.5 10^3/cmm (0.0-1.2); Total Cells Counted 100 (0-100)
[2023-07-18 22:07] LABS: Eosinophils 0 %; Lymphocytes 0 %; Monocytes Absolute 1.1 10^3/cmm (0.1-0.6)
[2023-07-18 22:08] LABS: Absolute Segmented Neutrophil 11.3 10/cmm (1.6-7.1); Segmented Neutrophils 52 %
[2023-07-18 22:09] LABS: Absolute Neutrophil 19.8 10^3/cmm (1.4-6.5); Platelet Estimate Decreased (Normal)
[2023-07-18 23:29] LABS: Glucose Point of Care 105 mg/dL (70-110)
[2023-07-19] VITALS (114 sets, daily range): BP systolic 77–142; BP diastolic 40–73; PULSE 80–135; RESP 16–24; TEMP 37.3–39; O2SAT 94–99; BMI 25.9
[2023-07-19] MEDS: chlorhexidine gluconate 4% Btl 118 mL 1 APPLIC TOPICAL (00:58)
[2023-07-19] MEDS: pantoprazole 40 mg SDV IVP ×2 (01:05→14:10)
[2023-07-19 01:19] LABS: Glucose Point of Care 98 mg/dL (70-110)
[2023-07-19] MEDS: norepinephrine 4 MG/250 ML BAG 60 MG IV ×3 (01:22→10:32)
[2023-07-19] MEDS: levalbuterol 0.63 mg/3 mL Neb 0.630000000000000004 MG INHALATION ×4 (03:09→20:18)
[2023-07-19] MEDS: ipratropium 0.5 mg/2.5 mL Neb INHALATION ×4 (03:09→20:18)
[2023-07-19] MEDS: hydrocortisone 100 mg/2 mL SDV 50 MG IVP ×4 (04:28→21:18)
[2023-07-19 04:35] LABS: Glucose Point of Care 119 mg/dL (70-110)
[2023-07-19 05:11] LABS: ABG PCO2 41.8 mmHg (35-45); ABG PH Result 7.44 (7.35-7.45); Arterial Blood Gas Hematocrit 23.9 % (42-52); Base Excess ABG 3.4 mmol/L (-2.0-2.0); Blood Gas Sample Type Arterial; Carboxyhemoglobin 1.6 %THgb (0.4-20.1); HGB O2 Sat 97.6 % (95-100); Ionized Calcium Level - ABG 1.2 mmol/L (1.1-1.4); Methemoglobin 0.8 % (0.4-1.5); Potassium Level - ABG 3.8 mmol/L (3.5-5.0); Total Hemoglobin 7.8 g/dL (14-18)
[2023-07-19 05:13] LABS: Blood Gas Operator Identificat JB; Blood Gas Sample Site Not specified; Oxygen Device VENT; PO2 FiO2 Ratio Arterial Blood 0
[2023-07-19 05:58] LABS: Glucose Point of Care 128 mg/dL (70-110)
[2023-07-19 06:19] LABS: Basophils # 0.1 10^3/uL (0.0-0.1); Basophils % 0.5 %; Hematocrit 24.2 % (37-53); Lymphocytes # 0.1 10^3/uL (0.8-4.8); Lymphocytes % 0.5 %; Mean Corpuscular HGB Conc 31.8 g/dL (30-55); Mean Corpuscular Hemoglobin 36.5 pg (27-33); Mean Corpuscular Volume 114.7 fl (82-101); Mean Platelet Volume 11.1 fL (7.4-10.4); Monocytes % 5.6 %; Neutrophils # 15.14 10^3/uL (1.8-7.7); Neutrophils % 88.2 %; Nucleated Red Blood Cells % 0.1 %; Platelet Count 72 10^3/cmm (157-399); Red Blood Count 2.11 10^6/uL (3.85-5.65); Red Cell Distribution Width 15.1 % (12.1-15.1); White Blood Count 17.18 10^3/uL (3.29-11.43)
[2023-07-19 06:40] LABS: Partial Thromboplastin Time 71.4 SECONDS (23.9-36.7)
[2023-07-19 06:42] LABS: Magnesium 1.7 mg/dL (1.7-2.3); Phosphorus 2.2 mg/dL (2.5-4.5)
[2023-07-19 06:43] LABS: Alanine Aminotransferase 13 U/L (0-41); Albumin Level 3.3 g/dL (3.5-5.2); Alkaline Phosphatase 93 U/L (40-130); Aspartate Amino Transferase 45 U/L (0-40); Blood Urea Nitrogen 32 mg/dL (8-23); Calcium 9.4 mg/dL (8.5-10.5); Carbon Dioxide 26 mmol/L (22-29); Chloride 94 mmol/L (98-107); Globulin 1.8 g/dL (1.3-4.6); Glucose 111 mg/dL (65-115); Osmolality Calculated 280 mOsm/kg (285-295); Sodium 131 mmol/L (136-145); Total Bilirubin 2.5 mg/dL (0.15-1.2); Total Protein 5.1 g/dL (6.6-8.7)
[2023-07-19] MEDS: albumin 25 G/100 ML BAG 60 G IV ×4 (07:04→23:06)
[2023-07-19 07:06] LABS: Slide Review Slide Review Perform
--- NOTE | 2023-07-19 08:24 | P.PN_ITS ---
Subjective 2 Subjective: on vent Medications: Reviewed: Yes Vitals/I&O/Wt Last Vital Signs Temp 100.7 F H 07/19/23 04:42 Pulse 113 H 07/19/23 07:51 Resp 17 07/19/23 07:55 BP 116/53 07/19/23 06:15 Pulse Ox 97 07/19/23 07:55 O2 Del Method Mechanical Ventilation 07/19/23 07:51 O2 Flow Rate 3 07/18/23 10:30 FiO2 30 07/19/23 07:55 07/18/23 07/19/23 07/19/23 22:59 06:59 14:59 Intake Total 1391.732 / 3292.657 1092.351 / 4385.008 Output Total 2351 / 2351 2351 Balance -959.268 / 299.233 0273.351 / 2033.008 Weight last 48 hrs Weight 85.275 kg Weight 80.8 kg Weight 81.788 kg Weight 81.788 kg Weight 81 kg Physical Exam 2 Narrative: INTUBATED , SEDATED Urinary Catheter Management: Melgar: Cath Placed During This Visit: yes Reason for Continuing Indwelling Catheter: Accurate Measurement of Urinary Output in Critically Ill Patients Urinary Catheter Date of Insertion: 07/17/23 Urinary Catheter Time of Insertion: 15:30 Data 07/19/23 06:06 07/19/23 06:06 Micro: Microbiology 07/19/23 06:10 Blood Culture - Preliminary Blood SPECIMEN COLLECTED 07/19/23 06:06 Blood Culture - Preliminary Blood SPECIMEN COLLECTED 07/18/23 19:43 Legionella Urinary Antigen - Final Unknown Source 07/17/23 10:55 Blood Culture - Preliminary Blood Streptococcus pneumoniae 07/17/23 10:52 Blood Culture - Preliminary Blood Streptococcus pneumoniae A&P Assessment and plan (1) End-stage renal disease on hemodialysis: Plan 1. End-stage renal disease: On MWF schedule as outpatient, s/p HD yesterday and 2L removed , on pressors 2. Abdominal pain: Concern for SBO , s/p laparoscopy and lysis of adhesions 3. Shock: On low-dose pressors, monitor, will limit ultrafiltration with HD 4. History of liver cirrhosis 5.resp failure - on vent Has multiple comorbidities, overall poor prognosis -Patient evaluated using audiovisual cart. Time spent 20 minutes. Attestations 2 Medical Necessity Statement*: per medicine team Coding Level of Care Code Acute Code for Chg Fwd Diagnoses End-stage renal disease on hemodialysis N18.6; Z99.2
--- NOTE | 2023-07-19 08:56 | P.PN_ITS ---
Subjective 2 Subjective: Patient seen and examined. He remains intubated and on vasopressors Vitals/I&O/Wt Last Vital Signs Temp 99.0 F 07/20/23 05:00 Pulse 87 07/20/23 08:07 Resp 22 H 07/20/23 08:00 BP 130/48 07/20/23 06:00 Pulse Ox 97 07/20/23 08:00 O2 Del Method Mechanical Ventilation 07/20/23 07:50 O2 Flow Rate 3 07/18/23 10:30 FiO2 30 07/20/23 08:00 07/19/23 07/20/23 07/20/23 22:59 06:59 14:59 Intake Total 1301.093 / 2473.608 865.294 / 3338.902 150 / 150 Output Total 160 / 160 Balance 1301.093 / 2473.608 705.294 / 3178.902 150 / 150 Weight last 48 hrs Weight 193 lb 9.6 oz Weight 180 lb 8 oz Weight 188 lb Weight 178 lb 2.136 oz Weight 180 lb 5 oz Physical Exam 2 Narrative: General: Intubated, sedated Abdomen: Soft, nondistended, no guarding Urinary Catheter Management: Melgar: Cath Placed During This Visit: yes Reason for Continuing Indwelling Catheter: Accurate Measurement of Urinary Output in Critically Ill Patients Urinary Catheter Date of Insertion: 07/17/23 Urinary Catheter Time of Insertion: 15:30 Data 07/20/23 03:53 07/20/23 03:53 Micro: Microbiology 07/19/23 06:10 Blood Culture - Preliminary Blood NEGATIVE TO DATE 07/19/23 06:06 Blood Culture - Preliminary Blood NEGATIVE TO DATE 07/18/23 13:40 Gram Stain - Final Abdomen Anaerobic Culture - Preliminary Abscess Culture - Preliminary 07/18/23 13:40 Gram Stain - Final Peritoneal Fluid Body Fluid Culture - Preliminary 07/18/23 15:20 Gram Stain - Final Sputum - Endotracheal Tube Aspirate Sputum Culture - Preliminary Gram Negative Rods 07/18/23 19:43 Bacterial Antigens - Final Urine Kidney A&P Assessment and plan (1) Gastric emphysema: (2) Partial small bowel obstruction: (3) Shock: (4) Bacteremia due to Streptococcus pneumoniae: Plan Postop day #1 status post diagnostic laparoscopy with extensive laparoscopic lysis of adhesions There was an extensive amount of exudate throughout the abdomen causing a transition point which was relieved operatively. Possible spontaneous bacterial peritonitis-await cultures Medical management per hospitalist Attestations 2 Medical Necessity Statement*: Per primary Coding Level of Care Code Acute Code for Chg Fwd Diagnoses Gastric emphysema K29.60 Partial small bowel obstruction K56.600 Shock R57.9 Bacteremia due to Streptococcus pneumoniae R78.81; B95.3
[2023-07-19] MEDS: aspirin 300 mg Supp PR (08:59)
[2023-07-19] MEDS: vancomycin 1,000 MG in sodium chloride 0.9% 250 ML 250 MG IV (09:08)
[2023-07-19] MEDS: acetaminophen 1,000 MG/100 ML PIGGYBACK 400 MG IV (09:45)
[2023-07-19] MEDS: meropenem 500 MG in sodium chloride 0.9% (plus) 50 ML 100 MG IV (10:03)
[2023-07-19 10:39] LABS: Glucose Point of Care 140 mg/dL (70-110)
[2023-07-19] MEDS: metoclopramide 5 mg/mL SDV 2 mL IVP ×3 (11:33→21:14)
[2023-07-19] MEDS: fentaNYL 1,000 MCG/100 ML BAG 10 MCG IV (11:49)
[2023-07-19 13:06] LABS: Partial Thromboplastin Time 63.2 SECONDS (23.9-36.7)
[2023-07-19 14:02] LABS: Glucose Point of Care 156 mg/dL (70-110)
[2023-07-19] MEDS: heparin drip 25,000 UNIT/500 ML PREMIX 22.8999999999999986 UNIT IV (14:39)
[2023-07-19] MEDS: norepinephrine 4 MG/250 ML BAG 37.5 MG IV (15:06)
[2023-07-19] MEDS: magnesium hydroxide 30 mL UDC PO (16:11)
--- NOTE | 2023-07-19 16:16 | PM.PN ---
Subjective Subjective: Patient has remained febrile overnight with fevers going up to 102. Today morning seen with multiple family members at bedside. He is on Levophed drip at 15, vasopressin drip has been stopped, heparin drip, propofol of 15, fentanyl of 125, amiodarone of 0.5. Patient is saturating well on minimal vent settings with FiO2 of 30%. Patient did undergo dialysis yesterday. Minimal urine output. No bowel movements. Medications: Reviewed: Yes Vitals/I&O/Wt Last Vital Signs Temp 101.1 F H 07/19/23 15:38 Pulse 104 H 07/19/23 15:38 Resp 16 07/19/23 15:45 BP 85/47 07/19/23 15:38 Pulse Ox 97 07/19/23 15:45 O2 Del Method Mechanical Ventilation 07/19/23 13:45 O2 Flow Rate 3 07/18/23 10:30 FiO2 30 07/19/23 15:45 07/19/23 07/19/23 07/19/23 06:59 14:59 22:59 Intake Total 1092.351 / 4685.008 1172.515 / 1172.515 341.25 / 1513.765 Output Total 2351 Balance 1091.351 / 2333.008 1172.515 / 1172.515 341.25 / 1513.765 Weight last 48 hrs Weight 81.873 kg Weight 85.275 kg Weight 80.8 kg Weight 81.788 kg Weight 81.788 kg Physical Exam Narrative: General: Drowsy, wakes up to verbal stimulus but not following direction, Kussmaul breath, icterus and pallor present HEENT: PERRLA, pupils bilaterally equal and reactive Chest: Bilateral bronchial breath sounds with decreased air entry bilaterally both so in lower zone CVS: S1-S2 regular, soft ejection systolic murmur at aortic area, tachycardia, no gallops, no rubs Abdomen: Distended, generalized tenderness more so in right lower zone, bowel sounds sluggish, mild guarding no rigidity Neuro: No focal deficits, no facial deformity, AO x3, drowsy Urinary Catheter Management: Melgar: Cath Placed During This Visit: yes Reason for Continuing Indwelling Catheter: Accurate Measurement of Urinary Output in Critically Ill Patients Urinary Catheter Date of Insertion: 07/17/23 Urinary Catheter Time of Insertion: 15:30 Data 07/19/23 06:06 07/19/23 06:06 Micro: Microbiology 07/18/23 13:40 Gram Stain - Final Abdomen Abscess Culture - Preliminary 07/18/23 13:40 Gram Stain - Final Peritoneal Fluid Body Fluid Culture - Preliminary 07/18/23 15:20 Gram Stain - Final Sputum - Endotracheal Tube Aspirate Sputum Culture - Preliminary Gram Negative Rods 07/18/23 19:43 Bacterial Antigens - Final Urine Kidney 07/19/23 06:10 Blood Culture - Preliminary Blood SPECIMEN COLLECTED 07/19/23 06:06 Blood Culture - Preliminary Blood SPECIMEN COLLECTED 07/18/23 19:43 Legionella Urinary Antigen - Final Unknown Source 07/17/23 10:55 Blood Culture - Preliminary Blood Streptococcus pneumoniae 07/17/23 10:52 Blood Culture - Preliminary Blood Streptococcus pneumoniae A&P Assessment and plan (1) Shock: With concerns for sepsis. SIRS: Tachycardic, hypotensive, poor mentation Source: Small bowel obstruction with mesenteric ischemia and intra-abdominal collection End organ damage: Acute infectious encephalopathy, hypotension, elevated lactate Elevated Patient did not receive full 30 mL/kg BW given history of end-stage renal disease on hemodialysis with concerns for fluid overload Monitor blood pressures. Keep mean artery pressure 65 mmHg. Wean Levophed keeping goal blood pressures. Follow-up repeat blood culture, OR cultures, MRSA swab, sputum Cx. Urine Legionella, bacterial antigen negative. Sputum culture growing gram-negative rods. For now continue with empiric IV vancomycin and meropenem. If MRSA swab is negative will discontinue vancomycin. Given patient being persistently febrile with history of liver cirrhosis for now we will start coverage for antifungals with IV fluconazole 200 mg daily. Continue with albumin Q8h (2) Bacteremia due to Streptococcus pneumoniae: Blood culture from admission showing Streptococcus pneumonia. Repeat blood culture sent on 07/18. Follow-up sensitivities. (3) SBO (small bowel obstruction): Appreciate surgical recommendations. Post laparoscopic abdominal washout on 07/17. Follow-up or cultures. Appreciate repeat CT abdomen pelvis done on 07/17 with contrast. Minimal NG tube drain. Discussed in detail with surgical team. Okay to start on trickle feeds. Frequent abdominal examination. Plan on abdominal x-ray in a.m. tomorrow. Zofran as needed, Protonix twice daily. Monitor electrolytes. (4) Mesenteric ischemia: As seen on CT abdomen pelvis done in the ER. Concerns for portal venous air. N.p.o. as above. Continue with heparin drip. Starting on trickle feeds today. Will continue to monitor with frequent abdominal examinations. (5) Atrial fibrillation: Heart rate better controlled. Continue with IV amiodarone at 0.5 for now as patient is NPO. Patient's hemodynamics have remained borderline. Will hold off on starting Cardizem or metoprolol for now. For now we will continue with amiodarone drip even though patient has concerns for liver cirrhosis but unfortunately with hypertension and end-stage renal disease will want to avoid other medications including Cardizem, beta-kim or digoxin. Anticoagulation recently stopped because of hemorrhoidal bleed. Currently on heparin drip for mesenteric ischemia. (6) Hypoglycemia: Resolved. Did receive multiple doses of glucagon on admission. Continue with hypoglycemia protocol. Blood sugar check every 6 hourly. Wean hydrocortisone to 50 mg IV every 8 hourly. Appreciate cortisol levels. (7) Chronic diastolic heart failure: Last echocardiogram from May 2023 shows an EF of 50 to 55%, biatrial enlargement, moderate MR, mild to moderate mitral stenosis, bioprosthetic aortic valve with mild to moderate elevated pressure gradient across. Received fluid bolus in the ER. Watch for fluid overload. (8) End-stage renal disease on hemodialysis: Consult nephrology for HD. (9) Liver cirrhosis: Ultrasound-guided paracentesis. Check ammonia levels. (10) Ascites: (11) Elevated lactic acid level: (12) Goals of care, counseling/discussion: (13) Gastric emphysema: Plan Respiratory failure: Intubated on OR. Maintain sedation with fentanyl and propofol for now. Oxygen supplementation keeping saturation over 90%. ABG daily, chest x-ray. Plan to wean sedation tomorrow with possibility of extubation. Anesthesia: Propofol and fentanyl Glycemic control: Hypoglycemia protocol. Sugar checks every 6 hourly Nutrition: NPO. Start on trickle feeds with Nepro at 10 cc/h. Do not increase overnight. Free water flushes 100 cc every 6 hours. CODE STATUS: Discussed in detail with patient's at bedside. is the DPOA. Full code. PUD prophylaxis: Protonix DVT prophylaxis: Heparin drip will be sufficient Discharge planning: Back to SNF once medically clear Continue with care at ICU. Goals of care discussion: Had a detailed goals of care discussion with and sister at bedside. We discussed unfortunately patient is extremely sick and has been getting sick for last few months with recurrent admissions. Discussed unfortunately currently patient has bowel ischemia and is in shock requiring multiple pressors with his baseline end-stage renal disease and liver cirrhosis he is at a higher risk of poor prognosis. We discussed that patient might not be able to back to his baseline mentation or quality of life. verbalizes understanding and for now would want to continue everything what is needed for him to get better. This documentation was created by [employer] artificial stone setter software. Every effort was made to ensure accuracy of artificial stone setter. Any obvious errors or omissions should be clarified with the author of the document. Attestations Medical Necessity Statement*: Requires further hospitalization for management of septic shock in setting of intra-abdominal infection in a patient with history of liver cirrhosis, end-stage renal disease on hemodialysis who presented with small bowel obstruction and mesenteric ischemia as patient is ventilator dependent and on vasopressors Critical Care Time: The high probability of a clinically significant, sudden or life threatening deterioration of the patient's [neurological, respiratory, GI, cardiac] system(s) required my full and direct attention, intervention and personal management. The critical care time is as shown. This time is in addition to time spent performing any reported procedures but includes the following: [x] Data and vital sign review and interpretation [x] Patient assessment, examination and intervention [x] Documentation [x] Medication orders and management Critical Care Time (min): 100 Coding Level of Care Code Critical Care >/= 30 minutes Critical care time (in minutes): 100 The high probability of a clinically significant, sudden or life threatening deterioration, as referenced in this documentation, required my full and direct attention, intervention and personal management. The critical care time shown is in addition to time spent performing any reported separately billable procedures and includes the following: [x] Data and vital sign review and interpretation [x] Patient assessment, examination and intervention [x] Medication orders and management [x] Patient/Family updates as able [x] Care Coordination and Documentation. Other Coding Information This patient has a high probability of clinically significant, sudden or life threatening deterioration of the patient's (neurological/pulmonary/cardiac/renal/ID/endocrine) systems required my full, direct attention, the highest level of physician preparedness for urgent intervention and personal management. I managed/supervised life or organ supporting interventions that required frequent physician assessment. I devoted my full attention in the ICU to the direct care of this patient for the period of time indicated above. Time I spent with family or surrogate(s) is included only if the patient was incapable of providing necessary information or participating in decision making. This time includes the following services provided: Telemetry review Mechanical Ventilation Hemodynamic interpretation, assessment and management Review and interpretation of CXR Review and interpretation of lab values Review and interpretation of microbiologic data and culture results Review of medications and administration Review and interpretation of Nutrition requirements and management Discussion of management with other consultants and services Clinical update to family members Diagnoses Shock R57.9 Bacteremia due to Streptococcus pneumoniae R78.81; B95.3 SBO (small bowel obstruction) K56.609 Mesenteric ischemia K55.9 Atrial fibrillation I48.91 Hypoglycemia E16.2 Chronic diastolic heart failure I50.32 End-stage renal disease on hemodialysis N18.6; Z99.2 Liver cirrhosis K74.60 Ascites R18.8 Elevated lactic acid level R79.89 Goals of care, counseling/discussion Z71.89 Gastric emphysema K29.60
[2023-07-19] MEDS: propofol 1,000 MG/100 ML INJ 7.36000000000000032 MG IV (17:45)
[2023-07-19] MEDS: fluconazole premix 100 MG in empty flexible container 1 EACH 50 MG IV (17:46)
[2023-07-19] MEDS: fentaNYL 1,000 MCG/100 ML BAG 12.5 MCG IV (20:12)
[2023-07-19 20:44] LABS: Basophils % 0.3 %; Eosinophils % 0.1 %; Hematocrit 25.3 % (37-53); Lymphocytes # 0.3 10^3/uL (0.8-4.8); Lymphocytes % 2.5 %; Mean Corpuscular HGB Conc 32.4 g/dL (30-55); Mean Corpuscular Hemoglobin 34.2 pg (27-33); Mean Corpuscular Volume 105.4 fl (82-101); Monocytes % 7.9 %; Neutrophils # 10.69 10^3/uL (1.8-7.7); Neutrophils % 83.1 %; Nucleated Red Blood Cells % 0.2 %; Platelet Count 56 10^3/cmm (157-399); Red Cell Distribution Width 18.4 % (12.1-15.1); White Blood Count 12.85 10^3/uL (3.29-11.43)
[2023-07-19 21:04] LABS: Partial Thromboplastin Time 76.7 SECONDS (23.9-36.7)
[2023-07-19 21:08] LABS: Alanine Aminotransferase 10 U/L (0-41); Albumin Level 3.3 g/dL (3.5-5.2); Alkaline Phosphatase 71 U/L (40-130); Anion Gap 17.1 (5-19); Aspartate Amino Transferase 29 U/L (0-40); Blood Urea Nitrogen 39 mg/dL (8-23); Calcium 9.3 mg/dL (8.5-10.5); Carbon Dioxide 25 mmol/L (22-29); Chloride 93 mmol/L (98-107); Creatinine Clr Calc Pharmacy 21.2637; Globulin 1.6 g/dL (1.3-4.6); Glucose 170 mg/dL (65-115); Osmolality Calculated 285 mOsm/kg (285-295); Potassium 4.1 mmol/L (3.5-5.1); Sodium 131 mmol/L (136-145); Total Bilirubin 1.9 mg/dL (0.15-1.2); Total Protein 4.9 g/dL (6.6-8.7)
[2023-07-19] MEDS: norepinephrine 4 MG/250 ML BAG 30 MG IV (21:53)
--- NOTE | 2023-07-19 21:59 | PC.NURSE ---
Addendum entered by Saritha Car RN 07/20/23 04:48: New order to place NG to low intermittent wall suction. Addendum entered by Saritha Car RN 07/20/23 04:14: Dr. Wheeler notified of 200ml gastric residual @0411, new order for abdominal x-ray. Original Note: Tube Feed: Tube feed @10ml/hr. Residual checked @2135. 140ml. Dr. Wheeler notified @approximately 2145. New order to hold tube feeding for the night.
[2023-07-20] VITALS (106 sets, daily range): BP systolic 91–139; BP diastolic 38–70; PULSE 71–118; RESP 13–35; TEMP 36.7–37.7; O2SAT 95–100
[2023-07-20] MEDS: chlorhexidine gluconate 4% Btl 118 mL 1 APPLIC TOPICAL (00:13)
[2023-07-20 00:33] LABS: Glucose Point of Care 181 mg/dL (70-110)
[2023-07-20] MEDS: pantoprazole 40 mg SDV IVP ×2 (01:15→14:36)
[2023-07-20] MEDS: ipratropium 0.5 mg/2.5 mL Neb INHALATION ×4 (02:34→19:52)
[2023-07-20] MEDS: levalbuterol 0.63 mg/3 mL Neb 0.630000000000000004 MG INHALATION ×4 (02:34→19:52)
[2023-07-20] MEDS: fentaNYL 1,000 MCG/100 ML BAG 10 MCG IV (03:12)
--- NOTE | 2023-07-20 04:19 | XRR_ITS ---
PROCEDURE INFORMATION: Exam: XR Complete Acute Abdomen Series Including Chest Exam date and time: 07/20/2023 4:21 AM Age: 73 years old Clinical indication: Prior surgery; Surgery date: 6+ months; Surgery type: Tavr; Patient HX: F/u sbo. Intubated with og, picc, and zoll pads in place. ; Additional info: Small bowel obstruction/mesenteric ischemia TECHNIQUE: Imaging protocol: Radiologic exam. Complete acute abdomen series, including 2 or more views of the abdomen and a single view chest. COMPARISON: CR XR chest 1V portable [id number] 07/18/2023 3:34 PM FINDINGS: Tubes, catheters and devices: Endotracheal tube tip is at the clavicles. Right-sided PICC line tip is in the SVC. Nasogastric tube extends to the stomach tip not included on the exam. Lungs: Slight interval improvement in pulmonary vascular congestion. Interval improved aeration of the right lung base. There are persistent areas of bilateral mid to lower lung zone atelectasis and/or airspace disease. Pleural spaces: Normal. No pleural effusions. No pneumothorax. Heart/Mediastinum: Prior AVR. Cardiomediastinal contours accentuated by AP technique. Diaphragm: Minimal CP angle blunting on the right. No left effusion visualized with CP angle partially obscured. Gastrointestinal tract: Normal. No bowel dilation. Intraperitoneal space: Normal. No free air. Bones/joints: Normal. No acute fracture. Soft tissues: Normal. XR/XR acute abdomen series [id number] IMPRESSION: Interval improvement in pulmonary vascular congestion and right basilar atelectasis and/or airspace disease with residual abnormalities as described above.
[2023-07-20 04:32] LABS: Basophils % 0.3 %; Hematocrit 23.5 % (37-53); Lymphocytes # 0.3 10^3/uL (0.8-4.8); Lymphocytes % 2.3 %; Mean Corpuscular HGB Conc 31.9 g/dL (30-55); Mean Corpuscular Hemoglobin 33.6 pg (27-33); Mean Corpuscular Volume 105.4 fl (82-101); Mean Platelet Volume 11.2 fL (7.4-10.4); Monocytes # 0.9 10^3/uL (0.2-0.9); Monocytes % 8.8 %; Neutrophils # 8.57 10^3/uL (1.8-7.7); Neutrophils % 80.5 %; Nucleated Red Blood Cells % 0 %; Platelet Count 45 10^3/cmm (157-399); Red Blood Count 2.23 10^6/uL (3.85-5.65); Red Cell Distribution Width 18.4 % (12.1-15.1); White Blood Count 10.65 10^3/uL (3.29-11.43)
[2023-07-20 04:45] LABS: Partial Thromboplastin Time 66.6 SECONDS (23.9-36.7)
[2023-07-20 04:46] LABS: Phosphorus 2.5 mg/dL (2.5-4.5)
[2023-07-20 04:49] LABS: ABG PCO2 39.1 mmHg (35-45); ABG PH Result 7.43 (7.35-7.45); Alveolar-Arterial Oxygen Gradi 10.8 mmHg (5-10); Arterial Blood Gas Hematocrit 23.8 % (42-52); Base Excess ABG 1.8 mmol/L (-2.0-2.0); Blood Gas Allen Test Pos; Blood Gas Sample Site ART LINE; Blood Gas Sample Type Arterial; HCO3 ABG 26.2 mmol/L (22-26); Ionized Calcium Level - ABG 1.3 mmol/L (1.1-1.4); Methemoglobin 1.1 % (0.4-1.5); Oxygen Device VENT; PO2 FiO2 Ratio Arterial Blood 0; Potassium Level - ABG 3.7 mmol/L (3.5-5.0); Total Hemoglobin 7.8 g/dL (14-18)
[2023-07-20 04:50] LABS: Alanine Aminotransferase 9 U/L (0-41); Albumin Level 3.3 g/dL (3.5-5.2); Alkaline Phosphatase 67 U/L (40-130); Anion Gap 15.8 (5-19); Aspartate Amino Transferase 24 U/L (0-40); Blood Urea Nitrogen 42 mg/dL (8-23); Calcium 9.6 mg/dL (8.5-10.5); Carbon Dioxide 26 mmol/L (22-29); Chloride 91 mmol/L (98-107); Creatinine Clr Calc Pharmacy 20.0824; Globulin 1.5 g/dL (1.3-4.6); Glucose 158 mg/dL (65-115); Osmolality Calculated 282 mOsm/kg (285-295); Potassium 3.8 mmol/L (3.5-5.1); Sodium 129 mmol/L (136-145); Total Bilirubin 1.6 mg/dL (0.15-1.2); Total Protein 4.8 g/dL (6.6-8.7)
--- NOTE | 2023-07-20 05:49 | PC.NURSE ---
Addendum entered by Kendrick Pedroza RN 07/20/23 06:18: This nurse witnessed EMEKA Melara wasting 16ml of propofol. Original Note: Waste Propofol: 16ml Propofol wasted w/ EMEKA Marks.
[2023-07-20 06:06] LABS: Glucose Point of Care 181 mg/dL (70-110)
[2023-07-20] MEDS: hydrocortisone 100 mg/2 mL SDV 50 MG IVP ×2 (06:09→18:11)
[2023-07-20] MEDS: albumin 25 G/100 ML BAG 60 G IV ×3 (06:12→23:14)
[2023-07-20] MEDS: aspirin 300 mg Supp PR (08:10)
[2023-07-20] MEDS: metoclopramide 5 mg/mL SDV 2 mL IVP (08:10)
[2023-07-20] MEDS: meropenem 500 MG in sodium chloride 0.9% (plus) 50 ML 100 MG IV ×2 (08:10→16:31)
--- NOTE | 2023-07-20 09:54 | P.PN_ITS ---
Subjective 2 Subjective: Patient is less sedated today. Some constipation. Only on 4 mcg of Levophed. Vitals/I&O/Wt Last Vital Signs Temp 98.0 F 07/20/23 08:00 Pulse 86 07/20/23 09:00 Resp 20 H 07/20/23 09:36 BP 120/47 07/20/23 09:00 Pulse Ox 97 07/20/23 09:36 O2 Del Method Mechanical Ventilation 07/20/23 09:00 O2 Flow Rate 3 07/18/23 10:30 FiO2 30 07/20/23 09:36 07/19/23 07/20/23 07/20/23 22:59 06:59 14:59 Intake Total 1301.093 / 2473.608 865.294 / 3338.902 150 / 150 Output Total 160 / 160 Balance 1301.093 / 2473.608 705.294 / 3178.902 150 / 150 Weight last 48 hrs Weight 193 lb 9.6 oz Weight 180 lb 8 oz Weight 188 lb Weight 178 lb 2.136 oz Weight 180 lb 5 oz Physical Exam 2 Narrative: General: Intubated, sedated Abdomen: Soft, nondistended, some grimace to palpation of his abdomen diffusely, no guarding Urinary Catheter Management: Melgar: Cath Placed During This Visit: yes Reason for Continuing Indwelling Catheter: Accurate Measurement of Urinary Output in Critically Ill Patients Urinary Catheter Date of Insertion: 07/17/23 Urinary Catheter Time of Insertion: 15:30 Data 07/20/23 03:53 07/20/23 03:53 Micro: Microbiology 07/19/23 06:10 Blood Culture - Preliminary Blood NEGATIVE TO DATE 07/19/23 06:06 Blood Culture - Preliminary Blood NEGATIVE TO DATE 07/18/23 13:40 Gram Stain - Final Abdomen Anaerobic Culture - Preliminary Abscess Culture - Preliminary 07/18/23 13:40 Gram Stain - Final Peritoneal Fluid Body Fluid Culture - Preliminary 07/18/23 15:20 Gram Stain - Final Sputum - Endotracheal Tube Aspirate Sputum Culture - Preliminary Gram Negative Rods 07/18/23 19:43 Bacterial Antigens - Final Urine Kidney A&P Assessment and plan (1) Gastric emphysema: (2) Partial small bowel obstruction: (3) Shock: (4) Bacteremia due to Streptococcus pneumoniae: Plan Postop day #2 status post diagnostic laparoscopy with extensive laparoscopic lysis of adhesions There was an extensive amount of exudate throughout the abdomen causing a transition point which was relieved operatively. Possible spontaneous bacterial peritonitis-await cultures If he gets extubated, start Jevity at 10 mL/h and advance 4 hours later to 20 mL/h and hold Medical management per hospitalist Attestations 2 Medical Necessity Statement*: Per primary Coding Level of Care Code Acute Code for Chg Fwd Diagnoses Gastric emphysema K29.60 Partial small bowel obstruction K56.600 Shock R57.9 Bacteremia due to Streptococcus pneumoniae R78.81; B95.3
[2023-07-20] MEDS: norepinephrine 4 MG/250 ML BAG 15 MG IV (10:36)
--- NOTE | 2023-07-20 10:59 | PC.NURSE ---
spoke with Dr. Vaughn on the phone around 0900. Updated on patient status and plan to try to wean and extubate. Orders in for dialysis already. Dr. Vaughn stated to hold next reglan dose. See eMAR.
[2023-07-20 11:56] LABS: Glucose Point of Care 143 mg/dL (70-110)
[2023-07-20] MEDS: fentaNYL 1,000 MCG/100 ML BAG 7.5 MCG IV (13:13)
[2023-07-20] MEDS: heparin drip 25,000 UNIT/500 ML PREMIX 22 UNIT IV (13:46)
--- NOTE | 2023-07-20 13:51 | P.PN_ITS ---
Subjective 2 Subjective: getting hD Medications: Reviewed: Yes Vitals/I&O/Wt Last Vital Signs Temp 99.4 F 07/20/23 11:30 Pulse 113 H 07/20/23 13:25 Resp 25 H 07/20/23 13:26 BP 108/45 07/20/23 12:15 Pulse Ox 99 07/20/23 13:26 O2 Del Method Mechanical Ventilation 07/20/23 13:28 O2 Flow Rate 3 07/18/23 10:30 FiO2 30 07/20/23 13:26 07/19/23 07/20/23 07/20/23 22:59 06:59 14:59 Intake Total 1301.093 / 2473.608 865.294 / 3338.902 601.713 / 601.713 Output Total 160 / 160 Balance 1301.093 / 2473.608 705.294 / 3178.902 601.713 / 601.713 Weight last 48 hrs Weight 89.811 kg Weight 87.815 kg Weight 81.873 kg Weight 85.275 kg Weight 80.8 kg Physical Exam 2 Narrative: INTUBATED , SEDATED Urinary Catheter Management: Melgar: Cath Placed During This Visit: yes Reason for Continuing Indwelling Catheter: Accurate Measurement of Urinary Output in Critically Ill Patients Urinary Catheter Date of Insertion: 07/17/23 Urinary Catheter Time of Insertion: 15:30 Data 07/20/23 03:53 07/20/23 03:53 Micro: Microbiology 07/18/23 13:40 Gram Stain - Final Abdomen Anaerobic Culture - Preliminary Abscess Culture - Preliminary 07/18/23 13:40 Gram Stain - Final Peritoneal Fluid Body Fluid Culture - Preliminary 07/19/23 06:10 Blood Culture - Preliminary Blood NEGATIVE TO DATE 07/19/23 06:06 Blood Culture - Preliminary Blood NEGATIVE TO DATE 07/18/23 15:20 Gram Stain - Final Sputum - Endotracheal Tube Aspirate Sputum Culture - Preliminary Gram Negative Rods 07/18/23 19:43 Bacterial Antigens - Final Urine Kidney A&P Assessment and plan (1) End-stage renal disease on hemodialysis: Plan 1. End-stage renal disease: On MWF schedule as outpatient, HD today , on pressors 2. Abdominal pain: Concern for SBO , s/p laparoscopy and lysis of adhesions 3. Shock: On low-dose pressors, monitor, will limit ultrafiltration with HD 4. History of liver cirrhosis 5.resp failure - on vent Has multiple comorbidities, overall poor prognosis -Patient evaluated using audiovisual cart. Time spent 20 minutes. Attestations 2 Medical Necessity Statement*: per chiquis Coding Level of Care Code Acute Code for Chg Fwd Diagnoses End-stage renal disease on hemodialysis N18.6; Z99.2
--- NOTE | 2023-07-20 14:17 | P.PN_ITS ---
Subjective 2 Subjective: Overnight patient has remained hemodynamically stable. Today morning seen while getting HD. He is off propofol and fentanyl is running at 25. Patient is awake but not following directions. Currently on 30% FiO2 with PEEP of 5. He is also on amnio 0.5, heparin drip, Levophed of 4. During the day he was transitioned to pressure support of 12/5 but patient was noted maintaining his tidal volumes. Minimal urine output. Fever curve has improved. Afebrile overnight. Today morning 99.8 Fahrenheit. Medications: Reviewed: Yes Vitals/I&O/Wt Last Vital Signs Temp 99.3 F 07/20/23 13:00 Pulse 111 H 07/20/23 14:00 Resp 14 07/20/23 14:00 BP 91/43 07/20/23 14:00 Pulse Ox 97 07/20/23 14:00 O2 Del Method Mechanical Ventilation 07/20/23 14:00 O2 Flow Rate 3 07/18/23 10:30 FiO2 30 07/20/23 14:00 07/19/23 07/20/23 07/20/23 22:59 06:59 14:59 Intake Total 1301.093 / 2473.608 865.294 / 3338.902 601.713 / 601.713 Output Total 160 / 160 Balance 1301.093 / 2473.608 705.294 / 3178.902 601.713 / 601.713 Weight last 48 hrs Weight 89.811 kg Weight 87.815 kg Weight 81.873 kg Weight 85.275 kg Weight 80.8 kg Physical Exam 2 Narrative: General: Intubated, less sedated, wakes up to verbal stimulus not following directions HEENT: PERRLA, pupils bilaterally equal and reactive Chest: Bilateral bronchial breath sounds with decreased air entry bilaterally both so in lower zone CVS: S1-S2 regular, soft ejection systolic murmur at aortic area, tachycardia, no gallops, no rubs Abdomen: Distended, generalized tenderness more so in right lower zone, bowel sounds sluggish, mild guarding no rigidity Neuro: No focal deficits, no facial deformity, intubated, less sedated Urinary Catheter Management: Melgar: Cath Placed During This Visit: yes Reason for Continuing Indwelling Catheter: Accurate Measurement of Urinary Output in Critically Ill Patients Urinary Catheter Date of Insertion: 07/17/23 Urinary Catheter Time of Insertion: 15:30 Data 07/20/23 03:53 07/20/23 03:53 Micro: Microbiology 07/18/23 13:40 Gram Stain - Final Abdomen Anaerobic Culture - Preliminary Abscess Culture - Preliminary 07/18/23 13:40 Gram Stain - Final Peritoneal Fluid Body Fluid Culture - Preliminary 07/19/23 06:10 Blood Culture - Preliminary Blood NEGATIVE TO DATE 07/19/23 06:06 Blood Culture - Preliminary Blood NEGATIVE TO DATE 07/18/23 15:20 Gram Stain - Final Sputum - Endotracheal Tube Aspirate Sputum Culture - Preliminary Gram Negative Rods 07/18/23 19:43 Bacterial Antigens - Final Urine Kidney A&P Assessment and plan (1) Shock: With concerns for sepsis. SIRS: Tachycardic, hypotensive, poor mentation Source: Small bowel obstruction with mesenteric ischemia and intra-abdominal collection End organ damage: Acute infectious encephalopathy, hypotension, elevated lactate Elevated Patient did not receive full 30 mL/kg BW given history of end-stage renal disease on hemodialysis with concerns for fluid overload Monitor blood pressures. Keep mean artery pressure 65 mmHg. Wean Levophed keeping goal blood pressures. Follow-up repeat blood culture, OR cultures, MRSA swab, sputum Cx. Urine Legionella, bacterial antigen negative. Sputum culture growing gram-negative rods. For now continue with empiric IV vancomycin and meropenem. If MRSA swab is negative will discontinue vancomycin. Given patient being persistently febrile with history of liver cirrhosis for now we will start coverage for antifungals with IV fluconazole 200 mg daily. Continue with albumin Q8h (2) Bacteremia due to Streptococcus pneumoniae: Blood culture from admission showing Streptococcus pneumonia. Repeat blood culture sent on 07/18. Follow-up sensitivities. (3) SBO (small bowel obstruction): Appreciate surgical recommendations. Post laparoscopic abdominal washout on 07/17. Follow-up or cultures. Appreciate repeat CT abdomen pelvis done on 07/17 with contrast. Minimal NG tube drain. Discussed in detail with surgical team. Okay to start on trickle feeds. Frequent abdominal examination. Plan on abdominal x-ray in a.m. tomorrow. Zofran as needed, Protonix twice daily. Monitor electrolytes. (4) Mesenteric ischemia: As seen on CT abdomen pelvis done in the ER. Concerns for portal venous air. N.p.o. as above. Continue with heparin drip. Starting on trickle feeds today. Will continue to monitor with frequent abdominal examinations. (5) Atrial fibrillation: Heart rate better controlled. Continue with IV amiodarone at 0.5 for now as patient is NPO. Patient's hemodynamics have remained borderline. Will hold off on starting Cardizem or metoprolol for now. For now we will continue with amiodarone drip even though patient has concerns for liver cirrhosis but unfortunately with hypertension and end-stage renal disease will want to avoid other medications including Cardizem, beta-kim or digoxin. Anticoagulation recently stopped because of hemorrhoidal bleed. Currently on heparin drip for mesenteric ischemia. (6) Hypoglycemia: Resolved. Did receive multiple doses of glucagon on admission. Continue with hypoglycemia protocol. Blood sugar check every 6 hourly. Wean hydrocortisone to 50 mg IV every 8 hourly. Appreciate cortisol levels. (7) Chronic diastolic heart failure: Last echocardiogram from May 2023 shows an EF of 50 to 55%, biatrial enlargement, moderate MR, mild to moderate mitral stenosis, bioprosthetic aortic valve with mild to moderate elevated pressure gradient across. Received fluid bolus in the ER. Watch for fluid overload. (8) End-stage renal disease on hemodialysis: Consult nephrology for HD. (9) Liver cirrhosis: Ultrasound-guided paracentesis. Check ammonia levels. (10) Ascites: (11) Elevated lactic acid level: (12) Goals of care, counseling/discussion: (13) Gastric emphysema: Plan Respiratory failure: Intubated on 07/17 for OR. Maintain sedation with fentanyl and precedex for now. Plan to retry extubation again. Oxygen supplementation keeping saturation over 90%. ABG daily, chest x-ray. Plan for the day: Patient could not tolerate pressure support much with poor tidal volumes. Plan to continue pressure support of 12/5 today around 8 PM and then will transition to full support. Will not put propofol. Will sedate with fentanyl and Precedex with plan to retry extubation in AM. Keep saturation over 88%. Undergoing dialysis today. Repeat blood work in AM. Keep mean artery pressure over 65. Wean Levophed accordingly. Continue with albumin every 8 hourly. Blood cultures so far negative. From admission positive for Streptococcus. Sputum culture positive for ESBL E. coli. Continue with current IV antibiotics and fluconazole. Patient could not tolerate tube feeds well yesterday. High residuals. Hold off on tube feeds for now. Will retry in AM. Hold Reglan for now. Appreciate acute abdomen series done today morning. If needed will start patient on milk of mag. Blood sugars better controlled. Wean hydrocortisone 50 every 12 hourly. Will plan to stop within next 24 to 48 hours. Anesthesia: Sedation medication today, after that Precedex and fentanyl Glycemic control: Hypoglycemia protocol. Sugar checks every 6 hourly Nutrition: High residuals. Hold off on tube feeds for today. Patient could not tolerate 10 cc of Nepro. Will retry tomorrow. CODE STATUS: Discussed in detail with patient's at bedside. is the DPOA. Full code. PUD prophylaxis: Protonix DVT prophylaxis: Heparin drip will be sufficient Discharge planning: Back to SNF once medically clear Continue with care at ICU. Goals of care discussion: Had a detailed goals of care discussion with and sister at bedside. We discussed unfortunately patient is extremely sick and has been getting sick for last few months with recurrent admissions. Discussed unfortunately currently patient has bowel ischemia and is in shock requiring multiple pressors with his baseline end-stage renal disease and liver cirrhosis he is at a higher risk of poor prognosis. We discussed that patient might not be able to back to his baseline mentation or quality of life. verbalizes understanding and for now would want to continue everything what is needed for him to get better. This documentation was created by [employer] sewing machine assembler software. Every effort was made to ensure accuracy of sewing machine assembler. Any obvious errors or omissions should be clarified with the author of the document. Attestations 2 Medical Necessity Statement*: Requires further hospitalization for management of septic shock in setting of strep pneumonia bacteremia, ESBL E. coli pneumonia in a patient with mesenteric ischemia, intra-abdominal infection in a patient with history of end-stage disease on hemodialysis and liver cirrhosis Critical Care Time: The high probability of a clinically significant, sudden or life threatening deterioration of the patient's [cardiac, renal, GI, respiratory, neurological, ID] system(s) required my full and direct attention, intervention and personal management. The critical care time is as shown. This time is in addition to time spent performing any reported procedures but includes the following: [x] Data and vital sign review and interpretation [x] Patient assessment, examination and intervention [x] Documentation [x] Medication orders and management Critical Care Time (min): 90 Coding Level of Care Code Critical Care >/= 30 minutes Critical care time (in minutes): 90 The high probability of a clinically significant, sudden or life threatening deterioration, as referenced in this documentation, required my full and direct attention, intervention and personal management. The critical care time shown is in addition to time spent performing any reported separately billable procedures and includes the following: [x] Data and vital sign review and interpretation [x ] Patient assessment, examination and intervention [x] Medication orders and management [x] Patient/Family updates as able [x] Care Coordination and Documentation. Other Coding Information This patient has a high probability of clinically significant, sudden or life threatening deterioration of the patient's (neurological/pulmonary/cardiac/renal/ID/endocrine) systems required my full, direct attention, the highest level of physician preparedness for urgent intervention and personal management. I managed/supervised life or organ supporting interventions that required frequent physician assessment. I devoted my full attention in the ICU to the direct care of this patient for the period of time indicated above. Time I spent with family or surrogate(s) is included only if the patient was incapable of providing necessary information or participating in decision making. This time includes the following services provided: Telemetry review Mechanical Ventilation Hemodynamic interpretation, assessment and management Review and interpretation of CXR Review and interpretation of lab values Review and interpretation of microbiologic data and culture results Review of medications and administration Review and interpretation of Nutrition requirements and management Discussion of management with other consultants and services Clinical update to family members Diagnoses Shock R57.9 Bacteremia due to Streptococcus pneumoniae R78.81; B95.3 SBO (small bowel obstruction) K56.609 Mesenteric ischemia K55.9 Atrial fibrillation I48.91 Hypoglycemia E16.2 Chronic diastolic heart failure I50.32 End-stage renal disease on hemodialysis N18.6; Z99.2 Liver cirrhosis K74.60 Ascites R18.8 Elevated lactic acid level R79.89 Goals of care, counseling/discussion Z71.89 Gastric emphysema K29.60
[2023-07-20] MEDS: vancomycin 1,000 MG in sodium chloride 0.9% 250 ML 250 MG IV (14:35)
[2023-07-20 15:32] LABS: Methicillin-Resist S.aureu PCR DETECTED (NOT DETECTED)
[2023-07-20 17:37] LABS: Partial Thromboplastin Time 56.5 SECONDS (23.9-36.7)
[2023-07-20 18:02] LABS: Glucose Point of Care 146 mg/dL (70-110)
[2023-07-20] MEDS: fluconazole premix 100 MG in empty flexible container 1 EACH 50 MG IV (18:12)
[2023-07-20] MEDS: dexmedeTOMIDine 0.9 % NaCL 400 MCG/100 ML PREMIX IV (19:37)
[2023-07-20 23:29] LABS: Partial Thromboplastin Time 54.7 SECONDS (23.9-36.7)
[2023-07-21] VITALS (70 sets, daily range): BP systolic 97–145; BP diastolic 13–88; PULSE 71–97; RESP 12–30; TEMP 36.9–39.3; O2SAT 97–100; BMI 27.1
[2023-07-21] MEDS: fentaNYL 1,000 MCG/100 ML BAG 7.5 MCG IV (00:59)
[2023-07-21] MEDS: pantoprazole 40 mg SDV IVP ×2 (03:07→14:40)
[2023-07-21] MEDS: chlorhexidine gluconate 4% Btl 118 mL 1 APPLIC TOPICAL (03:07)
[2023-07-21] MEDS: ipratropium 0.5 mg/2.5 mL Neb INHALATION ×4 (03:24→20:35)
[2023-07-21] MEDS: levalbuterol 0.63 mg/3 mL Neb 0.630000000000000004 MG INHALATION ×4 (03:24→20:35)
[2023-07-21 03:27] LABS: Glucose Point of Care 148 mg/dL (70-110)
[2023-07-21 04:43] LABS: ABG PH Result 7.37 (7.35-7.45); Alveolar-Arterial Oxygen Gradi 8.2 mmHg (5-10); Arterial Blood Gas Hematocrit 19.2 % (42-52); Base Excess ABG 1.2 mmol/L (-2.0-2.0); Blood Gas Allen Test Pos; Blood Gas Sample Site ARTLINE; Blood Gas Sample Type Arterial; Carboxyhemoglobin 1.9 %THgb (0.4-20.1); HCO3 ABG 26.6 mmol/L (22-26); HGB O2 Sat 95.8 % (95-100); Ionized Calcium Level - ABG 1.3 mmol/L (1.1-1.4); Methemoglobin 1.2 % (0.4-1.5); Oxygen Device VENT; Oxygen Saturation ABG 98.9; PO2 ABG 94.1 mmHg (80.0-100.0); PO2 FiO2 Ratio Arterial Blood 0; Potassium Level - ABG 3.7 mmol/L (3.5-5.0); Total Hemoglobin 6.3 g/dL (14-18)
[2023-07-21 06:08] LABS: Basophils % 0.2 %; Lymphocytes # 0.3 10^3/uL (0.8-4.8); Lymphocytes % 2.7 %; Mean Corpuscular HGB Conc 31.7 g/dL (30-55); Mean Corpuscular Hemoglobin 33.3 pg (27-33); Mean Corpuscular Volume 105.2 fl (82-101); Mean Platelet Volume 11.3 fL (7.4-10.4); Monocytes # 1.4 10^3/uL (0.2-0.9); Neutrophils # 7.89 10^3/uL (1.8-7.7); Nucleated Red Blood Cells % 0 %; Platelet Count 36 10^3/cmm (157-399); Red Blood Count 1.92 10^6/uL (3.85-5.65); Red Cell Distribution Width 18.2 % (12.1-15.1)
[2023-07-21 06:21] LABS: Neutrophils % 84.1 %
[2023-07-21 06:24] LABS: Hematocrit 20.2 % (37-53)
[2023-07-21] MEDS: albumin 25 G/100 ML BAG 60 G IV ×3 (06:33→23:18)
[2023-07-21 06:38] LABS: Alanine Aminotransferase 8 U/L (0-41); Albumin Level 3.4 g/dL (3.5-5.2); Alkaline Phosphatase 45 U/L (40-130); Anion Gap 15.1 (5-19); Aspartate Amino Transferase 20 U/L (0-40); Blood Urea Nitrogen 39 mg/dL (8-23); Calcium 9.8 mg/dL (8.5-10.5); Carbon Dioxide 27 mmol/L (22-29); Chloride 97 mmol/L (98-107); Globulin 1.4 g/dL (1.3-4.6); Glucose 140 mg/dL (65-115); Osmolality Calculated 292 mOsm/kg (285-295); Potassium 4.1 mmol/L (3.5-5.1); Sodium 135 mmol/L (136-145); Total Bilirubin 1.3 mg/dL (0.15-1.2); Total Protein 4.8 g/dL (6.6-8.7)
[2023-07-21 06:39] LABS: Creatinine Clr Calc Pharmacy 25.5326
--- NOTE | 2023-07-21 07:50 | PC.NURSE ---
Blood drawn for type and cross at this time .. monitor vs ect
[2023-07-21] MEDS: norepinephrine 4 MG/250 ML BAG 15 MG IV (08:00)
[2023-07-21] MEDS: aspirin 300 mg Supp PR (08:46)
[2023-07-21] MEDS: meropenem 500 MG in sodium chloride 0.9% (plus) 50 ML 100 MG IV (08:47)
[2023-07-21] MEDS: hydrocortisone 100 mg/2 mL SDV 50 MG IVP (08:47)
--- NOTE | 2023-07-21 09:03 | PC.NURSE ---
weaning levophed gtt and vent to mmmv .. family at bedside
[2023-07-21] MEDS: dexmedeTOMIDine 0.9 % NaCL 400 MCG/100 ML PREMIX 8.98000000000000043 MCG IV ×2 (09:16→19:42)
--- NOTE | 2023-07-21 11:42 | P.PN_ITS ---
Subjective 2 Subjective: Patient seen and examined. He is on mild sedation but not responsive. No grimace to palpation of abdomen Vitals/I&O/Wt Last Vital Signs Temp 98.8 F 07/21/23 10:00 Pulse 84 07/21/23 10:00 Resp 14 07/21/23 11:22 BP 97/50 07/21/23 10:00 Pulse Ox 98 07/21/23 11:22 O2 Del Method Mechanical Ventilation 07/21/23 08:00 O2 Flow Rate 3 07/18/23 10:30 FiO2 30 07/21/23 11:22 07/20/23 07/21/23 07/21/23 21:59 06:59 14:59 Intake Total 311.468 / 311.468 Output Total Balance 311.468 / 311.468 Weight last 48 hrs Weight 189 lb 3.2 oz Weight 189 lb 3.2 oz Weight 190 lb 11.198 oz Weight 198 lb Weight 193 lb 9.6 oz Physical Exam 2 Narrative: General: Intubated, sedated Abdomen: Soft, nondistended, no grimace to palpation of his abdomen diffusely, no guarding Urinary Catheter Management: Melgar: Cath Placed During This Visit: yes Reason for Continuing Indwelling Catheter: Accurate Measurement of Urinary Output in Critically Ill Patients Urinary Catheter Date of Insertion: 07/17/23 Urinary Catheter Time of Insertion: 15:30 Data 07/21/23 05:45 07/21/23 05:45 Micro: Microbiology 07/18/23 13:40 Gram Stain - Final Abdomen Anaerobic Culture - Preliminary Abscess Culture - Preliminary 07/18/23 15:20 Gram Stain - Final Sputum - Endotracheal Tube Aspirate Sputum Culture - Final Escherichia coli esbl 07/17/23 10:52 Blood Culture - Preliminary Blood Streptococcus pneumoniae 07/18/23 13:40 Gram Stain - Final Peritoneal Fluid Body Fluid Culture - Preliminary 07/19/23 06:10 Blood Culture - Preliminary Blood NEGATIVE TO DATE 07/19/23 06:06 Blood Culture - Preliminary Blood NEGATIVE TO DATE A&P Assessment and plan (1) Gastric emphysema: (2) Partial small bowel obstruction: (3) Shock: Resolved (4) Bacteremia due to Streptococcus pneumoniae: Plan Postop day #3 status post diagnostic laparoscopy with extensive laparoscopic lysis of adhesions There was an extensive amount of exudate throughout the abdomen causing a transition point which was relieved operatively. Possible spontaneous bacterial peritonitis-however no growth to date and he is on broad-spectrum antibiotics Start Jevity at 10 mL/h and advance 4 hours later to 20 mL/h and hold TPN Agree with stopping heparin drip and transfusing PRBCs and platelets Medical management per hospitalist Attestations 2 Medical Necessity Statement*: Per primary Coding Level of Care Code Acute Code for Chg Fwd Diagnoses Gastric emphysema K29.60 Partial small bowel obstruction K56.600 Shock R57.9 Bacteremia due to Streptococcus pneumoniae R78.81; B95.3
[2023-07-21 12:32] LABS: Glucose Point of Care 149 mg/dL (70-110)
--- NOTE | 2023-07-21 12:54 | P.PN_ITS ---
Subjective 2 Subjective: remains on vent off pressors Medications: Reviewed: Yes Vitals/I&O/Wt Last Vital Signs Temp 98.9 F 07/21/23 12:00 Pulse 80 07/21/23 12:00 Resp 24 H 07/21/23 11:59 BP 112/40 07/21/23 12:00 Pulse Ox 100 07/21/23 12:00 O2 Del Method Mechanical Ventilation 07/21/23 08:00 O2 Flow Rate 3 07/18/23 10:30 FiO2 30 07/21/23 11:22 07/20/23 07/21/23 07/21/23 21:59 06:59 14:59 Intake Total 661.468 / 661.468 Output Total Balance 661.468 / 661.468 Weight last 48 hrs Weight 85.82 kg Weight 85.82 kg Weight 86.5 kg Weight 89.811 kg Weight 87.815 kg Physical Exam 2 Narrative: INTUBATED , SEDATED Urinary Catheter Management: Melgar: Cath Placed During This Visit: yes Reason for Continuing Indwelling Catheter: Accurate Measurement of Urinary Output in Critically Ill Patients Urinary Catheter Date of Insertion: 07/17/23 Urinary Catheter Time of Insertion: 15:30 Data 07/21/23 05:45 07/21/23 05:45 Micro: Microbiology 07/18/23 13:40 Gram Stain - Final Peritoneal Fluid Body Fluid Culture - Final 07/18/23 13:40 Gram Stain - Final Abdomen Anaerobic Culture - Preliminary Abscess Culture - Preliminary 07/18/23 15:20 Gram Stain - Final Sputum - Endotracheal Tube Aspirate Sputum Culture - Final Escherichia coli esbl 07/17/23 10:52 Blood Culture - Preliminary Blood Streptococcus pneumoniae 07/19/23 06:10 Blood Culture - Preliminary Blood NEGATIVE TO DATE 07/19/23 06:06 Blood Culture - Preliminary Blood NEGATIVE TO DATE A&P Assessment and plan (1) End-stage renal disease on hemodialysis: Plan 1. End-stage renal disease: On MWF schedule as outpatient, HD tomorrow , off pressors 2. Abdominal pain: s/p laparoscopy and lysis of adhesions 3. Shock: off pressors, monitor, will limit ultrafiltration with HD 4. History of liver cirrhosis 5.resp failure - on vent Has multiple comorbidities, overall poor prognosis -Patient evaluated using audiovisual cart. Time spent 20 minutes. Attestations 2 Medical Necessity Statement*: per medicine Coding Level of Care Code Acute Code for Chg Fwd Diagnoses End-stage renal disease on hemodialysis N18.6; Z99.2
--- NOTE | 2023-07-21 15:07 | P.PN_ITS ---
Subjective 2 Subjective: No acute events overnight. Seen with family at bedside. He has remained mostly afebrile in last 36 hours with Tmax of 99.8 Fahrenheit yesterday afternoon. Patient was on Levophed of 4 earlier today morning which was weaned off. Was on ventilator settings with FiO2 of 30%, PEEP of 5. He did tolerate pressure support yesterday 04/16 for few hours but because his mentation was not appropriate plan was to keep him intubated. Today he is a little more awake but not following directions. Has been on pressure support again 04/16 for few hours today. Continued on amiodarone drip, heparin drip, fentanyl at 25 and Precedex at 0.2. Heart rate better controlled. Up to 200 cc of drainage from NG tube on intermittent suction overnight Medications: Reviewed: Yes Vitals/I&O/Wt Last Vital Signs Temp 98.8 F 07/21/23 14:43 Pulse 71 07/21/23 14:43 Resp 22 H 07/21/23 14:43 BP 106/37 07/21/23 14:43 Pulse Ox 99 07/21/23 14:43 O2 Del Method Mechanical Ventilation 07/21/23 13:12 O2 Flow Rate 3 07/18/23 10:30 FiO2 30 07/21/23 13:12 07/21/23 07/21/23 07/21/23 06:59 14:59 22:59 Intake Total 1256.468 / 1256.468 366.588 / 1623.056 Output Total Balance 1256.468 / 1256.468 366.588 / 1623.056 Weight last 48 hrs Weight 85.82 kg Weight 85.82 kg Weight 86.5 kg Weight 89.811 kg Weight 87.815 kg Physical Exam 2 Narrative: General: Intubated, less sedated, wakes up to verbal stimulus not following directions HEENT: PERRLA, pupils bilaterally equal and reactive Chest: Bilateral bronchial breath sounds with decreased air entry bilaterally both so in lower zone CVS: S1-S2 regular, soft ejection systolic murmur at aortic area, tachycardia, no gallops, no rubs Abdomen: Distended, generalized tenderness more so in right lower zone, bowel sounds sluggish, mild guarding no rigidity Neuro: No focal deficits, no facial deformity, intubated, less sedated Urinary Catheter Management: Melgar: Cath Placed During This Visit: yes Reason for Continuing Indwelling Catheter: Accurate Measurement of Urinary Output in Critically Ill Patients Urinary Catheter Date of Insertion: 07/17/23 Urinary Catheter Time of Insertion: 15:30 Data 07/21/23 05:45 07/21/23 05:45 Micro: Microbiology 07/17/23 10:55 Blood Culture - Final Blood Streptococcus pneumoniae 07/17/23 10:52 Blood Culture - Final Blood Streptococcus pneumoniae 07/18/23 13:40 Gram Stain - Final Abdomen Anaerobic Culture - Preliminary Abscess Culture - Final 07/18/23 13:40 Gram Stain - Final Peritoneal Fluid Body Fluid Culture - Final 07/18/23 15:20 Gram Stain - Final Sputum - Endotracheal Tube Aspirate Sputum Culture - Final Escherichia coli esbl A&P Assessment and plan (1) Shock: With concerns for sepsis. SIRS: Tachycardic, hypotensive, poor mentation Source: Small bowel obstruction with mesenteric ischemia and intra-abdominal collection End organ damage: Acute infectious encephalopathy, hypotension, elevated lactate Elevated Patient did not receive full 30 mL/kg BW given history of end-stage renal disease on hemodialysis with concerns for fluid overload Monitor blood pressures. Keep mean artery pressure 65 mmHg. Wean Levophed keeping goal blood pressures. Blood cultures from admission positive for strep pneumonia. Sensitivities appreciated. Sputum cultures positive for MRSA and ESBL E. coli. Repeat blood cultures from 07/18 so far negative. Urine Legionella, bacterial antigen negative. For now continue with empiric IV vancomycin and meropenem. Given patient being persistently febrile with history of liver cirrhosis for now we will continue coverage for antifungals with IV fluconazole 200 mg daily. Continue with albumin Q8h (2) Bacteremia due to Streptococcus pneumoniae: Blood culture from admission showing Streptococcus pneumonia. Repeat blood culture sent on 07/18 and so far negative. Appreciate sensitivities. (3) SBO (small bowel obstruction): Appreciate surgical recommendations. Post laparoscopic abdominal washout on 07/17. Follow-up or cultures. Appreciate repeat CT abdomen pelvis done on 07/17 with contrast. Patient was started on tube feeds at 10 cc/h but did not tolerate with residuals of 2 to 150 cc. Overnight NG tube secretion up to 200 cc. Appreciate surgical recommendations. As per surgical recommendations will restart tube feeds at 10 cc/h and monitor for residuals. Start on Reglan 10 mg 3 times daily. Zofran as needed, Protonix twice daily. Monitor electrolytes. (4) Mesenteric ischemia: As seen on CT abdomen pelvis done in the ER. Concerns for portal venous air. Patient has been on a heparin drip. Did not tolerate trickle feeds few days ago. Retrying today. Today patient has developed anemia along with worsening of thrombocytopenia. Discussed in detail with the patient's family at bedside about benefits and the merits of a heparin drip. We discussed that patient does have concerns for bowel ischemia but they could have been in the setting of edema from small bowel obstruction in setting of calcified blood supply to the mesentery in which heparin drip would not help much but unfortunately he has thrombocytopenia which is getting worse and he is at a higher risk of bleeding and even a hemorrhagic stroke. Discussed the risk factors of being on and off of anticoagulation. For now family has opted to hold off on heparin drip. (5) Atrial fibrillation: Heart rate better controlled. Continue with IV amiodarone at 0.5 for now as patient is NPO. Hemodynamics are better. Levophed on and off still going on. Once patient is able to intake orally we will switch to oral amiodarone. Once hemodynamics are better can start on low-dose beta-kim. Till that time we will continue with IV amiodarone. For now we will continue with amiodarone drip even though patient has concerns for liver cirrhosis but unfortunately with hypertension and end-stage renal disease will want to avoid other medications including Cardizem, beta-kim or digoxin. Anticoagulation recently stopped because of hemorrhoidal bleed. (6) Anemia: Acute on chronic. Most likely worsening in setting of severe infection. Also has history of end-stage renal disease. No active signs of bleeding. Recheck iron panel, vitamin B12 LDH, reticulocyte count. Target hemoglobin over 8. Transfused 2 unit of PRBC. Monitor daily for now. (7) Thrombocytopenia: Worsening of baseline thrombocytopenia. Patient thrombocytopenia in setting of liver dysfunction. As hemoglobin is also trending down will transfuse 2 units of platelets. (8) Gastric emphysema: (9) Hypoglycemia: Resolved. Did receive multiple doses of glucagon on admission. Continue with hypoglycemia protocol. Blood sugar check every 6 hourly. Wean hydrocortisone to 50 mg IV daily. Appreciate cortisol levels. (10) Liver cirrhosis: (11) End-stage renal disease on hemodialysis: Consult nephrology for HD. (12) Chronic diastolic heart failure: Last echocardiogram from May 2023 shows an EF of 50 to 55%, biatrial enlargement, moderate MR, mild to moderate mitral stenosis, bioprosthetic aortic valve with mild to moderate elevated pressure gradient across. Received fluid bolus in the ER. Watch for fluid overload. (13) Ascites: (14) Elevated lactic acid level: (15) Goals of care, counseling/discussion: (16) MRSA pneumonia: Plan Respiratory failure: Intubated on 07/17 for OR. Maintain sedation with fentanyl and precedex for now.Patient's RSBI up to 34 but unfortunately has poor physical conditioning and is at high risk of reintubation. Continue to remain on pressure support for now. Plan to put back on full support later at night. Will continue with daily sedation vacation for now. Oxygen supplementation keeping saturation over 90%. ABG daily, chest x-ray. Anesthesia: Daily sedation vacation, after that Precedex and fentanyl Glycemic control: Hypoglycemia protocol. Sugar checks every 6 hourly Nutrition: Restart tube feeds at 10 cc/h today. Hold off and residuals around 200. Start on TPN. CODE STATUS: Discussed in detail with patient's at bedside. is the DPOA. Full code. PUD prophylaxis: Protonix DVT prophylaxis: SCDs. Patient developing anemia and thrombocytopenia worsening Discharge planning: Back to SNF once medically clear Continue with care at ICU. Goals of care discussion: 07/20: Had follow-up discussion again in detail with and daughter at bedside. We discussed that patient is slightly improving from acute illness with pressors coming down but unable to extubate as his mentation and conditioning remains poor with high risk of reintubation. We discussed unfortunately patient has poor quality of life and most likely even if he improves his quality of life will get worsen. Family verbalized understanding and would prefer quality of life. They would want to wait for few more days most likely up to Saturday Before making any further decisions about quality versus quantity of life. 07/17: Had goals of care discussion with and sister at bedside. We discussed unfortunately patient is extremely sick and has been getting sick for last few months with recurrent admissions. Discussed unfortunately currently patient has bowel ischemia and is in shock requiring multiple pressors with his baseline end-stage renal disease and liver cirrhosis he is at a higher risk of poor prognosis. We discussed that patient might not be able to back to his baseline mentation or quality of life. verbalizes understanding and for now would want to continue everything what is needed for him to get better. This documentation was created by [employer] medical records director software. Every effort was made to ensure accuracy of medical records director. Any obvious errors or omissions should be clarified with the author of the document. Attestations 2 Medical Necessity Statement*: Requires further hospitalization for management of septic shock, acute anemia requiring blood transfusion, respiratory failure on ventilator, small bowel obstruction with bowel ischemia in a patient with end-stage renal disease on hemodialysis, liver cirrhosis, ESBL E. coli and MRSA pneumonia along with strep bacteremia Critical Care Time: The high probability of a clinically significant, sudden or life threatening deterioration of the patient's [cardiac, renal, GI, ID, nutrition] system(s) required my full and direct attention, intervention and personal management. The critical care time is as shown. This time is in addition to time spent performing any reported procedures but includes the following: [x] Data and vital sign review and interpretation [x] Patient assessment, examination and intervention [x] Documentation [x] Medication orders and management Critical Care Time (min): 100 Coding Level of Care Code Critical Care >/= 30 minutes Critical care time (in minutes): 100 The high probability of a clinically significant, sudden or life threatening deterioration, as referenced in this documentation, required my full and direct attention, intervention and personal management. The critical care time shown is in addition to time spent performing any reported separately billable procedures and includes the following: [x] Data and vital sign review and interpretation [x ] Patient assessment, examination and intervention [x] Medication orders and management [x] Patient/Family updates as able [x] Care Coordination and Documentation. Other Coding Information This patient has a high probability of clinically significant, sudden or life threatening deterioration of the patient's (neurological/pulmonary/cardiac/renal/ID/endocrine) systems required my full, direct attention, the highest level of physician preparedness for urgent intervention and personal management. I managed/supervised life or organ supporting interventions that required frequent physician assessment. I devoted my full attention in the ICU to the direct care of this patient for the period of time indicated above. Time I spent with family or surrogate(s) is included only if the patient was incapable of providing necessary information or participating in decision making. This time includes the following services provided: Telemetry review Mechanical Ventilation Hemodynamic interpretation, assessment and management Review and interpretation of CXR Review and interpretation of lab values Review and interpretation of microbiologic data and culture results Review of medications and administration Review and interpretation of Nutrition requirements and management Discussion of management with other consultants and services Clinical update to family members Diagnoses Shock R57.9 Bacteremia due to Streptococcus pneumoniae R78.81; B95.3 SBO (small bowel obstruction) K56.609 Mesenteric ischemia K55.9 Atrial fibrillation I48.91 Anemia D64.9 Thrombocytopenia D69.6 Gastric emphysema K29.60 Hypoglycemia E16.2 Liver cirrhosis K74.60 End-stage renal disease on hemodialysis N18.6; Z99.2 Chronic diastolic heart failure I50.32 Ascites R18.8 Elevated lactic acid level R79.89 Goals of care, counseling/discussion Z71.89 MRSA pneumonia J15.212
[2023-07-21 15:40] LABS: Reticulocyte % 1.4 % (0.5-2.0)
[2023-07-21 15:52] LABS: Iron 43 ug/dL (59-158); Lactate Dehydrogenase 234 U/L (135-225)
[2023-07-21] MEDS: metoclopramide 5 mg/mL SDV 2 mL 10 MG IVP ×2 (16:01→23:18)
[2023-07-21 16:04] LABS: Percent Saturation 113.1 % (20-50); Total Iron Binding Capacity 38 mcg/dl; Unsaturated Iron Binding -5 ug/dL (112-347)
[2023-07-21] MEDS: AA-Dex 5%-20% w/Lytes 1,000 ML 42 ML IV (16:17)
[2023-07-21] MEDS: fluconazole premix 100 MG in empty flexible container 1 EACH 50 MG IV (16:25)
[2023-07-21 17:36] LABS: Vitamin B12 > 2000 pg/mL (232-1245)
[2023-07-21 17:41] LABS: Glucose Point of Care 179 mg/dL (70-110)
[2023-07-21] MEDS: acetaminophen 1,000 MG/100 ML PIGGYBACK 400 MG IV (21:03)
[2023-07-22] VITALS (55 sets, daily range): BP systolic 110–151; BP diastolic 36–68; PULSE 78–104; RESP 18–32; TEMP 36.1–39.4; O2SAT 97–100; BMI 27.2
[2023-07-22 01:07] LABS: Glucose Point of Care 222 mg/dL (70-110)
[2023-07-22] MEDS: levalbuterol 0.63 mg/3 mL Neb 0.630000000000000004 MG INHALATION ×4 (01:27→20:02)
[2023-07-22] MEDS: ipratropium 0.5 mg/2.5 mL Neb INHALATION ×4 (01:27→20:02)
[2023-07-22] MEDS: pantoprazole 40 mg SDV IVP ×2 (02:20→16:35)
[2023-07-22] MEDS: dexmedeTOMIDine 0.9 % NaCL 400 MCG/100 ML PREMIX 8.98000000000000043 MCG IV ×2 (03:49→16:44)
[2023-07-22 03:57] LABS: Basophils % 0.3 %; Hematocrit 23.8 % (37-53); Lymphocytes # 0.7 10^3/uL (0.8-4.8); Lymphocytes % 4.9 %; Mean Corpuscular HGB Conc 33.2 g/dL (30-55); Mean Corpuscular Hemoglobin 32.8 pg (27-33); Mean Corpuscular Volume 98.8 fl (82-101); Mean Platelet Volume 11.9 fL (7.4-10.4); Monocytes # 2.2 10^3/uL (0.2-0.9); Monocytes % 14.6 %; Neutrophils # 10.23 10^3/uL (1.8-7.7); Neutrophils % 67.5 %; Nucleated Red Blood Cells # 0.1 /100WBC; Nucleated Red Blood Cells % 0.7 %; Platelet Count 94 10^3/cmm (157-399); Red Blood Count 2.41 10^6/uL (3.85-5.65); Red Cell Distribution Width 20.2 % (12.1-15.1); White Blood Count 15.14 10^3/uL (3.29-11.43)
[2023-07-22 04:24] LABS: Alanine Aminotransferase 8 U/L (0-41); Albumin Level 3.7 g/dL (3.5-5.2); Alkaline Phosphatase 42 U/L (40-130); Anion Gap 18.5 (5-19); Aspartate Amino Transferase 24 U/L (0-40); Blood Urea Nitrogen 54 mg/dL (8-23); Calcium 10.5 mg/dL (8.5-10.5); Carbon Dioxide 25 mmol/L (22-29); Chloride 93 mmol/L (98-107); Creatinine Clr Calc Pharmacy 20.4965; Globulin 1.6 g/dL (1.3-4.6); Glucose 203 mg/dL (65-115); Osmolality Calculated 295 mOsm/kg (285-295); Potassium 4.5 mmol/L (3.5-5.1); Sodium 132 mmol/L (136-145); Total Bilirubin 1.4 mg/dL (0.15-1.2); Total Protein 5.3 g/dL (6.6-8.7)
[2023-07-22 04:28] LABS: Magnesium 2.2 mg/dL (1.7-2.3)
[2023-07-22 05:08] LABS: ABG PCO2 34.9 mmHg (35-45); ABG PH Result 7.46 (7.35-7.45); Arterial Blood Gas Hematocrit 25.1 % (42-52); Base Excess ABG 1.2 mmol/L (-2.0-2.0); Blood Gas Sample Type Arterial; Carboxyhemoglobin 1.7 %THgb (0.4-20.1); HCO3 ABG 24.9 mmol/L (22-26); HGB O2 Sat 95.9 % (95-100); Ionized Calcium Level - ABG 1.4 mmol/L (1.1-1.4); Oxygen Saturation ABG 98.7; Potassium Level - ABG 4.1 mmol/L (3.5-5.0); Total Hemoglobin 8.2 g/dL (14-18)
[2023-07-22 05:09] LABS: Alveolar-Arterial Oxygen Gradi 10.6 mmHg (5-10); Blood Gas Operator Identificat ED; Blood Gas Sample Site Not specified; Oxygen Device VENT; PO2 FiO2 Ratio Arterial Blood 0
[2023-07-22] MEDS: albumin 25 G/100 ML BAG 60 G IV ×3 (06:07→22:36)
[2023-07-22] MEDS: metoclopramide 5 mg/mL SDV 2 mL 10 MG IVP ×3 (06:07→22:36)
--- NOTE | 2023-07-22 09:19 | XRR_ITS ---
PROCEDURE INFORMATION: Exam: XR Chest Exam date and time: 07/22/2023 8:48 AM Age: 73 years old Clinical indication: Fever and shortness of breath TECHNIQUE: Imaging protocol: Radiologic exam of the chest. Views: 1 view. COMPARISON: CR (ABDOMEN, ) 07/20/2023 4:21 AM FINDINGS: Tubes, catheters and devices: Cutaneous pacer lead. NG tube terminates in the body of the stomach. Right arm PICC terminates in the SVC. ETT terminates 5 cm above the zander. Lungs: Unchanged pulmonary vascular congestion. Unchanged bilateral pulmonary edema and/or pneumonitis. Pleural spaces: Unremarkable. No pleural effusion. No pneumothorax. Heart/Mediastinum: Unchanged prosthetic aortic valve. Normal heart size. Bones/joints: Unchanged mild scoliosis with mild and moderate multilevel spondylosis. XR/XR chest 1V portable [id number] IMPRESSION: 1. Unchanged pulmonary vascular congestion. Unchanged pulmonary edema and/or pneumonitis. 2. Additional details as above.
[2023-07-22] MEDS: aspirin 300 mg Supp PR (09:21)
[2023-07-22] MEDS: hydrocortisone 100 mg/2 mL SDV 50 MG IVP (09:28)
[2023-07-22] MEDS: meropenem 500 MG in sodium chloride 0.9% (plus) 50 ML 100 MG IV ×2 (09:34→16:40)
--- NOTE | 2023-07-22 09:39 | P.PN_ITS ---
Subjective 2 Subjective: remains on vent Medications: Reviewed: Yes Vitals/I&O/Wt Last Vital Signs Temp 101.3 F H 07/22/23 19:00 Pulse 88 07/22/23 21:30 Resp 23 H 07/22/23 20:09 BP 140/52 07/22/23 17:00 Pulse Ox 99 07/22/23 21:30 O2 Del Method Mechanical Ventilation 07/22/23 20:09 O2 Flow Rate 3 07/18/23 10:30 FiO2 30 07/22/23 20:09 07/22/23 07/22/23 07/22/23 06:59 14:59 22:59 Intake Total 372.888 / 2249.635 804.494 / 733.880 4319.563 / 2757.057 Output Total 0 / 0 3501 / 3501 Balance 372.888 / 2149.635 804.494 / 804.494 -1548.437 / -743.943 Weight last 48 hrs Weight 90 kg Weight 86.183 kg Weight 86.183 kg Weight 85.82 kg Weight 85.82 kg Physical Exam 2 Narrative: INTUBATED , SEDATED Urinary Catheter Management: Melgar: Cath Placed During This Visit: yes Reason for Continuing Indwelling Catheter: Accurate Measurement of Urinary Output in Critically Ill Patients Urinary Catheter Date of Insertion: 07/17/23 Urinary Catheter Time of Insertion: 15:30 Data 07/22/23 03:40 07/22/23 03:40 Micro: Microbiology 07/18/23 13:40 Gram Stain - Final Abdomen Anaerobic Culture - Preliminary Abscess Culture - Final 07/22/23 07:04 Blood Culture - Preliminary Blood SPECIMEN COLLECTED 07/22/23 06:58 Blood Culture - Preliminary Blood SPECIMEN COLLECTED A&P Assessment and plan (1) End-stage renal disease on hemodialysis: Plan 1. End-stage renal disease: On MWF schedule as outpatient, HD today , off pressors 2. Abdominal pain: s/p laparoscopy and lysis of adhesions 3. Shock: off pressors, monitor, will limit ultrafiltration with HD 4. History of liver cirrhosis 5.resp failure - on vent Has multiple comorbidities, overall poor prognosis -Patient evaluated using audiovisual cart. Time spent 20 minutes. Attestations 2 Medical Necessity Statement*: per medicne Coding Level of Care Code Acute Code for Chg Fwd Diagnoses End-stage renal disease on hemodialysis N18.6; Z99.2
[2023-07-22] MEDS: epoetin alfa 1000 Unit/0.05 mL (ESRD) 20000 UNIT IVP (10:59)
--- NOTE | 2023-07-22 11:21 | US_ITS ---
WS: [id number] Ultrasound thorax. Evaluate fluid. Small to moderate layering RIGHT pleural effusion. No LEFT pleural effusion is identified. IMPRESSION: Small to moderate RIGHT pleural effusion. No identifiable LEFT pleural effusion.
--- NOTE | 2023-07-22 13:02 | PC.NURSE ---
1230 Bladder scan showed 50ml. Repositioned drew.
--- NOTE | 2023-07-22 13:17 | PC.SOCIAL ---
IMM Update pg 2 of IMM updated and reviewed w/ patient's who is @ bedside. Copy provided and copy dated, initialed and placed in chart.
--- NOTE | 2023-07-22 13:27 | CTR_ITS ---
PROCEDURE INFORMATION: Exam: CT Abdomen And Pelvis With Contrast Exam date and time: 07/23/2023 3:41 AM Age: 73 years old Clinical indication: Fever; Additional info: Fever, worsened leukocytosis TECHNIQUE: Imaging protocol: Computed tomography of the abdomen and pelvis with contrast. Radiation optimization: All CT scans at this facility use at least one of these dose optimization techniques: automated exposure control; mA and/or kV adjustment per patient size (includes targeted exams where dose is matched to clinical indication); or iterative reconstruction. Contrast material: OMNI 350; Contrast volume: 80 ml; Contrast route: INTRAVENOUS (IV); COMPARISON: CT abdomen pelvis w con* [id number] 07/18/2023 9:43 AM RADIATION DOSE METRICS: Total DLP (mGy-cm): 1147 FINDINGS: Tubes, catheters and devices: Enteric tube crosses midline with catheter tip in the distal stomach. Urinary bladder is catheterized and decompressed. Lungs: Right lower lobe calcified granuloma. Suspicion of tree-in-bud nodularity of the left lower lobe, however may be artifactual on this examination. Pleural spaces: [id number]-left pleural effusions with associated compressive atelectasis. Heart: Postprocedural changes of the aortic root/valve. Coronary arteries: Severe calcified atherosclerotic disease of the visualized coronary vasculature. Liver: Undulating micronodular contour of the liver suggesting cirrhosis. Gallbladder and bile ducts: Normal. No calcified stones. No ductal dilation. Pancreas: Diffuse fatty atrophy of the pancreas. Spleen: Multiple calcified densities within the spleen, sequela of prior granulomatous disease. Adrenal glands: Nodular hypertrophy of the bilateral adrenal glands. Kidneys and ureters: Bilateral renal atrophy with multiple benign-appearing cysts. Stomach and bowel: Unremarkable. No obstruction. No mucosal thickening. Appendix: No evidence of appendicitis. Intraperitoneal space: Diffuse abdominal ascites is present, there has been interval appearance of large nodular complexity of the left colonic gutter adjacent to the enlarging left flank collection. Vasculature: Severe calcified atherosclerotic disease of the visualized aorta and its major branches. Lymph nodes: Unremarkable. No enlarged lymph nodes. Urinary bladder: Unremarkable as visualized. Reproductive: Unremarkable as visualized. Bones/joints: Severe degenerative change of the visualized osseous structures. L4 wedge deformity with superior endplate transverse linear lucency. Diffuse osteopenia. Soft tissues: Enlarging left flank fluid collection from prior comparison, without definitive rim enhancement, however technique precludes full characterization. Internal Hounsfield measurement suggests soft tissue complexity (series 3 images 19 through 47). Large left gluteal cystic mass with layering attenuation and wall calcifications unchanged from prior comparisons. Other findings: Diffuse anorexia and cachexia. CT/CT abdomen pelvis w con* [id number] IMPRESSION: 1. Enlarging left flank fluid collection without definitive rim enhancement, internally complex with soft tissue attenuation. Adjacent within the intraperitoneal space is nodular soft tissue complexity of the left colonic gutter for example series 3, image 45; series 3, image 75. These findings are new from most recent prior comparison on 07/18/2023, given acuity unlikely to represent neoplasm, more likely to favor hemorrhage and/or inflammatory debris. Correlate with recent procedural history for possible complications from paracentesis given past medical history and past imaging history provided. 2. Moderate sized [id number]-left pleural effusions with associated atelectasis, superimposed infection can not be ruled out. 3. Additional findings as above. COMMENTS: Consistent with the [employer]'s Incidental Findings Committee white paper (J Am Delphine Radiol 2018): Any incidental renal lesion less than 1 cm or classified as too small to characterize, or any incidental cystic renal lesion characterized as simple-appearing, is likely benign. No follow-up imaging is recommended for these lesions per consensus recommendations based on imaging criteria.
--- NOTE | 2023-07-22 13:28 | P.PN_ITS ---
Subjective 2 Subjective: Intubated, sedated, moving intermittently. Vitals/I&O/Wt Last Vital Signs Temp 100.1 F H 07/22/23 10:00 Pulse 90 07/22/23 12:00 Resp 23 H 07/22/23 11:45 BP 151/68 07/22/23 07:18 Pulse Ox 98 07/22/23 12:00 O2 Del Method Mechanical Ventilation 07/22/23 08:24 O2 Flow Rate 3 07/18/23 10:30 FiO2 30 07/22/23 11:45 07/21/23 07/22/23 07/22/23 22:59 06:59 14:59 Intake Total 620.279 / 1876.747 372.888 / 2249.635 178.625 / 178.625 Output Total 100 / 100 0 / 0 Balance 520.279 / 1776.747 372.888 / 2149.635 178.625 / 178.625 Weight last 48 hrs Weight 86.183 kg Weight 86.183 kg Weight 85.82 kg Weight 85.82 kg Weight 86.5 kg Physical Exam 2 Narrative: Undergoing dialysis. Accompanied by family. HENMT: COMMON NORMALS: oropharynx normal Neck/C-Spine: COMMON NORMALS: no JVD Resp: COMMON NORMALS: clear to auscultation bilaterally AUSCULTATION: clear to auscultation bilaterally and diminished lung sounds Cardio: COMMON NORMALS: no JVD, regular rhythm, S1 normal heart sound present, S2 normal heart sound present and No murmurs present (Cardio) RHYTHM: regular rhythm HEART SOUNDS: S1 normal heart sound present and S2 normal heart sound present GI: COMMON NORMALS: Normal to inspection, nondistended, normoactive bowel sounds present, Soft to palpation and non-tender PALPATION: Yes Soft to palpation Extremity: COMMON NORMALS: no joint enlargement OTHER: No pedal edema. 3+ swelling of the left hand continuing to wrist and distal forearm. No erythema, warmth, wounds. Neuro: COMMON NORMALS: moves all extremities Urinary Catheter Management: Melgar: Cath Placed During This Visit: yes Reason for Continuing Indwelling Catheter: Accurate Measurement of Urinary Output in Critically Ill Patients Urinary Catheter Date of Insertion: 07/17/23 Urinary Catheter Time of Insertion: 15:30 Data 07/22/23 03:40 07/22/23 03:40 Micro: Microbiology 07/18/23 13:40 Gram Stain - Final Abdomen Anaerobic Culture - Preliminary Abscess Culture - Final 07/22/23 07:04 Blood Culture - Preliminary Blood SPECIMEN COLLECTED 07/22/23 06:58 Blood Culture - Preliminary Blood SPECIMEN COLLECTED 07/17/23 10:55 Blood Culture - Final Blood Streptococcus pneumoniae 07/17/23 10:52 Blood Culture - Final Blood Streptococcus pneumoniae 07/18/23 13:40 Gram Stain - Final Peritoneal Fluid Body Fluid Culture - Final A&P Assessment and plan (1) Shock: Febrile since yesterday. Leukocytosis worsened today up to 15,000. Requiring 4 mcg/min Levophed. Concern for sepsis, septic shock. Repeat chest x-ray obtained, noted diffuse interstitial changes, pulmonary vascular congestion, unchanged pulmonary edema and/or pneumonitis. Subsequently had dialysis. Discussed with his family, sister and brother at bedside. Discussed additional assessment plan. Blood cultures have been repeated this morning. Requesting chest ultrasound to assess for any accessible effusion to sample. Will additionally obtain CT abdomen pelvis. Continue empiric antibiotic coverage, vancomycin, received dialysis after he had just received a dose of meropenem, discussed with pharmacist, will repeat dose and restart schedule. Bladder scan obtained, 50 mL. Monitor blood pressures. Keep mean artery pressure 65 mmHg. Wean Levophed keeping goal blood pressures. Blood cultures from admission positive for strep pneumonia. Sensitivities appreciated. Sputum cultures positive for MRSA and ESBL E. coli. Repeat blood cultures from 07/18 so far negative. Urine Legionella, bacterial antigen negative. For now continue with empiric IV vancomycin and meropenem. Given patient being persistently febrile with history of liver cirrhosis for now we will continue coverage for antifungals with IV fluconazole 200 mg daily. Continue with albumin Q8h (2) Bacteremia due to Streptococcus pneumoniae: Blood culture from admission showing Streptococcus pneumonia. Repeat blood culture sent on 07/18 and so far negative. Repeat cultures obtained 07/21. Appreciate sensitivities. Continue antibiotic coverage. (3) SBO (small bowel obstruction): Febrile since yesterday, worsening leukocytosis. Repeat imaging with contrast CT abdomen pelvis. Reviewed surgery note. Post laparoscopic abdominal washout on 07/17. Follow-up or cultures. On low rate tube feeds. Reglan 10 mg 3 times daily. Zofran as needed, Protonix twice daily. Monitor electrolytes. (4) Mesenteric ischemia: As seen on CT abdomen pelvis done in the ER. Concerns for portal venous air. Air noted resolved on repeat CT 07/17. Febrile since yesterday. Worsening leukocytosis. Reassess with contrast CT. Had been off heparin drip with significantly worsened platelet level. Repeat CBC requested. Today patient has developed anemia along with worsening of thrombocytopenia. (5) Atrial fibrillation: Heart rate better controlled. Continue with IV amiodarone at 0.5 for now as patient is NPO. Hemodynamics are better. Levophed on and off still going on. Once patient is able to intake orally we will switch to oral amiodarone. Once hemodynamics are better can start on low-dose beta-kmi. Till that time we will continue with IV amiodarone. For now we will continue with amiodarone drip even though patient has concerns for liver cirrhosis but unfortunately with hypertension and end-stage renal disease will want to avoid other medications including Cardizem, beta-kim or digoxin. Anticoagulation recently stopped because of hemorrhoidal bleed. (6) Anemia: Hemoglobin down to 7.9. Recheck CBC. Platelets have increased at least transiently. Recheck. Acute on chronic. Most likely worsening in setting of severe infection. Also has history of end-stage renal disease. No active signs of bleeding. Recheck iron panel, vitamin B12 LDH, reticulocyte count. (7) Thrombocytopenia: Possibly secondary to sepsis. Check DIC profile although D-dimer likely not helpful due to renal dysfunction, surgery. Check LDH, haptoglobin, reticulocyte, peripheral smear. Haptoglobin may also be affected by his liver disease. HIT Ab. Worsening of baseline thrombocytopenia. Patient thrombocytopenia in setting of liver dysfunction. As hemoglobin is also trending down will transfuse 2 units of platelets. (8) Gastric emphysema: Reassess contrast-enhanced CT. (9) Hypoglycemia: Resolved. Did receive multiple doses of glucagon on admission. Continue with hypoglycemia protocol. Blood sugar check every 6 hourly. Wean hydrocortisone to 50 mg IV daily. Appreciate cortisol levels. (10) Liver cirrhosis: (11) End-stage renal disease on hemodialysis: Consult nephrology for HD. (12) Chronic diastolic heart failure: Last echocardiogram from May 2023 shows an EF of 50 to 55%, biatrial enlargement, moderate MR, mild to moderate mitral stenosis, bioprosthetic aortic valve with mild to moderate elevated pressure gradient across. Received fluid bolus in the ER. Watch for fluid overload. (13) Ascites: (14) Elevated lactic acid level: (15) Goals of care, counseling/discussion: (16) MRSA pneumonia: Plan Left hand/distal wrist swelling: Left upper extremity duplex to assess for DVT. Requested to elevate just above heart level. Respiratory failure: Discussed with family, respiratory therapy, nursing, weaning trial today after dialysis. Discussed with family risk of failure of extubation and possibility of need for intubation. Consideration of NIPPV support. Intubated on 07/17 for OR. Maintain sedation with fentanyl and precedex for now. Will continue with daily sedation vacation for now. Oxygen supplementation keeping saturation over 90%. ABG daily, chest x-ray. Anesthesia: Daily sedation vacation, after that Precedex and fentanyl Glycemic control: Hypoglycemia protocol. Sugar checks every 6 hourly Nutrition: Restart tube feeds at 10 cc/h today. Hold off and residuals around 200. TPN. CODE STATUS: Full code. PUD prophylaxis: Protonix DVT prophylaxis: SCDs. Anemia and thrombocytopenia Discharge planning: Back to SNF once medically clear Continue with care at ICU. This documentation was created by [email or web address] safety and health manager software. Every effort was made to ensure accuracy of safety and health manager. Any obvious errors or omissions should be clarified with the author of the document. Attestations 2 Medical Necessity Statement*: Continue admission for assessment management of respiratory failure, sepsis, septic shock, and additional problems syndrome and with underlying ESRD, liver cirrhosis and other comorbidities. Coding Level of Care Code Critical Care >/= 30 minutes Critical care time (in minutes): 45 The high probability of a clinically significant, sudden or life threatening deterioration, as referenced in this documentation, required my full and direct attention, intervention and personal management. The critical care time shown is in addition to time spent performing any reported separately billable procedures and includes the following: [x] Data and vital sign review and interpretation [x ] Patient assessment, examination and intervention [x] Medication orders and management [x] Patient/Family updates as able [x] Care Coordination and Documentation. Diagnoses Shock R57.9 Bacteremia due to Streptococcus pneumoniae R78.81; B95.3 SBO (small bowel obstruction) K56.609 Mesenteric ischemia K55.9 Atrial fibrillation I48.91 Anemia D64.9 Thrombocytopenia D69.6 Gastric emphysema K29.60 Hypoglycemia E16.2 Liver cirrhosis K74.60 End-stage renal disease on hemodialysis N18.6; Z99.2 Chronic diastolic heart failure I50.32 Ascites R18.8 Elevated lactic acid level R79.89 Goals of care, counseling/discussion Z71.89 MRSA pneumonia J15.212
[2023-07-22] MEDS: vancomycin 1,000 MG in sodium chloride 0.9% 250 ML 250 MG IV (13:37)
--- NOTE | 2023-07-22 13:37 | USCV_ITS ---
Anthony Waller Age: 73 Gender: M : 1950 Exam Date: 07/22/2023 16:07 Ordering Phys: Enrike Lee MD Technologist: CT Exam Location: [facility] [place] Indication: PROCEDURES: Venous duplex imaging was performed in only the left upper extremity. In addition, the radial vein and ulnar vein. FINDINGS: The veins of the left upper extremity are readily compressible with normal venous flow dynamics including spontaneous flow, respiratory phasic variation and augmentation. CONCLUSIONS No left upper extremity DVT. Dr. Brittani Murphy DO (Electronically Signed) Final Date: 23 July 2023 08:39 S
--- NOTE | 2023-07-22 13:55 | P.PN_ITS ---
Subjective 2 Subjective: Patient seen and examined. Only on light sedation. He moans when he touch him anywhere. Still no bowel movement Vitals/I&O/Wt Last Vital Signs Temp 103.2 F H 07/23/23 09:15 Pulse 92 07/23/23 13:38 Resp 24 H 07/23/23 13:40 BP 130/41 07/23/23 09:45 Pulse Ox 98 07/23/23 13:40 O2 Del Method Mechanical Ventilation 07/23/23 13:39 O2 Flow Rate 3 07/18/23 10:30 FiO2 30 07/23/23 13:40 07/22/23 07/23/23 07/23/23 22:59 06:59 14:59 Intake Total 1952.563 / 2757.057 1103.745 / 3860.802 340.551 / 340.551 Output Total 3501 / 3501 0 / 3501 Balance -1548.437 / -596.868 9308.745 / 359.802 340.551 / 340.551 Weight last 48 hrs Weight 198 lb 6.656 oz Weight 198 lb 6.656 oz Weight 190 lb Weight 190 lb Physical Exam 2 Narrative: General: Intubated, sedated Abdomen: Soft, nondistended, no grimace to palpation of his abdomen diffusely, no guarding Urinary Catheter Management: Melgar: Cath Placed During This Visit: yes Reason for Continuing Indwelling Catheter: Accurate Measurement of Urinary Output in Critically Ill Patients Urinary Catheter Date of Insertion: 07/17/23 Urinary Catheter Time of Insertion: 15:30 Data 07/23/23 04:56 07/23/23 04:56 Micro: Microbiology 07/22/23 07:04 Blood Culture - Preliminary Blood NEGATIVE TO DATE 07/22/23 06:58 Blood Culture - Preliminary Blood NEGATIVE TO DATE 07/18/23 13:40 Gram Stain - Final Abdomen Anaerobic Culture - Preliminary Abscess Culture - Final A&P Assessment and plan (1) Gastric emphysema: (2) Partial small bowel obstruction: (3) Shock: Resolved (4) Bacteremia due to Streptococcus pneumoniae: Plan Postop day #4 status post diagnostic laparoscopy with extensive laparoscopic lysis of adhesions There was an extensive amount of exudate throughout the abdomen causing a transition point which was relieved operatively. Possible spontaneous bacterial peritonitis-however no growth to date and he is on broad-spectrum antibiotics Start Jevity to 20 mL/h TPN Medical management per hospitalist Very poor prognosis Attestations 2 Medical Necessity Statement*: per primary Coding Level of Care Code Acute Code for Chg Fwd Diagnoses Gastric emphysema K29.60 Partial small bowel obstruction K56.600 Shock R57.9 Bacteremia due to Streptococcus pneumoniae R78.81; B95.3
[2023-07-22 14:28] LABS: Hematocrit 24.4 % (37-53); Retic Production Index 0.92; Reticulocyte % 1.5 % (0.5-2.0)
[2023-07-22 14:37] LABS: Lactate Dehydrogenase 337 U/L (135-225)
[2023-07-22 14:47] LABS: LAB Peripheral Smear Sent for Review
[2023-07-22] MEDS: AA-Dex 5%-20% w/Lytes 1,000 ML 42 ML IV (16:58)
[2023-07-22 17:55] LABS: Blood Urine 3+ (Negative); Glucose Urine UA Trace (Normal); Ketones Urine 1+ (Negative); Nitrate Urine Negative (Negative); Protein Urine 3+ (Negative); Urine Appearance Clear (CLEAR); Urine Color Yellow (Yellow); pH Urine 5 (5-7)
[2023-07-22 17:56] LABS: Bacteria Urine TRACE /hpf; Bilirubin Urine 1+ (Negative); Leukocyte Esterase Urine Trace (Negative); Mucus Urine TRACE /hpf; RBC Urine 0-4 /hpf (0-2); Squamous Epithelial Cell Urine 0-4 /hpf (0-5); Urobilinogen Urine Norm (Negative); WBC Urine 0-4 /hpf (0-5)
[2023-07-22 17:57] LABS: Add Urine Culture? No
[2023-07-22 18:05] LABS: Glucose Point of Care 264 mg/dL (70-110)
[2023-07-22] MEDS: fluconazole premix 100 MG in empty flexible container 1 EACH 50 MG IV (18:10)
[2023-07-22] MEDS: norepinephrine 4 MG/250 ML BAG 15 MG IV (19:23)
[2023-07-23] VITALS (71 sets, daily range): BP systolic 81–142; BP diastolic 26–62; PULSE 80–103; RESP 16–31; TEMP 36.3–39.6; O2SAT 93–99
[2023-07-23] MEDS: dexmedeTOMIDine 0.9 % NaCL 400 MCG/100 ML PREMIX 134.719999999999999 MCG IV ×2 (00:30→05:38)
[2023-07-23 00:36] LABS: Glucose Point of Care 258 mg/dL (70-110)
[2023-07-23] MEDS: pantoprazole 40 mg SDV IVP ×2 (01:57→13:45)
[2023-07-23] MEDS: levalbuterol 0.63 mg/3 mL Neb 0.630000000000000004 MG INHALATION ×4 (02:43→19:48)
[2023-07-23] MEDS: ipratropium 0.5 mg/2.5 mL Neb INHALATION ×4 (02:43→19:48)
[2023-07-23] MEDS: iohexol 350 mg/mL 500 mL Btl (per mL) IV (03:43)
[2023-07-23 04:30] LABS: ABG PCO2 35.2 mmHg (35-45); ABG PH Result 7.47 (7.35-7.45); Arterial Blood Gas Hematocrit 24.6 % (42-52); Blood Gas Allen Test Pos; Blood Gas Sample Site ARTLINE; Blood Gas Sample Type Arterial; HCO3 ABG 25.7 mmol/L (22-26); Oxygen Device VENT; PO2 ABG 73.2 mmHg (80.0-100.0); PO2 FiO2 Ratio Arterial Blood 0
[2023-07-23 05:51] LABS: Hematocrit 24.2 % (37-53); Mean Corpuscular HGB Conc 31.8 g/dL (30-55); Mean Corpuscular Hemoglobin 32.2 pg (27-33); Mean Corpuscular Volume 101.3 fl (82-101); Mean Platelet Volume 12.6 fL (7.4-10.4); Platelet Count 89 10^3/cmm (157-399); Red Blood Count 2.39 10^6/uL (3.85-5.65); Red Cell Distribution Width 20.5 % (12.1-15.1); White Blood Count 20.27 10^3/uL (3.29-11.43)
[2023-07-23 06:18] LABS: Magnesium 2.2 mg/dL (1.7-2.3)
[2023-07-23 06:35] LABS: Alanine Aminotransferase 11 U/L (0-41); Albumin Level 3.7 g/dL (3.5-5.2); Alkaline Phosphatase 50 U/L (40-130); Aspartate Amino Transferase 37 U/L (0-40); Blood Urea Nitrogen 47 mg/dL (8-23); Calcium 10.2 mg/dL (8.5-10.5); Carbon Dioxide 23 mmol/L (22-29); Chloride 96 mmol/L (98-107); Creatinine Clr Calc Pharmacy 25.9885; Globulin 1.6 g/dL (1.3-4.6); Glucose 184 mg/dL (65-115); Osmolality Calculated 297 mOsm/kg (285-295); Sodium 135 mmol/L (136-145); Total Bilirubin 1.1 mg/dL (0.15-1.2); Total Protein 5.3 g/dL (6.6-8.7)
[2023-07-23 06:50] LABS: Slide Review Slide Review Perform
[2023-07-23 06:51] LABS: Absolute Segmented Neutrophil 15.6 10/cmm (1.6-7.1); Band Neutrophils Absolute 0.6 10^3/cmm (0.0-1.2); Eosinophils 0 %; Lymphocytes 5 %; Lymphocytes Absolute 1.2 10^3/cmm (1.2-3.4); Segmented Neutrophils 77 %; Total Cells Counted 100 (0-100)
[2023-07-23 06:52] LABS: Absolute Neutrophil 16.2 10^3/cmm (1.4-6.5); Anisocytosis 1+; Platelet Estimate Decreased (Normal)
[2023-07-23 06:53] LABS: Macrocytosis 1+
[2023-07-23 06:55] LABS: Glucose Point of Care 228 mg/dL (70-110)
[2023-07-23] MEDS: dexmedeTOMIDine 0.9 % NaCL 400 MCG/100 ML PREMIX 13.4700000000000006 MCG IV ×3 (07:30→23:02)
--- NOTE | 2023-07-23 07:48 | PC.NURSE ---
spiked bag of fentenyl in hanging never given destroyed by this nurse and witnessed by liza
[2023-07-23] MEDS: metoclopramide 5 mg/mL SDV 2 mL 10 MG IVP ×3 (08:19→23:02)
[2023-07-23] MEDS: albumin 25 G/100 ML BAG 60 G IV ×3 (08:19→23:02)
[2023-07-23] MEDS: hydrocortisone 100 mg/2 mL SDV 50 MG IVP (08:20)
[2023-07-23] MEDS: acetaminophen 325 mg Tablet 650 MG PO ×2 (08:20→17:33)
[2023-07-23] MEDS: aspirin 300 mg Supp PR (09:08)
--- NOTE | 2023-07-23 10:40 | P.PN_ITS ---
Subjective 2 Subjective: reains on vent Medications: Reviewed: Yes Vitals/I&O/Wt Last Vital Signs Temp 103.2 F H 07/23/23 09:15 Pulse 92 07/23/23 09:45 Resp 21 H 07/23/23 10:12 BP 130/41 07/23/23 09:45 Pulse Ox 97 07/23/23 10:12 O2 Del Method Mechanical Ventilation 07/23/23 09:45 O2 Flow Rate 3 07/18/23 10:30 FiO2 30 07/23/23 10:12 07/22/23 07/23/23 07/23/23 22:59 06:59 14:59 Intake Total 1952.563 / 2757.057 1103.745 / 3860.802 10.551 / 10.551 Output Total 3501 / 3501 0 / 3501 Balance -1548.437 / -775.188 2866.745 / 359.802 10.551 / 10.551 Weight last 48 hrs Weight 90 kg Weight 90 kg Weight 86.183 kg Weight 86.183 kg Physical Exam 2 Narrative: INTUBATED , SEDATED Urinary Catheter Management: Melgar: Cath Placed During This Visit: yes Reason for Continuing Indwelling Catheter: Accurate Measurement of Urinary Output in Critically Ill Patients Urinary Catheter Date of Insertion: 07/17/23 Urinary Catheter Time of Insertion: 15:30 Data 07/23/23 04:56 07/23/23 04:56 Micro: Microbiology 07/22/23 07:04 Blood Culture - Preliminary Blood NEGATIVE TO DATE 07/22/23 06:58 Blood Culture - Preliminary Blood NEGATIVE TO DATE 07/18/23 13:40 Gram Stain - Final Abdomen Anaerobic Culture - Preliminary Abscess Culture - Final A&P Assessment and plan (1) End-stage renal disease on hemodialysis: Plan 1. End-stage renal disease: On MWF schedule as outpatient, HD tomorrow , off pressors 2. Abdominal pain: s/p laparoscopy and lysis of adhesions , Ct findings noted 3. Shock: off pressors, monitor, will limit ultrafiltration with HD 4. History of liver cirrhosis 5.resp failure - on vent Has multiple comorbidities, overall poor prognosis -Patient evaluated using audiovisual cart. Time spent 20 minutes. Attestations 2 Medical Necessity Statement*: per mediicne team Coding Level of Care Code Acute Code for Chg Fwd Diagnoses End-stage renal disease on hemodialysis N18.6; Z99.2
--- NOTE | 2023-07-23 10:53 | P.PN_ITS ---
Subjective 2 Subjective: remains on vent Medications: Reviewed: Yes Vitals/I&O/Wt Last Vital Signs Temp 103.2 F H 07/23/23 09:15 Pulse 92 07/23/23 09:45 Resp 21 H 07/23/23 10:12 BP 130/41 07/23/23 09:45 Pulse Ox 97 07/23/23 10:12 O2 Del Method Mechanical Ventilation 07/23/23 09:45 O2 Flow Rate 3 07/18/23 10:30 FiO2 30 07/23/23 10:12 07/22/23 07/23/23 07/23/23 22:59 06:59 14:59 Intake Total 1952.563 / 2757.057 1103.745 / 3860.802 340.551 / 340.551 Output Total 3501 / 3501 0 / 3501 Balance -1548.437 / -938.734 9201.745 / 359.802 340.551 / 340.551 Weight last 48 hrs Weight 90 kg Weight 90 kg Weight 86.183 kg Weight 86.183 kg Physical Exam 2 Narrative: INTUBATED , SEDATED Urinary Catheter Management: Melgar: Cath Placed During This Visit: yes Reason for Continuing Indwelling Catheter: Accurate Measurement of Urinary Output in Critically Ill Patients Urinary Catheter Date of Insertion: 07/17/23 Urinary Catheter Time of Insertion: 15:30 Data 07/23/23 04:56 07/23/23 04:56 Micro: Microbiology 07/22/23 07:04 Blood Culture - Preliminary Blood NEGATIVE TO DATE 07/22/23 06:58 Blood Culture - Preliminary Blood NEGATIVE TO DATE 07/18/23 13:40 Gram Stain - Final Abdomen Anaerobic Culture - Preliminary Abscess Culture - Final A&P Assessment and plan (1) End-stage renal disease on hemodialysis: Plan 1. End-stage renal disease: On MWF schedule as outpatient, HD tomorrow , off pressors 2. Abdominal pain: s/p laparoscopy and lysis of adhesions , Ct findings noted 3. Shock: off pressors, monitor, will limit ultrafiltration with HD 4. History of liver cirrhosis 5.resp failure - on vent Has multiple comorbidities, overall poor prognosis -Patient evaluated using audiovisual cart. Time spent 20 minutes. Coding Level of Care Code Acute Code for Chg Fwd Diagnoses End-stage renal disease on hemodialysis N18.6; Z99.2
[2023-07-23] MEDS: norepinephrine 4 MG/250 ML BAG 3.75 MG IV (12:00)
--- NOTE | 2023-07-23 12:05 | USCV_ITS ---
Anthony Waller Age: 73 Gender: M : 1950 Exam Date: 07/23/2023 13:21 Ordering Phys: Enrike Lee MD Technologist: Exam Location: [facility] – [place] Indication: ? veg BP: 140 / 70 HR: Rhythm: Sinus Technical Quality: Adequate MEASUREMENTS (Male / Female) Normal Values 2D ECHO IVC Diameter 2.5 cm M-MODE LA Ao Ratio MM 1.5 AV Cusp Separation MM 2.0 cm FINDINGS Left Ventricle Technically limited quality echocardiogram because of poor ultrasonic windows. LV systolic function is borderline normal with EF of 50-55%. Mild global hypokinesis. Right Ventricle Grossly normal Right Atrium Dilated Left Atrium Dilated Mitral Valve Mild to moderate mitral annular calcification. Echogenic structure seen in left ventricle in proximity to mitral valve. Likely calcified chordae tendinae. Cannot rule out vegetation secondary to limited visualization. Mild to moderate mitral regurgitation Aortic Valve Possible bioprosthetic aortic valve. Limited visualization. No obvious vegetation seen. Doppler exam not performed Tricuspid Valve Not well visualized Pulmonic Valve Not well visualized Pericardium Normal Aorta Normal in size IVC Not well visualized CONCLUSIONS LV systolic function is borderline normal with EF of 50-55%. Biatrial enlargement. Echogenic structure seen in left ventricle in proximity to mitral valve. Likely calcified chordae tendon. Cannot rule out vegetation. However same structure seen on the echocardiogram from 05/2023. Mild to moderate mitral regurgitation. Possible bioprosthetic aortic valve. No obvious vegetation seen Scooby Estrada MD (Electronically Signed) Final Date: 23 July 2023 16:58 S
[2023-07-23 12:24] LABS: Ammonia 27 umol/L (16-60)
[2023-07-23 12:43] LABS: Glucose Point of Care 236 mg/dL (70-110)
[2023-07-23] MEDS: meropenem 500 MG in sodium chloride 0.9% (plus) 50 ML 100 MG IV (13:46)
--- NOTE | 2023-07-23 14:02 | P.PN_ITS ---
Subjective 2 Subjective: Patient seen and examined. Tolerating tube feeds at 20. He moans when he touch him anywhere. On light sedation Vitals/I&O/Wt Last Vital Signs Temp 103.2 F H 07/23/23 09:15 Pulse 92 07/23/23 13:38 Resp 24 H 07/23/23 13:40 BP 130/41 07/23/23 09:45 Pulse Ox 98 07/23/23 13:40 O2 Del Method Mechanical Ventilation 07/23/23 13:39 O2 Flow Rate 3 07/18/23 10:30 FiO2 30 07/23/23 13:40 07/22/23 07/23/23 07/23/23 22:59 06:59 14:59 Intake Total 1952.563 / 2757.057 1103.745 / 3860.802 340.551 / 340.551 Output Total 3501 / 3501 0 / 3501 Balance -1548.437 / -068.882 1281.745 / 359.802 340.551 / 340.551 Weight last 48 hrs Weight 198 lb 6.656 oz Weight 198 lb 6.656 oz Weight 190 lb Weight 190 lb Physical Exam 2 Narrative: General: Intubated, sedated Abdomen: Soft, nondistended, no grimace to palpation of his abdomen diffusely, no guarding Urinary Catheter Management: Melgar: Cath Placed During This Visit: yes Reason for Continuing Indwelling Catheter: Accurate Measurement of Urinary Output in Critically Ill Patients Urinary Catheter Date of Insertion: 07/17/23 Urinary Catheter Time of Insertion: 15:30 Data 07/23/23 04:56 07/23/23 04:56 Micro: Microbiology 07/22/23 07:04 Blood Culture - Preliminary Blood NEGATIVE TO DATE 07/22/23 06:58 Blood Culture - Preliminary Blood NEGATIVE TO DATE 07/18/23 13:40 Gram Stain - Final Abdomen Anaerobic Culture - Preliminary Abscess Culture - Final A&P Assessment and plan (1) Gastric emphysema: (2) Partial small bowel obstruction: (3) Shock: Resolved (4) Bacteremia due to Streptococcus pneumoniae: Plan Postop day #5 status post diagnostic laparoscopy with extensive laparoscopic lysis of adhesions There was an extensive amount of exudate throughout the abdomen causing a transition point which was relieved operatively. No unexpected findings in the abdomen on CT. He had extensive exudate throughout his abdomen, especially left-sided, on diagnostic laparoscopy. He also had a left-sided obturator hernia that was not incarcerated leading to ascites in his left proximal thigh. Cultures have been negative to date of the ascitic fluid Strep pneumoniae bacteremia Antibiotics per hospitalist Increase Jevity to goal of 50 mL/h and 10 mL increments every 4 hours TPN to run out once at goal Medical management per hospitalist Very poor prognosis Attestations 2 Medical Necessity Statement*: Per primary Coding Level of Care Code Acute Code for Chg Fwd Diagnoses Gastric emphysema K29.60 Partial small bowel obstruction K56.600 Shock R57.9 Bacteremia due to Streptococcus pneumoniae R78.81; B95.3
[2023-07-23] MEDS: fluconazole premix 100 MG in empty flexible container 1 EACH 50 MG IV (16:53)
[2023-07-23] MEDS: AA-Dex 5%-20% w/Lytes 1,000 ML 42 ML IV (16:54)
--- NOTE | 2023-07-23 19:20 | PC.NURSE ---
Shift summary: Pt remains intubated. He does have some reflexive movement (his mouth making O and his left foot flexing up) and seems to localize to pain but that is all the response noted today. He is on Precedex at 0.6mcg/kg/hr, Amio at 0.5 mg/min and TPN. We were able to wean off Levophed today. He has Nepro tube feeding infusing at 40 ml/hr. 50ml/hr is goal. His residuals have been low today. He remains febrile 103.2 to 100.5 today. He has been treated with acetaminophen twice this shift. He is edematous in his arms and abdomen. He has a puffy area on his left hip from fluid. He is no making no urine. Family has been very attentive at bedside.
[2023-07-23 19:37] LABS: Glucose Point of Care 323 mg/dL (70-110)
[2023-07-23 19:37] LABS: Glucose Point of Care 340 mg/dL (70-110)
[2023-07-23 19:37] LABS: Glucose Point of Care 582 mg/dL (70-110)
--- NOTE | 2023-07-23 21:03 | P.PN_ITS ---
Subjective 2 Subjective: Intubated, mechanically ventilated, occasionally moving his head, biting tube, not responding or making eye contact. Vitals/I&O/Wt Last Vital Signs Temp 97.4 F L 07/23/23 19:00 Pulse 81 07/23/23 19:53 Resp 20 H 07/23/23 19:53 BP 128/39 07/23/23 19:00 Pulse Ox 99 07/23/23 19:53 O2 Del Method Mechanical Ventilation 07/23/23 19:53 O2 Flow Rate 3 07/18/23 10:30 FiO2 30 07/23/23 19:53 07/23/23 07/23/23 07/23/23 06:59 14:59 22:59 Intake Total 1103.745 / 3860.802 676.176 / 955.907 4132 / 2206.176 Output Total 0 / 3501 0 / 0 Balance 1103.745 / 359.802 676.176 / 489.924 4559 / 2206.176 Weight last 48 hrs Weight 90 kg Weight 90 kg Weight 86.183 kg Weight 86.183 kg Physical Exam 2 Narrative: Undergoing dialysis. Accompanied by family. Const: ORIENTATION/CONSCIOUSNESS: Yes confused and Yes Other orientation findings (Minimally conscious.) HENMT: COMMON NORMALS: oropharynx normal Neck/C-Spine: COMMON NORMALS: no JVD Resp: COMMON NORMALS: normal respiratory effort and clear to auscultation bilaterally AUSCULTATION: clear to auscultation bilaterally and diminished lung sounds Cardio: COMMON NORMALS: no JVD, regular rhythm, S1 normal heart sound present, S2 normal heart sound present and No murmurs present (Cardio) RHYTHM: regular rhythm HEART SOUNDS: S1 normal heart sound present and S2 normal heart sound present GI: COMMON NORMALS: Normal to inspection, nondistended, normoactive bowel sounds present, Soft to palpation and non-tender PALPATION: Yes Soft to palpation Extremity: COMMON NORMALS: no joint enlargement OTHER: No pedal edema. 3+ swelling of the left hand continuing to wrist and distal forearm. No erythema, warmth, wounds. Neuro: COMMON NORMALS: moves all extremities Urinary Catheter Management: Melgar: Cath Placed During This Visit: yes Reason for Continuing Indwelling Catheter: Accurate Measurement of Urinary Output in Critically Ill Patients Urinary Catheter Date of Insertion: 07/17/23 Urinary Catheter Time of Insertion: 15:30 Data 07/23/23 04:56 07/23/23 04:56 Micro: Microbiology 07/18/23 13:40 Gram Stain - Final Abdomen Anaerobic Culture - Preliminary Abscess Culture - Final 07/22/23 07:04 Blood Culture - Preliminary Blood NEGATIVE TO DATE 07/22/23 06:58 Blood Culture - Preliminary Blood NEGATIVE TO DATE A&P Assessment and plan (1) Shock: Reviewed vitals, CBC, ABG, CMP, CT abdomen pelvis, venous duplex, discussed with surgery, patient and family, concern with persistent sepsis, rising leukocytosis up to 20.27, recurrent fevers. Requested thoracentesis, however, would not be performed due to him receiving aspirin. As per discussion with family we held aspirin for plans for thoracentesis. Discussed CT findings with surgery, recommending against aspiration of collection at this time. Monitor for any outward signs of abscess, currently low likelihood for surgery, recommending surgery for additional sources of infection. Seems echocardiogram was previously considered. Requested echocardiogram. On review has echogenic structure in the left ventricle proximal to mitral valve, suspected calcified chordae tendon, vegetation not excluded, however. But same structure also seen back in May 2023. Will discuss with cardiology with regards to consideration of EDWARD. Blood cultures were collected yesterday morning, follow-up. Continue empiric antibiotic coverage with meropenem, vancomycin. Requiring pressor, continue hemodynamic support, wean down as able. Additionally persistent encephalopathy as below. Discussed his overall condition as well as significant comorbidities including end-stage renal failure, liver cirrhosis, discussed alternative courses with family, consideration of comfort care. For now they are not there yet but will be keeping that option in mind. Febrile since yesterday. Leukocytosis worsened today up to 15,000. Requiring 4 mcg/min Levophed. Concern for sepsis, septic shock. Repeat chest x-ray obtained, noted diffuse interstitial changes, pulmonary vascular congestion, unchanged pulmonary edema and/or pneumonitis. Subsequently had dialysis. Discussed with his family, sister and brother at bedside. Discussed additional assessment plan. Blood cultures have been repeated this morning. Requesting chest ultrasound to assess for any accessible effusion to sample. Will additionally obtain CT abdomen pelvis. Continue empiric antibiotic coverage, vancomycin, received dialysis after he had just received a dose of meropenem, discussed with pharmacist, will repeat dose and restart schedule. Bladder scan obtained, 50 mL. Monitor blood pressures. Keep mean artery pressure 65 mmHg. Wean Levophed keeping goal blood pressures. Blood cultures from admission positive for strep pneumonia. Sensitivities appreciated. Sputum cultures positive for MRSA and ESBL E. coli. Repeat blood cultures from 07/18 so far negative. Urine Legionella, bacterial antigen negative. For now continue with empiric IV vancomycin and meropenem. Given patient being persistently febrile with history of liver cirrhosis for now we will continue coverage for antifungals with IV fluconazole 200 mg daily. Continue with albumin Q8h (2) Encephalopathy: Persistent encephalopathy, has been off fentanyl since the , still not waking up, moving his head, occasionally biting on the tube. Not responding or making eye contact. Requested ammonia, reviewed, normal. Discussed with family we will check CT head. In case without further improvement consideration of lumbar puncture. (3) Bacteremia due to Streptococcus pneumoniae: Blood culture from admission showing Streptococcus pneumonia. Repeat blood culture sent on 07/18 and so far negative. Repeat cultures obtained 07/21. Appreciate sensitivities. Continue antibiotic coverage. (4) SBO (small bowel obstruction): Febrile since yesterday, worsening leukocytosis. Repeat imaging with contrast CT abdomen pelvis. Reviewed surgery note. Continues on TPN. Tube feeds were advanced as well. Post laparoscopic abdominal washout on 07/17. Follow-up or cultures. On low rate tube feeds. Reglan 10 mg 3 times daily. Zofran as needed, Protonix twice daily. Monitor electrolytes. (5) Mesenteric ischemia: As seen on CT abdomen pelvis done in the ER. Concerns for portal venous air. Air noted resolved on repeat CT 07/17. Febrile since yesterday. Worsening leukocytosis. Discussed reassessment CT with surgery and family. Was also reassessed by surgery at bedside. Reviewed surgery note. Had been off heparin drip with significantly worsened platelet level. Repeat CBC requested. Today patient has developed anemia along with worsening of thrombocytopenia. (6) Atrial fibrillation: Heart rate better controlled. Continue with IV amiodarone at 0.5 for now as patient is NPO. Hemodynamics are better. Levophed on and off still going on. Once patient is able to intake orally we will switch to oral amiodarone. Once hemodynamics are better can start on low-dose beta-kim. Till that time we will continue with IV amiodarone. For now we will continue with amiodarone drip even though patient has concerns for liver cirrhosis but unfortunately with hypertension and end-stage renal disease will want to avoid other medications including Cardizem, beta-kim or digoxin. Anticoagulation recently stopped because of hemorrhoidal bleed. (7) Anemia: Hemoglobin down to 7.7. Recheck CBC. Platelets have increased at least transiently. Recheck. Acute on chronic. Most likely worsening in setting of severe infection. Also has history of end-stage renal disease. No active signs of bleeding. Recheck iron panel, vitamin B12 LDH, reticulocyte count. (8) Thrombocytopenia: Possibly secondary to sepsis. Check DIC profile although D-dimer likely not helpful due to renal dysfunction, surgery. Check LDH, haptoglobin, reticulocyte, peripheral smear. Haptoglobin may also be affected by his liver disease. HIT Ab. Worsening of baseline thrombocytopenia. Patient thrombocytopenia in setting of liver dysfunction. As hemoglobin is also trending down will transfuse 2 units of platelets. (9) Gastric emphysema: Stomach and bowel unremarkable on repeat contrast-enhanced CT. (10) Hypoglycemia: Resolved. Did receive multiple doses of glucagon on admission. Continue with hypoglycemia protocol. Blood sugar check every 6 hourly. Wean hydrocortisone to 50 mg IV daily. Appreciate cortisol levels. (11) Liver cirrhosis: (12) End-stage renal disease on hemodialysis: Consult nephrology for HD. (13) Chronic diastolic heart failure: Last echocardiogram from May 2023 shows an EF of 50 to 55%, biatrial enlargement, moderate MR, mild to moderate mitral stenosis, bioprosthetic aortic valve with mild to moderate elevated pressure gradient across. Received fluid bolus in the ER. Watch for fluid overload. (14) Ascites: (15) Elevated lactic acid level: (16) Goals of care, counseling/discussion: (17) MRSA pneumonia: Plan Left hand/distal wrist swelling: Reviewed duplex, negative for DVT. Left upper extremity duplex to assess for DVT. Requested to elevate just above heart level. Respiratory failure: Was unable to extubate yesterday, today with worsening leukocytosis, persistent fevers, pressor requirement. Additionally persistent encephalopathy, fentanyl has been off since 07/20, so far not waking up, not following commands. Obtain CT head. Awaiting thoracentesis. Intubated on 07/17 for OR. Precedex for now. Will continue with daily sedation vacation for now. Oxygen supplementation keeping saturation over 90%. ABG daily, chest x-ray. Anesthesia: Daily sedation vacation, after that Precedex and fentanyl Glycemic control: Hypoglycemia protocol. Sugar checks every 6 hourly Nutrition: Restart tube feeds at 10 cc/h today. Hold off and residuals around 200. TPN. CODE STATUS: Full code. PUD prophylaxis: Protonix DVT prophylaxis: SCDs. Anemia and thrombocytopenia Discharge planning: Back to SNF once medically clear Continue with care at ICU. This documentation was created by [employer] pharmaceutical plant operator software. Every effort was made to ensure accuracy of pharmaceutical plant operator. Any obvious errors or omissions should be clarified with the author of the document. Attestations 2 Medical Necessity Statement*: Continue admission for assessment of management of sepsis, septic shock, encephalopathy, respiratory failure. Coding Level of Care Code Critical Care >/= 30 minutes Critical care time (in minutes): 50 The high probability of a clinically significant, sudden or life threatening deterioration, as referenced in this documentation, required my full and direct attention, intervention and personal management. The critical care time shown is in addition to time spent performing any reported separately billable procedures and includes the following: [x] Data and vital sign review and interpretation [x ] Patient assessment, examination and intervention [x] Medication orders and management [x] Patient/Family updates as able [x] Care Coordination and Documentation. Diagnoses Shock R57.9 Encephalopathy G93.40 Bacteremia due to Streptococcus pneumoniae R78.81; B95.3 SBO (small bowel obstruction) K56.609 Mesenteric ischemia K55.9 Atrial fibrillation I48.91 Anemia D64.9 Thrombocytopenia D69.6 Gastric emphysema K29.60 Hypoglycemia E16.2 Liver cirrhosis K74.60 End-stage renal disease on hemodialysis N18.6; Z99.2 Chronic diastolic heart failure I50.32 Ascites R18.8 Elevated lactic acid level R79.89 Goals of care, counseling/discussion Z71.89 MRSA pneumonia J15.212
[2023-07-23 21:35] LABS: Reflex FDPQ test REFLEX FDP QUEST TES
[2023-07-23 22:17] LABS: INR 1.84 (0.8-1.2)
[2023-07-23 22:18] LABS: Partial Thromboplastin Time 39.8 SECONDS (23.9-36.7)
[2023-07-23 22:20] LABS: Fibrinogen 189 mg/dL (174-498)
[2023-07-23 22:29] LABS: D Dimer 5.05 ug/mLFEU (0-0.59)
[2023-07-23] MEDS: insulin lispro 100 unit/1 mL SUBCUT (23:01)
[2023-07-24] VITALS (34 sets, daily range): BP systolic 88–130; BP diastolic 40–69; PULSE 77–109; RESP 10–60; TEMP 38.1–38.3; O2SAT 88–100
[2023-07-24 00:08] LABS: Glucose Point of Care 273 mg/dL (70-110)
[2023-07-24 01:23] LABS: Glucose Point of Care 154 mg/dL (70-110)
[2023-07-24] MEDS: pantoprazole 40 mg SDV IVP (01:24)
[2023-07-24] MEDS: ipratropium 0.5 mg/2.5 mL Neb INHALATION ×2 (02:29→07:57)
[2023-07-24] MEDS: levalbuterol 0.63 mg/3 mL Neb 0.630000000000000004 MG INHALATION ×2 (02:29→07:57)
[2023-07-24] MEDS: chlorhexidine gluconate 4% Btl 118 mL 1 APPLIC TOPICAL (05:03)
[2023-07-24 05:06] LABS: Basophils % 0.1 %; Hematocrit 22.3 % (37-53); Lymphocytes % 4.7 %; Mean Corpuscular HGB Conc 31.8 g/dL (30-55); Mean Corpuscular Hemoglobin 32.1 pg (27-33); Mean Corpuscular Volume 100.9 fl (82-101); Mean Platelet Volume 12.9 fL (7.4-10.4); Monocytes # 2.7 10^3/uL (0.2-0.9); Monocytes % 12.4 %; Neutrophils # 16.33 10^3/uL (1.8-7.7); Neutrophils % 75.8 %; Nucleated Red Blood Cells # 0.2 /100WBC; Nucleated Red Blood Cells % 0.7 %; Platelet Count 99 10^3/cmm (157-399); Red Blood Count 2.21 10^6/uL (3.85-5.65); Red Cell Distribution Width 21.2 % (12.1-15.1); White Blood Count 21.56 10^3/uL (3.29-11.43)
[2023-07-24 05:31] LABS: Magnesium 2.2 mg/dL (1.7-2.3)
[2023-07-24 05:34] LABS: Alanine Aminotransferase 13 U/L (0-41); Albumin Level 3.5 g/dL (3.5-5.2); Alkaline Phosphatase 48 U/L (40-130); Anion Gap 21.4 (5-19); Aspartate Amino Transferase 48 U/L (0-40); Blood Urea Nitrogen 65 mg/dL (8-23); Calcium 10.2 mg/dL (8.5-10.5); Carbon Dioxide 21 mmol/L (22-29); Chloride 93 mmol/L (98-107); Creatinine Clr Calc Pharmacy 20.3694; Globulin 1.9 g/dL (1.3-4.6); Glucose 235 mg/dL (65-115); Osmolality Calculated 298 mOsm/kg (285-295); Potassium 4.4 mmol/L (3.5-5.1); Sodium 131 mmol/L (136-145); Total Protein 5.4 g/dL (6.6-8.7)
[2023-07-24 05:35] LABS: Vancomycin Random 23.5 ug/mL (20.0-40.0)
[2023-07-24 05:51] LABS: Slide Review Slide Review Perform
[2023-07-24] MEDS: metoclopramide 5 mg/mL SDV 2 mL 10 MG IVP ×2 (06:16→14:22)
[2023-07-24] MEDS: albumin 25 G/100 ML BAG 60 G IV (06:17)
[2023-07-24] MEDS: dexmedeTOMIDine 0.9 % NaCL 400 MCG/100 ML PREMIX 13.4700000000000006 MCG IV (06:20)
[2023-07-24] MEDS: hydrocortisone 100 mg/2 mL SDV 50 MG IVP (09:22)
--- NOTE | 2023-07-24 09:45 | PC.SOCIAL ---
IMM Update pg 2 of IMM updated and reviewed w/ patients . Copy provided and copy dated, initialed and placed in chart.
--- NOTE | 2023-07-24 10:05 | PC.NURSE ---
MTS notified of pt on vent, family wish to withdraw care.
--- NOTE | 2023-07-24 10:17 | P.PN_ITS ---
Subjective 2 Subjective: family considering comfort care Medications: Reviewed: Yes Vitals/I&O/Wt Last Vital Signs Temp 100.9 F H 07/24/23 04:00 Pulse 86 07/24/23 07:57 Resp 20 H 07/24/23 08:00 BP 125/42 07/24/23 06:00 Pulse Ox 99 07/24/23 08:00 O2 Del Method Mechanical Ventilation 07/24/23 07:57 O2 Flow Rate 3 07/18/23 10:30 FiO2 30 07/24/23 08:00 07/23/23 07/24/23 07/24/23 22:59 06:59 14:59 Intake Total 1833 / 2509.176 390.592 / 2899.768 100 / 100 Output Total 0 / 0 Balance 1833 / 2509.176 390.592 / 2899.768 100 / 100 Weight last 48 hrs Weight 93.2 kg Weight 90 kg Weight 90 kg Physical Exam 2 Narrative: INTUBATED , SEDATED Urinary Catheter Management: Melgar: Cath Placed During This Visit: yes Reason for Continuing Indwelling Catheter: Accurate Measurement of Urinary Output in Critically Ill Patients Urinary Catheter Date of Insertion: 07/17/23 Urinary Catheter Time of Insertion: 15:30 Data 07/24/23 04:52 07/24/23 04:52 Micro: Microbiology 07/19/23 06:10 Blood Culture - Final Blood NO GROWTH AFTER 5 DAYS 07/19/23 06:06 Blood Culture - Final Blood NO GROWTH AFTER 5 DAYS 07/18/23 13:40 Gram Stain - Final Abdomen Anaerobic Culture - Preliminary Abscess Culture - Final 07/22/23 07:04 Blood Culture - Preliminary Blood NEGATIVE TO DATE 07/22/23 06:58 Blood Culture - Preliminary Blood NEGATIVE TO DATE A&P Assessment and plan (1) End-stage renal disease on hemodialysis: Plan 1. End-stage renal disease: On MWF schedule as outpatient, , off pressors 2. Abdominal pain: s/p laparoscopy and lysis of adhesions , Ct findings noted 3. Shock: off pressors, monitor, 4. History of liver cirrhosis 5.resp failure - on vent Has multiple comorbidities, overall poor prognosis, family considering comfort care -Patient evaluated using audiovisual cart. Time spent 20 minutes. Attestations 2 Medical Necessity Statement*: per chiquis Coding Level of Care Code Acute Code for Chg Fwd Diagnoses End-stage renal disease on hemodialysis N18.6; Z99.2
--- NOTE | 2023-07-24 11:33 | P.PN_ITS ---
Subjective 2 Subjective: On mechanical ventilatory support. Occasionally moving his head, occasionally biting the ET tube. Responding or interacting. Vitals/I&O/Wt Last Vital Signs Temp 100.5 F H 07/24/23 07:30 Pulse 101 H 07/24/23 10:30 Resp 11 L 07/24/23 10:30 BP 130/44 07/24/23 10:30 Pulse Ox 98 07/24/23 10:30 O2 Del Method Mechanical Ventilation 07/24/23 10:30 O2 Flow Rate 3 07/18/23 10:30 FiO2 30 07/24/23 10:30 07/23/23 07/24/23 07/24/23 22:59 06:59 14:59 Intake Total 1833 / 2509.176 390.592 / 2899.768 192.927 / 192.927 Output Total 0 / 0 Balance 1833 / 2509.176 390.592 / 2899.768 192.927 / 192.927 Weight last 48 hrs Weight 93.2 kg Weight 90 kg Weight 90 kg Physical Exam 2 Narrative: Accompanied by family. Const: ORIENTATION/CONSCIOUSNESS: Yes confused and Yes Other orientation findings (Minimally conscious.) HENMT: COMMON NORMALS: oropharynx normal Neck/C-Spine: COMMON NORMALS: no JVD Resp: COMMON NORMALS: normal respiratory effort and clear to auscultation bilaterally AUSCULTATION: clear to auscultation bilaterally and diminished lung sounds Cardio: COMMON NORMALS: no JVD, regular rhythm, S1 normal heart sound present, S2 normal heart sound present and No murmurs present (Cardio) RHYTHM: regular rhythm HEART SOUNDS: S1 normal heart sound present and S2 normal heart sound present GI: COMMON NORMALS: Normal to inspection, nondistended, normoactive bowel sounds present, Soft to palpation and non-tender PALPATION: Yes Soft to palpation Extremity: COMMON NORMALS: no joint enlargement OTHER: No pedal edema. 3+ swelling of the left hand continuing to wrist and distal forearm. No erythema, warmth, wounds. Neuro: COMMON NORMALS: moves all extremities Urinary Catheter Management: Melgar: Cath Placed During This Visit: yes Reason for Continuing Indwelling Catheter: Accurate Measurement of Urinary Output in Critically Ill Patients Urinary Catheter Date of Insertion: 07/17/23 Urinary Catheter Time of Insertion: 15:30 Data 07/24/23 04:52 07/24/23 04:52 Micro: Microbiology 07/18/23 13:40 Gram Stain - Final Abdomen Anaerobic Culture - Preliminary Abscess Culture - Final 07/19/23 06:10 Blood Culture - Final Blood NO GROWTH AFTER 5 DAYS 07/19/23 06:06 Blood Culture - Final Blood NO GROWTH AFTER 5 DAYS 07/22/23 07:04 Blood Culture - Preliminary Blood NEGATIVE TO DATE 07/22/23 06:58 Blood Culture - Preliminary Blood NEGATIVE TO DATE A&P Assessment and plan (1) Comfort measures only status: Reviewed vitals, CBC, DIC profile, CMP, magnesium, Vanco trough, echocardiogram. Further plans were going to be made for additional assessment including a mobile mass in left ventricle possible chordae tendon calcification versus vegetation, further assessment including thoracentesis, possible lumbar puncture, however, in view of lack of progress, severity of condition and underlying comorbidities based on discussions with providers including prior hospitalist family have come to the consensus of discontinuing further invasive life support measures and transitioning to let nature take its course with transition to comfort measures alone. Discussed course of action, discontinuation of mechanical ventilatory support, pressors, IV antibiotics, other invasive measures. Institution of comfort measures including for pain, anxiety, any other discomfort. Discussed with nursing staff. Discussed with rn case management. Reviewed surgery note. (2) Shock: Reviewed vitals, CBC, ABG, CMP, CT abdomen pelvis, venous duplex, discussed with surgery, patient and family, concern with persistent sepsis, rising leukocytosis up to 20.27, recurrent fevers. Requested thoracentesis, however, would not be performed due to him receiving aspirin. As per discussion with family we held aspirin for plans for thoracentesis. Discussed CT findings with surgery, recommending against aspiration of collection at this time. Monitor for any outward signs of abscess, currently low likelihood for surgery, recommending surgery for additional sources of infection. Seems echocardiogram was previously considered. Requested echocardiogram. On review has echogenic structure in the left ventricle proximal to mitral valve, suspected calcified chordae tendon, vegetation not excluded, however. But same structure also seen back in May 2023. Will discuss with cardiology with regards to consideration of EDWARD. Blood cultures were collected yesterday morning, follow-up. Continue empiric antibiotic coverage with meropenem, vancomycin. Requiring pressor, continue hemodynamic support, wean down as able. Additionally persistent encephalopathy as below. Discussed his overall condition as well as significant comorbidities including end-stage renal failure, liver cirrhosis, discussed alternative courses with family, consideration of comfort care. For now they are not there yet but will be keeping that option in mind. Febrile since yesterday. Leukocytosis worsened today up to 15,000. Requiring 4 mcg/min Levophed. Concern for sepsis, septic shock. Repeat chest x-ray obtained, noted diffuse interstitial changes, pulmonary vascular congestion, unchanged pulmonary edema and/or pneumonitis. Subsequently had dialysis. Discussed with his family, sister and brother at bedside. Discussed additional assessment plan. Blood cultures have been repeated this morning. Requesting chest ultrasound to assess for any accessible effusion to sample. Will additionally obtain CT abdomen pelvis. Continue empiric antibiotic coverage, vancomycin, received dialysis after he had just received a dose of meropenem, discussed with pharmacist, will repeat dose and restart schedule. Bladder scan obtained, 50 mL. Monitor blood pressures. Keep mean artery pressure 65 mmHg. Wean Levophed keeping goal blood pressures. Blood cultures from admission positive for strep pneumonia. Sensitivities appreciated. Sputum cultures positive for MRSA and ESBL E. coli. Repeat blood cultures from 07/18 so far negative. Urine Legionella, bacterial antigen negative. For now continue with empiric IV vancomycin and meropenem. Given patient being persistently febrile with history of liver cirrhosis for now we will continue coverage for antifungals with IV fluconazole 200 mg daily. Continue with albumin Q8h (3) Encephalopathy: Persistent encephalopathy, has been off fentanyl since the , still not waking up, moving his head, occasionally biting on the tube. Not responding or making eye contact. Requested ammonia, reviewed, normal. Discussed with family we will check CT head. In case without further improvement consideration of lumbar puncture. (4) Bacteremia due to Streptococcus pneumoniae: Blood culture from admission showing Streptococcus pneumonia. Repeat blood culture sent on 07/18 and so far negative. Repeat cultures obtained 07/21. Appreciate sensitivities. Continue antibiotic coverage. (5) SBO (small bowel obstruction): Febrile since yesterday, worsening leukocytosis. Repeat imaging with contrast CT abdomen pelvis. Reviewed surgery note. Continues on TPN. Tube feeds were advanced as well. Post laparoscopic abdominal washout on 07/17. Follow-up or cultures. On low rate tube feeds. Reglan 10 mg 3 times daily. Zofran as needed, Protonix twice daily. Monitor electrolytes. (6) Mesenteric ischemia: As seen on CT abdomen pelvis done in the ER. Concerns for portal venous air. Air noted resolved on repeat CT 07/17. Febrile since yesterday. Worsening leukocytosis. Discussed reassessment CT with surgery and family. Was also reassessed by surgery at bedside. Reviewed surgery note. Had been off heparin drip with significantly worsened platelet level. Repeat CBC requested. Today patient has developed anemia along with worsening of thrombocytopenia. (7) Atrial fibrillation: Heart rate better controlled. Continue with IV amiodarone at 0.5 for now as patient is NPO. Hemodynamics are better. Levophed on and off still going on. Once patient is able to intake orally we will switch to oral amiodarone. Once hemodynamics are better can start on low-dose beta-kim. Till that time we will continue with IV amiodarone. For now we will continue with amiodarone drip even though patient has concerns for liver cirrhosis but unfortunately with hypertension and end-stage renal disease will want to avoid other medications including Cardizem, beta-kim or digoxin. Anticoagulation recently stopped because of hemorrhoidal bleed. (8) Anemia: Hemoglobin down to 7.7. Recheck CBC. Platelets have increased at least transiently. Recheck. Acute on chronic. Most likely worsening in setting of severe infection. Also has history of end-stage renal disease. No active signs of bleeding. Recheck iron panel, vitamin B12 LDH, reticulocyte count. (9) Thrombocytopenia: Possibly secondary to sepsis. Check DIC profile although D-dimer likely not helpful due to renal dysfunction, surgery. Check LDH, haptoglobin, reticulocyte, peripheral smear. Haptoglobin may also be affected by his liver disease. HIT Ab. Worsening of baseline thrombocytopenia. Patient thrombocytopenia in setting of liver dysfunction. As hemoglobin is also trending down will transfuse 2 units of platelets. (10) Gastric emphysema: Stomach and bowel unremarkable on repeat contrast-enhanced CT. (11) Hypoglycemia: Resolved. Did receive multiple doses of glucagon on admission. Continue with hypoglycemia protocol. Blood sugar check every 6 hourly. Wean hydrocortisone to 50 mg IV daily. Appreciate cortisol levels. (12) Liver cirrhosis: (13) End-stage renal disease on hemodialysis: Consult nephrology for HD. (14) Chronic diastolic heart failure: Last echocardiogram from May 2023 shows an EF of 50 to 55%, biatrial enlargement, moderate MR, mild to moderate mitral stenosis, bioprosthetic aortic valve with mild to moderate elevated pressure gradient across. Received fluid bolus in the ER. Watch for fluid overload. (15) Ascites: (16) Elevated lactic acid level: (17) Goals of care, counseling/discussion: (18) MRSA pneumonia: Plan Left hand/distal wrist swelling: Reviewed duplex, negative for DVT. Left upper extremity duplex to assess for DVT. Requested to elevate just above heart level. Respiratory failure: Was unable to extubate yesterday, today with worsening leukocytosis, persistent fevers, pressor requirement. Additionally persistent encephalopathy, fentanyl has been off since 07/20, so far not waking up, not following commands. Obtain CT head. Awaiting thoracentesis. Intubated on 07/17 for OR. Precedex for now. Will continue with daily sedation vacation for now. Oxygen supplementation keeping saturation over 90%. ABG daily, chest x-ray. Anesthesia: Daily sedation vacation, after that Precedex and fentanyl Glycemic control: Hypoglycemia protocol. Sugar checks every 6 hourly Nutrition: Restart tube feeds at 10 cc/h today. Hold off and residuals around 200. TPN. CODE STATUS: Full code. PUD prophylaxis: Protonix DVT prophylaxis: SCDs. Anemia and thrombocytopenia Discharge planning: Back to SNF once medically clear Continue with care at ICU. This documentation was created by [employer] general farm manager software. Every effort was made to ensure accuracy of general farm manager. Any obvious errors or omissions should be clarified with the author of the document. Attestations 2 Medical Necessity Statement*: Continue admission following transition to comfort measures alone in the setting of septic shock, respiratory failure, encephalopathy and comorbidities as above. Diagnoses Comfort measures only status Z51.5 Shock R57.9 Encephalopathy G93.40 Bacteremia due to Streptococcus pneumoniae R78.81; B95.3 SBO (small bowel obstruction) K56.609 Mesenteric ischemia K55.9 Atrial fibrillation I48.91 Anemia D64.9 Thrombocytopenia D69.6 Gastric emphysema K29.60 Hypoglycemia E16.2 Liver cirrhosis K74.60 End-stage renal disease on hemodialysis N18.6; Z99.2 Chronic diastolic heart failure I50.32 Ascites R18.8 Elevated lactic acid level R79.89 Goals of care, counseling/discussion Z71.89 MRSA pneumonia J15.212
--- NOTE | 2023-07-24 11:50 | PC.NURSE ---
Pt transitioned to comfort care. Pt extubated. NG removed. Art line removed intact. Pressure and pressure dressing applied until hemostasis obtained. RIght wrist IV removed intact. NO redness or bleeding noted. Face washed and oral care provided. Morphine admin for his comfort. He is now on 2lpm/NC. Family to bedside.
[2023-07-24] MEDS: morphine 4 mg/mL SDV 1 mL 2 MG IVP (11:51)
[2023-07-24] MEDS: blistex lip oint 7 gm Tube 1 APPLIC TOPICAL (12:58)
[2023-07-24] MEDS: morphine 4 mg/mL SDV 1 mL IVP ×5 (12:58→23:47)
[2023-07-24] MEDS: glycopyrrolate 0.2 mg/mL SDV 2 mL 0.200000000000000011 MG IV ×2 (17:29→23:08)
--- NOTE | 2023-07-24 19:52 | PC.NURSE ---
Shift summary: Pt intubated this am. Precedex weaned off. Pt slightly response to paiinful stimuli, he is still doingthe reflexive movements with his mouth. Family decide he has been through enough and transitioned to comfort care. ETT, et, NG, art line and peripheral IVs removed. Pt now on 2lpm/NC. He is still making that movement with his mouth. He is staring without threat blink at this time. His heart rate is 110-120's. His O2 sats remain greater than 90%. His lungs now sound wet with crackles. His right hand is weeping slightly from the edema. He has recieved Morphine 4 times this shift for comfort and Glycopyrrolate once for secretions. Family staying at bedside.
[2023-07-24] MEDS: atropine 1% op soln 2 mL Btl 3 DROP SUBLINGUAL (20:18)
[2023-07-25] VITALS: PULSE 111; O2SAT 94
[2023-07-25] MEDS: morphine 4 mg/mL SDV 1 mL IVP ×3 (00:08→05:32)
[2023-07-25 02:00] VITALS: PULSE 118; O2SAT 93
[2023-07-25] MEDS: atropine 1% op soln 2 mL Btl 3 DROP SUBLINGUAL ×2 (03:05→06:19)
[2023-07-25 04:00] VITALS: PULSE 116; O2SAT 92
[2023-07-25 06:00] VITALS: PULSE 110; O2SAT 94
[2023-07-25 08:00] VITALS: PULSE 111; RESP 21; TEMP 39.1; O2SAT 93
--- NOTE | 2023-07-25 10:22 | PC.NURSE ---
TOD: 1015. DR Lee notified via telephone
--- NOTE | 2023-07-25 10:30 | PC.NURSE ---
MTs notified of . Tyrone Garza. Referral # [id number]
--- NOTE | 2023-07-25 11:02 | PM.DDS ---
Discharge Providers DDS Date of Admission: 07/17/23 12:01 Date Summary Completed: 07/25/23 Attending Provider at Admission: Shemar Vaughn MD Time of : 10:15 Attending Provider at Discharge: Enrike Lee Primary Care Provider: Laya Devlin Diagnoses Hospital Diagnoses (1) Comfort measures only status: (2) Shock: (3) Encephalopathy: (4) Bacteremia due to Streptococcus pneumoniae: (5) SBO (small bowel obstruction): (6) Mesenteric ischemia: (7) Atrial fibrillation: (8) Anemia: (9) Thrombocytopenia: (10) Gastric emphysema: (11) Hypoglycemia: (12) Liver cirrhosis: (13) End-stage renal disease on hemodialysis: (14) Chronic diastolic heart failure: (15) Ascites: (16) Elevated lactic acid level: (17) Goals of care, counseling/discussion: (18) MRSA pneumonia: Reason for Visit Reason for Visit SOB, abd pain Summary Date and Time of Date of : 07/25/23 Time of : 10:15 Summary Summary: 73-year-old gentleman with a history of ESRD on hemodialysis, liver cirrhosis, multiple admissions in the last few months, recent COVID-19, 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, diastolic congestive heart failure, atrial fibrillation, PVD, HTN, HLD, TIA, other medical problems was admitted after presenting with shortness of breath and abdominal pain, presented with shock, found to have small bowel obstruction, mesenteric ischemia and septic shock, persistent hypoglycemia, atrial fibrillation with RVR, ascites, fluid overload, was started on antibiotic therapy, with finding of small bowel obstruction, peritonitis, underwent exploratory laparoscopy, with finding of extensive intra-abdominal adhesions and purulence, incidentally left anterior hand area without incarceration, underwent laparoscopic lysis of adhesions, fluid was sent for culture. He was initially on heparin drip, but this was discontinued with worsened thrombocytopenia. With intra-abdominal purulence diagnosed with SBP. Blood cultures returned positive for strep pneumonia and sputum cultures positive for MRSA and ESBL E. coli. With pulmonary opacities, pleural effusions diagnosed with pneumonia likely the source of streptococcal bacteremia. Required Levophed support for septic shock. Continued on mechanical ventilatory support, sedation weaned off to allow her to wake up, although initially waking up slightly encephalopathy did not improve further. Continues spiking fevers, rising leukocytosis, CT abdomen pelvis was repeated, blood cultures repeated. Left flank collection per discussion of surgery likely due to nonincarcerated left inguinal hernia without signs of infection, otherwise unremarkable. Repeat blood cultures so far remain without growth. He was started on tube feeds and TPN. Aspirin has been held to allow for thoracentesis. Echocardiogram additionally revealed echogenic structure in proximity to mitral valve in the left ventricle suspected chordae tendon calcification previously seen on echo 06/05, but vegetation not ruled out, mild to moderate mitral regurgitation, further investigations were considered including head CT, lumbar puncture, EEG, EDWARD, however, with lack of improvement, significant comorbidities, overall poor prognosis family did not find that further life support and workup would have been congruent with goals of care given his situation and invasive supportive treatment measures were discontinued in favor of comfort care alone. He accompanied by family at 1015 this morning. Discharge Plan Discharge Patient Disposition: Condition: Prescriptions: No Action docusate sodium [Colace] 100 mg capsule 100 mg PO TID cholecalciferol (vitamin D3) 125 mcg (5,000 unit) capsule 125 mcg PO DAILY@07 simethicone [Gas-X Extra Strength] 125 mg capsule 125 mg PO Q6H PRN (Reason: Gastric Reflux) carvedilol 3.125 mg tablet 3.125 mg PO BID@08,20 escitalopram oxalate 10 mg tablet 10 mg PO DAILY@07 aspirin 81 mg Tablet,Delayed Release (Dr/Ec) 81 mg PO DAILY@07 fluticasone propionate 50 mcg/actuation [place],Suspension 1 spray INTRANASAL DAILY@07 Rx Instructions: administer into each nostril Velphoro 500 mg tablet,chewable See Rx Instructions .ROUTE .COMPLEX Rx Instructions: Crush or chew 1 tablets (500 mg) orally 3 times daily before meals. Dialyvite 800 with Zinc 15 0.8-15 mg tablet 1 tab PO DAILY@07 hydrocodone-acetaminophen 5-325 mg tablet 1 tab PO Q6H PRN (Reason: pain) Qty: 20 0RF fluticasone furoate-vilanterol [Breo Ellipta] 100-25 mcg/dose blister with device 1 inh inhalation DAILY@07 bisacodyl [Dulcolax (bisacodyl)] 10 mg Suppository 10 mg [place] DAILY PRN (Reason: Constipation) pantoprazole 40 mg tablet,delayed release (DR/EC) 40 mg PO DAILY@07 furosemide 40 mg Tablet See Rx Instructions .ROUTE .COMPLEX Rx Instructions: Take 40 mg by mouth daily on Saturday, Saturday and Saturday. furosemide 80 mg tablet See Rx Instructions .ROUTE .COMPLEX Rx Instructions: Take 80 mg by mouth daily on Saturday, , Saturday, and Saturday. Referrals: [facility] [Outside] Laya Devlin PA [Primary Care Provider] - Patient Instructions: Opioid Safety DS Attestations Time Spent in /Discharge Care*: greater than 30 min Quality - AMI: AMI present?: No Quality - Stroke: CVA present?: No Quality - VTE: VTE present?: No Coding Level of Care Code 12291 Total time (in minutes) for Discharge: 45 Diagnoses Comfort measures only status Z51.5 Shock R57.9 Encephalopathy G93.40 Bacteremia due to Streptococcus pneumoniae R78.81; B95.3 SBO (small bowel obstruction) K56.609 Mesenteric ischemia K55.9 Atrial fibrillation I48.91 Anemia D64.9 Thrombocytopenia D69.6 Gastric emphysema K29.60 Hypoglycemia E16.2 Liver cirrhosis K74.60 End-stage renal disease on hemodialysis N18.6; Z99.2 Chronic diastolic heart failure I50.32 Ascites R18.8 Elevated lactic acid level R79.89 Goals of care, counseling/discussion Z71.89 MRSA pneumonia J15.212
--- NOTE | 2023-07-25 11:40 | PC.NURSE ---
Body transferred to [facility] [place].
--- NOTE | 2023-07-25 11:50 | PC.NURSE ---
MTS released. Alonso from [facility] just released .
[2023-07-25 14:09] LABS: Heparin-Induced Platelet AB Negative (Negative)
[2023-08-02 06:45] LABS: Fibrinogen Degradation Product 10 mcg/mL (LESS THAN 5)
== END 2023-07-25 10:15 | disposition expired | DRG 853 ==
LOC: ER 11:45 → ICU 12:02
PROVIDERS: Family Medicine; Hospitalist; Student in an Organized Health Care Education/Training Program; Surgery; Admitting Provider Student in an Organized Health Care Education/Training Program; Emergency Provider Emergency Medicine; PCP Physician Assistant; Visit Provider Internal Medicine
PROC: 0DN84ZZ Release Small Intestine, Percutaneous Endoscopic Approach (ICD-10-PCS; CPT 44120; 2023-07-18 11:05)
PROC: 0DN84ZZ Release Small Intestine, Percutaneous Endoscopic Approach (ICD-10-PCS; 2023-07-18 11:05)
DX: A41.9 Sepsis, unspecified organism (principal); G93.41 Metabolic encephalopathy; R65.21 Severe sepsis with septic shock; K55.059 Acute (reversible) ischemia of intestine, part and extent unspecified; K65.2 Spontaneous bacterial peritonitis; N18.6 End stage renal disease; J15.212 Pneumonia due to Methicillin resistant Staphylococcus aureus; K56.51 Intestinal adhesions [bands], with partial obstruction; I13.2 Hypertensive heart and chronic kidney disease with heart failure and with stage 5 chronic kidney disease, or end stage renal disease; I50.32 Chronic diastolic (congestive) heart failure; E87.20 Acidosis, unspecified; Z99.11 Dependence on respirator [ventilator] status; F32.A Depression, unspecified; D63.1 Anemia in chronic kidney disease; E11.51 Type 2 diabetes mellitus with diabetic peripheral angiopathy without gangrene; I48.91 Unspecified atrial fibrillation; K70.31 Alcoholic cirrhosis of liver with ascites; D69.6 Thrombocytopenia, unspecified; E16.2 Hypoglycemia, unspecified; M79.89 Other specified soft tissue disorders; E87.70 Fluid overload, unspecified; B96.20 Unspecified Escherichia coli [E. coli] as the cause of diseases classified elsewhere; K59.00 Constipation, unspecified; B95.3 Streptococcus pneumoniae as the cause of diseases classified elsewhere; K45.8 Other specified abdominal hernia without obstruction or gangrene; I34.0 Nonrheumatic mitral (valve) insufficiency; Z51.5 Encounter for palliative care; Z79.82 Long term (current) use of aspirin; Z86.16 Personal history of COVID-19; Z99.2 Dependence on renal dialysis; Z86.73 Personal history of transient ischemic attack (TIA), and cerebral infarction without residual deficits; Z95.3 Presence of xenogenic heart valve
CPT/HCPCS: 36415; 36416; 36430; 36573; 36592; 36600; 51702; 51798; 71045; 71250; 72148; 74018; 74022; 74176; 74177; 76604; 80051; 80053; 80074; 80202; 80503; 81001; 82140; 82330; 82533; 82607; 82803; 82805; 82962; 83010; 83540; 83550; 83605; 83615; 83690; 83735; 83880; 84100; 84145; 85007; 85014; 85025; 85045; 85362; 85378; 85384; 85610; 85730; 86022; 86403; 86850; 86900; 86920; 86927; 87040; 87070; 87075; 87077; 87150; 87186; 87205; 87449; 87641; 90935; 93005; 93308; 93325; 93971; 94002; 94003; 94640; 94664; 94799; 96365; 96367; 96372; 96375; 96376; 99291; A4222; A4570; C1751; C9113; J0131; J0171; J0283; J0330; J1450; J1610; J1644; J1720; J1815; J2185; J2270; J2405; J2598; J2704; J2720; J2765; J3010; J3370; J3490; J7030; J7040; J7050; J7614; J7644; J7799; P9016; P9017; P9035; P9045; P9046; P9047; Q3014; Q4081; Q9967